=== PATIENT | female | born 1940 | race African-American/Black ===

== ENCOUNTER 2016-10-14 08:15 | Inpatient (IN) ==
[2016-10-14 08:54] LABS: Prothrombin Time 10.5 Seconds (9.4-12.1)
[2016-10-14 09:03] LABS: Calcium 9.7 mg/dL (8.6-10.8); Potassium 5.1 mEq/L (3.5-4.5)
[2016-10-14 09:12] LABS: Basophils % 0.2 %; Eosinophils # 0.1 K/mcL (0.0-0.6); Eosinophils % 1.7 %; Hematocrit 32.9 % (35.3-44.9); Hemoglobin 10.3 g/dL (11.5-15.4); Immature Granulocytes % 0.3 % (0-4); Immature Platelets 2.2 % (1.1-6.1); Lymphocytes # 0.9 K/mcL (0.6-4.6); Lymphocytes % 13.4 %; Mean Corpuscular HGB Conc 31.3 g/dL (31.6-35.5); Mean Corpuscular Hemoglobin 29.4 pg (28.0-33.3); Mean Platelet Volume 10.4 fL (9.4-12.4); Monocytes # 0.2 K/mcL (0.0-1.3); Monocytes % 3.5 %; Neutrophils # 5.3 K/mcL (1.6-8.9); Platelet Count 161 K/mcL (140-400); Red Cell Distribution Width 17.2 % (11.5-14.5); Segmented Neutrophils % 80.9 %
[2016-10-14] MEDS ORDERED: Aspirin 325 MG TABLET PO ONE (10:18)
[2016-10-14] MEDS ORDERED: Nitroglycerin 1 INCH/GM PACKET TP ONE (10:18)
[2016-10-14] MEDS ORDERED: Furosemide 80 MG in 0.9 % Sodium Chloride 50 ML IVPB ONE (10:24)
[2016-10-14] MEDS ORDERED: 0.9 % Sodium Chloride 1,000 ML IVC SCH (10:30)
[2016-10-14] MEDS: Nitroglycerin 25 MG/250 ML INFUS..BTL IVC SCH ×2 (10:31→18:12)
[2016-10-14 10:48] LABS: ABG Base Excess -7.1 mEq/L (-2.0 to 3.0); ABG HCO3 18.7 mEQ/L (21-27); ABG Oxygen Saturation 96 % (95-98); ABG PCO2 38 mmHg (35-45); ABG PO2 87 mmHg (85-104); ABG TCO2 19.9 mEq/L (20-26)
[2016-10-14 10:51] LABS: Blood Gas FiO2 40 %
--- NOTE | 2016-10-14 15:37 | Emergency Department Note ---
Disposition Clinical Impression: Flash pulmonary edema Disposition: Transfer Other Condition: Good Referrals: Griffin Ochoa MD [Primary Care Provider] - Forms: ED Satisfaction Letter Chest Pain HPI - General Chief Complaint: ED Chest Pain Stated Complaint: CP/low BP Source: patient, EMS Limitations: no limitations Vital Signs Reviewed: Yes Nursing Notes Reviewed: Yes - History of Present Illness HPI Narrative: This is a 76-year-old female presents from a nursing facility with concern for chest pain. Ultimately she has pain which is pressure like going into her neck which started acutely this morning. The senior living reported that she was hypotensive. She was not hypotensive on arrival here. She actually looked quite well on arrival here. She has complaints of mild dyspnea accompanying with her chest pain. Severity scale (1-10): 0 - Related Data Home Medications Medication Instructions Recorded Confirmed Aspirin [Lo-Dose Aspirin EC] 81 mg PO DAILY 06/12/16 10/14/16 Atorvastatin [Lipitor] 80 mg PO HS 06/12/16 10/14/16 BuPROPion SR (12 HR) [Wellbutrin 150 mg PO BID 06/12/16 10/14/16 SR] Cholecalciferol (D-3) [Vitamin D] 5,000 unit PO DAILY 06/12/16 10/14/16 Clopidogrel [Plavix] 75 mg PO DAILY 06/12/16 10/14/16 Cyanocobalamin (Vitamin B-12) 1,000 mcg SL DAILY 06/12/16 10/14/16 [Vitamin B-12] Furosemide [Lasix] 20 mg PO DAILY 06/12/16 10/14/16 Glimepiride [Amaryl] 1 mg PO DAILY 06/12/16 10/14/16 Lisinopril [Zestril] 40 mg PO DAILY 06/12/16 10/14/16 Oxybutynin Chloride [Ditropan Xl] 5 mg PO DAILY 06/12/16 10/14/16 hydroCHLOROthiazide 12.5 mg PO DAILY 06/12/16 10/14/16 [Hydrochlorothiazide] Carvedilol 3.125 mg PO BID 10/14/16 10/14/16 Isosorbide DInitrate [Isosorbide 10 mg PO TID 10/14/16 10/14/16 Dinitrate] Potassium Chloride [K-Tab ER] 10 meq PO DAILY 10/14/16 10/14/16 Sodium Bicarbonate 650 mg PO BID 10/14/16 10/14/16 hydrALAZINE [HydrALAZINE] 10 mg PO TID 10/14/16 10/14/16 Allergies Allergy/AdvReac Type Severity Reaction Status Date / Time Penicillins Allergy Hives Verified 06/12/16 14:36 Chest Pain PMH - Past Medical History Medical history: Reports: COPD, diabetes, GERD, hyperlipidemia, hypertension, myocardial infarction, renal disease Psychiatric history: Reports: anxiety - Social History Smoking Status: Former smoker Alcohol use: Reports: none Drug use: Reports: none Physical Exam - General Limitations: no limitations General appearance: alert Course Vital Signs O2 Sat by Pulse Oximetry 94 10/14/16 08:20 Temperature 98.0 F 10/14/16 08:29 Pulse Rate 82 10/14/16 16:44 Respiratory Rate 18 10/14/16 16:44 Blood Pressure 124/73 10/14/16 16:44 O2 Sat by Pulse Oximetry 100 10/14/16 16:44 Oxygen Delivery Oxygen Delivery Bipap Chest Pain - MDM Narrative Medical decision making narrative: During her departmental stay she experienced flash pulmonary edema and required emergent BiPAP placement. She was started on high dose nitroglycerin infusion. Furosemide as well as Villalobos catheter was placed. Arouse very status improved on BiPAP as well as with nitroglycerin administration. Cardiac biomarkers were trended and showed some elevation however this likely represents underlying heart failure. A stat bedside echocardiogram was performed to rule out possible pulmonary embolism given acute decompensation. There is no evidence of heart strain on bedside echo. EKG shows new right bundle-branch block. I did discuss this case with the on-call cardiology rn who does not feel this patient has a catheter lab candidate at this time. Plan for supportive care, cardiology consultation. I did admit the patient to the intensive care unit however the intensivists discussed the case with the family and the family would like to transfer to [facility] for further evaluation. The patient be transferred via MICU to [facility] after discussion with the [facility] transfer center. EKG at time of transfer shows sinus rhythm with right bundle branch block and nonspecific ST segment changes. The proBNP was found to be elevated. After the discussion with the ocean freight forwarder and disposition for transfer a bed was not available to [facility] and the family did not want the patient transported to their emergency department. I discussed with the family that the patient could be admitted here and they do not want to have the patient transferred to [facility] any longer. We will admit to the hospitalist service. The patient will go to [facility]. - Medical Records Medical records reviewed: Yes I reviewed the patient's medical records. - Lab Data Lab results reviewed: Yes I reviewed the patient's lab results. Result diagrams: 10/14/16 08:40 10/14/16 08:40 Lab Results 10/14/16 10/14/16 10/14/16 Range/Units 08:40 08:40 08:40 WBC 6.5 (4.3-11.1) K/mcL RBC 3.50 L (3.82-4.97) M/mcL Hgb 10.3 L (11.5-15.4) g/dL Hct 32.9 L (35.3-44.9) % MCV 94.0 (83.0-100.0) fL MCH 29.4 (28.0-33.3) pg MCHC 31.3 L (31.6-35.5) g/dL RDW 17.2 H (11.5-14.5) % Plt Count 161 (140-400) K/mcL MPV 10.4 (9.4-12.4) fL Immature Gran % 0.3 (0-4) % Seg Neutrophils % 80.9 % Lymphocytes % 13.4 % Monocytes % 3.5 % Eosinophils % 1.7 % Basophils % 0.2 % Neutrophils # 5.3 (1.6-8.9) K/mcL Lymphocytes # 0.9 (0.6-4.6) K/mcL Monocytes # 0.2 (0.0-1.3) K/mcL Eosinophils # 0.1 (0.0-0.6) K/mcL Basophils # 0.0 (0.0-0.2) K/mcL Immature Plt Fraction 2.2 (1.1-6.1) % PT 10.5 (9.4-12.1) Seconds INR 1.0 APTT 28.0 (26.0-36.0) Seconds ABG pH (7.32-7.45) pH Units ABG pCO2 (35-45) mmHg ABG pO2 (85-104) mmHg ABG HCO3 (21-27) mEQ/L ABG Total CO2 (20-26) mEq/L ABG O2 Saturation (95-98) % ABG Base Excess (-2.0 to 3.0) mEq/L Blood Gas Modality Inspired O2 % Sodium (136-145) mEq/L Potassium (3.5-4.5) mEq/L Chloride (98-109) mEq/L Carbon Dioxide (19-29) mEq/L BUN (7-20) mg/dL Creatinine (0.57-1.11) mg/dL Est GFR ( Amer) (> 60) Est GFR (Non-Af Amer) (> 60) BUN/Creatinine Ratio (6-26) Glucose (70-99) mg/dL Calculated Osmolality (280-300) Calcium (8.6-10.8) mg/dL Troponin I (0-0.03) ng/mL B-Natriuretic Peptide 2148 H (0-100) pg/mL Lipase (8-78) Units/L 10/14/16 10/14/16 10/14/16 Range/Units 08:40 08:40 10:40 WBC (4.3-11.1) K/mcL RBC (3.82-4.97) M/mcL Hgb (11.5-15.4) g/dL Hct (35.3-44.9) % MCV (83.0-100.0) fL MCH (28.0-33.3) pg MCHC (31.6-35.5) g/dL RDW (11.5-14.5) % Plt Count (140-400) K/mcL MPV (9.4-12.4) fL Immature Gran % (0-4) % Seg Neutrophils % % Lymphocytes % % Monocytes % % Eosinophils % % Basophils % % Neutrophils # (1.6-8.9) K/mcL Lymphocytes # (0.6-4.6) K/mcL Monocytes # (0.0-1.3) K/mcL Eosinophils # (0.0-0.6) K/mcL Basophils # (0.0-0.2) K/mcL Immature Plt Fraction (1.1-6.1) % PT (9.4-12.1) Seconds INR APTT (26.0-36.0) Seconds ABG pH 7.30 L (7.32-7.45) pH Units ABG pCO2 38 (35-45) mmHg ABG pO2 87 (85-104) mmHg ABG HCO3 18.7 L (21-27) mEQ/L ABG Total CO2 19.9 L (20-26) mEq/L ABG O2 Saturation 96 (95-98) % ABG Base Excess -7.1 L (-2.0 to 3.0) mEq/L Blood Gas Modality ST Inspired O2 40 % Sodium 138 (136-145) mEq/L Potassium 5.1 H (3.5-4.5) mEq/L Chloride 108 (98-109) mEq/L Carbon Dioxide 21 (19-29) mEq/L BUN 28 H (7-20) mg/dL Creatinine 1.89 H (0.57-1.11) mg/dL Est GFR ( Amer) 31 L (> 60) Est GFR (Non-Af Amer) 26 L (> 60) BUN/Creatinine Ratio 15 (6-26) Glucose 253 H (70-99) mg/dL Calculated Osmolality 300 (280-300) Calcium 9.7 (8.6-10.8) mg/dL Troponin I 0.05 H* (0-0.03) ng/mL B-Natriuretic Peptide (0-100) pg/mL Lipase 18 (8-78) Units/L 10/14/ Range/Units 10:42 WBC (4.3-11.1) K/mcL RBC (3.82-4.97) M/mcL Hgb (11.5-15.4) g/dL Hct (35.3-44.9) % MCV (83.0-100.0) fL MCH (28.0-33.3) pg MCHC (31.6-35.5) g/dL RDW (11.5-14.5) % Plt Count (140-400) K/mcL MPV (9.4-12.4) fL Immature Gran % (0-4) % Seg Neutrophils % % Lymphocytes % % Monocytes % % Eosinophils % % Basophils % % Neutrophils # (1.6-8.9) K/mcL Lymphocytes # (0.6-4.6) K/mcL Monocytes # (0.0-1.3) K/mcL Eosinophils # (0.0-0.6) K/mcL Basophils # (0.0-0.2) K/mcL Immature Plt Fraction (1.1-6.1) % PT (9.4-12.1) Seconds INR APTT (26.0-36.0) Seconds ABG pH (7.32-7.45) pH Units ABG pCO2 (35-45) mmHg ABG pO2 (85-104) mmHg ABG HCO3 (21-27) mEQ/L ABG Total CO2 (20-26) mEq/L ABG O2 Saturation (95-98) % ABG Base Excess (-2.0 to 3.0) mEq/L Blood Gas Modality Inspired O2 % Sodium (136-145) mEq/L Potassium (3.5-4.5) mEq/L Chloride (98-109) mEq/L Carbon Dioxide (19-29) mEq/L BUN (7-20) mg/dL Creatinine (0.57-1.11) mg/dL Est GFR ( Amer) (> 60) Est GFR (Non-Af Amer) (> 60) BUN/Creatinine Ratio (6-26) Glucose (70-99) mg/dL Calculated Osmolality (280-300) Calcium (8.6-10.8) mg/dL Troponin I 0.10 H* (0-0.03) ng/mL B-Natriuretic Peptide (0-100) pg/mL Lipase (8-78) Units/L - Radiology Data Radiology results reviewed: Yes I reviewed the patient's radiology results. Critical Care Time Total Critical Care Time: 35 Attestation: Greater than 35 minutes of critical care time was spent resuscitating this acutely ill patient suffering from flash pulmonary edema requiring emergent BiPAP placement for hypoxemia. This is excluding billable procedures.
[2016-10-14] MEDS ORDERED: Acetaminophen 325 MG TABLET PO PRN (20:32)
[2016-10-14] MEDS ORDERED: Naloxone 0.4 MG/ML INJ IVP PRN (20:32)
[2016-10-14] MEDS ORDERED: *HR* Heparin 5,000 UNIT/ML VIAL IVP PRN ×2 (20:49)
[2016-10-14] MEDS ORDERED: *HR* Heparin 5,000 UNIT/ML VIAL IVP ONE (20:49)
--- NOTE | 2016-10-14 20:51 | Electrocardiograph Report ---
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
[2016-10-14] MEDS ORDERED: *HR* Dextrose 50 % in Water (Syg) 50 ML SYRINGE IVP PRN (20:54)
[2016-10-14] MEDS ORDERED: D5% in Water 1,000 ML IVC PRN (20:54)
[2016-10-14] MEDS ORDERED: Dextrose Gel 15 GM PO PRN ×2 (20:54)
--- NOTE | 2016-10-14 20:54 | Electrocardiograph Report ---
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
[2016-10-14] MEDS ORDERED: Heparin 25,000 UNIT/500 ML D5W 25,000 UNIT/500 ML MLS IVC SCH (21:00)
[2016-10-14] MEDS ORDERED: Furosemide 40 MG/4 ML VIAL IVP SCH (21:00)
[2016-10-14 21:09] LABS: Hematocrit 28.3 % (35.3-44.9); Mean Corpuscular HGB Conc 31.8 g/dL (31.6-35.5); Mean Corpuscular Hemoglobin 29.9 pg (28.0-33.3); Mean Platelet Volume 10.5 fL (9.4-12.4); Platelet Count 135 K/mcL (140-400); Red Blood Count 3.01 M/mcL (3.82-4.97); Red Cell Distribution Width 16.8 % (11.5-14.5)
[2016-10-14 21:19] LABS: Prothrombin Time 10.8 Seconds (9.4-12.1)
[2016-10-14 21:22] LABS: Activated Partial Thrombo Time 26.3 Seconds (26.0-36.0)
[2016-10-14] MEDS: Insulin LISPRO 300 UNITS/3 ML VIAL SQ SCH (21:27)
[2016-10-14] MEDS: BuPROPion SR (12 HR) 150 MG TABLET PO SCH (21:52)
[2016-10-15] MEDS: Nitroglycerin 25 MG/250 ML INFUS..BTL IVC SCH ×5 (02:30→13:30)
--- NOTE | 2016-10-15 02:48 | Internal Med History&Physical ---
Date of Encounter: 10/14/16 Time of Encounter: 20:00 Assessment and Plan (1) NSTEMI (non-ST elevated myocardial infarction) Current visit: Yes Status: Acute Patient has typical chest pain. Elevated troponin 0.05/0.1/5.99. Consider NSTEMI - We will continue NTG drip. Patient is pain-free right now with NTG drip. - Start a low-dose heparin drip. - Patient has developed EKG changes with new RBBB presented on her second EKG, which disappeared on the third EKG. Counseled the cardiology auto parts professional doctor, recommended continue heparin drip. - Continue cardiac monitoring. - Cardiology will see patient in a.m. Patient is at high risk because she is on heparin drip and NTG drip, need close monitoring. (2) CHF exacerbation Current visit: Yes Status: Acute Patient has increased shortness of breath. Echo shows LVEF 15-20% with hypokinesia. No previous echo available to compare. Acute CHF versus CHF exacerbation. - We will also obtain [facility] medical record. - Continue Lasix, strict I and O, fluid restriction. - Cardiology consult. 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 Monitor blood pressure. Qualifiers: Hypertension type: essential hypertension Qualified Code(s): I10 - Essential (primary) hypertension (5) CAD (coronary artery disease) Current visit: Yes Status: Acute We will continue aspirin, Plavix, beta pretty, and statin. Qualifiers: Coronary Disease-Associated Artery/Lesion type: [place] artery [place] vs. transplanted heart: [place] heart Associated angina: with unstable angina Qualified Code(s): I25.110 - Atherosclerotic heart disease of [place] coronary artery with unstable angina pectoris (6) DVT prophylaxis Current visit: Yes Status: Acute Patient is on heparin drip Internal Medicine - H&P: HPI Chief complaint: Chest pain Admitted From: Home Plans for Post Hospital Care: Home History of present illness: Ms. Daugherty is a 76 year old female with history of CAD S/P stent, diabetes, hypertension, PVD S/P amputation presented to ER for chest pain. Patient said the pain started suddenly at 5 AM, located on left chest, sharp, 10 out of 10, intermittent ,last about 15 minutes. Patient has severe shortness of breath, nausea when she has pain. The chest pain responded well to nitroglycerin. Patient has recent LHC in [facility] 3 weeks ago, with " bolloon" procedure. Patient was placed on temporary external pacemaker/defibrillator by [facility]. In the emergency room, she was found LVEF 15-20% by echo, elevated BNP. Patient was given Lasix 80 mg IV and her symptoms has improved. Patient was placed on NTG drip and admitted for further management. Past Med Surg Social Fam HX - Past Medical History Medical history: COPD, diabetes, GERD, hyperlipidemia, hypertension, myocardial infarction, renal disease Psychiatric history: anxiety - Past Surgical History Surgical History: cholecystectomy - Social History Smoking Status: Former smoker Smokeless Tobacco Status: No Alcohol use: none Drug use: none - Family History Mother Hx Family Endocrine Disorder: Yes Internal Medicine - H&P: Meds Aspirin [Lo-Dose Aspirin EC] 81 mg PO DAILY 06/12/16 [History] Atorvastatin [Lipitor] 80 mg PO HS 06/12/16 [History] BuPROPion SR (12 HR) [Wellbutrin SR] 150 mg PO BID 06/12/16 [History] Cholecalciferol (D-3) [Vitamin D] 5,000 unit PO DAILY 06/12/16 [History] Clopidogrel [Plavix] 75 mg PO DAILY 06/12/16 [History] Cyanocobalamin (Vitamin B-12) [Vitamin B-12] 1,000 mcg SL DAILY 06/12/16 [ History] Furosemide [Lasix] 20 mg PO DAILY 06/12/16 [History] Glimepiride [Amaryl] 1 mg PO DAILY 06/12/16 [History] Lisinopril [Zestril] 40 mg PO DAILY 06/12/16 [History] Oxybutynin Chloride [Ditropan Xl] 5 mg PO DAILY 06/12/16 [History] hydroCHLOROthiazide [Hydrochlorothiazide] 12.5 mg PO DAILY 06/12/16 [History] Carvedilol 3.125 mg PO BID 10/14/16 [History] Isosorbide DInitrate [Isosorbide Dinitrate] 10 mg PO TID 10/14/16 [History] Potassium Chloride [K-Tab ER] 10 meq PO DAILY 10/14/16 [History] Sodium Bicarbonate 650 mg PO BID 10/14/16 [History] hydrALAZINE [HydrALAZINE] 10 mg PO TID 10/14/16 [History] 3 Allergy/AdvReac Type Severity Reaction Status Date / Time Penicillins Allergy Hives Verified 06/12/16 14:36 All Systems PM: A 10-system review of systems was performed and is negative for pertinent findings except as documented above in the HPI. - Constitutional Vitals: Temp Pulse Resp BP Pulse Ox 98.2 F 89 16 115/65 99 10/15/16 00:42 10/15/16 00:42 10/15/16 00:42 10/15/16 00:42 10/15/16 00:42 General appearance: Present: A&O X 3, no acute distress, answers questions appropriately - Head Head exam: Present: atraumatic, normocephalic - Eye Eye exam: Present: PERRL, conjuntiva pink, sclera anicteric Pupils: Present: PERRL - Neck Neck exam general surgery: Present: supple, trachea midline. Absent: lymphadenopathy - Respiratory Respiratory exam: Present: CTAB. Absent: accessory muscle use, rales, rhonchi, wheezes - Cardiovascular Cardiovascular exam: Present: RRR, +S1, +S2. Absent: diastolic murmur, gallop, rubs, systolic murmur - GI/Abdominal GI/Abdominal exam: Present: normal bowel sounds, soft, no peritoneal signs. Absent: distended, tenderness - Extremities Exam Extremities exam: Present: pedal edema (mild pedal edema bilaterally), warm, radial pulses palpable and symmetrical. Absent: calf tenderness, cyanotic - Neurological Exam Neurological exam: Present: CN II-XII intact, oriented X3, no focal deficits. Absent: pronater drift, facial droop, speech deficit - Skin Skin exam: Present: dry, intact Internal Med - H&P Results - Labs CBC & Chem 7: 10/14/16 20:52 10/14/16 08:40 Labs: Short CBC 10/14/16 Range/Units 20:52 WBC 6.6 (4.3-11.1) K/mcL Hgb 9.0 L (11.5-15.4) g/dL Hct 28.3 L (35.3-44.9) % Plt Count 135 L (140-400) K/mcL Cardiac Enzymes 10/14/16 Range/Units 20:52 Troponin I 5.99 H* (0-0.03) ng/mL - EKG Data -: EKG Interpreted by Myself EKG shows normal: sinus rhythm Rate: tachycardia
[2016-10-15 04:32] LABS: Basophils % 0.2 %; Eosinophils # 0.1 K/mcL (0.0-0.6); Eosinophils % 1.3 %; Hematocrit 24.8 % (35.3-44.9); Hemoglobin 7.8 g/dL (11.5-15.4); Immature Granulocytes % 0.2 % (0-4); Lymphocytes # 0.8 K/mcL (0.6-4.6); Lymphocytes % 17.7 %; Mean Corpuscular HGB Conc 31.5 g/dL (31.6-35.5); Mean Corpuscular Hemoglobin 29.4 pg (28.0-33.3); Mean Corpuscular Volume 93.6 fL (83.0-100.0); Mean Platelet Volume 10.7 fL (9.4-12.4); Monocytes # 0.4 K/mcL (0.0-1.3); Monocytes % 7.7 %; Neutrophils # 3.4 K/mcL (1.6-8.9); Platelet Count 121 K/mcL (140-400); Red Blood Count 2.65 M/mcL (3.82-4.97); Red Cell Distribution Width 17.2 % (11.5-14.5); Segmented Neutrophils % 72.9 %
[2016-10-15 04:44] LABS: Calcium 8.9 mg/dL (8.6-10.8); Potassium 4.8 mEq/L (3.5-4.5)
[2016-10-15] MEDS: Cholecalciferol (D-3) 1,000 UNIT TABLET PO SCH (08:21)
[2016-10-15] MEDS: Cyanocobalamin (B-12) 1,000 MCG TABLET PO SCH (08:21)
[2016-10-15] MEDS: Aspirin Enteric Coated 81 MG Tablet PO SCH (08:22)
[2016-10-15] MEDS: BuPROPion SR (12 HR) 150 MG TABLET PO SCH ×2 (08:22→20:21)
[2016-10-15] MEDS: Insulin LISPRO 300 UNITS/3 ML VIAL SQ SCH ×4 (08:30→20:29)
[2016-10-15] MEDS: Furosemide 40 MG/4 ML VIAL IVP SCH ×2 (09:04→17:17)
--- NOTE | 2016-10-15 11:29 | Cardiology Consult Note ---
Date of Encounter: 10/15/16 Time of Encounter: 10:45 Assessment and Plan (1) NSTEMI (non-ST elevated myocardial infarction) Current Visit: Yes Status: Acute - Elevated toponin, downtrending 3.4 most recently (0.05/0.1/5.99) - Likely demand ischemia given recent PCI, CHF exacerbation - No evidence of ST elevation on EKG - PCI with stent placement at [facility] 3 weeks ago, discharged with life vest. - Continue ASA, plavix, BB, statin (2) CHF exacerbation Current Visit: Yes Status: Acute - Known history of severe HFrEF - BNP elevated on admission - Echo done in ED Showed EF 15-20% with severe hypokinesis in LV. Small pericardial effusion - Recieved lasix in ED, continue 40 mg IV BID. Fluid restriction 1.5L, strict I/ Os. Qualifiers: Congestive heart failure type: systolic Qualified Code(s): I50.23 - Acute on chronic systolic (congestive) heart failure (3) CAD (coronary artery disease) Current Visit: Yes Status: Chronic - as above - Continue ASA, plavix, BB, statin Qualifiers: Coronary Disease-Associated Artery/Lesion type: [place] artery [place] vs. 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 All questions were answered. Thank you for involving us in the care of your patient. Please call with any questions. History of Present Illness Consult date: 10/15/16 Consult reason: NSTEMI, CHF exacerbation Chief complaint: CP and short of breath History of present illness: Ms. Daugherty is a 76 year old female who presents with CP and dyspnea at rest. PMHx of DM, HTN, CAD with [place] s/p stenting, HLD, COPD. She had a recent PCI with stent at [facility] 3 weeks ago and was discharged with a lifevest. In ED, patient had EKG showing Left axis deviation, pattern consistenting with pulmonary disease, ST deviation without elevation. Troponin was elevated and trended (0.05/ 0.10/ 5.99/3.4). BNP was elevated. She was given BiPAP in ED with good resolution of hypoxemia. She received lasix, bedside echo showing EF 15-20%, severe LV hypokinesia, and a small pericardial effusion. She was admitted to medicine service for NSTEMI and acute CHF vs exacerbation. Past Med Surg Social Fam HX - Past Medical History Medical history: COPD, diabetes, GERD, hyperlipidemia, hypertension, myocardial infarction, renal disease Psychiatric history: anxiety - Past Surgical History Surgical History: cholecystectomy - Social History Smoking Status: Former smoker Smokeless Tobacco Status: No Alcohol use: none Drug use: none - Family History Mother Hx Family Endocrine Disorder: Yes Medications and Allergies Aspirin [Lo-Dose Aspirin EC] 81 mg PO DAILY 06/12/16 [History] Atorvastatin [Lipitor] 80 mg PO HS 06/12/16 [History] BuPROPion SR (12 HR) [Wellbutrin SR] 150 mg PO BID 06/12/16 [History] Cholecalciferol (D-3) [Vitamin D] 5,000 unit PO DAILY 06/12/16 [History] Clopidogrel [Plavix] 75 mg PO DAILY 06/12/16 [History] Cyanocobalamin (Vitamin B-12) [Vitamin B-12] 1,000 mcg SL DAILY 06/12/16 [ History] Furosemide [Lasix] 20 mg PO DAILY 06/12/16 [History] Glimepiride [Amaryl] 1 mg PO DAILY 06/12/16 [History] Lisinopril [Zestril] 40 mg PO DAILY 06/12/16 [History] Oxybutynin Chloride [Ditropan Xl] 5 mg PO DAILY 06/12/16 [History] hydroCHLOROthiazide [Hydrochlorothiazide] 12.5 mg PO DAILY 06/12/16 [History] Carvedilol 3.125 mg PO BID 10/14/16 [History] Isosorbide DInitrate [Isosorbide Dinitrate] 10 mg PO TID 10/14/16 [History] Potassium Chloride [K-Tab ER] 10 meq PO DAILY 10/14/16 [History] Sodium Bicarbonate 650 mg PO BID 10/14/16 [History] hydrALAZINE [HydrALAZINE] 10 mg PO TID 10/14/16 [History] 3 Allergy/AdvReac Type Severity Reaction Status Date / Time Penicillins Allergy Hives Verified 06/12/16 14:36 All Systems Review: A 10-system review of systems was performed and is negative for pertinent findings except as documented above in the HPI. - Constitutional Constitutional: no chills, no fever(s), no night sweats - Cardiovascular Cardiovascular: as per HPI, chest pain at rest, dyspnea at rest, dyspnea on exertion - Respiratory Respiratory: cough (white sputum), dyspnea Physical Examination Vital Signs, Last 4 Hours Temp Pulse BP Pulse Ox 10/15/16 11:20 97.6 F 82 121/57 96 10/15/16 07:48 98.1 F 81 126/59 94 General: Conversant, No Apparent Distress HEENT: Atraumatic, Normocephaly Cardiac: Reg Rate and Rhythm, No Murmur Lungs: Normal Breath Sounds, No Wheeze, Rales, Rhonchi Neuro: Alert and responsive, No focal deficits noted Skin: No rashes noted on visualized skin Musculoskeletal: No Chest Wall Tenderness Extremities: 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), Normal Pulses (radial pulses palpable and equal ) Results 10/15/16 20:57 10/15/16 04:10 Lab Results 10/14/16 10/14/16 10/14/16 20:52 20:52 20:52 WBC 6.6 Hgb 9.0 L Hct 28.3 L Plt Count 135 L INR 1.0 APTT 26.3 Sodium Potassium Chloride Carbon Dioxide BUN Creatinine Glucose Calcium Troponin I 5.99 H* 10/15/16 10/15/16 10/15/16 04:10 04:10 04:10 WBC 4.7 Hgb 7.8 L Hct 24.8 L Plt Count 121 L INR APTT Sodium 137 Potassium 4.8 H Chloride 105 Carbon Dioxide 27 BUN 34 H Creatinine 2.07 H Glucose 312 H Calcium 8.9 Troponin I 3.40 H* 10/15/16 10/15/16 04:10 10:00 WBC Hgb Hct Plt Count INR APTT 84.7 H D 69.2 H Sodium Potassium Chloride Carbon Dioxide BUN Creatinine Glucose Calcium Troponin I Consult Discharge Plan - Plan Referrals: Griffin Ochoa MD [Primary Care Provider] - (SENT WEB REQUEST ON 10-15-16 @ 2743)
--- NOTE | 2016-10-15 12:45 | Event Note ---
Date of Encounter: 10/15/16 Time of Encounter: 12:30 - Cardiology Event Note CHF exacerbation w demand ischemia troponin elevation, known severe systolic CHF. Recent PCI and has been getting her aspirin/plavix daily. No recurrence in angina and dyspnea resolved after diuresis. SNF had her on high sodium diet - potato chips, 6 strips ralph w breakfast, etc that seems to have precipitated CHF. Acceptable for dc today from cardiac standpoint.
--- NOTE | 2016-10-15 16:41 | Electrocardiograph Report ---
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
[2016-10-15 21:05] LABS: Hematocrit 26.6 % (35.3-44.9); Hemoglobin 8.6 g/dL (11.5-15.4)
[2016-10-16 05:21] LABS: Hematocrit 27.5 % (35.3-44.9); Hemoglobin 8.9 g/dL (11.5-15.4); Mean Corpuscular HGB Conc 32.4 g/dL (31.6-35.5); Mean Corpuscular Hemoglobin 30.2 pg (28.0-33.3); Mean Corpuscular Volume 93.2 fL (83.0-100.0); Platelet Count 120 K/mcL (140-400); Red Blood Count 2.95 M/mcL (3.82-4.97); Red Cell Distribution Width 17.1 % (11.5-14.5)
[2016-10-16 05:34] LABS: Calcium 9.4 mg/dL (8.6-10.8)
[2016-10-16 07:45] VITALS: BP 138/71
--- NOTE | 2016-10-16 08:09 | Internal Med Progress Note ---
Date of Encounter: 10/16/16 Time of Encounter: 08:07 - Assessment and plan (1) Flash pulmonary edema Current Visit: Yes Status: Acute Assessment and plan: Acute pulmonary edema secondary to acute systolic CHF exacerbation Was having a high sodium diet Chest x-ray showed mid left basilar atelectasis or infiltrate, chronic interstitial changes, vascular congestion Was evaluated by cardiology, echocardiogram shows an ejection fraction of 15-20% Continue IV Lasix, strict I's and O's and daily weight The patient is wearing a LifeVest (2) CHF exacerbation Current Visit: Yes Status: Acute Qualifiers: Congestive heart failure type: systolic Qualified Code(s): I50.23 - Acute on chronic systolic (congestive) heart failure (3) Diabetes Current Visit: Yes Status: Chronic Assessment and plan: Continue insulin sliding scale Qualifiers: Diabetes mellitus type: type 2 Diabetes mellitus complication status: without complication Diabetes mellitus care home insulin use: without care home use Qualified Code(s): E11.9 - Type 2 diabetes mellitus without complications (4) CAD (coronary artery disease) Current Visit: Yes Status: Chronic Assessment and plan: Continue aspirin, Plavix, Lipitor, carvedilol Qualifiers: Coronary Disease-Associated Artery/Lesion type: [place] artery [place] vs. transplanted heart: [place] heart Associated angina: with unstable angina Qualified Code(s): I25.110 - Atherosclerotic heart disease of [place] coronary artery with unstable angina pectoris (5) Chronic kidney disease, stage IV (severe) Current Visit: Yes Status: Acute (6) Elevated troponin Current Visit: Yes Status: Acute Assessment and plan: Secondary to demand ischemia - Subjective Interval history: Feeling less short of breath, denies any chest pain, no abdominal pain, no dysuria, fatigue, no diarrhea or fevers - Constitutional Vitals: Temp Pulse Resp BP Pulse Ox 98.2 F 73 16 138/71 98 10/16/16 07:40 10/16/16 07:40 10/16/16 07:40 10/16/16 07:40 10/16/16 07:40 General appearance: Present: A&O X 3, no acute distress, answers questions appropriately - Head Head exam: Present: atraumatic, normocephalic - Eye Eye exam: Present: PERRL, conjuntiva pink, sclera anicteric Pupils: Present: PERRL - Neck Neck exam general surgery: Present: supple, trachea midline. Absent: lymphadenopathy - Respiratory Respiratory exam: Present: CTAB, rales (Fine bibasilar crackles). Absent: accessory muscle use, rhonchi, wheezes - Cardiovascular Cardiovascular exam: Present: RRR, +S1, +S2. Absent: diastolic murmur, gallop, rubs, systolic murmur - GI/Abdominal GI/Abdominal exam: Present: distended, normal bowel sounds, soft, no peritoneal signs. Absent: tenderness - Extremities Exam Extremities exam: Present: warm, radial pulses palpable and symmetrical. Absent : calf tenderness, cyanotic, pedal edema - Neurological Exam Neurological exam: Present: CN II-XII intact, oriented X3, no focal deficits. Absent: pronater drift, facial droop, speech deficit - Skin Skin exam: Present: dry, intact Additional comments: Left below the knee amputation, right lower extremity toes amputation Internal Medicine: Result - Labs CBC & Chem 7: 10/16/16 05:13 10/16/16 05:13 Labs: Short CBC 10/15/16 10/16/16 Range/Units 20:57 05:13 WBC 3.5 L (4.3-11.1) K/mcL Hgb 8.6 L 8.9 L (11.5-15.4) g/dL Hct 26.6 L 27.5 L (35.3-44.9) % Plt Count 120 L (140-400) K/mcL BMP 10/16/16 05:13 Sodium 141 Potassium 4.0 Chloride 106 Carbon Dioxide 27 BUN 33 H Creatinine 2.02 H Glucose 117 H Calcium 9.4 - ABG Interpretation ABG results: ABG ABG pH 7.30 pH Units (7.32-7.45) L 10/14/16 10:40 ABG pCO2 38 mmHg (35-45) 10/14/16 10:40 ABG pO2 87 mmHg (85-104) 10/14/16 10:40 ABG O2 Saturation 96 % (95-98) 10/14/16 10:40 PT/INR, D-dimer PT 10.8 Seconds (9.4-12.1) 10/14/16 20:52 - VTE Documentation of Mechanical Device: Intermittent pneumatic compression device Consult Discharge Plan - Plan Referrals: Griffin Ochoa MD [Primary Care Provider] - (SENT WEB REQUEST ON 10-15-16 @ 3036)
[2016-10-16] MEDS: BuPROPion SR (12 HR) 150 MG TABLET PO SCH (08:45)
[2016-10-16] MEDS: Aspirin Enteric Coated 81 MG Tablet PO SCH (08:45)
[2016-10-16] MEDS: Furosemide 40 MG/4 ML VIAL IVP SCH (08:46)
[2016-10-16] MEDS: Cholecalciferol (D-3) 1,000 UNIT TABLET PO SCH (08:46)
[2016-10-16] MEDS: Cyanocobalamin (B-12) 1,000 MCG TABLET PO SCH (08:46)
[2016-10-16] MEDS: Insulin LISPRO 300 UNITS/3 ML VIAL SQ SCH (08:47)
--- NOTE | 2016-10-16 09:51 | Discharge Summary ---
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 transplanted heart: [place] heart Associated angina: with unstable angina Qualified Code(s): I25.110 - Atherosclerotic heart disease of [place] coronary artery with unstable angina pectoris (5) Chronic kidney disease, stage IV (severe) Priority: Secondary Status: Acute (6) Elevated troponin Priority: Secondary Status: Acute Comments: Secondary to demand ischemia - Discharge Medications Prescriptions: Furosemide [Lasix] 20 mg PO BID #30 Home Medications: Aspirin [Lo-Dose Aspirin EC] 81 mg PO DAILY 06/12/16 [History] Atorvastatin [Lipitor] 80 mg PO HS 06/12/16 [History] BuPROPion SR (12 HR) [Wellbutrin SR] 150 mg PO BID 06/12/16 [History] Cholecalciferol (D-3) [Vitamin D] 5,000 unit PO DAILY 06/12/16 [History] Clopidogrel [Plavix] 75 mg PO DAILY 06/12/16 [History] Cyanocobalamin (Vitamin B-12) [Vitamin B-12] 1,000 mcg SL DAILY 06/12/16 [ History] Glimepiride [Amaryl] 1 mg PO DAILY 06/12/16 [History] Lisinopril [Zestril] 40 mg PO DAILY 06/12/16 [History] Oxybutynin Chloride [Ditropan Xl] 5 mg PO DAILY 06/12/16 [History] hydroCHLOROthiazide [Hydrochlorothiazide] 12.5 mg PO DAILY 06/12/16 [History] Carvedilol 3.125 mg PO BID 10/14/16 [History] Isosorbide DInitrate [Isosorbide Dinitrate] 10 mg PO TID 10/14/16 [History] Potassium Chloride [K-Tab ER] 10 meq PO DAILY 10/14/16 [History] Sodium Bicarbonate 650 mg PO BID 10/14/16 [History] hydrALAZINE [HydrALAZINE] 10 mg PO TID 10/14/16 [History] Furosemide [Lasix] 20 mg PO BID #30 10/16/16 [Rx] Allergies/Adverse Reactions: 3 Allergy/AdvReac Type Severity Reaction Status Date / Time Penicillins Allergy Hives Verified 06/12/16 14:36 Procedures/tests Complete & Pending: Procedures Performed prior 72 hours Category Date Time Status EKG [ECG 12 lead ECG] [ECG] Stat Y 10/14/16 21:15 Completed Date of admission: 10/14/16 17:53 Primary care physician: Griffin Ochoa MD Consults: 10/14/16 20:28 Consult to Nutrition [CONS] Routine Comment: Consulting Provider: NUTRITION Reason for Dietary Consult: MST Score Consult to [employer] [CONS] Routine Reason for SW Consult: ECF follow up. Pt not wanting to return to [facility]. 10/14/16 20:51 Consult to Cardiology [CONS] Routine Comment: Consulting Provider: Cardiology Na Reason for Consult: NSTEMI Call Completed: No 10/15/16 03:32 Consult to Wound Care [CONS] Routine Reason for Consult: Dressing change orders s/p right foot digit amputation. Call Completed: No - Patient Status Disposition: Transfer SNF Condition: Good Overall status at discharge: patient is progressing back to baseline - Discharge Instructions Follow Up With: Griffin Ochoa MD [Primary Care Provider] - 10/23/16 9:45 am () Additional Instructions: Follow-up with primary care physician within the next 7 days. Follow-up with cardiology within the next 2 weeks. Increased dose of Lasix to 20 mg twice a day. Fluid restriction of 1500 mL per day is recommended, decrease salt in diet. - Diet and Activity Activity: increase activity as tolerated Diet: diabetic diet, low salt diet Hospital course: Ms. Daugherty is a 76 year old female PMHx of DM not insulin-dependent, HTN, CAD with ND s/p stenting, HLD, COPD O 2 dep, who presented with CP and dyspnea at rest. She had a recent PCI with stent at [facility] 3 weeks ago and was discharged with a lifevest. In ED, patient had EKG showing Left axis deviation, pattern consistenting with pulmonary disease, ST deviation without elevation. Troponin was elevated and trended (0.05/ 0.10/ 5.99/3.4). BNP was elevated. She was started on BiPAP in the ED with good resolution of hypoxemia. She received lasix, bedside echo showing EF 15-20%, severe LV hypokinesia, and a small pericardial effusion. She was admitted to medicine service for NSTEMI and acute CHF exacerbation. Was having a high sodium diet at the facility. Chest x-ray showed mid left basilar atelectasis or infiltrate, chronic interstitial changes, vascular congestion Was evaluated by cardiology, echocardiogram showed an ejection fraction of 15-20 %. Patient was evaluated by cardiology, non-STEMI was ruled out. Patient was continued on Lasix is a stable to be discharged - Time Spent with Patient Total time spent providing and/or coordinating discharge services: Greater than 30 minutes (40 min) - Constitutional Vitals: Temp Pulse Resp BP Pulse Ox 98.2 F 73 16 138/71 98 10/16/16 07:40 10/16/16 07:40 10/16/16 07:40 10/16/16 07:40 10/16/16 07:40 General appearance: Present: A&O X 3, no acute distress, answers questions appropriately Exam: Head Head exam: Present: atraumatic, normocephalic - Eye Eye exam: Present: PERRL, conjuntiva pink, sclera anicteric Pupils: Present: PERRL - Neck Neck exam general surgery: Present: supple, trachea midline. Absent: lymphadenopathy - Respiratory Respiratory exam: Present: CTAB, rales (Fine bibasilar crackles). Absent: accessory muscle use, rhonchi, wheezes - Cardiovascular Cardiovascular exam: Present: RRR, +S1, +S2. Absent: diastolic murmur, gallop, rubs, systolic murmur - GI/Abdominal GI/Abdominal exam: Present: distended, normal bowel sounds, soft, no peritoneal signs. Absent: tenderness - Extremities Exam Extremities exam: Present: warm, radial pulses palpable and symmetrical. Absent : calf tenderness, cyanotic, pedal edema - Neurological Exam Neurological exam: Present: CN II-XII intact, oriented X3, no focal deficits. Absent: pronater drift, facial droop, speech deficit - Skin Skin exam: Present: dry, intact Additional comments: Left below the knee amputation, right lower extremity toes amputation - VTE Documentation of Mechanical Device: Intermittent pneumatic compression device
--- NOTE | 2016-10-16 09:58 | Physician Discharge Referral ---
ExtendedCare Referral Info Provider in Charge after Transfer: PCP Institutional Level of Care: Skilled - Diagnosis (1) Flash pulmonary edema Status: Acute (2) CHF exacerbation Status: Acute (3) Diabetes Status: Chronic (4) CAD (coronary artery disease) Status: Chronic (5) Chronic kidney disease, stage IV (severe) Status: Acute (6) Elevated troponin Status: Acute - Transfer Medications Prescriptions: Furosemide [Lasix] 20 mg PO BID #30 Home Medications: Aspirin [Lo-Dose Aspirin EC] 81 mg PO DAILY 06/12/16 [History] Atorvastatin [Lipitor] 80 mg PO HS 06/12/16 [History] BuPROPion SR (12 HR) [Wellbutrin SR] 150 mg PO BID 06/12/16 [History] Cholecalciferol (D-3) [Vitamin D] 5,000 unit PO DAILY 06/12/16 [History] Clopidogrel [Plavix] 75 mg PO DAILY 06/12/16 [History] Cyanocobalamin (Vitamin B-12) [Vitamin B-12] 1,000 mcg SL DAILY 06/12/16 [ History] Glimepiride [Amaryl] 1 mg PO DAILY 06/12/16 [History] Lisinopril [Zestril] 40 mg PO DAILY 06/12/16 [History] Oxybutynin Chloride [Ditropan Xl] 5 mg PO DAILY 06/12/16 [History] hydroCHLOROthiazide [Hydrochlorothiazide] 12.5 mg PO DAILY 06/12/16 [History] Carvedilol 3.125 mg PO BID 10/14/16 [History] Isosorbide DInitrate [Isosorbide Dinitrate] 10 mg PO TID 10/14/16 [History] Potassium Chloride [K-Tab ER] 10 meq PO DAILY 10/14/16 [History] Sodium Bicarbonate 650 mg PO BID 10/14/16 [History] hydrALAZINE [HydrALAZINE] 10 mg PO TID 10/14/16 [History] Furosemide [Lasix] 20 mg PO BID #30 10/16/16 [Rx] Allergies/Adverse Reactions: 3 Allergy/AdvReac Type Severity Reaction Status Date / Time Penicillins Allergy Hives Verified 06/12/16 14:36 - Respiratory Orders Smoking Cessation: Smoking cessation has been advised. For more information, call the [place] Tobacco Quit Line at 6-742-SBSA-NOW. - Advance Directives Code Status: DNR-Arrest - Treatments List/Other: Follow-up with primary care physician within the next 7 days. Follow-up with cardiology within the next 2 weeks. Increased dose of Lasix to 20 mg twice a day. Fluid restriction of 1500 mL per day is recommended, decrease salt in diet. - Diet Orders No Added Salt (ESSENCE) CERTIFICATION: I certify that the transfer of the above named patient to an Extended Care Facility is necessary for the continuing treatment of the diagnosis listed. The above information is true and accurate reflection of patient's current condition. Confidential - Redisclosure prohibited without a patient's written consent.
== END 2016-10-16 11:12 | DRG 291 ==
LOC: EMEROO 08:15 → 2NNU 17:53
PROVIDERS: ADMIT Internal Medicine; ATTEND Internal Medicine

== ENCOUNTER 2017-09-24 17:01 | Inpatient (IN) ==
--- NOTE | 2017-09-24 17:56 | Emergency Department Note ---
Disposition Clinical Impression: Confusion, SARANYA (acute kidney injury) Urinary tract infection Qualifiers: Urinary tract infection type: site unspecified Hematuria presence: without hematuria Qualified Code(s): N39.0 - Urinary tract infection, site not specified Disposition: Admitted As Inpatient Condition: Good Reasons to Return/Additional Instructions: Please return to ED if severely worsening symptoms such as blood in urine, worsening confusion, or flank pain. Please follow-up with PCP in the next 3-5 days. Referrals: Griffin Ochoa MD [Primary Care Provider] - Forms: ED Satisfaction Letter Time of Disposition: 20:22 General Adult HPI - General Chief complaint: ED Urogenital-Female Stated complaint: UTI Time Seen by Provider: 09/24/17 17:11 Source: patient, family Mode of arrival: wheelchair Limitations: no limitations Nursing Notes Reviewed: Yes Vital Signs Reviewed: Yes - History of Present Illness HPI Narrative: 77 year old black female presents for confusion and UTI. Family says confusion started 2 weeks and has gradually worsened. Patient thinks that her siblings, mother, and nephew are still alive. And she is now hallucinating in the morning , she saw a "family of midgets" in her room this morning. Patient has history of urinary incontinence and uses Depends. Patient has noticed strong odor to urine, denies blood in urine. Denies vaginal discharge, vaginal bleeding, and vaginal lesions. Denies fever, chills, weight loss, abdominal pain, flank pain , nausea, vomiting, chest pain, shortness of breath, swelling, visual changes, any auditory changes. Medical history includes diabetes, hyperlipidemia, hypertension, urinary incontinence, kidney disease, CHF, peripheral arterial disease, right above-knee amputation, and left below-knee amputation. Former smoker, denies alcohol and drugs. Pain Scale: 0 - Related Data Home Medications Medication Instructions Recorded Confirmed Aspirin [Lo-Dose Aspirin EC] 81 mg PO DAILY 06/12/16 09/24/17 BuPROPion SR (12 HR) [Wellbutrin 150 mg PO BID 06/12/16 09/24/17 SR] Cholecalciferol (D-3) [Vitamin D] 5,000 unit PO DAILY 06/12/16 09/24/17 Clopidogrel [Plavix] 75 mg PO DAILY 06/12/16 09/24/17 Cyanocobalamin (Vitamin B-12) 1,000 mcg SL DAILY 06/12/16 09/24/17 [Vitamin B-12] Lisinopril [Zestril] 40 mg PO DAILY 06/12/16 09/24/17 Oxybutynin Chloride [Ditropan Xl] 5 mg PO DAILY 06/12/16 09/24/17 hydroCHLOROthiazide 12.5 mg PO DAILY 06/12/16 09/24/17 [Hydrochlorothiazide] Isosorbide DInitrate [Isosorbide 10 mg PO BID 10/14/16 09/24/17 Dinitrate] Potassium Chloride [K-Tab ER] 10 meq PO DAILY 10/14/16 09/24/17 Insulin Glargine,Hum.rec.anlog 10 unit SQ HS 02/17/17 09/24/17 [Lantus Solostar] Atorvastatin Calcium [Lipitor] 20 mg PO QPM 09/24/17 09/24/17 Carvedilol [Coreg] 6.25 mg PO BIDWM 09/24/17 09/24/17 Ciprofloxacin HCl [Cipro] 500 mg PO DAILY 09/24/17 09/24/17 Gabapentin [Neurontin] 100 mg PO BID 09/24/17 09/24/17 Insulin ASPART [NovoLOG] 0 unit SQ TIDWM PRN 09/24/17 09/24/17 Previous Rx's Medication Instructions Recorded Furosemide [Lasix] 20 mg PO BID #30 10/16/16 Allergies Allergy/AdvReac Type Severity Reaction Status Date / Time Penicillins Allergy Hives Verified 06/12/16 14:36 All systems ED: reviewed and negative except as stated. Past Medical History - Past Medical History Medical history: Reports: COPD, diabetes, GERD, hyperlipidemia, hypertension, myocardial infarction, renal disease Surgical history: Reports: cholecystectomy Psychiatric history: Reports: anxiety - Social History Smoking Status: Former smoker Smokeless Tobacco Status: No Alcohol use: Reports: none Drug use: Reports: none Physical Exam - General Limitations: no limitations General appearance: alert, in no apparent distress - Head Head exam: atraumatic, normocephalic, normal inspection - Eye Eye exam: Present: normal appearance, PERRL, EOMI - Neck Neck exam: Present: normal inspection, full ROM, trachea midline - Chest Chest inspection: Present: normal inspection, symmetric chest wall rise - Respiratory Respiratory exam: Present: normal lung sounds bilaterally - Cardiovascular Cardiovascular exam: Present: regular rate, normal rhythm, normal heart sounds - Abdominal Exam Abdominal exam: Present: soft, Non-Tender. Absent: tenderness, distention, guarding, rebound, rigidity - Extremities Exam Extremities exam: Present: normal inspection, full ROM, other (Right above-knee amputation, left below-knee amputation.). Absent: tenderness, pedal edema - Back Exam Back exam: Absent: CVA tenderness (R), CVA tenderness (L) - Neurological Exam Neurological exam: Present: alert, oriented X3, CN II-XII intact - Psychiatric Psychiatric exam: Present: normal affect, normal mood - Skin Skin exam: Present: warm, dry, intact, normal color Course Course Narrative: 77-year-old female presents for confusion, hallucinations, and UTI. Patient is alert and oriented x3, hemodynamically stable, and of nontoxic appearance. On exam there is no CVA tenderness or abdominal tenderness. Will order UA and altered mental status workup including head CT. - Reevaluation(s) Reevaluation #1: CBC reveals WBC 5.3 and Hb 9.5. Metabolic panel reveals elevated potassium 5.5, Cr 4.04 (7mo ago, was 1.84) and GFR 13 (usually 30's-40's). Will order CT abd/ pelvis without contrast to rule out infected kidney stone. Patient complains of phantom pain in right groin. Declines fentanyl, requests gabapentin. Will provide gabapentin. CT abdomen/pelvis negative. Will admit for UTI, SARANYA, AMS, and dehydration. Spoke with hospitalist Dr. Pleitez who agrees to admit. Dr. Pleitez recommends choosing another antibiotic over gentamicin due to patient's kidney disease. Will cancel gentamicin and provide bactrim. Time: 20:20 Vital Signs Temperature 98.0 F 09/24/17 17:02 Pulse Rate 73 09/24/17 17:02 Respiratory Rate 12 09/24/17 17:02 Blood Pressure 118/61 09/24/17 17:02 O2 Sat by Pulse Oximetry 98 09/24/17 17:02 Temperature 98.0 F 09/24/17 17:02 Pulse Rate 73 09/24/17 17:02 Respiratory Rate 12 09/24/17 17:02 Blood Pressure 118/61 09/24/17 17:02 O2 Sat by Pulse Oximetry 98 09/24/17 17:02 Oxygen Delivery Oxygen Delivery Room Air Medical Decision Making - Medical Records Medical records reviewed: Yes I reviewed the patient's medical records. - Lab Data Lab results reviewed: Yes I reviewed the patient's lab results. Result diagrams: 09/24/17 17:47 09/24/17 17:47 Lab Results 09/24/17 09/24/17 09/24/17 Range/Units 17:47 17:47 17:47 WBC 5.3 (4.3-11.1) K/mcL RBC 2.81 L (3.82-4.97) M/mcL Hgb 9.5 L (11.5-15.4) g/dL Hct 28.5 L (35.3-44.9) % MCV 101.4 H (83.0-100.0) fL MCH 33.8 H (28.0-33.3) pg MCHC 33.3 (31.6-35.5) g/dL RDW 12.3 (11.5-14.5) % Plt Count 172 (140-400) K/mcL MPV 10.4 (9.4-12.4) fL Immature Gran % 0.2 (0-4) % Seg Neutrophils % 77.3 % Lymphocytes % 13.4 % Monocytes % 5.7 % Eosinophils % 3.2 % Basophils % 0.2 % Neutrophils # 4.1 (1.6-8.9) K/mcL Lymphocytes # 0.7 (0.6-4.6) K/mcL Monocytes # 0.3 (0.0-1.3) K/mcL Eosinophils # 0.2 (0.0-0.6) K/mcL Basophils # 0.0 (0.0-0.2) K/mcL PT 11.9 (9.4-12.1) Seconds INR 1.1 APTT 31.3 (26.0-36.0) Seconds Sodium 138 (136-145) mEq/L Potassium 5.5 H (3.5-5.1) mEq/L Chloride 111 H (98-107) mEq/L Carbon Dioxide 19 L (23-29) mEq/L BUN 120 H (8-23) mg/dL Creatinine 4.04 H (0.60-1.20) mg/dL Est GFR ( Amer) 13 L (> 60) Est GFR (Non-Af Amer) 11 L (> 60) BUN/Creatinine Ratio 30 H (6-26) Glucose 117 H (70-105) mg/dL Calculated Osmolality 325 H (280-300) Calcium 9.4 (8.6-10.3) mg/dL Total Bilirubin 0.3 (0.3-1.0) mg/dL Direct Bilirubin 0.1 (0.0-0.2) mg/dL Indirect Bilirubin 0.2 (0.0-1.2) mg/dL AST 15 (13-39) Units/L ALT 14 (7-52) Units/L Alkaline Phosphatase 113 H (34-104) Units/L Troponin I < 0.03 (< 0.04) ng/mL Serum Total Protein 6.5 (6.4-8.9) g/dL Albumin 3.7 (3.5-5.7) g/dL Globulin 2.8 (2.4-3.5) g/dL Albumin/Globulin Ratio 1.3 (1.1-2.2) Lipase (11-82) Units/L Urine Color (Yellow) Urine Clarity (Clear) Urine pH (5.0-8.0) pH Units Ur Specific [place] (1.010-1.025) Urine Protein (Neg-Trace) mg/dL Urine Glucose (UA) (Normal) mg/dL Urine Ketones (Negative) mg/dL Urine Blood (Negative) Urine Nitrite (Negative) Urine Bilirubin (Negative) Urine Urobilinogen (Normal) mg/dL Ur Leukocyte Esterase (Negative) Urine Microscopic WBC (0-3) per hpf Ur Squamous Epith Cells (None-Few) per lpf Ur Culture Indicated? (NO) Ur Drug Screen Interp Ethyl Alcohol < 10 (Less than 10) mg/dL 09/24/17 09/24/17 09/24/17 Range/Units 17:47 17:56 18:07 WBC (4.3-11.1) K/mcL RBC (3.82-4.97) M/mcL Hgb (11.5-15.4) g/dL Hct (35.3-44.9) % MCV (83.0-100.0) fL MCH (28.0-33.3) pg MCHC (31.6-35.5) g/dL RDW (11.5-14.5) % Plt Count (140-400) K/mcL MPV (9.4-12.4) fL Immature Gran % (0-4) % Seg Neutrophils % % Lymphocytes % % Monocytes % % Eosinophils % % Basophils % % Neutrophils # (1.6-8.9) K/mcL Lymphocytes # (0.6-4.6) K/mcL Monocytes # (0.0-1.3) K/mcL Eosinophils # (0.0-0.6) K/mcL Basophils # (0.0-0.2) K/mcL PT (9.4-12.1) Seconds INR APTT (26.0-36.0) Seconds Sodium (136-145) mEq/L Potassium (3.5-5.1) mEq/L Chloride (98-107) mEq/L Carbon Dioxide (23-29) mEq/L BUN (8-23) mg/dL Creatinine (0.60-1.20) mg/dL Est GFR ( Amer) (> 60) Est GFR (Non-Af Amer) (> 60) BUN/Creatinine Ratio (6-26) Glucose (70-105) mg/dL Calculated Osmolality (280-300) Calcium (8.6-10.3) mg/dL Total Bilirubin (0.3-1.0) mg/dL Direct Bilirubin (0.0-0.2) mg/dL Indirect Bilirubin (0.0-1.2) mg/dL AST (13-39) Units/L ALT (7-52) Units/L Alkaline Phosphatase (34-104) Units/L Troponin I (< 0.04) ng/mL Serum Total Protein (6.4-8.9) g/dL Albumin (3.5-5.7) g/dL Globulin (2.4-3.5) g/dL Albumin/Globulin Ratio (1.1-2.2) Lipase 41 (11-82) Units/L Urine Color Yellow (Yellow) Urine Clarity Cloudy A (Clear) Urine pH 6.0 (5.0-8.0) pH Units Ur Specific [place] 1.006 L (1.010-1.025) Urine Protein Negative (Neg-Trace) mg/dL Urine Glucose (UA) Normal (Normal) mg/dL Urine Ketones Negative (Negative) mg/dL Urine Blood Negative (Negative) Urine Nitrite Negative (Negative) Urine Bilirubin Negative (Negative) Urine Urobilinogen Normal (Normal) mg/dL Ur Leukocyte Esterase Large H (Negative) Urine Microscopic WBC 5-15 H (0-3) per hpf Ur Squamous Epith Cells Few (None-Few) per lpf Ur Culture Indicated? YES A (NO) Ur Drug Screen Interp See Below Ethyl Alcohol (Less than 10) mg/dL - Radiology Data Radiology results reviewed: Yes I reviewed the patient's radiology results. CXR 09/24/2017. 1. No acute radiographic abnormality in the chest. 2. Chronic reticulation of the interstitium. If patient has pulmonary symptoms, consider CT for further evaluation. CT head 09/24/2017. No acute intracranial abnormality and chronic ischemic changes. CT abdomen/pelvis 09/24/2017. 1. Moderate diffuse colonic stool burden. No evidence of bowel obstruction or significant inflammatory change. 2. Symmetric bilateral renal atrophy. No obstruction. 3. Advanced aortoiliac atherosclerotic disease. - EKG Data EKG #1 EKG attestation: Yes I reviewed and interpreted this EKG. EKG results narrative: EKG 09/24/2017 1744. Sinus rhythm. Heart rate 66. No ST segment elevation or depression. No comparison EKG.
[2017-09-24 18:21] LABS: Basophils % 0.2 %; Eosinophils # 0.2 K/mcL (0.0-0.6); Eosinophils % 3.2 %; Hematocrit 28.5 % (35.3-44.9); Hemoglobin 9.5 g/dL (11.5-15.4); Immature Granulocytes % 0.2 % (0-4); Lymphocytes # 0.7 K/mcL (0.6-4.6); Lymphocytes % 13.4 %; Mean Corpuscular HGB Conc 33.3 g/dL (31.6-35.5); Mean Corpuscular Hemoglobin 33.8 pg (28.0-33.3); Mean Corpuscular Volume 101.4 fL (83.0-100.0); Mean Platelet Volume 10.4 fL (9.4-12.4); Monocytes # 0.3 K/mcL (0.0-1.3); Monocytes % 5.7 %; Neutrophils # 4.1 K/mcL (1.6-8.9); Platelet Count 172 K/mcL (140-400); Red Blood Count 2.81 M/mcL (3.82-4.97); Red Cell Distribution Width 12.3 % (11.5-14.5); Segmented Neutrophils % 77.3 %
[2017-09-24 18:24] LABS: Bilirubin,Urine Negative (Negative); Blood,Urine Negative (Negative); Clarity,Urine Cloudy (Clear); Color,Urine Yellow (Yellow); Glucose,Urine (UA) Normal (Normal); Ketones,Urine Negative (Negative); Leukocyte Esterase,Urine Large (Negative); Nitrite,Urine Negative (Negative); Protein,Urine Negative (Neg-Trace); Specific Gravity,Urine 1.006 (1.010-1.025); Urobilinogen,Urine Normal (Normal)
[2017-09-24 18:26] LABS: Squamous Epithelial Cell,Urine Few per lpf (None-Few)
[2017-09-24 18:30] LABS: INR 1.1; Prothrombin Time 11.9 Seconds (9.4-12.1)
[2017-09-24] MEDS ORDERED: Gentamicin 80 MG in 0.9 % Sodium Chloride 100 ML IVPB ONE (18:32)
[2017-09-24 18:33] LABS: Activated Partial Thrombo Time 31.3 Seconds (26.0-36.0)
[2017-09-24 18:37] LABS: Alanine Aminotransferase 14 Units/L (7-52); Albumin 3.7 g/dL (3.5-5.7); Albumin/Globulin Ratio 1.3 (1.1-2.2); Alkaline Phosphatase 113 Units/L (34-104); Aspartate Amino Transferase 15 Units/L (13-39); BUN/Creatinine Ratio 30 (6-26); Bilirubin,Direct 0.1 mg/dL (0.0-0.2); Bilirubin,Indirect 0.2 mg/dL (0.0-1.2); Bilirubin,Total 0.3 mg/dL (0.3-1.0); Blood Urea Nitrogen 120 mg/dL (8-23); Calcium 9.4 mg/dL (8.6-10.3); Carbon Dioxide 19 mEq/L (23-29); Chloride 111 mEq/L (98-107); Ethanol < 10 mg/dL (Less than 10); Globulin 2.8 g/dL (2.4-3.5); Glucose 117 mg/dL (70-105); Osmolality,Calculated 325 (280-300); Potassium 5.5 mEq/L (3.5-5.1); Sodium 138 mEq/L (136-145); Total Protein 6.5 g/dL (6.4-8.9); Troponin I < 0.03 ng/mL (< 0.04); eGFR For Non-African Americans 11 (> 60)
[2017-09-24 18:50] LABS: Thyroid Stimulating Hormone 1.964 mcIU/mL (0.340-5.600)
[2017-09-24] MEDS ORDERED: Gabapentin 100 MG CAPSULE PO ONE (19:44)
[2017-09-24] MEDS ORDERED: Gentamicin 80 MG/2 ML VIAL IM ONE (19:45)
[2017-09-24] MEDS ORDERED: *HR* LORazepam 0.5 MG TABLET PO ONE (19:53)
[2017-09-24] MEDS ORDERED: Sulfamethoxazole/Trimeth DS 1 EACH TABLET PO ONE (20:12)
--- NOTE | 2017-09-24 20:12 | Emergency Department Note ---
Disposition Clinical Impression: Confusion Urinary tract infection Qualifiers: Urinary tract infection type: site unspecified Hematuria presence: without hematuria Qualified Code(s): N39.0 - Urinary tract infection, site not specified Disposition: Home, Self-Care Condition: Good Reasons to Return/Additional Instructions: Please return to ED if severely worsening symptoms such as blood in urine, worsening confusion, or flank pain. Please follow-up with PCP in the next 3-5 days. Referrals: Griffin Ochoa MD [Primary Care Provider] - Forms: ED Satisfaction Letter General Adult HPI - General Chief complaint: ED Urogenital-Female Stated complaint: UTI Time Seen by Provider: 09/24/17 17:11 Source: patient, family Mode of arrival: wheelchair Limitations: no limitations - History of Present Illness Pain Scale: 0 - Related Data Home Medications Medication Instructions Recorded Confirmed Aspirin [Lo-Dose Aspirin EC] 81 mg PO DAILY 06/12/16 09/24/17 BuPROPion SR (12 HR) [Wellbutrin 150 mg PO BID 06/12/16 09/24/17 SR] Cholecalciferol (D-3) [Vitamin D] 5,000 unit PO DAILY 06/12/16 09/24/17 Clopidogrel [Plavix] 75 mg PO DAILY 06/12/16 09/24/17 Cyanocobalamin (Vitamin B-12) 1,000 mcg SL DAILY 06/12/16 09/24/17 [Vitamin B-12] Lisinopril [Zestril] 40 mg PO DAILY 06/12/16 09/24/17 Oxybutynin Chloride [Ditropan Xl] 5 mg PO DAILY 06/12/16 09/24/17 hydroCHLOROthiazide 12.5 mg PO DAILY 06/12/16 09/24/17 [Hydrochlorothiazide] Isosorbide DInitrate [Isosorbide 10 mg PO BID 10/14/16 09/24/17 Dinitrate] Potassium Chloride [K-Tab ER] 10 meq PO DAILY 10/14/16 09/24/17 Insulin Glargine,Hum.rec.anlog 10 unit SQ HS 02/17/17 09/24/17 [Lantus Solostar] Atorvastatin Calcium [Lipitor] 20 mg PO QPM 09/24/17 09/24/17 Carvedilol [Coreg] 6.25 mg PO BIDWM 09/24/17 09/24/17 Ciprofloxacin HCl [Cipro] 500 mg PO DAILY 09/24/17 09/24/17 Gabapentin [Neurontin] 100 mg PO BID 09/24/17 09/24/17 Insulin ASPART [NovoLOG] 0 unit SQ TIDWM PRN 09/24/17 09/24/17 Previous Rx's Medication Instructions Recorded Furosemide [Lasix] 20 mg PO BID #30 10/16/16 Allergies Allergy/AdvReac Type Severity Reaction Status Date / Time Penicillins Allergy Hives Verified 06/12/16 14:36 Past Medical History - Past Medical History Medical history: Reports: COPD, diabetes, GERD, hyperlipidemia, hypertension, myocardial infarction, renal disease Surgical history: Reports: cholecystectomy Psychiatric history: Reports: anxiety - Social History Smoking Status: Former smoker Smokeless Tobacco Status: No Alcohol use: Reports: none Drug use: Reports: none Physical Exam - General Limitations: no limitations General appearance: alert, in no apparent distress Course Vital Signs Temperature 98.0 F 09/24/17 17:02 Pulse Rate 73 09/24/17 17:02 Respiratory Rate 12 09/24/17 17:02 Blood Pressure 118/61 09/24/17 17:02 O2 Sat by Pulse Oximetry 98 09/24/17 17:02 Temperature 98.0 F 09/24/17 17:02 Pulse Rate 73 09/24/17 17:02 Respiratory Rate 12 09/24/17 17:02 Blood Pressure 118/61 09/24/17 17:02 O2 Sat by Pulse Oximetry 98 09/24/17 17:02 Oxygen Delivery Oxygen Delivery Room Air Medical Decision Making - Lab Data Result diagrams: 09/24/17 17:47 09/24/17 17:47 Lab Results 09/24/17 09/24/17 09/24/17 Range/Units 17:47 17:47 17:47 WBC 5.3 (4.3-11.1) K/mcL RBC 2.81 L (3.82-4.97) M/mcL Hgb 9.5 L (11.5-15.4) g/dL Hct 28.5 L (35.3-44.9) % MCV 101.4 H (83.0-100.0) fL MCH 33.8 H (28.0-33.3) pg MCHC 33.3 (31.6-35.5) g/dL RDW 12.3 (11.5-14.5) % Plt Count 172 (140-400) K/mcL MPV 10.4 (9.4-12.4) fL Immature Gran % 0.2 (0-4) % Seg Neutrophils % 77.3 % Lymphocytes % 13.4 % Monocytes % 5.7 % Eosinophils % 3.2 % Basophils % 0.2 % Neutrophils # 4.1 (1.6-8.9) K/mcL Lymphocytes # 0.7 (0.6-4.6) K/mcL Monocytes # 0.3 (0.0-1.3) K/mcL Eosinophils # 0.2 (0.0-0.6) K/mcL Basophils # 0.0 (0.0-0.2) K/mcL PT 11.9 (9.4-12.1) Seconds INR 1.1 APTT 31.3 (26.0-36.0) Seconds Sodium 138 (136-145) mEq/L Potassium 5.5 H (3.5-5.1) mEq/L Chloride 111 H (98-107) mEq/L Carbon Dioxide 19 L (23-29) mEq/L BUN 120 H (8-23) mg/dL Creatinine 4.04 H (0.60-1.20) mg/dL Est GFR ( Amer) 13 L (> 60) Est GFR (Non-Af Amer) 11 L (> 60) BUN/Creatinine Ratio 30 H (6-26) Glucose 117 H (70-105) mg/dL Calculated Osmolality 325 H (280-300) Calcium 9.4 (8.6-10.3) mg/dL Total Bilirubin 0.3 (0.3-1.0) mg/dL Direct Bilirubin 0.1 (0.0-0.2) mg/dL Indirect Bilirubin 0.2 (0.0-1.2) mg/dL AST 15 (13-39) Units/L ALT 14 (7-52) Units/L Alkaline Phosphatase 113 H (34-104) Units/L Troponin I < 0.03 (< 0.04) ng/mL Serum Total Protein 6.5 (6.4-8.9) g/dL Albumin 3.7 (3.5-5.7) g/dL Globulin 2.8 (2.4-3.5) g/dL Albumin/Globulin Ratio 1.3 (1.1-2.2) Lipase (11-82) Units/L TSH 1.964 (0.340-5.600) mcIU/mL Urine Color (Yellow) Urine Clarity (Clear) Urine pH (5.0-8.0) pH Units Ur Specific [place] (1.010-1.025) Urine Protein (Neg-Trace) mg/dL Urine Glucose (UA) (Normal) mg/dL Urine Ketones (Negative) mg/dL Urine Blood (Negative) Urine Nitrite (Negative) Urine Bilirubin (Negative) Urine Urobilinogen (Normal) mg/dL Ur Leukocyte Esterase (Negative) Urine Microscopic WBC (0-3) per hpf Ur Squamous Epith Cells (None-Few) per lpf Ur Culture Indicated? (NO) Ur Drug Screen Interp Ethyl Alcohol < 10 (Less than 10) mg/dL 09/24/17 09/24/17 09/24/17 Range/Units 17:47 17:56 18:07 WBC (4.3-11.1) K/mcL RBC (3.82-4.97) M/mcL Hgb (11.5-15.4) g/dL Hct (35.3-44.9) % MCV (83.0-100.0) fL MCH (28.0-33.3) pg MCHC (31.6-35.5) g/dL RDW (11.5-14.5) % Plt Count (140-400) K/mcL MPV (9.4-12.4) fL Immature Gran % (0-4) % Seg Neutrophils % % Lymphocytes % % Monocytes % % Eosinophils % % Basophils % % Neutrophils # (1.6-8.9) K/mcL Lymphocytes # (0.6-4.6) K/mcL Monocytes # (0.0-1.3) K/mcL Eosinophils # (0.0-0.6) K/mcL Basophils # (0.0-0.2) K/mcL PT (9.4-12.1) Seconds INR APTT (26.0-36.0) Seconds Sodium (136-145) mEq/L Potassium (3.5-5.1) mEq/L Chloride (98-107) mEq/L Carbon Dioxide (23-29) mEq/L BUN (8-23) mg/dL Creatinine (0.60-1.20) mg/dL Est GFR ( Amer) (> 60) Est GFR (Non-Af Amer) (> 60) BUN/Creatinine Ratio (6-26) Glucose (70-105) mg/dL Calculated Osmolality (280-300) Calcium (8.6-10.3) mg/dL Total Bilirubin (0.3-1.0) mg/dL Direct Bilirubin (0.0-0.2) mg/dL Indirect Bilirubin (0.0-1.2) mg/dL AST (13-39) Units/L ALT (7-52) Units/L Alkaline Phosphatase (34-104) Units/L Troponin I (< 0.04) ng/mL Serum Total Protein (6.4-8.9) g/dL Albumin (3.5-5.7) g/dL Globulin (2.4-3.5) g/dL Albumin/Globulin Ratio (1.1-2.2) Lipase 41 (11-82) Units/L TSH (0.340-5.600) mcIU/mL Urine Color Yellow (Yellow) Urine Clarity Cloudy A (Clear) Urine pH 6.0 (5.0-8.0) pH Units Ur Specific [place] 1.006 L (1.010-1.025) Urine Protein Negative (Neg-Trace) mg/dL Urine Glucose (UA) Normal (Normal) mg/dL Urine Ketones Negative (Negative) mg/dL Urine Blood Negative (Negative) Urine Nitrite Negative (Negative) Urine Bilirubin Negative (Negative) Urine Urobilinogen Normal (Normal) mg/dL Ur Leukocyte Esterase Large H (Negative) Urine Microscopic WBC 5-15 H (0-3) per hpf Ur Squamous Epith Cells Few (None-Few) per lpf Ur Culture Indicated? YES A (NO) Ur Drug Screen Interp See Below Ethyl Alcohol (Less than 10) mg/dL Attestation Statement - Attestation Attestation: I examined this patient and my medical decision-making was reviewed with the Resident Physician. I agree with the documented findings, disposition and treatment plan as described except to the extent set forth below. 77 year old female presenst to the ED with complaints AMS and family at bedside believes she may have a UTI. As it appears she does have a UTI and new SARANYA. We will admit ot medicine and have started her on bactrim secondary to SARANYA and she has grown e.coli in the past which has been sensitive to it. Admit to medicine
[2017-09-24 20:20] LABS: Amphetamine Screen,Urine Negative ng/mL (Cutoff=1000); Barbiturate Screen,Urine Negative ng/mL (Cutoff=200); Benzodiazepines Screen,Urine Negative ng/mL (Cutoff=200); Cannabinoid Screen,Urine Negative ng/mL (Cutoff = 50); Cocaine Screen,Urine Negative ng/mL (Cutoff= 300); Opiate Screen,Urine Negative ng/mL (Cutoff=300); Phencyclidine Screen,Urine Negative ng/mL (Cutoff=25)
[2017-09-24] MEDS ORDERED: Naloxone 0.4 MG/ML INJ IVP PRN (21:30)
[2017-09-24] MEDS ORDERED: Dextrose Gel 15 GM/37.5 ML TUBE PO PRN ×2 (21:33)
[2017-09-24] MEDS ORDERED: D5% in Water 1,000 ML IVC PRN (21:33)
[2017-09-24] MEDS ORDERED: *HR* Dextrose 50 % in Water (Syg) 50 ML SYRINGE IVP PRN (21:33)
--- NOTE | 2017-09-24 21:59 | Internal Med History&Physical ---
Date of Encounter: 09/24/17 Time of Encounter: 21:30 Internal Medicine - H&P: HPI Chief complaint: AMS Admitted From: Home History of present illness: Ms. Daugherty is a 77 year old female with past medical history of diabetes, hypertension, ischemic cardiomyopathy, CKD, presented to the ED with 2 week history of altered mental status. Family states that it has been progressively getting worsening and she had episodes of hallucination this AM. Patient was seeing her sisters who long time ago. Associated with foul smelling urine. Denies fever/chills, nausea/vomiting, abdominal pain, flank pain, or dysuria. She had poor appetite and was not eating or drinking well at home. No focal weakness/numbness, headache, blurring of vision, or dysarthria. She had a change in her pain meds and family had stopped that about 4-5 days ago as they thought it may be contributing to her AMS. She was started on PO Cipro by her PCP starting from Thursday for the concern of UTI. In the ED, she was afebrile and hemodynamically stable. Labs showed normal WBC but Cr was elevated at 4.04 (baseline 1.8) with BUN of 120. K 5.5. Troponin and TSH were negative. Urinalysis showed large amount of leukocyte esterase. UDS -ve. CT head did not reveal any acute intracranial processes and CT of the pelvis only showed moderate amount of stool burden. Chest x-ray did not show any new findings. She was given a dose of Bactrim and admitted for further management. Past Med Surg Social Fam HX - Past Medical History Attestation: Yes The following information was validated with the patient. Medical history: COPD, diabetes, GERD, hyperlipidemia, hypertension, myocardial infarction, renal disease Additional medical history: atherosclerotic heart disease, anemia, heart failure , urine retention, osteoarthritis, Psychiatric history: anxiety - Past Surgical History Surgical History: cholecystectomy Additional surgical history: right great toe removal. left leg amputation, angioplasty of right leg x 2, - Social History Smoking Status: Former smoker Smokeless Tobacco Status: No Alcohol use: none Drug use: none - Family History Mother Hx Family Cardiac Disorders: Yes Hx Family Respiratory Disorders: No Hx Family Cancer: No Hx Family GI Disorders: No Hx Family Endocrine Disorder: Yes Hx Family Neuromuscular Disorders: No Hx Family Neurologic Disorders: No Hx Family HEENT Disorders: No Hx Family Autoimmune Disorders: No Internal Medicine - H&P: Meds Aspirin [Lo-Dose Aspirin EC] 81 mg PO DAILY 06/12/16 [History] BuPROPion SR (12 HR) [Wellbutrin SR] 150 mg PO BID 06/12/16 [History] Cholecalciferol (D-3) [Vitamin D] 5,000 unit PO DAILY 06/12/16 [History] Clopidogrel [Plavix] 75 mg PO DAILY 06/12/16 [History] Cyanocobalamin (Vitamin B-12) [Vitamin B-12] 1,000 mcg SL DAILY 06/12/16 [ History] Lisinopril [Zestril] 40 mg PO DAILY 06/12/16 [History] Oxybutynin Chloride [Ditropan Xl] 5 mg PO DAILY 06/12/16 [History] hydroCHLOROthiazide [Hydrochlorothiazide] 12.5 mg PO DAILY 06/12/16 [History] Isosorbide DInitrate [Isosorbide Dinitrate] 10 mg PO BID 10/14/16 [History] Potassium Chloride [K-Tab ER] 10 meq PO DAILY 10/14/16 [History] Furosemide [Lasix] 20 mg PO BID #30 10/16/16 [Rx] Insulin Glargine,Hum.rec.anlog [Lantus Solostar] 10 unit SQ HS 02/17/17 [History ] Atorvastatin Calcium [Lipitor] 20 mg PO QPM 09/24/17 [History] Carvedilol [Coreg] 6.25 mg PO BIDWM 09/24/17 [History] Ciprofloxacin HCl [Cipro] 500 mg PO DAILY 09/24/17 [History] Gabapentin [Neurontin] 100 mg PO BID 09/24/17 [History] Insulin ASPART [NovoLOG] 0 unit SQ TIDWM PRN 09/24/17 [History] 3 Allergy/AdvReac Type Severity Reaction Status Date / Time Penicillins Allergy Hives Verified 06/12/16 14:36 All Systems PM: A 10-system review of systems was performed and is negative for pertinent findings except as documented above in the HPI. - Constitutional Vitals: Temp Pulse Resp BP Pulse Ox 98.1 F 80 14 126/61 99 09/24/17 21:32 09/24/17 21:32 09/24/17 21:32 09/24/17 21:32 09/24/17 21:32 Exam: General: Alert and oriented to time, place, and person HEENT:EOM, pupils equal, round, and reactive. Cardiovascular:Normal S1 & S2, Pulse regular. Lungs:Normal breath sounds, no wheezes or crackles. Abdomen:Soft, non-tender, no rigidity. Extremities: Bilateral leg amputation noted, stump without erythema or discharges Neurological:Normal cognition and motor skills. No focal neurological deficits Skin:Normal color, no rash, no lesions. Pulses:Carotid and radial pulses normal +2. Rest of the physical exam is non-contributory Internal Med - H&P Results - Labs CBC & Chem 7: 09/24/17 17:47 09/24/17 17:47 - Assessment and plan (1) Acute encephalopathy Current Visit: Yes Status: Acute Assessment and plan: Likely due to the combination of UTI and AoCKD mx as below (2) UTI (urinary tract infection) Current Visit: No Status: Suspected Assessment and plan: Complains of foul-smelling urine, patient has similar episodes of encephalopathy when she had UTI earlier this year Was given Bactrim in the ED Previous urine culture in favor 2018 grew Escherichia coli which was sensitive to cephalosporin, resistant to cipro and bactrim She previously tolerated cefepime earlier this year, will treat with IV Fransisco follow up on urine culture Qualifiers: Urinary tract infection type: acute cystitis Hematuria presence: without hematuria Qualified Code(s): N30.00 - Acute cystitis without hematuria (3) Acute on chronic kidney failure Current Visit: Yes Status: Acute Assessment and plan: Likely due to poor oral intake and ongoing use of Lasix, hydrochlorothiazide, and Lisinopril. history of ischemic cardiomyopathy with EF 15-20% gentle hydration with LR hold off on lasix, HCTZ, and JET-i Monitor Cr and K Qualifiers: Acute renal failure type: unspecified Chronic kidney disease stage: unspecified stage Qualified Code(s): N17.9 - Acute kidney failure, unspecified ; N18.9 - Chronic kidney disease, unspecified (4) Heart failure with reduced ejection fraction Current Visit: No Status: Chronic Assessment and plan: Lasix, lisinopril on hold as above Qualifiers: Heart failure chronicity: chronic Qualified Code(s): I50.22 - Chronic systolic (congestive) heart failure (5) Diabetes Current Visit: No Status: Chronic Assessment and plan: On Lantus 10 units at night in addition to sliding scale aspart will continue sliding scale coverage as her intake is poor Qualifiers: Diabetes mellitus type: type 2 Diabetes mellitus group home insulin use: without group home use Diabetes mellitus complication status: with unspecified complications Qualified Code(s): E11.8 - Type 2 diabetes mellitus with unspecified complications (6) Hypertension Current Visit: No Status: Chronic Assessment and plan: Hold off on the meds as above but continue Coreg Qualifiers: Hypertension type: essential hypertension Qualified Code(s): I10 - Essential (primary) hypertension (7) Constipation Current Visit: Yes Status: Acute Assessment and plan: Mod amount of stool burden noted on CT daily miralax Qualifiers: Constipation type: unspecified constipation type Qualified Code(s): K59.00 - Constipation, unspecified (8) DVT prophylaxis Current Visit: No Status: Acute Assessment and plan: SQ heparin - Time Spent With Patient Total time spent is greater than 50% in coordination of care (as documented) at patient's floor/unit and/or counseling patient:
[2017-09-24] MEDS: cefTRIAXone 1,000 MG in Water for inj. (sterile) 20 ML 10 ML IVP SCH (22:09)
[2017-09-24] MEDS: Ringers Solution, Lactated 1,000 ML IVC SCH (22:10)
[2017-09-25] MEDS ORDERED: Insulin LISPRO 300 UNITS/3 ML VIAL SQ SCH
[2017-09-25] MEDS: *HR* Heparin 5,000 UNIT/ML VIAL SQ SCH ×2 (05:27→17:19)
[2017-09-25 06:12] LABS: Basophils % 0.3 %; Eosinophils # 0.2 K/mcL (0.0-0.6); Eosinophils % 3.8 %; Hematocrit 24.8 % (35.3-44.9); Hemoglobin 8.3 g/dL (11.5-15.4); Immature Granulocytes % 0.3 % (0-4); Lymphocytes # 0.7 K/mcL (0.6-4.6); Lymphocytes % 18.4 %; Mean Corpuscular HGB Conc 33.5 g/dL (31.6-35.5); Mean Corpuscular Hemoglobin 33.7 pg (28.0-33.3); Mean Corpuscular Volume 100.8 fL (83.0-100.0); Mean Platelet Volume 10.4 fL (9.4-12.4); Monocytes # 0.3 K/mcL (0.0-1.3); Monocytes % 8.6 %; Neutrophils # 2.7 K/mcL (1.6-8.9); Platelet Count 150 K/mcL (140-400); Red Blood Count 2.46 M/mcL (3.82-4.97); Red Cell Distribution Width 12.1 % (11.5-14.5); Segmented Neutrophils % 68.6 %
[2017-09-25 06:37] LABS: Calcium 8.7 mg/dL (8.6-10.3)
[2017-09-25] MEDS: Insulin LISPRO 300 UNITS/3 ML VIAL SQ SCH ×4 (09:10→21:12)
[2017-09-25] MEDS: Cholecalciferol (D-3) 1,000 UNIT TABLET PO SCH (09:12)
[2017-09-25] MEDS: BuPROPion SR (12 HR) 150 MG TABLET PO SCH ×2 (09:12→21:22)
[2017-09-25] MEDS: Cyanocobalamin (B-12) 1,000 MCG TABLET PO SCH (09:12)
[2017-09-25] MEDS: Aspirin Enteric Coated 81 MG Tablet PO SCH (09:12)
[2017-09-25] MEDS: Ringers Solution, Lactated 1,000 ML IVC SCH (11:31)
--- NOTE | 2017-09-25 13:05 | Internal Med Progress Note ---
Hospitalist Progress Note - Encounter Date of Encounter: 09/25/17 Time of Encounter: 13:03 - Subjective Interval History: Pt resting in bed, she is alert and oriented right now, she has no other complaints. - Exam Vitals: Temp Pulse Resp BP Pulse Ox 98.3 F 67 16 99/59 97 09/25/17 11:59 09/25/17 11:59 09/25/17 11:59 09/25/17 11:59 09/25/17 11:59 Exam: PHYSICAL EXAMINATION: GENERAL APPEARANCE: The patient is alert, oriented and in no acute distress. HEENT: Head is normocephalic. The sinuses are nontender. Pupils are equal and reactive. The nares are patent. Oropharynx clear without lesions. NECK: Supple without lymphadenopathy. HEART: Regular rate and rhythm. LUNGS: No crackles or wheezes are heard. ABDOMEN: Soft, nontender, nondistended with good bowel sounds heard. Inguinal area is normal. EXTREMITIES: Without cyanosis, clubbing or edema. NEUROLOGICAL: Gross nonfocal. SKIN: Warm and dry without any rash. - Assessment and Plan (1) Acute on chronic kidney failure Current Visit: Yes Status: Acute Assessment and Plan: Likely due to poor oral intake and ongoing use of Lasix, hydrochlorothiazide, and Lisinopril. history of ischemic cardiomyopathy with EF 15-20% gentle hydration with LR hold off on lasix, HCTZ, and JET-i Monitor Cr and K (2) Acute encephalopathy Current Visit: Yes Status: Acute Assessment and Plan: Likely due to the combination of UTI and AoCKD mx as below (3) Diabetes Current Visit: No Status: Chronic Assessment and Plan: On Lantus 10 units at night in addition to sliding scale aspart will continue sliding scale coverage as her intake is poor (4) Hypertension Current Visit: No Status: Chronic Assessment and Plan: Hold off on the meds as above but continue Coreg (5) UTI (urinary tract infection) Current Visit: No Status: Suspected Assessment and Plan: Complains of foul-smelling urine, patient has similar episodes of encephalopathy when she had UTI earlier this year Was given Bactrim in the ED Previous urine culture in favor 2018 grew Escherichia coli which was sensitive to cephalosporin, resistant to cipro and bactrim She previously tolerated cefepime earlier this year, will treat with IV Fransisco follow up on urine culture (6) Heart failure with reduced ejection fraction Current Visit: No Status: Chronic Assessment and Plan: Lasix, lisinopril on hold as above (7) Constipation Current Visit: Yes Status: Acute Assessment and Plan: Mod amount of stool burden noted on CT daily miralax (8) DVT prophylaxis Current Visit: No Status: Acute Assessment and Plan: SQ heparin - Time Spent with Patient Total time spent is greater than 50% in coordination of care (as documented) at patient's floor/unit and/or counseling patient: Greater than 35 minutes Plan of Care Discussed with: patient Internal Medicine: Result - Labs CBC & Chem 7: 09/25/17 04:54 09/25/17 04:54 Labs: Short CBC 09/25/17 Range/Units 04:54 WBC 4.0 L (4.3-11.1) K/mcL Hgb 8.3 L (11.5-15.4) g/dL Hct 24.8 L (35.3-44.9) % Plt Count 150 (140-400) K/mcL Neutrophils # 2.7 (1.6-8.9) K/mcL BMP 09/25/17 04:54 Sodium 139 Potassium 5.0 Chloride 113 H Carbon Dioxide 16 L BUN 108 H Creatinine 3.69 H Glucose 222 H Calcium 8.7 - ABG Interpretation ABG results: PT/INR, D-dimer PT 11.9 Seconds (9.4-12.1) 09/24/17 17:47 Consult Discharge Plan - Plan Referrals: Griffin Ochoa MD [Primary Care Provider] - (1) Acute on chronic kidney failure Qualifiers: Acute renal failure type: unspecified Chronic kidney disease stage: unspecified stage Qualified Code(s): N17.9 - Acute kidney failure, unspecified ; N18.9 - Chronic kidney disease, unspecified (3) Diabetes Qualifiers: Diabetes mellitus type: type 2 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: without mcc use Diabetes mellitus complication status: with unspecified complications Qualified Code(s): E11.8 - Type 2 diabetes mellitus with unspecified complications (4) Hypertension Qualifiers: Hypertension type: essential hypertension Qualified Code(s): I10 - Essential (primary) hypertension (5) UTI (urinary tract infection) Qualifiers: Urinary tract infection type: acute cystitis Hematuria presence: without hematuria Qualified Code(s): N30.00 - Acute cystitis without hematuria (6) Heart failure with reduced ejection fraction Qualifiers: Heart failure chronicity: chronic Qualified Code(s): I50.22 - Chronic systolic (congestive) heart failure (7) Constipation Qualifiers: Constipation type: unspecified constipation type Qualified Code(s): K59.00 - Constipation, unspecified
--- NOTE | 2017-09-25 17:44 | Electrocardiograph Report ---
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
[2017-09-25] MEDS: cefTRIAXone 1,000 MG in Water for inj. (sterile) 20 ML 10 ML IVP SCH (21:22)
[2017-09-26 05:02] LABS: Basophils % 0.5 %; Eosinophils # 0.2 K/mcL (0.0-0.6); Eosinophils % 3.8 %; Hematocrit 24.7 % (35.3-44.9); Hemoglobin 8.2 g/dL (11.5-15.4); Immature Granulocytes % 0.3 % (0-4); Lymphocytes # 0.9 K/mcL (0.6-4.6); Lymphocytes % 23.7 %; Mean Corpuscular HGB Conc 33.2 g/dL (31.6-35.5); Mean Corpuscular Hemoglobin 33.9 pg (28.0-33.3); Mean Corpuscular Volume 102.1 fL (83.0-100.0); Monocytes # 0.3 K/mcL (0.0-1.3); Monocytes % 8.3 %; Neutrophils # 2.5 K/mcL (1.6-8.9); Platelet Count 134 K/mcL (140-400); Red Blood Count 2.42 M/mcL (3.82-4.97); Red Cell Distribution Width 12.2 % (11.5-14.5); Segmented Neutrophils % 63.4 %
[2017-09-26 05:24] LABS: Potassium 5.4 mEq/L (3.5-5.1)
[2017-09-26] MEDS: *HR* Heparin 5,000 UNIT/ML VIAL SQ SCH ×2 (05:58→17:39)
[2017-09-26] MEDS: BuPROPion SR (12 HR) 150 MG TABLET PO SCH ×2 (07:56→21:23)
[2017-09-26] MEDS: Cyanocobalamin (B-12) 1,000 MCG TABLET PO SCH (07:58)
[2017-09-26] MEDS: Cholecalciferol (D-3) 1,000 UNIT TABLET PO SCH (07:58)
[2017-09-26] MEDS: Aspirin Enteric Coated 81 MG Tablet PO SCH (07:58)
[2017-09-26] MEDS: Insulin LISPRO 300 UNITS/3 ML VIAL SQ SCH ×4 (07:59→21:24)
--- NOTE | 2017-09-26 14:32 | Internal Med Progress Note ---
Hospitalist Progress Note - Encounter Date of Encounter: 09/26/17 Time of Encounter: 14:29 - Subjective Interval History: Pt resting in bed, she is alert and oriented, she has no other complaints. - Exam Vitals: Temp Pulse Resp BP Pulse Ox 98.0 F 59 18 111/66 98 09/26/17 12:07 09/26/17 12:07 09/26/17 12:07 09/26/17 12:07 09/26/17 12:07 Exam: PHYSICAL EXAMINATION: GENERAL APPEARANCE: The patient is alert, oriented and in no acute distress. HEENT: Head is normocephalic. The sinuses are nontender. Pupils are equal and reactive. The nares are patent. Oropharynx clear without lesions. NECK: Supple without lymphadenopathy. HEART: Regular rate and rhythm. LUNGS: No crackles or wheezes are heard. ABDOMEN: Soft, nontender, nondistended with good bowel sounds heard. Inguinal area is normal. EXTREMITIES: Without cyanosis, clubbing or edema. NEUROLOGICAL: Gross nonfocal. SKIN: Warm and dry without any rash. - Assessment and Plan (1) Acute encephalopathy Current Visit: Yes Status: Resolved Assessment and Plan: Likely due to the combination of UTI and AoCKD. currently back to baseline. (2) Acute on chronic kidney failure Current Visit: Yes Status: Acute Assessment and Plan: Likely due to poor oral intake and ongoing use of Lasix, hydrochlorothiazide, and Lisinopril. history of ischemic cardiomyopathy with EF 15-20% Cr improved with IVF( 4.04, 3.69, 3.42), Continue hydration, change LR to 0.45 NS due to high K and Cl. hold off on lasix, HCTZ, and JET-i Monitor Cr and K (3) UTI (urinary tract infection) Current Visit: No Status: Suspected Assessment and Plan: Complains of foul-smelling urine, patient has similar episodes of encephalopathy when she had UTI earlier this year Was given Bactrim in the ED. started on rocephine. urine culture grew Escherichia coli which was sensitive to Ancef. Abx de- escalated to Keflex. (4) Diabetes Current Visit: No Status: Chronic Assessment and Plan: On Lantus 10 units at night in addition to sliding scale aspart will continue sliding scale coverage as her intake is poor (5) Hypertension Current Visit: No Status: Chronic Assessment and Plan: Hold off on the meds as above but continue Coreg (6) Heart failure with reduced ejection fraction Current Visit: No Status: Chronic Assessment and Plan: Lasix, lisinopril on hold as above (7) Constipation Current Visit: Yes Status: Acute Assessment and Plan: Mod amount of stool burden noted on CT daily miralax (8) DVT prophylaxis Current Visit: No Status: Acute Assessment and Plan: SQ heparin - Time Spent with Patient Total time spent is greater than 50% in coordination of care (as documented) at patient's floor/unit and/or counseling patient: Greater than 35 minutes Plan of Care Discussed with: patient Internal Medicine: Result - Labs CBC & Chem 7: 09/26/17 04:35 09/26/17 04:35 Labs: Short CBC 09/26/17 Range/Units 04:35 WBC 4.0 L (4.3-11.1) K/mcL Hgb 8.2 L (11.5-15.4) g/dL Hct 24.7 L (35.3-44.9) % Plt Count 134 L (140-400) K/mcL Neutrophils # 2.5 (1.6-8.9) K/mcL BMP 09/26/17 04:35 Sodium 140 Potassium 5.4 H Chloride 115 H Carbon Dioxide 17 L BUN 94 H Creatinine 3.42 H Glucose 110 H Calcium 9.0 - ABG Interpretation ABG results: PT/INR, D-dimer PT 11.9 Seconds (9.4-12.1) 09/24/17 17:47 Consult Discharge Plan - Plan Referrals: Griffin Ochoa MD [Primary Care Provider] - (2) Acute on chronic kidney failure Qualifiers: Acute renal failure type: unspecified Chronic kidney disease stage: unspecified stage Qualified Code(s): N17.9 - Acute kidney failure, unspecified ; N18.9 - Chronic kidney disease, unspecified (3) UTI (urinary tract infection) Qualifiers: Urinary tract infection type: acute cystitis Hematuria presence: without hematuria Qualified Code(s): N30.00 - Acute cystitis without hematuria (4) Diabetes Qualifiers: Diabetes mellitus type: type 2 Diabetes mellitus alf insulin use: 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
[2017-09-26] MEDS: cephALEXin 500 MG CAPSULE PO SCH (21:23)
[2017-09-26] MEDS: Gabapentin 100 MG CAPSULE PO SCH (21:23)
[2017-09-27] MEDS ORDERED: Melatonin 3 MG TABLET PO ONE (03:07)
[2017-09-27] MEDS: *HR* Heparin 5,000 UNIT/ML VIAL SQ SCH ×2 (06:01→17:08)
[2017-09-27 06:30] LABS: Basophils % 0.3 %; Eosinophils # 0.2 K/mcL (0.0-0.6); Eosinophils % 4.8 %; Hematocrit 24.5 % (35.3-44.9); Lymphocytes # 0.9 K/mcL (0.6-4.6); Lymphocytes % 23.1 %; Mean Corpuscular HGB Conc 32.7 g/dL (31.6-35.5); Mean Corpuscular Hemoglobin 33.2 pg (28.0-33.3); Mean Corpuscular Volume 101.7 fL (83.0-100.0); Mean Platelet Volume 10.3 fL (9.4-12.4); Monocytes # 0.3 K/mcL (0.0-1.3); Monocytes % 7.2 %; Neutrophils # 2.4 K/mcL (1.6-8.9); Platelet Count 129 K/mcL (140-400); Red Blood Count 2.41 M/mcL (3.82-4.97); Segmented Neutrophils % 64.6 %
[2017-09-27 06:47] LABS: Calcium 8.8 mg/dL (8.6-10.3); Potassium 5.5 mEq/L (3.5-5.1)
[2017-09-27] MEDS: Insulin LISPRO 300 UNITS/3 ML VIAL SQ SCH ×4 (07:31→21:31)
[2017-09-27] MEDS: Aspirin Enteric Coated 81 MG Tablet PO SCH (08:30)
[2017-09-27] MEDS: Cholecalciferol (D-3) 1,000 UNIT TABLET PO SCH (08:30)
[2017-09-27] MEDS: cephALEXin 500 MG CAPSULE PO SCH ×2 (08:30→21:34)
[2017-09-27] MEDS: Cyanocobalamin (B-12) 1,000 MCG TABLET PO SCH (08:30)
[2017-09-27] MEDS: Gabapentin 100 MG CAPSULE PO SCH ×2 (08:31→21:35)
[2017-09-27] MEDS: BuPROPion SR (12 HR) 150 MG TABLET PO SCH ×2 (08:31→21:35)
--- NOTE | 2017-09-27 10:46 | Internal Med Progress Note ---
Hospitalist Progress Note - Encounter Date of Encounter: 09/27/17 Time of Encounter: 10:44 - Subjective Interval History: Pt resting in bed, she is alert and oriented, she has no other complaints. - Exam Vitals: Temp Pulse Resp BP Pulse Ox 98.1 F 64 15 123/62 99 09/27/17 06:23 09/27/17 06:23 09/27/17 06:23 09/27/17 06:23 09/27/17 06:23 - Assessment and Plan (1) Acute encephalopathy Current Visit: Yes Status: Resolved Assessment and Plan: Likely due to the combination of UTI and AoCKD. currently back to baseline. (2) Acute on chronic kidney failure Current Visit: Yes Status: Acute Assessment and Plan: Likely due to poor oral intake and ongoing use of Lasix, hydrochlorothiazide, and Lisinopril. history of ischemic cardiomyopathy with EF 15-20% Cr improved with IVF( 4.04, 3.69, 3.42, 2.76), baseline Cr 1.5-2.0. Continue hydration, change LR to 0.45 NS due to high K and Cl. hold off on lasix, HCTZ, and JET-i. K 5.5 today, gave one dose of Kayexalate. Monitor Cr and K (3) UTI (urinary tract infection) Current Visit: No Status: Suspected Assessment and Plan: Complains of foul-smelling urine, patient has similar episodes of encephalopathy when she had UTI earlier this year Was given Bactrim in the ED. started on rocephine. urine culture grew Escherichia coli which was sensitive to Ancef. Abx de- escalated to Keflex. (4) Diabetes Current Visit: No Status: Chronic Assessment and Plan: On Lantus 10 units at night in addition to sliding scale aspart will continue sliding scale coverage as her intake is poor (5) Hypertension Current Visit: No Status: Chronic Assessment and Plan: Hold off on the meds as above but continue Coreg (6) Heart failure with reduced ejection fraction Current Visit: No Status: Chronic Assessment and Plan: Lasix, lisinopril on hold as above. currently volume depleted, continue to hydrate with IVF. (7) Constipation Current Visit: Yes Status: Acute Assessment and Plan: Mod amount of stool burden noted on CT daily miralax (8) DVT prophylaxis Current Visit: Yes Status: Acute Assessment and Plan: SQ heparin - Time Spent with Patient Total time spent is greater than 50% in coordination of care (as documented) at patient's floor/unit and/or counseling patient: Greater than 35 minutes Plan of Care Discussed with: patient Internal Medicine: Result - Labs CBC & Chem 7: 09/27/17 05:45 09/27/17 05:45 Labs: Short CBC 09/27/17 Range/Units 05:45 WBC 3.8 L (4.3-11.1) K/mcL Hgb 8.0 L (11.5-15.4) g/dL Hct 24.5 L (35.3-44.9) % Plt Count 129 L (140-400) K/mcL Neutrophils # 2.4 (1.6-8.9) K/mcL BMP 09/27/17 05:45 Sodium 139 Potassium 5.5 H Chloride 113 H Carbon Dioxide 20 L BUN 75 H Creatinine 2.76 H Glucose 122 H Calcium 8.8 - ABG Interpretation ABG results: PT/INR, D-dimer PT 11.9 Seconds (9.4-12.1) 09/24/17 17:47 Consult Discharge Plan - Plan Referrals: Griffin Ochoa MD [Primary Care Provider] - (2) Acute on chronic kidney failure Qualifiers: Acute renal failure type: unspecified Chronic kidney disease stage: unspecified stage Qualified Code(s): N17.9 - Acute kidney failure, unspecified ; N18.9 - Chronic kidney disease, unspecified (3) UTI (urinary tract infection) Qualifiers: Urinary tract infection type: acute cystitis Hematuria presence: without hematuria Qualified Code(s): N30.00 - Acute cystitis without hematuria (4) Diabetes Qualifiers: Diabetes mellitus type: type 2 Diabetes mellitus skilled nursing insulin use: without terminal supervisor use Diabetes mellitus complication status: with unspecified complications Qualified Code(s): E11.8 - Type 2 diabetes mellitus with unspecified complications (5) Hypertension Qualifiers: Hypertension type: essential hypertension Qualified Code(s): I10 - Essential (primary) hypertension (6) Heart failure with reduced ejection fraction Qualifiers: Heart failure chronicity: chronic Qualified Code(s): I50.22 - Chronic systolic (congestive) heart failure (7) Constipation Qualifiers: Constipation type: unspecified constipation type Qualified Code(s): K59.00 - Constipation, unspecified
[2017-09-28 05:40] LABS: Basophils % 0.6 %; Eosinophils # 0.2 K/mcL (0.0-0.6); Hematocrit 24.6 % (35.3-44.9); Hemoglobin 8.2 g/dL (11.5-15.4); Immature Granulocytes % 0.3 % (0-4); Lymphocytes # 0.9 K/mcL (0.6-4.6); Lymphocytes % 25.2 %; Mean Corpuscular HGB Conc 33.3 g/dL (31.6-35.5); Mean Corpuscular Hemoglobin 33.7 pg (28.0-33.3); Mean Corpuscular Volume 101.2 fL (83.0-100.0); Mean Platelet Volume 9.7 fL (9.4-12.4); Monocytes # 0.3 K/mcL (0.0-1.3); Monocytes % 8.3 %; Platelet Count 117 K/mcL (140-400); Red Blood Count 2.43 M/mcL (3.82-4.97); Red Cell Distribution Width 11.9 % (11.5-14.5); Segmented Neutrophils % 60.6 %
[2017-09-28] MEDS: *HR* Heparin 5,000 UNIT/ML VIAL SQ SCH ×2 (05:59→17:11)
[2017-09-28 06:07] LABS: Calcium 8.9 mg/dL (8.6-10.3); Potassium 4.8 mEq/L (3.5-5.1)
[2017-09-28] MEDS: cephALEXin 500 MG CAPSULE PO SCH ×2 (08:09→20:20)
[2017-09-28] MEDS: Gabapentin 100 MG CAPSULE PO SCH ×2 (08:09→20:20)
[2017-09-28] MEDS: Cyanocobalamin (B-12) 1,000 MCG TABLET PO SCH (08:11)
[2017-09-28] MEDS: Cholecalciferol (D-3) 1,000 UNIT TABLET PO SCH (08:11)
[2017-09-28] MEDS: Aspirin Enteric Coated 81 MG Tablet PO SCH (08:11)
[2017-09-28] MEDS: BuPROPion SR (12 HR) 150 MG TABLET PO SCH ×2 (08:11→20:20)
[2017-09-28] MEDS: Insulin LISPRO 300 UNITS/3 ML VIAL SQ SCH ×4 (08:21→20:24)
[2017-09-28] MEDS: Lisinopril 20 MG TABLET PO SCH (12:16)
--- NOTE | 2017-09-28 12:48 | Internal Med Progress Note ---
Hospitalist Progress Note - Encounter Date of Encounter: 09/28/17 Time of Encounter: 12:42 - Subjective Interval History: Pt resting in bed, she is alert and oriented, she has no other complaints. - Exam Vitals: Temp Pulse Resp BP Pulse Ox 97.8 F 63 18 116/54 100 09/28/17 11:53 09/28/17 11:53 09/28/17 11:53 09/28/17 11:53 09/28/17 11:53 Exam: PHYSICAL EXAMINATION: GENERAL APPEARANCE: The patient is alert, oriented and in no acute distress. HEENT: Head is normocephalic. The sinuses are nontender. Pupils are equal and reactive. The nares are patent. Oropharynx clear without lesions. NECK: Supple without lymphadenopathy. HEART: Regular rate and rhythm. LUNGS: No crackles or wheezes are heard. ABDOMEN: Soft, nontender, nondistended with good bowel sounds heard. Inguinal area is normal. EXTREMITIES: BKA bilaterally NEUROLOGICAL: Gross nonfocal. SKIN: Warm and dry without any rash. - Assessment and Plan (1) Acute encephalopathy Current Visit: Yes Status: Resolved (2) Acute on chronic kidney failure Current Visit: Yes Status: Acute Assessment and Plan: Likely due to poor oral intake and ongoing use of Lasix, hydrochlorothiazide, and Lisinopril. history of ischemic cardiomyopathy with EF 15-20% Cr improved with IVF( 4.04, 3.69, 3.42, 2.76, 2.37), baseline Cr 1.5-2.0. Continue hydration, change LR to 0.45 NS due to high K and Cl. hold off on lasix, HCTZ,resumed Lisinopril 09/28. Monitor Cr and K. Plan to dc home tomorrow if Cr is less than 2.0. Likely we can restart lasix and cut dose in half, hold HCTZ when dc. I educated pt how to monitor volume status by monitoring edema on hands and thigh, and respiratory status, She has bilateral amputation, can not use scale to weigh herself. If pt senses she builds up volume, she take take extra dose of lasix. HCTZ does not work if GFR< 30. She likely will benefit. I rec to dc. (3) UTI (urinary tract infection) Current Visit: No Status: Suspected Assessment and Plan: Complains of foul-smelling urine, patient has similar episodes of encephalopathy when she had UTI earlier this year Was given Bactrim in the ED. started on rocephine. urine culture grew Escherichia coli which was sensitive to Ancef. Abx de- escalated to Keflex. can dc abx tomorrow. (4) Diabetes Current Visit: No Status: Chronic Assessment and Plan: On Lantus 10 units at night in addition to sliding scale aspart will continue sliding scale coverage as her intake is poor (5) Hypertension Current Visit: No Status: Chronic Assessment and Plan: Hold off on the meds as above but continue Coreg, imdur, and Lisinopril. (6) Heart failure with reduced ejection fraction Current Visit: No Status: Chronic Assessment and Plan: Lasix on hold as above. currently volume depleted, continue to hydrate with IVF. restarted lisinopril today. (7) Constipation Current Visit: Yes Status: Acute Assessment and Plan: Mod amount of stool burden noted on CT daily miralax (8) DVT prophylaxis Current Visit: Yes Status: Acute Assessment and Plan: SQ heparin - Time Spent with Patient Total time spent is greater than 50% in coordination of care (as documented) at patient's floor/unit and/or counseling patient: Greater than 35 minutes Plan of Care Discussed with: patient Internal Medicine: Result - Labs CBC & Chem 7: 09/28/17 05:25 09/28/17 05:25 Labs: Short CBC 09/28/17 Range/Units 05:25 WBC 3.4 L (4.3-11.1) K/mcL Hgb 8.2 L (11.5-15.4) g/dL Hct 24.6 L (35.3-44.9) % Plt Count 117 L (140-400) K/mcL Neutrophils # 2.0 (1.6-8.9) K/mcL BMP 09/28/17 05:25 Sodium 141 Potassium 4.8 Chloride 116 H Carbon Dioxide 19 L BUN 55 H Creatinine 2.37 H Glucose 70 Calcium 8.9 - ABG Interpretation ABG results: PT/INR, D-dimer PT 11.9 Seconds (9.4-12.1) 09/24/17 17:47 Consult Discharge Plan - Plan Referrals: Griffin Ochoa MD [Primary Care Provider] - (2) Acute on chronic kidney failure Qualifiers: Acute renal failure type: unspecified Chronic kidney disease stage: unspecified stage Qualified Code(s): N17.9 - Acute kidney failure, unspecified ; N18.9 - Chronic kidney disease, unspecified (3) UTI (urinary tract infection) Qualifiers: Urinary tract infection type: acute cystitis Hematuria presence: without hematuria Qualified Code(s): N30.00 - Acute cystitis without hematuria (4) Diabetes Qualifiers: Diabetes mellitus type: type 2 Diabetes mellitus penitentiary insulin use: without penitentiary use Diabetes mellitus complication status: with unspecified complications Qualified Code(s): E11.8 - Type 2 diabetes mellitus with unspecified complications (5) Hypertension Qualifiers: Hypertension type: essential hypertension Qualified Code(s): I10 - Essential (primary) hypertension (6) Heart failure with reduced ejection fraction Qualifiers: Heart failure chronicity: chronic Qualified Code(s): I50.22 - Chronic systolic (congestive) heart failure (7) Constipation Qualifiers: Constipation type: unspecified constipation type Qualified Code(s): K59.00 - Constipation, unspecified
[2017-09-29] MEDS: *HR* Heparin 5,000 UNIT/ML VIAL SQ SCH ×2 (05:03→17:07)
[2017-09-29 07:10] LABS: Basophils % 0.3 %; Eosinophils # 0.2 K/mcL (0.0-0.6); Eosinophils % 4.6 %; Hematocrit 26.4 % (35.3-44.9); Hemoglobin 8.8 g/dL (11.5-15.4); Immature Granulocytes % 0.3 % (0-4); Lymphocytes # 0.8 K/mcL (0.6-4.6); Lymphocytes % 20.6 %; Mean Corpuscular HGB Conc 33.3 g/dL (31.6-35.5); Mean Corpuscular Hemoglobin 33.3 pg (28.0-33.3); Mean Platelet Volume 9.7 fL (9.4-12.4); Monocytes # 0.3 K/mcL (0.0-1.3); Monocytes % 6.7 %; Neutrophils # 2.6 K/mcL (1.6-8.9); Platelet Count 124 K/mcL (140-400); Red Blood Count 2.64 M/mcL (3.82-4.97); Red Cell Distribution Width 11.9 % (11.5-14.5); Segmented Neutrophils % 67.5 %
[2017-09-29 07:26] LABS: Calcium 9.4 mg/dL (8.6-10.3)
[2017-09-29] MEDS: cephALEXin 500 MG CAPSULE PO SCH ×2 (08:10→21:58)
[2017-09-29] MEDS: BuPROPion SR (12 HR) 150 MG TABLET PO SCH ×2 (08:10→21:58)
[2017-09-29] MEDS: Cholecalciferol (D-3) 1,000 UNIT TABLET PO SCH (08:11)
[2017-09-29] MEDS: Aspirin Enteric Coated 81 MG Tablet PO SCH (08:11)
[2017-09-29] MEDS: Gabapentin 100 MG CAPSULE PO SCH ×2 (08:11→21:57)
[2017-09-29] MEDS: Lisinopril 20 MG TABLET PO SCH (08:11)
[2017-09-29] MEDS: Cyanocobalamin (B-12) 1,000 MCG TABLET PO SCH (08:12)
[2017-09-29] MEDS: Insulin LISPRO 300 UNITS/3 ML VIAL SQ SCH ×4 (08:12→21:56)
[2017-09-29 10:21] LABS: Calcium 9.3 mg/dL (8.6-10.3); Potassium 5.2 mEq/L (3.5-5.1)
--- NOTE | 2017-09-29 15:06 | Internal Med Progress Note ---
Hospitalist Progress Note - Encounter Date of Encounter: 09/29/17 Time of Encounter: 11:00 - Subjective Interval History: Patient seen and examined at bedside. Apparently overnight the patient's IV came out, She did receive any IV fluids Her creatinine and potassium cont to be elevated. I discussed this with the patient. She is requesting to leave I advised if she is to leave she would need to leave AMA. IV was replaced per PICC team and fluids restarted - Exam Vitals: Temp Pulse Resp BP Pulse Ox 98.2 F 60 18 124/55 93 09/29/17 11:41 09/29/17 11:41 09/29/17 11:41 09/29/17 11:41 09/29/17 11:41 Exam: PHYSICAL EXAMINATION: GENERAL APPEARANCE: The patient is alert, oriented x3 and in no acute distress. Follws simple commands HEENT: Head is normocephalic. The sinuses are nontender. Pupils are equal and reactive. The nares are patent. Oropharynx clear without lesions. NECK: Supple without lymphadenopathy. HEART: Regular rate and rhythm. LUNGS: No crackles or wheezes are heard. ABDOMEN: Soft, nontender, nondistended with good bowel sounds heard. Inguinal area is normal. EXTREMITIES: BKA bilaterally NEUROLOGICAL: Gross nonfocal. SKIN: Warm and dry without any rash. - Assessment and Plan (1) Diabetes Current Visit: No Status: Chronic Assessment and Plan: On Lantus 10 units at night in addition to sliding scale aspart will continue sliding scale coverage as her intake is poor (2) Hypertension Current Visit: No Status: Chronic Assessment and Plan: stable continue Coreg, imdur, and Lisinopril. (3) DVT prophylaxis Current Visit: Yes Status: Acute Assessment and Plan: SQ heparin (4) UTI (urinary tract infection) Current Visit: No Status: Suspected Assessment and Plan: Complains of foul-smelling urine, patient has similar episodes of encephalopathy when she had UTI earlier this year Was given Bactrim in the ED. started on rocephine. urine culture grew Escherichia coli which was sensitive to Ancef. Abx de- escalated to Keflex. can dc today (5) Acute encephalopathy Current Visit: Yes Status: Resolved Assessment and Plan: Likely due to the combination of UTI and AoCKD. currently back to baseline. (6) Heart failure with reduced ejection fraction Current Visit: No Status: Chronic Assessment and Plan: Lasix on hold as above. currently volume depleted, continue to hydrate with IVF. restarted lisinopril monitor creatinine . (7) Acute on chronic kidney failure Current Visit: Yes Status: Acute Assessment and Plan: Likely due to poor oral intake and ongoing use of Lasix, hydrochlorothiazide, and Lisinopril. history of ischemic cardiomyopathy with EF 15-20% Cr improved with IVF( 4.04, 3.69, 3.42, 2.76, 2.37), baseline Cr 1.5-2.0. Continue hydration, change LR to 0.45 NS due to high K and Cl. hold off on lasix, HCTZ,resumed Lisinopril 09/28. Monitor Cr and K. Plan to dc home if Cr is less than 2.0- However Creatinine cont to be elevated this am as well as potassium. She did not receive any IVF overnight dt loss of IV. Likely we can restart lasix and cut dose in half, hold HCTZ when dc. I educated pt how to monitor volume status by monitoring edema on hands and thigh , and respiratory status, She has bilateral amputation, can not use scale to weigh herself. If pt senses she builds up volume, she take take extra dose of lasix. HCTZ does not work if GFR<30. She likely will benefit. I rec to dc. (8) Constipation Current Visit: Yes Status: Acute - Time Spent with Patient Total time spent is greater than 50% in coordination of care (as documented) at patient's floor/unit and/or counseling patient: Internal Medicine: Result - Labs CBC & Chem 7: 09/29/17 06:53 09/29/17 09:43 Labs: Short CBC 09/29/17 Range/Units 06:53 WBC 3.9 L (4.3-11.1) K/mcL Hgb 8.8 L (11.5-15.4) g/dL Hct 26.4 L (35.3-44.9) % Plt Count 124 L (140-400) K/mcL Neutrophils # 2.6 (1.6-8.9) K/mcL BMP 09/29/17 09/29/17 06:53 09:43 Sodium 139 140 Potassium 5.0 5.2 H Chloride 116 H 114 H Carbon Dioxide 19 L 21 L BUN 48 H 46 H Creatinine 2.16 H 2.16 H Glucose 96 143 H Calcium 9.4 9.3 - ABG Interpretation ABG results: PT/INR, D-dimer PT 11.9 Seconds (9.4-12.1) 09/24/17 17:47 Consult Discharge Plan - Plan Referrals: Griffin Ochoa MD [Primary Care Provider] - 10/02/17 9:45 am (1) Diabetes Qualifiers: Diabetes mellitus type: type 2 Diabetes 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 Diabetes mellitus complication status: with unspecified complications Qualified Code(s): E11.8 - Type 2 diabetes mellitus with unspecified complications (2) Hypertension Qualifiers: Hypertension type: essential hypertension Qualified Code(s): I10 - Essential (primary) hypertension (4) UTI (urinary tract infection) Qualifiers: Urinary tract infection type: acute cystitis Hematuria presence: without hematuria Qualified Code(s): N30.00 - Acute cystitis without hematuria (6) Heart failure with reduced ejection fraction Qualifiers: Heart failure chronicity: chronic Qualified Code(s): I50.22 - Chronic systolic (congestive) heart failure (7) Acute on chronic kidney failure Qualifiers: Acute renal failure type: unspecified Chronic kidney disease stage: unspecified stage Qualified Code(s): N17.9 - Acute kidney failure, unspecified ; N18.9 - Chronic kidney disease, unspecified (8) Constipation Qualifiers: Constipation type: unspecified constipation type Qualified Code(s): K59.00 - Constipation, unspecified
[2017-09-29 17:25] LABS: Calcium 9.4 mg/dL (8.6-10.3); Potassium 5.6 mEq/L (3.5-5.1)
[2017-09-29] MEDS ORDERED: 0.9 % Sodium Chloride 1,000 ML IVC ONE (21:00)
[2017-09-30 04:14] LABS: Hematocrit 25.2 % (35.3-44.9); Hemoglobin 8.4 g/dL (11.5-15.4); Mean Corpuscular HGB Conc 33.3 g/dL (31.6-35.5); Mean Corpuscular Hemoglobin 33.3 pg (28.0-33.3); Platelet Count 127 K/mcL (140-400); Red Blood Count 2.52 M/mcL (3.82-4.97)
[2017-09-30 04:31] LABS: Calcium 9.1 mg/dL (8.6-10.3)
[2017-09-30] MEDS: *HR* Heparin 5,000 UNIT/ML VIAL SQ SCH ×2 (05:35→17:25)
[2017-09-30] MEDS: Insulin LISPRO 300 UNITS/3 ML VIAL SQ SCH ×4 (08:03→20:44)
--- NOTE | 2017-09-30 09:23 | Internal Med Progress Note ---
Hospitalist Progress Note - Encounter Date of Encounter: 09/30/17 Time of Encounter: 09:23 - Subjective Interval History: Patient seen and examined at bedside. Patient's IV was out yesterday she did not receive any IV fluids. Recheck of labs did reveal increasing creatinine as well as potassium and she required Keflex 08 and IV fluids overnight. This a.m. her potassium was 5 creatinine 2. I did discuss this case with Dr. Zambrano he will see patient on consult. I did review this with the patient and expressed concern about her going home with these elevated numbers. Patient very upset stating that she does not like the commodes here at the hospital and she wants to go home. Again advised patient she would leave AGAINST MEDICAL ADVICE if she were to sign out at this time she verbalized understanding. - Exam Vitals: Temp Pulse Resp BP Pulse Ox 98.3 F 77 18 145/65 98 09/30/17 07:27 09/30/17 07:27 09/30/17 07:27 09/30/17 07:27 09/30/17 07:27 Exam: PHYSICAL EXAMINATION: GENERAL APPEARANCE: The patient is alert, oriented x3 and in no acute distress. Follws simple commands HEENT: Head is normocephalic. The sinuses are nontender. Pupils are equal and reactive. The nares are patent. Oropharynx clear without lesions. NECK: Supple without lymphadenopathy. HEART: Regular rate and rhythm. LUNGS: No crackles or wheezes are heard. ABDOMEN: Soft, nontender, nondistended with good bowel sounds heard. Inguinal area is normal. EXTREMITIES: BKA bilaterally NEUROLOGICAL: Gross nonfocal. SKIN: Warm and dry without any rash. - Assessment and Plan (1) Diabetes Current Visit: No Status: Chronic Assessment and Plan: On Lantus 10 units at night in addition to sliding scale aspart will continue sliding scale coverage as her intake is poor-continue to closely monitor (2) Hypertension Current Visit: No Status: Chronic Assessment and Plan: stable continue Coreg, imdur, and Lisinopril. (3) UTI (urinary tract infection) Current Visit: No Status: Resolved Assessment and Plan: Complains of foul-smelling urine, patient has similar episodes of encephalopathy when she had UTI earlier this year Was given Bactrim in the ED. started on rocephine. urine culture grew Escherichia coli which was sensitive to Ancef. Abx de- escalated to Keflex-it has been DC'd (4) Acute encephalopathy Current Visit: Yes Status: Resolved Assessment and Plan: Likely due to the combination of UTI and AoCKD. currently back to baseline. (5) Heart failure with reduced ejection fraction Current Visit: No Status: Chronic Assessment and Plan: Lasix on hold as above. currently volume depleted, continue to hydrate with IVF. Lisinopril held due to elevated potassium Monitor intake output daily weights. (6) Acute on chronic kidney failure Current Visit: Yes Status: Acute Assessment and Plan: Likely due to poor oral intake and ongoing use of Lasix, hydrochlorothiazide, and Lisinopril. history of ischemic cardiomyopathy with EF 15-20% Cr has improved withIVF( 4.04, 3.69, 3.42, 2.76, 2.37 2.16), baseline Cr 1.5- 2.0.-Patient did not have any fluid yesterday due to loss of IV her creatinine bumped up to 2.20 as well as potassium up to 5.6. She required collects late as well as more IV fluid overnight. She did come down to 2 I am concerned about sending her home with such an increase in just a sore amount time of her creatinine and potassium. I did consult nephrology to review patient hold off on lasix, HCTZ, will hold lisinopril due to rising potassium. Monitor Cr and K. PT educated to monitor volume status by monitoring edema on hands and thigh, and respiratory status, She has bilateral amputation, can not use scale to weigh herself. If pt senses she builds up volume, she take take extra dose of lasix. HCTZ does not work if GFR<30. (7) Constipation Current Visit: Yes Status: Acute Assessment and Plan: Mod amount of stool burden noted on CT daily miralax (8) Hyperkalemia Current Visit: Yes Status: Acute Assessment and Plan: Patient had elevated potassium 5.6 and was given Kayexalate will hold lisinopril continue to monitor (9) DVT prophylaxis Current Visit: Yes Status: Acute Assessment and Plan: SQ heparin - Time Spent with Patient Total time spent is greater than 50% in coordination of care (as documented) at patient's floor/unit and/or counseling patient: Internal Medicine: Result - Labs CBC & Chem 7: 09/30/17 04:00 09/30/17 04:00 Labs: Short CBC 09/30/17 Range/Units 04:00 WBC 3.6 L (4.3-11.1) K/mcL Hgb 8.4 L (11.5-15.4) g/dL Hct 25.2 L (35.3-44.9) % Plt Count 127 L (140-400) K/mcL BMP 09/29/17 09/29/17 09/30/17 09:43 16:44 04:00 Sodium 140 140 139 Potassium 5.2 H 5.6 H 5.0 Chloride 114 H 113 H 114 H Carbon Dioxide 21 L 24 20 L BUN 46 H 46 H 42 H Creatinine 2.16 H 2.20 H 2.01 H Glucose 143 H 164 H 86 Calcium 9.3 9.4 9.1 Cardiac Enzymes 09/30/17 Range/Units 04:00 Troponin I < 0.03 (< 0.04) ng/mL - ABG Interpretation ABG results: PT/INR, D-dimer PT 11.9 Seconds (9.4-12.1) 09/24/17 17:47 Consult Discharge Plan - Plan Referrals: Griffin Ochoa MD [Primary Care Provider] - 10/02/17 9:45 am (1) Diabetes Qualifiers: Diabetes mellitus type: type 2 Diabetes mellitus half-way insulin use: without half-way use Diabetes mellitus complication status: with unspecified complications Qualified Code(s): E11.8 - Type 2 diabetes mellitus with unspecified complications (2) Hypertension Qualifiers: Hypertension type: essential hypertension Qualified Code(s): I10 - Essential (primary) hypertension (3) UTI (urinary tract infection) Qualifiers: Urinary tract infection type: acute cystitis Hematuria presence: without hematuria Qualified Code(s): N30.00 - Acute cystitis without hematuria (5) Heart failure with reduced ejection fraction Qualifiers: Heart failure chronicity: chronic Qualified Code(s): I50.22 - Chronic systolic (congestive) heart failure (6) Acute on chronic kidney failure Qualifiers: Acute renal failure type: unspecified Chronic kidney disease stage: unspecified stage Qualified Code(s): N17.9 - Acute kidney failure, unspecified ; N18.9 - Chronic kidney disease, unspecified (7) Constipation Qualifiers: Constipation type: unspecified constipation type Qualified Code(s): K59.00 - Constipation, unspecified
[2017-09-30] MEDS: cephALEXin 500 MG CAPSULE PO SCH ×2 (09:47→20:42)
[2017-09-30] MEDS: Cyanocobalamin (B-12) 1,000 MCG TABLET PO SCH (09:47)
[2017-09-30] MEDS: BuPROPion SR (12 HR) 150 MG TABLET PO SCH ×2 (09:47→20:40)
[2017-09-30] MEDS: Gabapentin 100 MG CAPSULE PO SCH ×2 (09:47→20:42)
[2017-09-30] MEDS: Cholecalciferol (D-3) 1,000 UNIT TABLET PO SCH (09:47)
[2017-09-30] MEDS: Aspirin Enteric Coated 81 MG Tablet PO SCH (09:47)
--- NOTE | 2017-09-30 14:03 | Nephrology Consult Note ---
<Mary Marie Krzysztof - Last Filed: 09/30/17 15:40> Date of Encounter: 09/30/17 Time of Encounter: 14:02 Assessment and Plan (1) Acute on chronic kidney failure Status: Acute Appears to be CKD [address] Lawson[address] Avoid nephrotoxins and renal dose all medications. Strict I/O Encourage adequate PO intake. Qualifiers: Acute renal failure type: unspecified Chronic kidney disease stage: unspecified stage Qualified Code(s): N17.9 - Acute kidney failure, unspecified ; N18.4 - Chronic kidney disease, stage 4 (severe) (2) Hyperkalemia Status: Acute Potassium was 5.6 yesterday, Kayexalate given. Potassium is 5 today. Will recheck in am. (3) Urinary tract infection Status: Acute Per primary. Qualifiers: Urinary tract infection type: site unspecified Hematuria presence: without hematuria Qualified Code(s): N39.0 - Urinary tract infection, site not specified History of Present Illness - Reason for Consult Consult date: 09/30/17 Chronic Kidney Disease - Chief Complaint confusion/UTI - History of Present Illness Ms. Daugherty is a 77 year old female who presented to ED for confusion and UTI symptoms. PMH:diabetes, hypertension, ischemic cardiomyopathy, CKD 3 (she is followed by Dr. Lawson). Apparently she had been feeling out of sorts for 2 weeks before coming in. Her kidney function has fluctuated some since admission but right now appears to be close to baseline. The [facility] have been consulted to help manage CKD. Primary team is concerned because after d/cing fluids Scr and Potassium both increase. I encouraged patient to drink more fluids and to check BMP in am and see if kidney function has stabilized. Dr. Lawson's office was called to see if patient has a f/u already scheduled and unfortunately the computers have been down for a week and will continue to be down for another 2 weeks so they can not schedule any followups. Past Med Surg Social Fam HX - Past Medical History Medical history: COPD, diabetes, GERD, hyperlipidemia, hypertension, myocardial infarction, renal disease Additional medical history: atherosclerotic heart disease, anemia, heart failure , urine retention, osteoarthritis, Psychiatric history: anxiety - Past Surgical History Surgical History: cholecystectomy Additional surgical history: right great toe removal. left leg amputation, angioplasty of right leg x 2, - Social History Smoking Status: Former smoker Smokeless Tobacco Status: No Alcohol use: none Drug use: none - Family History Mother Hx Family Cardiac Disorders: Yes Hx Family Respiratory Disorders: No Hx Family Cancer: No Hx Family GI Disorders: No Hx Family Endocrine Disorder: Yes Hx Family Neuromuscular Disorders: No Hx Family Neurologic Disorders: No Hx Family HEENT Disorders: No Hx Family Autoimmune Disorders: No Medications and Allergies Aspirin [Lo-Dose Aspirin EC] 81 mg PO DAILY 06/12/16 [History] BuPROPion SR (12 HR) [Wellbutrin SR] 150 mg PO BID 06/12/16 [History] Cholecalciferol (D-3) [Vitamin D] 5,000 unit PO DAILY 06/12/16 [History] Clopidogrel [Plavix] 75 mg PO DAILY 06/12/16 [History] Cyanocobalamin (Vitamin B-12) [Vitamin B-12] 1,000 mcg SL DAILY 06/12/16 [ History] Oxybutynin Chloride [Ditropan Xl] 5 mg PO DAILY 06/12/16 [History] Isosorbide DInitrate [Isosorbide Dinitrate] 10 mg PO BID 10/14/16 [History] Atorvastatin Calcium [Lipitor] 20 mg PO QPM 09/24/17 [History] Carvedilol [Coreg] 6.25 mg PO BIDWM 09/24/17 [History] Gabapentin [Neurontin] 100 mg PO BID 09/24/17 [History] Insulin ASPART [NovoLOG] 0 unit SQ TIDWM PRN 09/24/17 [History] Sodium Polystyrene Sulfonate [Kayexalate] 15 gm PO DAILY #30 bottle 10/06/17 [Rx ] 3 Allergy/AdvReac Type Severity Reaction Status Date / Time Penicillins Allergy Hives Verified 06/12/16 14:36 Review of Systems Constitutional: fever(s), no anorexia, no chills, no fatigue Cardiovascular: no chest pain, no dyspnea Respiratory: no cough Gastrointestinal: no change in bowel habits Genitourinary Female: no urinary frequency, no urinary hesitancy, no urinary urgency Exam - Vital Signs Vital signs: Initial Vital Signs Temp Pulse Resp BP Pulse Ox 98.0 F 73 12 118/61 98 09/24/17 17:02 09/24/17 17:02 09/24/17 17:02 09/24/17 17:02 09/24/17 17:02 Vital Signs - Last 8 Hours Temp Pulse Resp BP Pulse Ox 09/30/17 11:54 97.9 F 53 18 112/69 99 09/30/17 07:27 98.3 F 77 18 145/65 98 Intake and Output 09/29/17 09/30/17 09/30/17 23:59 07:59 15:59 Intake Total 250 / 250 Balance 250 / 250 Intake: Oral 250 / 250 Other: Meal Dinner Percent of Meal Consumed 0% # Voids 1 # Urine Diapers 1 1 1 Weight 70.8 kg Blood Glucose* 131 84 97 Patient Weight 09/30/17 23:59 Weight 70.8 kg - General Appearance General appearance: well-developed, well-nourished EENT: ATNC, hearing intact, vision intact Neck: supple Respiratory: clear Cardiology: no edema, normal S1, normal S2 Gastrointestinal: normoactive bowel sounds, no tenderness, no guarding Integumentary: no rash, warm and dry Neurologic: alert and oriented x3 Psychiatric: mood/affect appropriate, cooperative Results - Lab Results 09/30/17 04:00 09/30/17 04:00 Most recent lab results Calcium 9.1 mg/dL (8.6-10.3) 09/30/17 04:00 Consult Discharge Plan - Plan Referrals: Griffin Ochoa MD [Primary Care Provider] - Prescriptions: Sodium Polystyrene Sulfonate [Kayexalate] 15 gm PO DAILY #30 bottle <Amada Eubanks - Last Filed: 10/06/17 17:45> Date of Encounter: 09/30/17 Assessment and Plan (1) Hyperkalemia Status: Acute (2) Acute on chronic kidney failure Status: Acute Qualifiers: Acute renal failure type: unspecified Chronic kidney disease stage: stage 4 (severe) Qualified Code(s): N17.9 - Acute kidney failure, unspecified; N18.4 - Chronic kidney disease, stage 4 (severe) (3) Urinary tract infection Status: Acute Qualifiers: Urinary tract infection type: site unspecified Hematuria presence: without hematuria Qualified Code(s): N39.0 - Urinary tract infection, site not specified (4) CKD (chronic kidney disease) stage 3, GFR 30-59 ml/min Status: Acute Exam - Vital Signs Vital signs: Initial Vital Signs Temp Pulse Resp BP Pulse Ox 98.0 F 73 12 118/61 98 09/24/17 17:02 09/24/17 17:02 09/24/17 17:02 09/24/17 17:02 09/24/17 17:02 Vital Signs - Last 8 Hours Temp Pulse Resp BP Pulse Ox 10/06/17 11:04 98.0 F 82 15 114/68 99 Intake and Output 10/06/17 10/06/17 10/06/17 07:59 15:59 23:59 Intake Total 50 / 50 Balance 50 / 50 Intake: Oral 50 / 50 Other: Meal Lunch Percent of Meal Consumed 10% # Urine Diapers 1 1 Blood Glucose* 171 126 Results - Lab Results 10/06/17 04:27 10/06/17 04:27 Most recent lab results Calcium 9.2 mg/dL (8.6-10.3) 10/06/17 04:27 Phosphorus 3.2 mg/dL (2.7-4.5) 10/03/17 05:30 - Attending Attestation I examined this patient and my medical decision-making was reviewed with the Resident Physician/HORTICULTURAL FARMER. I agree with the documented findings, disposition and treatment plan as described except to the extent set forth below. 77 y o AAfemale with PMH of DM, HTN, CAD and stage 3 CKD admitted with SARANYA with SCr in the 4.0s improving with IVF to the 2.0s. Baseline around 1.5 in the past. Renal consulted to help with her care especially given now fluctuating SCr in the 2.0s and elevated potassium. On exam: elderly AAfemale with bilateral leg amputations. Encouraged adequate fluid intake. Renal diet advised. Will check CKD labs as well.
--- NOTE | 2017-09-30 17:23 | Electrocardiograph Report ---
[address] [address] Test Date: 2017-09-30 Pat Name: Myesha Daugherty Department: 113 Room: 3B43 Gender: F Conventional Mortgage Underwriter: : 1940 Requested By: [id number] Order Number: [id number] Reading MD: Lorena Morales Measurements Intervals [place] Rate: 63 P: 64 KS: 178 QRS: -35 QRSD: 106 T: -5 QT: 418 QTc: 425 Interpretive Statements SINUS RHYTHM LEFT AXIS DEVIATION LOW QRS VOLTAGE IN EXTREMITY LEADS DIFFUSE NONSPECIFIC ST FINDINGS Electronically Signed On 09-30-2017 17:21:49 EDT by Lorena Morales
[2017-10-01 04:36] LABS: Basophils % 0.2 %; Eosinophils # 0.2 K/mcL (0.0-0.6); Hematocrit 24.1 % (35.3-44.9); Immature Granulocytes % 0.2 % (0-4); Lymphocytes # 0.8 K/mcL (0.6-4.6); Lymphocytes % 18.9 %; Mean Corpuscular HGB Conc 33.2 g/dL (31.6-35.5); Mean Corpuscular Hemoglobin 32.4 pg (28.0-33.3); Mean Corpuscular Volume 97.6 fL (83.0-100.0); Monocytes # 0.3 K/mcL (0.0-1.3); Monocytes % 6.4 %; Platelet Count 117 K/mcL (140-400); Red Blood Count 2.47 M/mcL (3.82-4.97); Red Cell Distribution Width 12.2 % (11.5-14.5); Segmented Neutrophils % 70.3 %
[2017-10-01 04:58] LABS: Calcium 9.3 mg/dL (8.6-10.3); Potassium 5.5 mEq/L (3.5-5.1)
[2017-10-01] MEDS: *HR* Heparin 5,000 UNIT/ML VIAL SQ SCH ×2 (06:04→17:05)
[2017-10-01] MEDS: Insulin LISPRO 300 UNITS/3 ML VIAL SQ SCH ×4 (08:28→20:16)
[2017-10-01] MEDS: Gabapentin 100 MG CAPSULE PO SCH ×2 (08:38→20:14)
[2017-10-01] MEDS: Cyanocobalamin (B-12) 1,000 MCG TABLET PO SCH (08:38)
[2017-10-01] MEDS: BuPROPion SR (12 HR) 150 MG TABLET PO SCH ×2 (08:38→20:14)
[2017-10-01] MEDS: Aspirin Enteric Coated 81 MG Tablet PO SCH (08:39)
[2017-10-01] MEDS: Cholecalciferol (D-3) 1,000 UNIT TABLET PO SCH (08:39)
--- NOTE | 2017-10-01 12:52 | Nephrology Progress Note ---
Date of Encounter: 10/01/17 Time of Encounter: 12:49 - Assessment and Plan (1) Acute on chronic kidney failure Current Visit: Yes Status: Acute Appears to be CKD [address] Lawson. Vit D, PTH, and urine studies ordered for CKD maintenance. Unfortunately we are not able to schedule a f/u with Dr. Lawson at this time. Spoke with PCP he would like to see her in 4 weeks for a f/u. BMP 1 week after discharge (Dr. Ochoa) Avoid nephrotoxins and renal dose all medications. Strict I/O Encourage adequate PO intake. Qualifiers: Acute renal failure type: unspecified Chronic kidney disease stage: unspecified stage Qualified Code(s): N17.9 - Acute kidney failure, unspecified ; N18.9 - Chronic kidney disease, unspecified (2) Hyperkalemia Current Visit: Yes Status: Acute Potassium is 5.5. Would hold off on Kayexalate but did change her diet to a renal diet. (3) Urinary tract infection Current Visit: Yes Status: Acute Per primary. Qualifiers: Urinary tract infection type: site unspecified Hematuria presence: without hematuria Qualified Code(s): N39.0 - Urinary tract infection, site not specified Subjective Principal diagnosis: uti Interval history: Pt seen and examined. Is very frustrated she is not being discharged home. Objective - Vital Signs Vital signs: Vital Signs Temp Pulse Resp BP Pulse Ox 10/01/17 11:46 98.4 F 91 16 128/52 99 10/01/17 07:59 98.1 F 79 18 148/68 98 10/01/17 04:14 98.6 F 88 16 173/81 99 09/30/17 23:09 98.2 F 74 16 165/74 97 09/30/17 19:03 98.3 F 106 17 137/75 92 09/30/17 15:46 98.1 F 63 16 146/63 99 Intake and Output 09/30/17 10/01/17 10/01/17 23:59 07:59 15:59 Intake Total 240 / 240 Balance 240 / 240 Intake: Oral 240 / 240 Other: Meal Breakfast Percent of Meal Consumed 15% # Urine Diapers 1 1 1 Weight 70.8 kg Blood Glucose* 100 83 141 Patient Weight 10/01/17 23:59 Weight 70.8 kg - General Appearance General appearance: Present: well-developed, well-nourished EENT: Present: ATNC, hearing intact, vision intact Neck: Present: supple Respiratory: Present: clear Cardiology: Present: no edema, normal S1, normal S2 Gastrointestinal: Present: normoactive bowel sounds, no tenderness, no guarding Integumentary: Present: no rash, warm and dry Neurologic: Present: alert and oriented x3 Psychiatric: Present: mood/affect appropriate, cooperative - Lab 10/01/17 04:00 10/01/17 04:00 Most recent lab results Calcium 9.3 mg/dL (8.6-10.3) 10/01/17 04:00 Consult Discharge Plan - Plan Referrals: Griffin Ochoa MD [Primary Care Provider] - 10/02/17 9:45 am
--- NOTE | 2017-10-01 14:06 | Internal Med Progress Note ---
Hospitalist Progress Note - Encounter Date of Encounter: 10/01/17 Time of Encounter: 14:07 - Subjective Interval History: Patient seen and examined at bedside. Patient is very upset, wanting to be discharged we discussed that nephrology is completing test She cont to request to leave advised she would leave AMA. Awaiting family arrival will speak with family and patient - Exam Vitals: Temp Pulse Resp BP Pulse Ox 98.4 F 91 16 128/52 99 10/01/17 11:46 10/01/17 11:46 10/01/17 11:46 10/01/17 11:46 10/01/17 11:46 Exam: PHYSICAL EXAMINATION: GENERAL APPEARANCE: The patient is alert, oriented x3 and in no acute distress. Follws simple commands At times make inappropriate comments HEENT: Head is normocephalic. The sinuses are nontender. Pupils are equal and reactive. The nares are patent. Oropharynx clear without lesions. NECK: Supple without lymphadenopathy. HEART: Regular rate and rhythm. LUNGS: No crackles or wheezes are heard. ABDOMEN: Soft, nontender, nondistended with good bowel sounds heard. Inguinal area is normal. EXTREMITIES: BKA bilaterally NEUROLOGICAL: Gross nonfocal. SKIN: Warm and dry without any rash. - Assessment and Plan (1) Diabetes Current Visit: No Status: Chronic Assessment and Plan: On Lantus 10 units at night in addition to sliding scale aspart- controlled at this time will continue sliding scale coverage as her intake is poor-continue to closely monitor (2) Hypertension Current Visit: No Status: Chronic Assessment and Plan: stable continue Coreg, imdur, and Lisinopril. (3) UTI (urinary tract infection) Current Visit: No Status: Resolved Assessment and Plan: Complains of foul-smelling urine, patient has similar episodes of encephalopathy when she had UTI earlier this year Was given Bactrim in the ED. started on rocephine. urine culture grew Escherichia coli which was sensitive to Ancef. Abx de- escalated to Keflex-it has been DC'd (4) Acute encephalopathy Current Visit: Yes Status: Resolved Assessment and Plan: Likely due to the combination of UTI and AoCKD. currently back to baseline. (5) Heart failure with reduced ejection fraction Current Visit: No Status: Chronic Assessment and Plan: Lasix on hold as above. currently volume depleted, continue to hydrate with IVF. Lisinopril held due to elevated potassium Monitor intake output daily weights. (6) Acute on chronic kidney failure Current Visit: Yes Status: Acute Assessment and Plan: Likely due to poor oral intake and ongoing use of Lasix, hydrochlorothiazide, and Lisinopril. history of ischemic cardiomyopathy with EF 15-20% Cr has improved withIVF( 4.04, 3.69, 3.42, 2.76, 2.37 2.16), baseline Cr 1.5- 2.0.-She has had fluctuation in potassium as well as creatinine I did consult nephrology SHe has been placed on renal diet urine studies ordered. She is a patient of Dr Lawson and we are unable to schedule a follow up appointmnet - she will follow up with her PCP (Dr Ochoa) in 4 weeks with a BMP 1 week after discharge hold off on lasix, HCTZ, will hold lisinopril due to rising potassium. Monitor Cr and K. PT educated to monitor volume status by monitoring edema on hands and thigh, and respiratory status, She has bilateral amputation, can not use scale to weigh herself. If pt senses she builds up volume, she take take extra dose of lasix. HCTZ does not work if GFR<30. (7) Constipation Current Visit: Yes Status: Acute Assessment and Plan: Mod amount of stool burden noted on CT daily miralax (8) Hyperkalemia Current Visit: Yes Status: Acute Assessment and Plan: Patient cont to be elevated hold kayexalate change diet to renal and cont to monitor (9) DVT prophylaxis Current Visit: Yes Status: Acute Assessment and Plan: SQ heparin - Time Spent with Patient Total time spent is greater than 50% in coordination of care (as documented) at patient's floor/unit and/or counseling patient: Internal Medicine: Result - Labs CBC & Chem 7: 10/01/17 04:00 10/01/17 04:00 Labs: Short CBC 10/01/17 Range/Units 04:00 WBC 4.2 L (4.3-11.1) K/mcL Hgb 8.0 L (11.5-15.4) g/dL Hct 24.1 L (35.3-44.9) % Plt Count 117 L (140-400) K/mcL Neutrophils # 3.0 (1.6-8.9) K/mcL BMP 10/01/17 04:00 Sodium 140 Potassium 5.5 H Chloride 115 H Carbon Dioxide 19 L BUN 39 H Creatinine 2.12 H Glucose 85 Calcium 9.3 - ABG Interpretation ABG results: PT/INR, D-dimer PT 11.9 Seconds (9.4-12.1) 09/24/17 17:47 Consult Discharge Plan - Plan Referrals: Griffin Ochoa MD [Primary Care Provider] - 10/02/17 9:45 am (1) Diabetes Qualifiers: Diabetes mellitus type: type 2 Diabetes mellitus superintendent container terminal insulin use: without superintendent container terminal use Diabetes mellitus complication status: with unspecified complications Qualified Code(s): E11.8 - Type 2 diabetes mellitus with unspecified complications (2) Hypertension Qualifiers: Hypertension type: essential hypertension Qualified Code(s): I10 - Essential (primary) hypertension (3) UTI (urinary tract infection) Qualifiers: Urinary tract infection type: acute cystitis Hematuria presence: without hematuria Qualified Code(s): N30.00 - Acute cystitis without hematuria (5) Heart failure with reduced ejection fraction Qualifiers: Heart failure chronicity: chronic Qualified Code(s): I50.22 - Chronic systolic (congestive) heart failure (6) Acute on chronic kidney failure Qualifiers: Acute renal failure type: unspecified Chronic kidney disease stage: unspecified stage Qualified Code(s): N17.9 - Acute kidney failure, unspecified ; N18.9 - Chronic kidney disease, unspecified (7) Constipation Qualifiers: Constipation type: unspecified constipation type Qualified Code(s): K59.00 - Constipation, unspecified
[2017-10-02 05:18] LABS: Basophils % 0.3 %; Eosinophils # 0.2 K/mcL (0.0-0.6); Eosinophils % 4.2 %; Hematocrit 29.3 % (35.3-44.9); Hemoglobin 9.5 g/dL (11.5-15.4); Immature Granulocytes % 0.3 % (0-4); Lymphocytes # 0.7 K/mcL (0.6-4.6); Mean Corpuscular HGB Conc 32.4 g/dL (31.6-35.5); Mean Corpuscular Hemoglobin 32.8 pg (28.0-33.3); Mean Platelet Volume 9.8 fL (9.4-12.4); Monocytes # 0.3 K/mcL (0.0-1.3); Monocytes % 8.8 %; Neutrophils # 2.6 K/mcL (1.6-8.9); Platelet Count 129 K/mcL (140-400); Red Cell Distribution Width 12.1 % (11.5-14.5); Segmented Neutrophils % 67.4 %
[2017-10-02] MEDS: *HR* Heparin 5,000 UNIT/ML VIAL SQ SCH ×2 (05:47→18:11)
[2017-10-02 05:48] LABS: Calcium 9.9 mg/dL (8.6-10.3)
[2017-10-02] MEDS: Insulin LISPRO 300 UNITS/3 ML VIAL SQ SCH ×4 (10:07→21:58)
[2017-10-02] MEDS: Cyanocobalamin (B-12) 1,000 MCG TABLET PO SCH (10:57)
[2017-10-02] MEDS: Gabapentin 100 MG CAPSULE PO SCH ×2 (10:57→20:06)
[2017-10-02] MEDS: BuPROPion SR (12 HR) 150 MG TABLET PO SCH ×2 (10:57→20:06)
[2017-10-02] MEDS: Aspirin Enteric Coated 81 MG Tablet PO SCH (10:57)
[2017-10-02] MEDS: Cholecalciferol (D-3) 1,000 UNIT TABLET PO SCH (10:58)
--- NOTE | 2017-10-02 14:25 | Nephrology Progress Note ---
<Joe Craig - Last Filed: 10/02/17 13:55> Date of Encounter: 10/02/17 Time of Encounter: 13:55 - Assessment and Plan (1) Acute on chronic kidney failure Status: Acute Borderline stage 4 CKD with GFR = [address] Lawson. Avoid nephrotoxins and renal dose all medications. Strict I/O Encourage adequate PO intake. Qualifiers: Acute renal failure type: unspecified Chronic kidney disease stage: unspecified stage Qualified Code(s): N17.9 - Acute kidney failure, unspecified ; N18.9 - Chronic kidney disease, unspecified (2) Hyperkalemia Current Visit: Yes Status: Acute worsening hyperkalemia. Patient had received kayexalate without improvement. Potassium is 6 today. We will start patient on bicarb 650mg PO BID. Will recheck in am. (3) Urinary tract infection Current Visit: Yes Status: Acute Per primary. Qualifiers: Acute renal failure type: unspecified Chronic kidney disease stage: unspecified stage Qualified Code(s): N17.9 - Acute kidney failure, unspecified ; N18.4 - Chronic kidney disease, stage 4 (severe) (2) Chronic kidney disease, stage IV (severe) Status: Acute Appears to be CKD [address] Lawson Avoid nephrotoxins and renal dose all medications. Strict I/O Encourage adequate PO intake. Qualifiers: Acute renal failure type: unspecified Chronic kidney disease stage: unspecified stage Qualified Code(s): N17.9 - Acute kidney failure, unspecified ; N18.9 - Chronic kidney disease, unspecified (2) Hyperkalemia Current Visit: Yes Status: Acute Potassium was 5.6 yesterday, Kayexalate given. Potassium is 5 today. Will recheck in am. (3) Urinary tract infection Current Visit: Yes Status: Acute Per primary. (3) Elevated parathyroid hormone Status: Acute Elevated PTH with vitamin 25 OH and calcium WNL. PTH elevation could be associated with CAD vs adaptive response to declining kidney function Pending serum phosphate level. Subjective Principal diagnosis: uti Interval history: Patient is awake and alert today. She is frustrated that she can't shower and wants to go home. She is declining to provide urine sample. She is eating a chilli dog as I am interviewing her. She reports that she is tolerating PO intake OK. Has not been voiding. She is easily irritable at this time. Objective - Vital Signs Vital signs: Vital Signs Temp Pulse Resp BP Pulse Ox 10/02/17 11:30 98.5 F 76 16 127/70 100 10/02/17 09:59 98.4 F 72 14 170/70 98 10/02/17 04:12 97.9 F 78 16 157/70 96 10/02/17 00:21 98.2 F 66 16 156/81 98 10/01/17 19:19 98.0 F 69 16 171/87 96 10/01/17 14:58 98.1 F 65 15 161/71 100 Intake and Output 10/01/17 10/02/17 10/02/17 23:59 07:59 15:59 Intake Total 0 / 0 Balance 0 / 0 Intake: Oral 0 / 0 Other: Meal Breakfast Percent of Meal Consumed 0% Weight 70.8 kg Blood Glucose* 86 73 Patient Weight 10/02/17 23:59 Weight 70.8 kg - General Appearance Exam: General appearance: well-developed, well-nourished EENT: ATNC, hearing intact, vision intact Neck: supple Respiratory: clear Cardiology: no edema, normal S1, normal S2 Gastrointestinal: normoactive bowel sounds, no tenderness, no guarding Integumentary: no rash, warm and dry Neurologic: alert and oriented x3 Psychiatric: mood/affect appropriate, cooperative Additional Comments: bilateral lower extremity amputation. Above knee on right side, at level of knee on left side. - Lab 10/02/17 04:41 10/02/17 04:41 Most recent lab results Calcium 9.9 mg/dL (8.6-10.3) 10/02/17 04:41 Consult Discharge Plan - Plan Referrals: Griffin Ochoa MD [Primary Care Provider] - Prescriptions: Sodium Polystyrene Sulfonate [Kayexalate] 15 gm PO DAILY #30 bottle <Amada Eubanks - Last Filed: 10/25/17 22:31> Date of Encounter: 10/02/17 - Assessment and Plan (1) Hyperkalemia Status: Acute (2) Acute on chronic kidney failure Status: Acute Qualifiers: Acute renal failure type: unspecified Chronic kidney disease stage: stage 4 (severe) Qualified Code(s): N17.9 - Acute kidney failure, unspecified; N18.4 - Chronic kidney disease, stage 4 (severe) (3) Urinary tract infection Status: Acute Qualifiers: Urinary tract infection type: site unspecified Hematuria presence: without hematuria Qualified Code(s): N39.0 - Urinary tract infection, site not specified (4) CKD (chronic kidney disease) stage 3, GFR 30-59 ml/min Status: Acute Objective - Lab 10/06/17 04:27 10/06/17 04:27 Most recent lab results Calcium 9.2 mg/dL (8.6-10.3) 10/06/17 04:27 Phosphorus 3.2 mg/dL (2.7-4.5) 10/03/17 05:30 - Attending Attestation I examined this patient and my medical decision-making was reviewed with the Resident Physician/COMMERCIAL ESCROW OFFICER. I agree with the documented findings, disposition and treatment plan as described except to the extent set forth below. Pt seen and examined not very happy, wants to go home. Receiving outside foods from family despite renal diet. On exam R AKA and L BKA noted with no signs of edema. Labs show potassium at 6.0 and SCr fairly stable though not at baseline at 2.05, GFR 29. Continue aggressive kayexalate till BM. Renal diet strongly advised. Will add sodium bicarb to regimen for acidosis which might help improve hypoerkalemia. will discuss with family the importance of not enabling patient with bringing home foods.
--- NOTE | 2017-10-02 20:51 | Internal Med Progress Note ---
Hospitalist Progress Note - Encounter Date of Encounter: 10/02/17 Time of Encounter: 13:00 - Subjective Interval History: Patient was seen and examined earlier today . I had a long private conversation with the patient daughter today, concerning the patient non compliance and updating her on patient condition. Explained the importance of obtaining urine samples as well as abiding by renal diet. Also discussed lab work and the seriousness of elevated potassium. She agreed and verbalized understanding . She stated she would attempt to persuade her mother to try to cooperate. I did discuss the plan of care with the patient and daughter who both verbalized understanding - Exam Vitals: Temp Pulse Resp BP Pulse Ox 99.3 F 60 15 111/59 95 10/02/17 18:58 10/02/17 18:58 10/02/17 18:58 10/02/17 18:58 10/02/17 18:58 Exam: PHYSICAL EXAMINATION: GENERAL APPEARANCE: The patient is alert, oriented x3 and in no acute distress. Follws simple commands At times make inappropriate comments HEENT: Head is normocephalic. The sinuses are nontender. Pupils are equal and reactive. The nares are patent. Oropharynx clear without lesions. NECK: Supple without lymphadenopathy. HEART: Regular rate and rhythm. LUNGS: No crackles or wheezes are heard. ABDOMEN: Soft, nontender, nondistended with good bowel sounds heard. Inguinal area is normal. EXTREMITIES: BKA bilaterally NEUROLOGICAL: Gross nonfocal. SKIN: Warm and dry without any rash. - Assessment and Plan (1) Diabetes Current Visit: No Status: Chronic Assessment and Plan: On Lantus 10 units at night will hold for now will continue sliding scale coverage as her intake is poor-continue to closely monitor (2) Hypertension Current Visit: No Status: Chronic Assessment and Plan: stable continue Coreg, imdur, and Lisinopril. (3) UTI (urinary tract infection) Current Visit: No Status: Resolved Assessment and Plan: Complains of foul-smelling urine, patient has similar episodes of encephalopathy when she had UTI earlier this year Was given Bactrim in the ED. started on rocephine. urine culture grew Escherichia coli which was sensitive to Ancef. Abx de- escalated to Keflex-it has been DC'd (4) Acute encephalopathy Current Visit: Yes Status: Resolved Assessment and Plan: Metabolic likely due to the combination of UTI and AoCKD. currently back to baseline. (5) Heart failure with reduced ejection fraction Current Visit: No Status: Chronic Assessment and Plan: Lasix on hold as above. currently volume depleted, continue to hydrate with IVF. Lisinopril held due to elevated potassium Monitor intake output daily weights. (6) Acute on chronic kidney failure Current Visit: Yes Status: Acute Assessment and Plan: Likely due to poor oral intake and ongoing use of Lasix, hydrochlorothiazide, and Lisinopril. history of ischemic cardiomyopathy with EF 15-20% Cr has improved withIVF( 4.04, 3.69, 3.42, 2.76, 2.37 2.16), baseline Cr 1.5- 2.0.-She has had fluctuation in potassium as well as creatinine I did consult nephrology SHe has been placed on renal diet urine studies ordered. She is a patient of Dr Lawson and we are unable to schedule a follow up appointmnet - she will follow up with her PCP (Dr Ochoa) in 4 weeks with a BMP 1 week after discharge hold off on lasix, HCTZ, will hold lisinopril due to rising potassium. Monitor Cr and K. PT educated to monitor volume status by monitoring edema on hands and thigh, and respiratory status, She has bilateral amputation, can not use scale to weigh herself. If pt senses she builds up volume, she take take extra dose of lasix. HCTZ does not work if GFR<30. 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 (9) DVT prophylaxis Current Visit: Yes Status: Acute Assessment and Plan: SQ heparin - Time Spent with Patient Total time spent is greater than 50% in coordination of care (as documented) at patient's floor/unit and/or counseling patient: Internal Medicine: Result - Labs CBC & Chem 7: 10/02/17 04:41 10/02/17 04:41 Labs: Short CBC 10/02/17 Range/Units 04:41 WBC 3.9 L (4.3-11.1) K/mcL Hgb 9.5 L D (11.5-15.4) g/dL Hct 29.3 L (35.3-44.9) % Plt Count 129 L (140-400) K/mcL Neutrophils # 2.6 (1.6-8.9) K/mcL BMP 10/02/17 04:41 Sodium 140 Potassium 6.0 H Chloride 113 H Carbon Dioxide 20 L BUN 34 H Creatinine 2.05 H Glucose 65 L Calcium 9.9 - ABG Interpretation ABG results: PT/INR, D-dimer PT 11.9 Seconds (9.4-12.1) 09/24/17 17:47 Consult Discharge Plan - Plan Referrals: Griffin Ochoa MD [Primary Care Provider] - (1) Diabetes Qualifiers: Diabetes mellitus type: type 2 Diabetes mellitus group home insulin use: without intermediate project manager use Diabetes mellitus complication status: with unspecified complications Qualified Code(s): E11.8 - Type 2 diabetes mellitus with unspecified complications (2) Hypertension Qualifiers: Hypertension type: essential hypertension Qualified Code(s): I10 - Essential (primary) hypertension (3) UTI (urinary tract infection) Qualifiers: Urinary tract infection type: acute cystitis Hematuria presence: without hematuria Qualified Code(s): N30.00 - Acute cystitis without hematuria (5) Heart failure with reduced ejection fraction Qualifiers: Heart failure chronicity: chronic Qualified Code(s): I50.22 - Chronic systolic (congestive) heart failure (6) Acute on chronic kidney failure Qualifiers: Acute renal failure type: unspecified Chronic kidney disease stage: stage 4 ( severe) Qualified Code(s): N17.9 - Acute kidney failure, unspecified; N18.4 - Chronic kidney disease, stage 4 (severe) (7) Constipation Qualifiers: Constipation type: unspecified constipation type Qualified Code(s): K59.00 - Constipation, unspecified
[2017-10-03] MEDS ORDERED: Insulin Human Regular 10 UNIT in 0.9 % Sodium Chloride 10 ML IV ONE (01:18)
[2017-10-03] MEDS ORDERED: Albuterol 2.5 MG/3 ML NEBULIZER IH ONE ×3 (01:18→03:37)
[2017-10-03] MEDS ORDERED: *HR* Dextrose 50 % in Water (Syg) 50 ML SYRINGE IVP ONE (01:19)
[2017-10-03] MEDS ORDERED: Haloperidol Lactate 5 MG/ML VIAL IVP ONE ×2 (01:21→19:54)
[2017-10-03] MEDS ORDERED: *HR* LORazepam 2 MG/ML VIAL ONE (02:07)
[2017-10-03] MEDS ORDERED: *HR* LORazepam 2 MG/ML VIAL IVP ONE ×2 (02:15→20:15)
--- NOTE | 2017-10-03 02:28 | Event Note ---
Date of Encounter: 10/03/17 Time of Encounter: 02:26 The patient is having auditory and visual hallucinations and being aggressive to staff. Her last known K is 6.9 with no intervention thus far done as from what I can review. She was refusing EKG and any further therapies. I ordered insulin and dextrose, calcium gluconate and albuterol as she refuses to take kayexalate. Her family members were contacted who came to bedside and acknowledged that she was not acting herself. We explained this risks associated with hyperkalemia and the need to redraw blood and to manage accordingly. We administered 1mg of haloperidol and 2mg of lorazepam to obtain light sedation. Blood drawn and will follow.
[2017-10-03] MEDS: *HR* Heparin 5,000 UNIT/ML VIAL SQ SCH ×2 (05:48→17:44)
[2017-10-03 05:53] LABS: Basophils % 0.2 %; Eosinophils # 0.1 K/mcL (0.0-0.6); Eosinophils % 2.7 %; Hematocrit 27.4 % (35.3-44.9); Immature Granulocytes % 0.2 % (0-4); Lymphocytes # 0.7 K/mcL (0.6-4.6); Lymphocytes % 16.9 %; Mean Corpuscular HGB Conc 32.8 g/dL (31.6-35.5); Mean Corpuscular Volume 100.4 fL (83.0-100.0); Monocytes # 0.4 K/mcL (0.0-1.3); Monocytes % 8.2 %; Neutrophils # 3.1 K/mcL (1.6-8.9); Platelet Count 125 K/mcL (140-400); Red Blood Count 2.73 M/mcL (3.82-4.97); Red Cell Distribution Width 12.4 % (11.5-14.5); Segmented Neutrophils % 71.8 %
[2017-10-03 06:13] LABS: Potassium 5.9 mEq/L (3.5-5.1)
[2017-10-03] MEDS: Insulin LISPRO 300 UNITS/3 ML VIAL SQ SCH ×4 (08:00→20:34)
[2017-10-03] MEDS ORDERED: 0.9 % Sodium Chloride 1,000 ML IVC SCH (11:00)
--- NOTE | 2017-10-03 11:00 | Internal Med Progress Note ---
Hospitalist Progress Note - Encounter Date of Encounter: 10/03/17 Time of Encounter: 11:00 - Subjective Interval History: Patient was seen and examined earlier today . I had a long private conversation with the patient daughter today, concerning the patient non compliance and updating her on patient condition. Explained the importance of obtaining urine samples as well as abiding by renal diet. Also discussed lab work and the seriousness of elevated potassium. She agreed and verbalized understanding . She stated she would attempt to persuade her mother to try to cooperate. I did discuss the plan of care with the patient and daughter who both verbalized understanding - Exam Vitals: Temp Pulse Resp BP Pulse Ox 97.8 F 76 16 122/69 96 10/03/17 07:11 10/03/17 07:11 10/03/17 07:11 10/03/17 07:11 10/03/17 07:11 Exam: PHYSICAL EXAMINATION: GENERAL APPEARANCE: The patient is alert, oriented x3 and in no acute distress. Follws simple commands At times make inappropriate comments HEENT: Head is normocephalic. The sinuses are nontender. Pupils are equal and reactive. The nares are patent. Oropharynx clear without lesions. NECK: Supple without lymphadenopathy. HEART: Regular rate and rhythm. LUNGS: No crackles or wheezes are heard. ABDOMEN: Soft, nontender, nondistended with good bowel sounds heard. Inguinal area is normal. EXTREMITIES: BKA bilaterally NEUROLOGICAL: Gross nonfocal. patient is groggy SKIN: Warm and dry without any rash. - Assessment and Plan (1) Diabetes Current Visit: No Status: Chronic Assessment and Plan: On Lantus 10 units at night will hold for now will continue sliding scale coverage as her intake is poor-continue to closely monitor (2) Hypertension Current Visit: No Status: Chronic Assessment and Plan: stable continue Coreg, imdur, hold lisinopril dt hyperkalemia (3) Acute encephalopathy Current Visit: Yes Status: Resolved Assessment and Plan: Metabolic likely due to the combination of UTI and AoCKD. Patient did have an episode of confusion overnight she was combative, and required sedation (4) Heart failure with reduced ejection fraction Current Visit: No Status: Chronic Assessment and Plan: Lasix on hold as above. We will give gentle IVF . Lisinopril held due to elevated potassium Monitor intake output daily weights. (5) Acute on chronic kidney failure Current Visit: Yes Status: Acute Assessment and Plan: Likely due to poor oral intake and ongoing use of Lasix, hydrochlorothiazide, and Lisinopril. history of ischemic cardiomyopathy with EF 15-20% Cr has improved withIVF( 4.04, 3.69, 3.42, 2.76, 2.37 2.16), baseline Cr 1.5- 2.0.-She has had fluctuation in potassium as well as creatinine I did consult nephrology SHe has been placed on renal diet urine studies ordered. She is a patient of Dr Lawson and we are unable to schedule a follow up appointmnet - she will follow up with her PCP (Dr Ochoa) in 4 weeks with a BMP 1 week after discharge She has received several doses of kayexalate at times she would refuse she cont to have elevated potassium- overnight potassium 6.9 no changes in EKG - she was given IV insulin calcium D5 and albuterol- today 5.9 I did discuss with nephrology I will give IVF. I did speak with the POA daughters Jeny and Charla, Patient need to comply with renal diet we will consult nutrition for education of renal diet hold off on lasix, HCTZ, will hold lisinopril due to rising potassium. Monitor Cr and K. PT educated to monitor volume status by monitoring edema on hands and thigh, and respiratory status, She has bilateral amputation, can not use scale to weigh herself. If pt senses she builds up volume, she take take extra dose of lasix. HCTZ does not work if GFR<30. 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 We will consult palliative - Time Spent with Patient Total time spent is greater than 50% in coordination of care (as documented) at patient's floor/unit and/or counseling patient: Internal Medicine: Result - Labs CBC & Chem 7: 10/03/17 05:30 10/03/17 05:30 Labs: Short CBC 10/03/17 Range/Units 05:30 WBC 4.4 (4.3-11.1) K/mcL Hgb 9.0 L (11.5-15.4) g/dL Hct 27.4 L (35.3-44.9) % Plt Count 125 L (140-400) K/mcL Neutrophils # 3.1 (1.6-8.9) K/mcL BMP 10/02/17 10/03/17 10/03/17 20:59 02:15 05:30 Sodium 140 Potassium 6.9 H* 6.2 H 5.9 H Chloride 115 H Carbon Dioxide 20 L BUN 37 H Creatinine 2.25 H Glucose 86 Calcium 10.0 - ABG Interpretation ABG results: PT/INR, D-dimer PT 11.9 Seconds (9.4-12.1) 09/24/17 17:47 Consult Discharge Plan - Plan Referrals: Griffin Ochoa MD [Primary Care Provider] - (1) Diabetes Qualifiers: Diabetes mellitus type: type 2 Diabetes mellitus director long term care insulin use: without director long term care use Diabetes mellitus complication status: with unspecified complications Qualified Code(s): E11.8 - Type 2 diabetes mellitus with unspecified complications (2) Hypertension Qualifiers: Hypertension type: essential hypertension Qualified Code(s): I10 - Essential (primary) hypertension (4) Heart failure with reduced ejection fraction Qualifiers: Heart failure chronicity: chronic Qualified Code(s): I50.22 - Chronic systolic (congestive) heart failure (5) Acute on chronic kidney failure Qualifiers: Acute renal failure type: unspecified Chronic kidney disease stage: stage 4 ( severe) Qualified Code(s): N17.9 - Acute kidney failure, unspecified; N18.4 - Chronic kidney disease, stage 4 (severe) (6) Constipation Qualifiers: Constipation type: unspecified constipation type Qualified Code(s): K59.00 - Constipation, unspecified
[2017-10-03 11:18] LABS: Bilirubin,Urine Negative (Negative); Blood,Urine Negative (Negative); Clarity,Urine Cloudy (Clear); Color,Urine Yellow (Yellow); Glucose,Urine (UA) Normal (Normal); Ketones,Urine Negative (Negative); Leukocyte Esterase,Urine Large (Negative); Nitrite,Urine Negative (Negative); PH,Urine 7.5 pH Units (5.0-8.0); Protein,Urine Negative (Neg-Trace); Specific Gravity,Urine < 1.005 (1.010-1.025); Urobilinogen,Urine Normal (Normal)
[2017-10-03 11:21] LABS: Bacteria,Urine Few per hpf (None-Few); Hyaline Casts,Urine Few per lpf (None-Few); Squamous Epithelial Cell,Urine Many per lpf (None-Few); WBC,Urine 30-50 per hpf (0-3)
[2017-10-03 11:30] LABS: RBC,Urine 0-3 per hpf (0-3)
[2017-10-03] MEDS: Cyanocobalamin (B-12) 1,000 MCG TABLET PO SCH (11:55)
[2017-10-03] MEDS: Gabapentin 100 MG CAPSULE PO SCH ×2 (11:55→20:24)
[2017-10-03] MEDS: BuPROPion SR (12 HR) 150 MG TABLET PO SCH ×2 (11:55→20:25)
[2017-10-03] MEDS: Aspirin Enteric Coated 81 MG Tablet PO SCH (11:55)
[2017-10-03] MEDS: Cholecalciferol (D-3) 1,000 UNIT TABLET PO SCH (11:56)
--- NOTE | 2017-10-03 16:11 | Nephrology Progress Note ---
Date of Encounter: 10/03/17 Time of Encounter: 12:00 - Assessment and Plan (1) Hyperkalemia Current Visit: Yes Status: Acute Likely from dietary indiscretions. Currently at 5.9 s/p kayexalate with BM Discussed at length renal diet and adherence Will check with pharm if valtessa available for daily use Will increase sodium bicarb to help draw potassium intracellular as well (2) Acute on chronic kidney failure Current Visit: Yes Status: Acute SCr slightly worse at 2.25, GFR 26 UOP not documented due to incontinence, encouraged po fluids in addition to IVF already given Continue to avoid nephrotxins if possible Pt very adamant about not wanting DIRECTOR OF BUSINESS CONTINUITY if ever needed. No acute indication at this time Pt also reports her side trimmer is Dr Isaac and not Lulu and wants to followup outpatient with Dr Isaac only. will set up followup prior to discharge Qualifiers: Acute renal failure type: unspecified Chronic kidney disease stage: stage 4 (severe) Qualified Code(s): N17.9 - Acute kidney failure, unspecified; N18.4 - Chronic kidney disease, stage 4 (severe) (3) Urinary tract infection Current Visit: Yes Status: Acute per primary team Qualifiers: Urinary tract infection type: site unspecified Hematuria presence: without hematuria Qualified Code(s): N39.0 - Urinary tract infection, site not specified (4) CKD (chronic kidney disease) stage 3, GFR 30-59 ml/min Current Visit: Yes Status: Acute Baseline GFR actually in the 30s for an female Subjective Principal diagnosis: uti Interval history: Pt seen and examined more open to low potassium diet. Discussed with 2 daughters who are quite agreeable to the restrictions planned and would not bring in foods for patient anymore. Pt and family reconfirmed DNR-arrest status and will bring in paperwork for this from home Objective - Vital Signs Vital signs: Vital Signs Temp Pulse Resp BP Pulse Ox 10/03/17 15:07 98.3 F 63 16 146/63 98 10/03/17 11:48 98.1 F 79 16 169/72 100 10/03/17 07:11 97.8 F 76 16 122/69 96 10/03/17 03:44 16 96 10/03/17 02:56 94 16 122/75 96 10/02/17 22:41 98.2 F 59 15 149/71 95 10/02/17 18:58 99.3 F 60 15 111/59 95 Intake and Output 10/03/17 10/03/17 10/03/17 07:59 15:59 23:59 Intake Total 360 / 360 Output Total Balance 330 / 330 Intake: Oral 360 / 360 Output: Straight Cath Other: Meal Lunch Percent of Meal Consumed 95% Stool Size Smear Stool Consistency loose Stool Characteristics Foamy Stool Color Brown # Urine Diapers 1 # Bowel Movements 1 # Bowel Movement Diapers 1 Weight 69.1 kg Blood Glucose* 76 89 Patient Weight 10/03/17 23:59 Weight 69.1 kg - Lab 10/03/17 05:30 10/03/17 05:30 Most recent lab results Calcium 10.0 mg/dL (8.6-10.3) 10/03/17 05:30 Phosphorus 3.2 mg/dL (2.7-4.5) 10/03/17 05:30 Consult Discharge Plan - Plan Referrals: Griffin Ochoa MD [Primary Care Provider] -
[2017-10-04 01:00] LABS: Basophils % 0.3 %; Eosinophils # 0.1 K/mcL (0.0-0.6); Eosinophils % 3.9 %; Hematocrit 26.8 % (35.3-44.9); Hemoglobin 8.6 g/dL (11.5-15.4); Lymphocytes # 0.8 K/mcL (0.6-4.6); Lymphocytes % 21.4 %; Mean Corpuscular HGB Conc 32.1 g/dL (31.6-35.5); Mean Corpuscular Hemoglobin 32.5 pg (28.0-33.3); Mean Corpuscular Volume 101.1 fL (83.0-100.0); Mean Platelet Volume 9.7 fL (9.4-12.4); Monocytes # 0.3 K/mcL (0.0-1.3); Monocytes % 7.5 %; Neutrophils # 2.4 K/mcL (1.6-8.9); Platelet Count 126 K/mcL (140-400); Red Blood Count 2.65 M/mcL (3.82-4.97); Red Cell Distribution Width 12.3 % (11.5-14.5); Segmented Neutrophils % 66.9 %
[2017-10-04 01:20] LABS: Calcium 9.3 mg/dL (8.6-10.3); Potassium 5.1 mEq/L (3.5-5.1)
[2017-10-04] MEDS: *HR* Heparin 5,000 UNIT/ML VIAL SQ SCH ×2 (06:01→17:41)
[2017-10-04] MEDS: Gabapentin 100 MG CAPSULE PO SCH ×2 (09:29→20:37)
[2017-10-04] MEDS: Aspirin Enteric Coated 81 MG Tablet PO SCH (09:29)
[2017-10-04] MEDS: BuPROPion SR (12 HR) 150 MG TABLET PO SCH ×2 (09:29→20:38)
[2017-10-04] MEDS: Cyanocobalamin (B-12) 1,000 MCG TABLET PO SCH (09:29)
[2017-10-04] MEDS: Cholecalciferol (D-3) 1,000 UNIT TABLET PO SCH (09:29)
[2017-10-04] MEDS: Insulin LISPRO 300 UNITS/3 ML VIAL SQ SCH ×4 (09:30→20:41)
--- NOTE | 2017-10-04 12:17 | Internal Med Progress Note ---
Hospitalist Progress Note - Encounter Date of Encounter: 10/04/17 Time of Encounter: 12:13 - Subjective Interval History: Patient was seen and examined at bedside- she is confused attempting to climb out of bed - we will place on fall precautions apparently she fell overnight did not strike head according to staff we will check labs and CT of head - Exam Vitals: Temp Pulse Resp BP Pulse Ox 97.8 F 73 16 162/71 100 10/04/17 11:35 10/04/17 11:35 10/04/17 11:35 10/04/17 11:35 10/04/17 11:35 Exam: PHYSICAL EXAMINATION: GENERAL APPEARANCE: The patient is alert, oriented to name only Follws simple commands At times make inappropriate comments HEENT: Head is normocephalic. The sinuses are nontender. Pupils are equal and reactive. The nares are patent. Oropharynx clear without lesions. NECK: Supple without lymphadenopathy. HEART: Regular rate and rhythm. LUNGS: No crackles or wheezes are heard. ABDOMEN: Soft, nontender, nondistended with good bowel sounds heard. Inguinal area is normal. EXTREMITIES: BKA bilaterally NEUROLOGICAL: Gross nonfocal. patient is groggy SKIN: Warm and dry without any rash. - Assessment and Plan (1) Acute on chronic kidney failure Current Visit: Yes Status: Acute Assessment and Plan: Likely due to poor oral intake and ongoing use of Lasix, hydrochlorothiazide, and Lisinopril. history of ischemic cardiomyopathy with EF 15-20% Cr has improved withIVF( 4.04, 3.69, 3.42, 2.76, 2.37 2.16), baseline Cr 1.5- 2.0.-She has had fluctuation in potassium as well as creatinine I did consult nephrology SHe has been placed on renal diet urine studies ordered. She is a patient of Dr Lawson and we are unable to schedule a follow up appointmnet - she will follow up with her PCP (Dr Ochoa) in 4 weeks with a BMP 1 week after discharge She has received several doses of kayexalate at times she would refuse she cont to have elevated potassium- overnight potassium 6.9 no changes in EKG - she was given IV insulin calcium D5 and albuterol- today 10/03 5.9 I did discuss with nephrology I will give IVF. I did speak with the POA daughters Jeny and Charla, Patient need to comply with renal diet we will consult nutrition for education of renal diet Today 10/04/2017 potassium improved creatinn estable we will cont to monitor - apparently pt reported to nephrology that she see Dr Isaac not Patti so follow up will be Cristogetkarl hold off on lasix, HCTZ, will hold lisinopril due to rising potassium. Monitor Cr and K. PT educated to monitor volume status by monitoring edema on hands and thigh, and respiratory status, She has bilateral amputation, can not use scale to weigh herself. If pt senses she builds up volume, she take take extra dose of lasix. HCTZ does not work if GFR<30. Family and patient educated on low potassium diet - will consult dietary (2) Diabetes Current Visit: No Status: Chronic Assessment and Plan: On Lantus 10 units at night will hold for now will continue sliding scale coverage as her intake is poor-continue to closely monitor Blood glucose ok today (3) Hypertension Current Visit: No Status: Chronic Assessment and Plan: stable continue Coreg, imdur, hold lisinopril dt hyperkalemia (4) Acute encephalopathy Current Visit: Yes Status: Acute Assessment and Plan: Intially she was confused and supect rt CKD UTI- however the confusion has returned which I suspect could be possible delirium - No sign of infection, blood glucose OK electrolytes improved as well as creatanine We will check CT of head - she did have fall overnight- did not strike head per nursing (5) Heart failure with reduced ejection fraction Current Visit: No Status: Chronic Assessment and Plan: Lasix on hold as above. We will give gentle IVF . Lisinopril held due to elevated potassium Monitor intake output daily weights. no edema noted (6) Constipation Current Visit: Yes Status: Resolved Assessment and Plan: resolved (7) Hyperkalemia Current Visit: Yes Status: Acute Assessment and Plan: Potassium is elevated to 6.9 last night she non compliant with diet she will not take kayexalate - She was given IV insulin calcium gluconate dextrose albuterol - down to 5.9 will give IVF - discussed with nephrology - who will adjust medications possibly place on valtessa if on formulary She will need continued monitoring as outpatient - - she will follow up with DR Brito change diet to renal and cont to monitor residential monitor consult dietary concerning education on renal diet (8) DVT prophylaxis Current Visit: Yes Status: Acute Assessment and Plan: SQ heparin (9) Advance care planning Current Visit: Yes Status: Acute Assessment and Plan: Discussed with the patient's POA concerning discharge planning She expressed that she and her siblings are unable to provide care - there is also concern patient being compliant We discussed code status and expressed DNR and that they had paperwork concerninig code status which they are bringing. We will consult palliative - Time Spent with Patient Total time spent is greater than 50% in coordination of care (as documented) at patient's floor/unit and/or counseling patient: Internal Medicine: Result - Labs CBC & Chem 7: 10/04/17 00:49 10/04/17 11:51 Labs: Short CBC 10/04/17 Range/Units 00:49 WBC 3.6 L (4.3-11.1) K/mcL Hgb 8.6 L (11.5-15.4) g/dL Hct 26.8 L (35.3-44.9) % Plt Count 126 L (140-400) K/mcL Neutrophils # 2.4 (1.6-8.9) K/mcL BMP 10/03/17 10/04/17 17:43 00:49 Sodium 140 Potassium 6.4 H 5.1 Chloride 113 H Carbon Dioxide 21 L BUN 35 H Creatinine 2.33 H Glucose 126 H Calcium 9.3 - ABG Interpretation ABG results: PT/INR, D-dimer PT 11.9 Seconds (9.4-12.1) 09/24/17 17:47 - VTE Documentation of Mechanical Device: Graduated compression elastic hosiery Consult Discharge Plan - Plan Referrals: Griffin Ochoa MD [Primary Care Provider] - (1) Acute on chronic kidney failure Qualifiers: Acute renal failure type: unspecified Chronic kidney disease stage: stage 4 ( severe) Qualified Code(s): N17.9 - Acute kidney failure, unspecified; N18.4 - Chronic kidney disease, stage 4 (severe) (2) Diabetes Qualifiers: Diabetes mellitus type: type 2 Diabetes mellitus predatory animal exterminator insulin use: without predatory animal exterminator use Diabetes mellitus complication status: with unspecified complications Qualified Code(s): E11.8 - Type 2 diabetes mellitus with unspecified complications (3) Hypertension Qualifiers: Hypertension type: essential hypertension Qualified Code(s): I10 - Essential (primary) hypertension (5) Heart failure with reduced ejection fraction Qualifiers: Heart failure chronicity: chronic Qualified Code(s): I50.22 - Chronic systolic (congestive) heart failure (6) Constipation Qualifiers: Constipation type: unspecified constipation type Qualified Code(s): K59.00 - Constipation, unspecified
--- NOTE | 2017-10-04 16:01 | Nephrology Progress Note ---
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 Family supports this but fortunately no acute indication at present Continue to encourage po fluids Continue to avoid nephrotoxins if possiblle Qualifiers: Acute renal failure type: unspecified Chronic kidney disease stage: stage 4 (severe) Qualified Code(s): N17.9 - Acute kidney failure, unspecified; N18.4 - Chronic kidney disease, stage 4 (severe) (3) Urinary tract infection Current Visit: Yes Status: Acute per primary team Qualifiers: Urinary tract infection type: site unspecified Hematuria presence: without hematuria Qualified Code(s): N39.0 - Urinary tract infection, site not specified (4) CKD (chronic kidney disease) stage 3, GFR 30-59 ml/min Current Visit: Yes Status: Acute Baseline GFR actually in the 30s for an female Subjective Principal diagnosis: uti Interval history: Pt seen and examined appears confused today and arguing with the staff and wanting to go home as her "bags are packed". s/p fall overnight. Objective - Vital Signs Vital signs: Vital Signs Temp Pulse Resp BP Pulse Ox 10/04/17 11:35 97.8 F 73 16 162/71 100 10/04/17 07:39 97.7 F 75 16 189/67 97 10/04/17 05:56 97.5 F L 84 16 159/82 100 10/04/17 03:25 97.8 F 68 14 138/79 98 10/03/17 23:28 97.7 F 66 16 135/86 99 10/03/17 18:57 98.2 F 63 15 110/62 99 Intake and Output 10/03/17 10/04/17 10/04/17 23:59 07:59 15:59 Other: # Urine Diapers 1 Blood Glucose* 152 161 - General Appearance General appearance: Present: chronically ill, frail EENT: Present: ATNC, mucous membranes moist Neck: Present: no JVD, supple Respiratory: Present: clear Cardiology: Present: no edema (Bilat leg amp.), normal S1, normal S2 Gastrointestinal: Present: no tenderness, no guarding Integumentary: Present: warm and dry Neurologic: Present: confused Musculoskeletal: Present: no deformities Psychiatric: Present: agitated - Lab 10/04/17 00:49 10/04/17 11:51 Most recent lab results Calcium 9.3 mg/dL (8.6-10.3) 10/04/17 00:49 Phosphorus 3.2 mg/dL (2.7-4.5) 10/03/17 05:30 - VTE Documentation of Mechanical Device: Graduated compression elastic hosiery Consult Discharge Plan - Plan Referrals: Griffin Ochoa MD [Primary Care Provider] -
[2017-10-04] MEDS ORDERED: diazePAM 10 MG/2 ML SYRINGE IVP STA (21:16)
[2017-10-05] MEDS ORDERED: diazePAM 10 MG/2 ML SYRINGE IVP ONE (02:07)
[2017-10-05 05:20] LABS: Basophils % 0.8 %; Eosinophils # 0.2 K/mcL (0.0-0.6); Hematocrit 29.4 % (35.3-44.9); Hemoglobin 9.8 g/dL (11.5-15.4); Immature Granulocytes % 3.4 % (0-4); Lymphocytes # 0.9 K/mcL (0.6-4.6); Lymphocytes % 18.6 %; Mean Corpuscular HGB Conc 33.3 g/dL (31.6-35.5); Mean Corpuscular Hemoglobin 33.4 pg (28.0-33.3); Mean Corpuscular Volume 100.3 fL (83.0-100.0); Mean Platelet Volume 10.2 fL (9.4-12.4); Monocytes # 0.5 K/mcL (0.0-1.3); Monocytes % 11.2 %; Neutrophils # 2.9 K/mcL (1.6-8.9); Nucleated Red Blood Cells 0.6 /100 WBC (0); Platelet Count 135 K/mcL (140-400); Red Blood Count 2.93 M/mcL (3.82-4.97); Red Cell Distribution Width 12.1 % (11.5-14.5)
[2017-10-05 05:34] LABS: Calcium 9.6 mg/dL (8.6-10.3); Potassium 5.6 mEq/L (3.5-5.1)
[2017-10-05] MEDS: *HR* Heparin 5,000 UNIT/ML VIAL SQ SCH ×2 (06:24→16:53)
[2017-10-05] MEDS: Insulin LISPRO 300 UNITS/3 ML VIAL SQ SCH ×4 (08:59→20:34)
[2017-10-05] MEDS: Gabapentin 100 MG CAPSULE PO SCH ×2 (09:07→20:46)
[2017-10-05] MEDS: Aspirin Enteric Coated 81 MG Tablet PO SCH (09:07)
[2017-10-05] MEDS: BuPROPion SR (12 HR) 150 MG TABLET PO SCH ×2 (09:07→20:46)
[2017-10-05] MEDS: Cholecalciferol (D-3) 1,000 UNIT TABLET PO SCH (09:07)
[2017-10-05] MEDS: Cyanocobalamin (B-12) 1,000 MCG TABLET PO SCH (09:08)
[2017-10-05] MEDS ORDERED: 0.9 % Sodium Chloride 500 ML IVC SCH (11:30)
--- NOTE | 2017-10-05 14:36 | Palliative - Consult Note ---
Date of Encounter: 10/05/17 Time of Encounter: 12:00 - Assessment and Plan (1) CHF exacerbation Current Visit: No Status: Acute Assessment and plan: EF 15-25%, according to record. Patient had been taking Lasix prior to admission ; however, no active order for current usage. Notified Dr. Craig of patient and patient's daughters desire to resume Lasix. Qualifiers: Qualified Code(s): I50.23 - Acute on chronic systolic (congestive) heart failure (2) Chronic kidney disease, stage IV (severe) Current Visit: No Status: Acute Assessment and plan: Nephrology consult appreciated. Patient is adament against any type of dialysis. Spoke with Daughter Charla on telephone whom reported Dr. shannon had told her of a therapy that would help keep kidney function without dialysis. Notified Dr. Craig. (3) Altered mental status Current Visit: No Status: Acute Assessment and plan: Patient alert and oriented times 3 during assessment. Patient denies remembering periods of confusion duirng over nights. Qualifiers: Altered mental status type: disorientation Qualified Code(s): R41.0 - Disorientation, unspecified (4) Heart failure with reduced ejection fraction Current Visit: No Status: Chronic Qualifiers: Heart failure chronicity: chronic Qualified Code(s): I50.22 - Chronic systolic (congestive) heart failure (5) Constipation Current Visit: Yes Status: Acute Assessment and plan: Patient has bowel movement yesterday. patient denies trouble with bowels now. Patient has been ordered Kayexalate for high potassium levels. Qualifiers: Constipation type: unspecified constipation type Qualified Code(s): K59.00 - Constipation, unspecified (6) Advance care planning Current Visit: Yes Status: Acute Assessment and plan: Confirmed Code status with patient as DNR CCA/DNI. Per patient, plans to return home. Agreeable to short term rehab at [facility] or [facility]. Notifed Annika WILKERSON of patient's desire for [facility] and [facility]. Received notification that [facility] denied patient. Awaiting reponse from [facility]. Patient's daughter Charla also reported agreeable to [place], patient refused. Updated Dr. Craig on plan of care including rehab and desire to return to [facility]. Charla verbalized understanding that if patient refuses to participate in rehab that the cost of the ECF would be private pay. Family meeting set with other daughter Jeny for [phone]; did not arrive. Palliative care will continue to follow to assist with discharge planning. Thank you for the consult. Palliative-CN HPI - Data of Consult Patient: new to practice Consult date: 10/05/17 Requesting Physician: Anand Pleitez MD Primary Care Provider: Griffin Ochoa MD - Consult Narrative Palliative Care/Comfort Measures: Palliative care Reason for consult: Goals of care. History of present illness: Ms. Daugherty is a 77 year old female Arrived to [place] ER on 09/24/17, for confusion and UTI. Family reported increased confusion over 2 weeks, that was worsening. PMH: COPD, DM, GERD, Hyperlipidemia, HTN, VT, CKD, and anxiety. Initial Chest x-ray showed: No acute radiographic abnormality in the chest and Chronic reticulation of the interstitium. EKG showed: Sinus Rhythm, left axis deviation, Low QRS Voltage in precordial Leads, intraventricular conduction delay, and nonspecific ST Abnormalities. CT of Head/Brain without contrast showing: Stable CT brain with no acute intracranial abnormality and chronic findings as described. CT of the abdomen and pelvis without contrast showing: Moderate diffuse colonic stool burden; No evidence of bowel obstruction or significant inflammatory change; Symmetric bilateral renal atrophy, No obstruction; and Advanced aortoiliac atherosclerotic disease. Patient admitted and medically managed for UTI, Acute encephalopathy, Acute on chronic kidney failure, Heart failure with reduced EF, DM, HTN, and Constipation. On 09/29/17, repeat EKG performed, with no significant change. Nephrology consult completed; recommend avoid nephrotoxins and renal dose medications. Potassium noted to be elevated; kayexalate dosing performed. 10/04/17, patient confused overnight and fell; did not hit head. CT head/brain no contrast show: No acute intracranial abnormality. Patient noted to be adamant against dialysis. Palliative care consulted for goals of care. Patient sitting in bed talking with primary nurse upon arrival for assessment. Patient is alert and oriented times 3. No family present at bedside. Patient denies pain, nausea, vomiting, shortness of breath, and anxiety during assessment. Patient able to follow commands. CC: Anand Pleitez MD Past Med Surg Social Fam HX - Past Medical History Medical history: COPD, diabetes, GERD, hyperlipidemia, hypertension, myocardial infarction, renal disease Additional medical history: atherosclerotic heart disease, anemia, heart failure , urine retention, osteoarthritis, Psychiatric history: anxiety - Past Surgical History Surgical History: cholecystectomy Additional surgical history: right great toe removal. left leg amputation, angioplasty of right leg x 2, - Social History Smoking Status: Former smoker Smokeless Tobacco Status: No Alcohol use: none Drug use: none - Family History Mother Hx Family Cardiac Disorders: Yes Hx Family Respiratory Disorders: No Hx Family Cancer: No Hx Family GI Disorders: No Hx Family Endocrine Disorder: Yes Hx Family Neuromuscular Disorders: No Hx Family Neurologic Disorders: No Hx Family HEENT Disorders: No Hx Family Autoimmune Disorders: No Medications and Allergies Aspirin [Lo-Dose Aspirin EC] 81 mg PO DAILY 06/12/16 [History] BuPROPion SR (12 HR) [Wellbutrin SR] 150 mg PO BID 06/12/16 [History] Cholecalciferol (D-3) [Vitamin D] 5,000 unit PO DAILY 06/12/16 [History] Clopidogrel [Plavix] 75 mg PO DAILY 06/12/16 [History] Cyanocobalamin (Vitamin B-12) [Vitamin B-12] 1,000 mcg SL DAILY 06/12/16 [ History] Lisinopril [Zestril] 40 mg PO DAILY 06/12/16 [History] Oxybutynin Chloride [Ditropan Xl] 5 mg PO DAILY 06/12/16 [History] hydroCHLOROthiazide [Hydrochlorothiazide] 12.5 mg PO DAILY 06/12/16 [History] Isosorbide DInitrate [Isosorbide Dinitrate] 10 mg PO BID 10/14/16 [History] Potassium Chloride [K-Tab ER] 10 meq PO DAILY 10/14/16 [History] Furosemide [Lasix] 20 mg PO BID #30 10/16/16 [Rx] Insulin Glargine,Hum.rec.anlog [Lantus Solostar] 10 unit SQ HS 02/17/17 [History ] Atorvastatin Calcium [Lipitor] 20 mg PO QPM 09/24/17 [History] Carvedilol [Coreg] 6.25 mg PO BIDWM 09/24/17 [History] Ciprofloxacin HCl [Cipro] 500 mg PO DAILY 09/24/17 [History] Gabapentin [Neurontin] 100 mg PO BID 09/24/17 [History] Insulin ASPART [NovoLOG] 0 unit SQ TIDWM PRN 09/24/17 [History] 3 Allergy/AdvReac Type Severity Reaction Status Date / Time Penicillins Allergy Hives Verified 06/12/16 14:36 - Constitutional Constitutional ROS PAL: frequent falls, lethargy - EENT Eyes: change in vision (harder to see.) - Cardiovascular Cardiovascular ROS: no chest pain, no dyspnea on exertion, no edema, no leg edema - Respiratory Respiratory: no dyspnea, no dyspnea on exertion - Gastrointestinal Gastrointestinal: constipation, no abdominal pain, no nausea, no vomiting - Genitourinary Palliative ROS female: urinary incontinence - Musculoskeletal Musculoskeletal ROS IM: no back pain - Integumentary ROS Integumentary: dry skin, wounds (patch of psoriasis noted to right elbow.) - Neurological Neurological ROS: confusion, frequent falls, memory loss - Psychiatric Psychiatric general PM: memory loss, no anxiety Palliative Care-Exam - Constitutional Vitals: Temp Pulse Resp BP Pulse Ox 97.9 F 71 14 150/60 98 10/05/17 11:27 10/05/17 11:27 10/05/17 11:27 10/05/17 11:27 10/05/17 11:27 General appearance: Present: cooperative, no acute distress - Head Head Exam: Present: atraumatic, normal inspection - Expanded Head Exam Head exam expanded IM: Absent: raccoon eyes - Eye Eye exam: Present: EOMI, normal appearance, conjuntiva pink. Absent: periorbital swelling, periorbital tenderness Pupils: Present: normal accommodation, PERRL - ENT ENT exam: Present: mucous membranes dry, normal external ear exam - Expanded ENT Exam Mouth Exam: Absent: drooling - Neck Neck exam: Present: full ROM, normal inspection - Respiratory Respiratory exam: Present: CTAB. Absent: accessory muscle use, respiratory distress, wheezes, tachypnea - Cardiovascular Cardiovascular exam: Present: +S1, +S2 - Expanded Cardiovascular Exam Peripheral pulses: 2+: Radial (L), Radial (R) - GI/Abdominal Exam GI/Abdominal exam: Present: diminished bowel sounds, soft. Absent: tenderness - Rectal Rectal exam: Present: deferred - Extremities Exam Extremities exam: Absent: calf tenderness (BLE amputation.) - Neurological Exam Neurological exam: Present: alert, oriented X3, strengths equal and symetr throughout. Absent: altered - Expanded Neurological Exam Patient oriented to: Present: person, place, time Coma Scale Eye Opening: Spontaneous Coma Scale Motor Response: Obeys Commands Coma Scale Verbal Response: Oriented Coma Scale Total: 15 - Psychiatric Psychiatric exam: Present: normal affect, normal mood - Expanded Skin Exam Distribution of rash: Present: RUE (patch of psoriasis noted.) Description of rash: Absent: tenderness Internal Medicine - CN: Reslt - Labs CBC & Chem 7: 10/05/17 04:47 10/05/17 04:47 Labs: Short CBC 10/05/17 Range/Units 04:47 WBC 4.7 (4.3-11.1) K/mcL Hgb 9.8 L (11.5-15.4) g/dL Hct 29.4 L (35.3-44.9) % Plt Count 135 L (140-400) K/mcL Neutrophils # 2.9 (1.6-8.9) K/mcL BMP 10/05/17 10/05/17 00:36 04:47 Sodium 142 Potassium 5.1 5.6 H Chloride 116 H Carbon Dioxide 21 L BUN 30 H Creatinine 2.25 H Glucose 110 H Calcium 9.6 - ABG Interpretation ABG results: PT/INR, D-dimer PT 11.9 Seconds (9.4-12.1) 09/24/17 17:47 - Impressions Impressions Head CT 10/04/17 13:54 IMPRESSION: No acute intracranial abnormality. Senescent changes. Calcifications involving bilateral carotid vasculature reflect calcific atherosclerosis. D/ / Hai Figueroa / Hai Figueroa Interpreting Provider: Hai Figueroa Consult Discharge Plan - Plan Referrals: Griffin Ochoa MD [Primary Care Provider] - 10/14/17 9:45 am Palliative Quality Palliative Quality: Screen for Code Status: Yes, Screen for Goals of Care: Yes, Screen for Pain: Yes, If Pain Regimen Started, Initiate Bowel Regimen: NA, Screen for Nausea/Vomitting: Yes Code Status: 10/03/17 18:02 DNR [Resuscitation Status: Active] [RES] Routine Comment: Resuscitation Status: [id number]
--- NOTE | 2017-10-05 14:57 | Electrocardiograph Report ---
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
--- NOTE | 2017-10-05 16:06 | Nephrology Progress Note ---
Date of Encounter: 10/05/17 Time of Encounter: 11:50 - Assessment and Plan (1) Acute on chronic kidney failure Current Visit: Yes Status: Acute Improved. 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 Family supports this but fortunately no acute indication at present Continue to encourage po fluids Continue to avoid nephrotoxins if possiblle Palliative consulted to determine goals of care. Qualifiers: Acute renal failure type: unspecified Chronic kidney disease stage: stage 4 (severe) Qualified Code(s): N17.9 - Acute kidney failure, unspecified; N18.4 - Chronic kidney disease, stage 4 (severe) (2) Hyperkalemia Current Visit: Yes Status: Acute Potassium normalized at 5.6 Continue IV insulin with dextrose, sodium bicarb Continue renal diet Recheck with AM labs. Followup outpatient with Dr Isaac on discharge per family's request (3) Urinary tract infection Current Visit: Yes Status: Acute per primary team Qualifiers: Urinary tract infection type: site unspecified Hematuria presence: without hematuria Qualified Code(s): N39.0 - Urinary tract infection, site not specified (4) CKD (chronic kidney disease) stage 3, GFR 30-59 ml/min Current Visit: Yes Status: Acute Baseline GFR actually in the 30s for an female. She is currently stable in 20s. Qualifiers: Acute renal failure type: unspecified Chronic kidney disease stage: stage 4 (severe) Qualified Code(s): N17.9 - Acute kidney failure, unspecified; N18.4 - Chronic kidney disease, stage 4 (severe) Subjective Principal diagnosis: uti Interval history: Patient is awake and alert today. She is frustrated that she can't go home. She reports that she is tolerating PO intake OK. Has not been voiding. She is easily irritable at this time. Patient able to tell me that she had episodes of confusion over the weekend. She states that she has those episodes sometimes. No further complaints. Objective - Vital Signs Vital signs: Vital Signs Temp Pulse Resp BP Pulse Ox 10/05/17 11:27 97.9 F 71 14 150/60 98 10/05/17 07:17 97.9 F 68 15 134/74 97 10/05/17 03:25 98.2 F 77 14 154/82 99 10/04/17 23:29 98.0 F 76 14 149/77 97 10/04/17 21:00 97.9 F 79 14 163/76 98 10/04/17 18:42 97.9 F 85 14 160/78 99 Intake and Output 10/05/17 10/05/17 10/05/17 07:59 15:59 23:59 Intake Total 200 / 200 0 / 0 Balance 200 / 200 0 / 0 Intake: Oral 0 / 0 Free Water 200 / 200 Other: Meal Lunch Percent of Meal Consumed 0% # Urine Diapers 1 1 Weight 67.5 kg Blood Glucose* 126 167 Patient Weight 10/05/17 23:59 Weight 67.5 kg - General Appearance Exam: General appearance: Present: chronically ill, frail EENT: Present: ATNC, mucous membranes moist Neck: Present: no JVD, supple Respiratory: Present: clear Cardiology: Present: no edema (Bilat leg amp.), normal S1, normal S2 Gastrointestinal: Present: no tenderness, no guarding Integumentary: Present: warm and dry Neurologic: Present: confused Musculoskeletal: Present: no deformities Psychiatric: Present: agitated - Lab 10/05/17 04:47 10/05/17 04:47 Most recent lab results Calcium 9.6 mg/dL (8.6-10.3) 10/05/17 04:47 Phosphorus 3.2 mg/dL (2.7-4.5) 10/03/17 05:30 - VTE Documentation of Mechanical Device: Graduated compression elastic hosiery Consult Discharge Plan - Plan Referrals: Griffin Ochoa MD [Primary Care Provider] - 10/14/17 9:45 am
--- NOTE | 2017-10-05 20:46 | Internal Med Progress Note ---
Hospitalist Progress Note - Encounter Date of Encounter: 10/05/17 Time of Encounter: 10:00 - Subjective Interval History: Patient was seen and examined at bedside- she is alert and oriented to name and place. She verbalizes that she wants to go home. She denies any pain or discomfort - Exam Vitals: Temp Pulse Resp BP Pulse Ox 98.5 F 93 14 145/79 85 10/05/17 18:41 10/05/17 18:41 10/05/17 18:41 10/05/17 18:41 10/05/17 18:41 Exam: PHYSICAL EXAMINATION: GENERAL APPEARANCE: The patient is alert, oriented to name only Follws simple commands At times make inappropriate comments HEENT: Head is normocephalic. The sinuses are nontender. Pupils are equal and reactive. The nares are patent. Oropharynx clear without lesions. NECK: Supple without lymphadenopathy. HEART: Regular rate and rhythm. LUNGS: No crackles or wheezes are heard. ABDOMEN: Soft, nontender, nondistended with good bowel sounds heard. Inguinal area is normal. EXTREMITIES: BKA bilaterally NEUROLOGICAL: Gross nonfocal. patient is groggy SKIN: Warm and dry without any rash. - Assessment and Plan (1) Acute on chronic kidney failure Current Visit: Yes Status: Acute Assessment and Plan: Likely due to poor oral intake and ongoing use of Lasix, hydrochlorothiazide, and Lisinopril. history of ischemic cardiomyopathy with EF 15-20% Cr has improved withIVF( 4.04, 3.69, 3.42, 2.76, 2.37 2.16), baseline Cr 1.5- 2.0.-She has had fluctuation in potassium as well as creatinine I did consult nephrology SHe has been placed on renal diet urine studies ordered. She is a patient of Dr Lawson and we are unable to schedule a follow up appointmnet - she will follow up with her PCP (Dr Ochoa) in 4 weeks with a BMP 1 week after discharge She has received several doses of kayexalate at times she would refuse she cont to have elevated potassium- overnight potassium 6.9 no changes in EKG - she was given IV insulin calcium D5 and albuterol- today 10/03 5.9 I did discuss with nephrology I will give IVF. I did speak with the POA daughters Jeny and Charla, Patient need to comply with renal diet we will consult nutrition for education of renal diet Today 10/04/2017 potassium improved creatinn estable we will cont to monitor - apparently pt reported to nephrology that she see Dr Poncho Armstrong so follow up will be Poncho hold off on lasix, HCTZ, will hold lisinopril due to rising potassium. Monitor Cr and K. PT educated to monitor volume status by monitoring edema on hands and thigh, and respiratory status, She has bilateral amputation, can not use scale to weigh herself. If pt senses she builds up volume, she take take extra dose of lasix. HCTZ does not work if GFR<30. 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 not want PRINT SHOP ASSISTANT encourage fluids monitor I/O Palliative has been consulted to determine care goals dietary consulted to educate family concerning renal diet (2) Diabetes Current Visit: No Status: Chronic Assessment and Plan: On Lantus 10 units at night will hold for now will continue sliding scale coverage as her intake is poor-continue to closely monitor Blood glucose stable today (3) Hypertension Current Visit: No Status: Chronic Assessment and Plan: stable continue Coreg, imdur, hold lisinopril dt hyperkalemia (4) Acute encephalopathy Current Visit: Yes Status: Acute Assessment and Plan: ially she was confused and supect rt CKD UTI- however the confusion has returned which I suspect could be possible delirium - No sign of infection, blood glucose OK electrolytes improved as well as creatanine We will check CT of head - she did have fall overnight- did not strike head per nursing 10/05 more pleasant today- A/O to name and place - CT of head negative for any acute intracranial abnormality (5) Heart failure with reduced ejection fraction Current Visit: No Status: Chronic Assessment and Plan: Lasix on hold as above Lisinopril held due to elevated potassium Monitor intake output daily weights. no edema noted Urine outut has decreased- will discuss with nephrology concerning recommendations concerning resuming lasix (6) Constipation Current Visit: Yes Status: Acute Assessment and Plan: resolved (7) Hyperkalemia Current Visit: Yes Status: Acute Assessment and Plan: Potassium was elevated to 6.9 she non compliant with diet and would not take kayexalate - She was given IV insulin calcium gluconate dextrose albuterol - discussed with nephrology - who will adjust medications possibly place on valtessa if on formulary She will need continued monitoring as outpatient - - she will follow up with DR Brito change diet to renal and cont to monitor fish straightener consult dietary concerning education on renal diet She was 5.6 today - I did give kayexalate - with result will cont to monitor potassium (8) DVT prophylaxis Current Visit: Yes Status: Acute Assessment and Plan: SQ heparin (9) Advance care planning Current Visit: Yes Status: Acute Assessment and Plan: 1 Palliative has been consulted - awaiting acceptance to [facility]- [facility] DVT Prophylaxis: heparin subque - Time Spent with Patient Total time spent is greater than 50% in coordination of care (as documented) at patient's floor/unit and/or counseling patient: Internal Medicine: Result - Labs CBC & Chem 7: 10/05/17 04:47 10/05/17 04:47 Labs: Short CBC 10/05/17 Range/Units 04:47 WBC 4.7 (4.3-11.1) K/mcL Hgb 9.8 L (11.5-15.4) g/dL Hct 29.4 L (35.3-44.9) % Plt Count 135 L (140-400) K/mcL Neutrophils # 2.9 (1.6-8.9) K/mcL BMP 10/05/17 10/05/17 00:36 04:47 Sodium 142 Potassium 5.1 5.6 H Chloride 116 H Carbon Dioxide 21 L BUN 30 H Creatinine 2.25 H Glucose 110 H Calcium 9.6 - ABG Interpretation ABG results: PT/INR, D-dimer PT 11.9 Seconds (9.4-12.1) 09/24/17 17:47 - VTE Documentation of Mechanical Device: Graduated compression elastic hosiery Consult Discharge Plan - Plan Referrals: Griffin Ochoa MD [Primary Care Provider] - 10/14/17 9:45 am (1) Acute on chronic kidney failure Qualifiers: Acute renal failure type: unspecified Chronic kidney disease stage: stage 4 ( severe) Qualified Code(s): N17.9 - Acute kidney failure, unspecified; N18.4 - Chronic kidney disease, stage 4 (severe) (2) Diabetes Qualifiers: Diabetes mellitus type: type 2 Diabetes mellitus integrated campaign manager insulin use: without jail use Diabetes mellitus complication status: with unspecified complications Qualified Code(s): E11.8 - Type 2 diabetes mellitus with unspecified complications (3) Hypertension Qualifiers: Hypertension type: essential hypertension Qualified Code(s): I10 - Essential (primary) hypertension (5) Heart failure with reduced ejection fraction Qualifiers: Heart failure chronicity: chronic Qualified Code(s): I50.22 - Chronic systolic (congestive) heart failure (6) Constipation Qualifiers: Constipation type: unspecified constipation type Qualified Code(s): K59.00 - Constipation, unspecified
[2017-10-06 04:56] LABS: Basophils % 0.3 %; Eosinophils # 0.1 K/mcL (0.0-0.6); Eosinophils % 3.3 %; Hematocrit 29.4 % (35.3-44.9); Hemoglobin 9.7 g/dL (11.5-15.4); Lymphocytes # 0.9 K/mcL (0.6-4.6); Lymphocytes % 23.3 %; Mean Corpuscular Hemoglobin 33.3 pg (28.0-33.3); Mean Platelet Volume 9.7 fL (9.4-12.4); Monocytes # 0.3 K/mcL (0.0-1.3); Monocytes % 8.7 %; Neutrophils # 2.4 K/mcL (1.6-8.9); Platelet Count 138 K/mcL (140-400); Red Blood Count 2.91 M/mcL (3.82-4.97); Red Cell Distribution Width 12.2 % (11.5-14.5); Segmented Neutrophils % 64.4 %
[2017-10-06 05:16] LABS: Calcium 9.2 mg/dL (8.6-10.3); Potassium 4.7 mEq/L (3.5-5.1)
[2017-10-06] MEDS: *HR* Heparin 5,000 UNIT/ML VIAL SQ SCH ×2 (05:40→16:19)
[2017-10-06] MEDS: Insulin LISPRO 300 UNITS/3 ML VIAL SQ SCH ×3 (07:55→16:18)
[2017-10-06] MEDS: BuPROPion SR (12 HR) 150 MG TABLET PO SCH (07:57)
[2017-10-06] MEDS: Cholecalciferol (D-3) 1,000 UNIT TABLET PO SCH (07:57)
[2017-10-06] MEDS: Aspirin Enteric Coated 81 MG Tablet PO SCH (07:57)
[2017-10-06] MEDS: Cyanocobalamin (B-12) 1,000 MCG TABLET PO SCH (07:58)
[2017-10-06] MEDS: Gabapentin 100 MG CAPSULE PO SCH (07:58)
[2017-10-06 11:07] VITALS: BP 114/68
--- NOTE | 2017-10-06 12:32 | Discharge Summary ---
- NOTES TO OUTPATIENT PROVIDER Notes to Outpatient Provider: f/u with renal within a week. f/u with PCP within a week. Orders not resulted at time of discharge: Pending orders 10/03/17 11:51 Potassium,Urine [UCHEM] Routine Sodium, Urine [UCHEM] Routine Urine Microalbumin Random [UCHEM] Routine Urine Protein Creat Ratio [place] [UCHEM] Routine 10/07/17 04:00 CBC [Complete Blood Count] [HEME] AM 0400 Chem 7 [Basic Metabolic Panel] AM 0400 Date of Encounter: 10/06/17 Time of Encounter: 12:28 - Discharge Diagnosis (1) Diabetes Priority: Secondary Status: Chronic Qualifiers: Diabetes mellitus type: type 2 Diabetes mellitus superintendent terminal insulin use: without alf use Diabetes mellitus complication status: with unspecified complications Qualified Code(s): E11.8 - Type 2 diabetes mellitus with unspecified complications (2) Hypertension Priority: Secondary Status: Chronic Qualifiers: Hypertension type: essential hypertension Qualified Code(s): I10 - Essential (primary) hypertension (3) DVT prophylaxis Priority: Primary Status: Acute (4) Acute encephalopathy Priority: Primary Status: Acute (5) Heart failure with reduced ejection fraction Priority: Secondary Status: Chronic Qualifiers: Heart failure chronicity: chronic Qualified Code(s): I50.22 - Chronic systolic (congestive) heart failure (6) Acute on chronic kidney failure Priority: Primary Status: Acute Qualifiers: Acute renal failure type: unspecified Chronic kidney disease stage: stage 4 (severe) Qualified Code(s): N17.9 - Acute kidney failure, unspecified; N18.4 - Chronic kidney disease, stage 4 (severe) (7) Constipation Priority: Primary Status: Acute Qualifiers: Constipation type: unspecified constipation type Qualified Code(s): K59.00 - Constipation, unspecified (8) Hyperkalemia Priority: Primary Status: Acute Assessment and Plan: (9) Advance care planning Priority: Primary Status: Acute Hospital course: Ms. Daugherty is a 77 year old female with past medical history of diabetes, hypertension, CKD, and a CHF presented with acute onset of mental status change. Labs revealed UTI and acute on chronic renal failure. She was admitted as inpatient. Urine culture grew Escherichia coli, sensitive to cefazolin, received 5 days of Keflex. Acute on chronic renal failure was suspected due to overdiuresis. She received IV hydration with discontinuation of Lasix. She remained euvolemic, creatinine returned to baseline. However, potassium was found persistently elevated, patient was instructed to comply with renal diet. Lisinopril was on hold, blood pressure well controlled. On the discharge day, potassium was within normal limits. Volume status is euvolemic. After discussed with family and patient and reviewing PT/OT consult notes, we will discharge the patient to [facility] to continue rehabilitation. She will continue her care at the [facility]. Discharge discussed with: patient, family, social work, case management Time spent discussing smoking cessation with patient: more than 10 minutes - Time Spent with Patient Total time spent providing and/or coordinating discharge services: Greater than 30 minutes - Discharge Medications Prescriptions: Sodium Polystyrene Sulfonate [Kayexalate] 15 gm PO DAILY #30 bottle Home Medications: Aspirin [Lo-Dose Aspirin EC] 81 mg PO DAILY 06/12/16 [History] BuPROPion SR (12 HR) [Wellbutrin SR] 150 mg PO BID 06/12/16 [History] Cholecalciferol (D-3) [Vitamin D] 5,000 unit PO DAILY 06/12/16 [History] Clopidogrel [Plavix] 75 mg PO DAILY 06/12/16 [History] Cyanocobalamin (Vitamin B-12) [Vitamin B-12] 1,000 mcg SL DAILY 06/12/16 [ History] Oxybutynin Chloride [Ditropan Xl] 5 mg PO DAILY 06/12/16 [History] Isosorbide DInitrate [Isosorbide Dinitrate] 10 mg PO BID 10/14/16 [History] Atorvastatin Calcium [Lipitor] 20 mg PO QPM 09/24/17 [History] Carvedilol [Coreg] 6.25 mg PO BIDWM 09/24/17 [History] Gabapentin [Neurontin] 100 mg PO BID 09/24/17 [History] Insulin ASPART [NovoLOG] 0 unit SQ TIDWM PRN 09/24/17 [History] Sodium Polystyrene Sulfonate [Kayexalate] 15 gm PO DAILY #30 bottle 10/06/17 [Rx ] Allergies/Adverse Reactions: 3 Allergy/AdvReac Type Severity Reaction Status Date / Time Penicillins Allergy Hives Verified 06/12/16 14:36 Date of admission: 09/24/17 22:06 Primary care physician: Griffin Ochoa MD Consults: 09/30/17 08:33 Consult to Nephrology [CONS] Routine Consulting Provider: Kidney Na/ROHINI/RODRÍGUEZ/DESHAUN Reason for Consult: SARANYA/CKD Time Notified: 08:33 Call Completed: Yes 10/01/17 16:40 Consult to Occupational Therapy [CONS] Routine Comment: Evaluate, develop and implement POC Reason for Consult: weakness, BKA, possible placement Does patient have active BEDREST order?: No Is patient medically & hemodynamically stable?: Yes Consult to Physical Therapy [CONS] Routine Comment: Evaluate, develop and implement POC Reason for Consult: weakness, BKA, possible placement Does patient have active BEDREST order?: No Is patient medically & hemodynamically stable?: Yes 10/04/17 14:57 consult to ordnance technician [Consult to Nutrition] [CONS] Routine Comment: Consulting Provider: NUTRITION Reason for Dietary Consult: Diet Education Other:: Renal diet low potassium 10/05/17 09:40 Consult to Underwriter Solicitation Director [CONS] Routine Reason for SW Consult: PT/OT RECOMMEND INPATIENT/SWING REHAB. PATIENT IS CONFUSED. 10/05/17 11:18 Consult to Palliative Care [CONS] Routine Comment: Consulting Provider: Palliative Care Na Reason for Consult: 77F DNR CCA DNI with stage 4 CKD, declining HD. Worsening CKD and mental status. Please establish with patient and recommendations appreciated. Thank you Call Completed: Yes Anticipated date of discharge: 10/06/17 - Constitutional Vitals: Temp Pulse Resp BP Pulse Ox 98.0 F 82 15 114/68 99 10/06/17 11:04 10/06/17 11:04 10/06/17 11:04 10/06/17 11:04 10/06/17 11:04 General appearance: Present: cooperative, A&O X 2, answers questions appropriately Exam: PHYSICAL EXAMINATION: GENERAL APPEARANCE: The patient is alert, oriented and in no acute distress. HEENT: Head is normocephalic. The sinuses are nontender. Pupils are equal and reactive. The nares are patent. Oropharynx clear without lesions. NECK: Supple without lymphadenopathy. HEART: Regular rate and rhythm. LUNGS: No crackles or wheezes are heard. ABDOMEN: Soft, nontender, nondistended with good bowel sounds heard. Inguinal area is normal. EXTREMITIES: Bilateral BKA. NEUROLOGICAL: Gross nonfocal. SKIN: Warm and dry without any rash. - Patient Status Disposition: Transfer SNF Condition: Good Functional capacity at discharge: wheelchair bound Overall status at discharge: patient is progressing back to baseline - Discharge Instructions - Diet and Activity Activity: increase activity as tolerated Diet: diabetic diet, low fat, low cholesterol, low salt diet - VTE Documentation of Mechanical Device: Graduated compression elastic hosiery
--- NOTE | 2017-10-06 12:40 | Physician Discharge Referral ---
ExtendedCare Referral Info Provider in Charge after Transfer: Market Research Consultant Institutional Level of Care: Skilled - Diagnosis (1) Diabetes Priority: Secondary Status: Chronic (2) Hypertension Priority: Secondary Status: Chronic (3) DVT prophylaxis Priority: Primary Status: Acute (4) Acute encephalopathy Priority: Primary Status: Acute (5) Heart failure with reduced ejection fraction Priority: Secondary Status: Chronic (6) Acute on chronic kidney failure Priority: Primary Status: Acute (7) Constipation Priority: Secondary Status: Acute (8) Hyperkalemia Priority: Primary Status: Acute (9) Advance care planning Priority: Primary Status: Acute Prognosis: Fair Aware of Diagnosis: Patient, Family Aware of Prognosis: Patient, Family - Transfer Medications Prescriptions: Sodium Polystyrene Sulfonate [Kayexalate] 15 gm PO DAILY #30 bottle Home Medications: Aspirin [Lo-Dose Aspirin EC] 81 mg PO DAILY 06/12/16 [History] BuPROPion SR (12 HR) [Wellbutrin SR] 150 mg PO BID 06/12/16 [History] Cholecalciferol (D-3) [Vitamin D] 5,000 unit PO DAILY 06/12/16 [History] Clopidogrel [Plavix] 75 mg PO DAILY 06/12/16 [History] Cyanocobalamin (Vitamin B-12) [Vitamin B-12] 1,000 mcg SL DAILY 06/12/16 [ History] Oxybutynin Chloride [Ditropan Xl] 5 mg PO DAILY 06/12/16 [History] Isosorbide DInitrate [Isosorbide Dinitrate] 10 mg PO BID 10/14/16 [History] Atorvastatin Calcium [Lipitor] 20 mg PO QPM 09/24/17 [History] Carvedilol [Coreg] 6.25 mg PO BIDWM 09/24/17 [History] Gabapentin [Neurontin] 100 mg PO BID 09/24/17 [History] Insulin ASPART [NovoLOG] 0 unit SQ TIDWM PRN 09/24/17 [History] Sodium Polystyrene Sulfonate [Kayexalate] 15 gm PO DAILY #30 bottle 10/06/17 [Rx ] Allergies/Adverse Reactions: 3 Allergy/AdvReac Type Severity Reaction Status Date / Time Penicillins Allergy Hives Verified 06/12/16 14:36 - Respiratory Orders Smoking Cessation: Smoking cessation has been advised. For more information, call the [place] Tobacco Quit Line at 3-237-FDVT-NOW. - Lab Orders Lab Orders: Other (include drug levels w/frequency) - Advance Directives Code Status: Full Code - Rehabiliation Orders Rehab Potential: Fair - Diet Orders Renal, Cardiac CERTIFICATION: I certify that the transfer of the above named patient to an Extended Care Facility is necessary for the continuing treatment of the diagnosis listed. The above information is true and accurate reflection of patient's current condition. Confidential - Redisclosure prohibited without a patient's written consent.
--- NOTE | 2017-10-06 13:02 | Event Note ---
Date of Encounter: 10/06/17 Time of Encounter: 10:00 Patient to be DC'd to ECF today for skilled rehab with Pt & OT. Family aware and involved in DC plan. Patient is DNRCC -A, DNI. State form completed. Patient aware of plan of care and agrees to rehab. Thank you for the consult.
== END 2017-10-06 16:37 | DRG 682 ==
LOC: 3BNU 17:01 → EMEROO 17:01 → 3BNU 21:04
PROVIDERS: ADMIT Internal Medicine; ATTEND Internal Medicine

== ENCOUNTER 2017-11-09 12:18 | Inpatient (IN) ==
--- NOTE | 2017-11-09 12:34 | Emergency Department Note ---
Disposition Clinical Impression: History of UTI, Chronic anemia Altered mental status Qualifiers: Altered mental status type: disorientation Qualified Code(s): R41.0 - Disorientation, unspecified Disposition: Admitted As Inpatient Altered Mental Status HPI - General Chief Complaint: ED Altered Mental Status Stated Complaint: AMS Time Seen by Provider: 11/09/17 12:31 Source: EMS Mode of arrival: EMS Limitations: altered mental status Nursing Notes Reviewed: Yes Vital Signs Reviewed: Yes - History of Present Illness HPI Narrative: Patient is a 77-year-old female with past medical history of hypertension, hyperlipidemia, COPD, GERD, diabetes. She presents today from [facility] via EMS due to concern for altered mental status. According to EMS, patient has recently been treated with Invanz through a PICC line for UTI. Other past 1-2 days, she has had confusion, is now not oriented to person, place, or time. This is significantly different from her baseline. She is not noted to have any other focal numbness, tingling, weakness. No recent complaints of any chest pain, shortness of breath, URI symptoms, fevers. Patient family is not at bedside, no additional paperwork was sent with patient. Patient herself is not able to answer any review of system questions, is alert and interactive but mumbling and not following commands. - Related Data Home Medications Medication Instructions Recorded Confirmed Aspirin [Lo-Dose Aspirin EC] 81 mg PO DAILY 06/12/16 11/09/17 BuPROPion SR (12 HR) [Wellbutrin 150 mg PO BID 06/12/16 11/09/17 SR] Cholecalciferol (D-3) [Vitamin D] 5,000 unit PO DAILY 06/12/16 11/09/17 Clopidogrel [Plavix] 75 mg PO DAILY 06/12/16 11/09/17 Cyanocobalamin (Vitamin B-12) 1,000 mcg SL DAILY 06/12/16 11/09/17 [Vitamin B-12] Oxybutynin Chloride [Ditropan Xl] 5 mg PO DAILY 06/12/16 11/09/17 Isosorbide DInitrate [Isosorbide 10 mg PO BID 10/14/16 11/09/17 Dinitrate] Atorvastatin Calcium [Lipitor] 20 mg PO QPM 09/24/17 11/09/17 Carvedilol [Coreg] 6.25 mg PO BIDWM 09/24/17 11/09/17 Gabapentin [Neurontin] 100 mg PO BID 09/24/17 11/09/17 Diphenhydramine HCl [Nighttime 50 mg PO Q8H PRN 11/09/17 11/09/17 Sleep Aid] Ertapenem [INVanz] 1,000 mg IVPB DAILY 11/09/17 11/09/17 Insulin Glargine,Hum.rec.anlog 10 unit SQ HS 11/09/17 11/09/17 [Lantus Solostar] Melatonin [Melatin] 3 mg PO HS 11/09/17 11/09/17 RisperiDONE [Risperdal] 0.5 mg PO HS 11/09/17 11/09/17 risperiDONE [Risperdal] 0.25 mg PO QAM 11/09/17 11/09/17 Allergies Allergy/AdvReac Type Severity Reaction Status Date / Time Penicillins Allergy Hives Verified 11/09/17 14:27 Limitations: ROS unobtainable due to patients medical condition Past Medical History - Past Medical History Attestation: Yes The following information was validated with the patient. Source: patient Medical history: Reports: COPD, diabetes, GERD, hyperlipidemia, hypertension, myocardial infarction, renal disease Surgical history: Reports: cholecystectomy Psychiatric history: Reports: anxiety - Social History Smoking Status: Former smoker Smokeless Tobacco Status: No Alcohol use: Reports: none Drug use: Reports: none Physical Exam - General Limitations: altered mental status General appearance: lethargic - Head Head exam: atraumatic, normocephalic, normal inspection - Eye Eye exam: Present: normal appearance, PERRL, EOMI - ENT ENT exam: normal exam, normal oropharynx, mucous membranes moist - Neck Neck exam: Present: normal inspection, full ROM, trachea midline - Chest Chest inspection: Present: normal inspection, symmetric chest wall rise - Respiratory Respiratory exam: Present: normal lung sounds bilaterally - Cardiovascular Cardiovascular exam: Present: regular rate, normal rhythm, normal heart sounds - Abdominal Exam Abdominal exam: Present: soft, Non-Tender. Absent: tenderness, distention, guarding, rebound, rigidity - Extremities Exam Extremities exam: Present: normal inspection, full ROM. Absent: tenderness, pedal edema - Neurological Exam Neurological exam: Present: alert, CN II-XII intact. Absent: motor sensory deficit - Expanded Neurological Exam Patient oriented to: Absent: person, place, time Speech: Present: fluid speech Coma Scale Eye Opening: Spontaneous Coma Scale Motor Response: Localizes to Pain Coma Scale Verbal Response: Confused Coma Scale Total: 13 - Psychiatric Psychiatric exam: Present: normal affect, normal mood - Skin Skin exam: Present: warm, dry, intact, normal color Course Course Narrative: Vitals within normal limits. Physical exam shows no focal neurologic deficits but patient is pleasantly confused. Basic labs ordered along with CT the head, chest x-ray, urinalysis. Chest x-ray was negative for any acute cardio pulmonary process. Head CT was negative for any acute intracranial abnormality. Basic labs show chronic anemia, chronic renal failure. Patient was pending urinalysis at time of admission. Patient was accepted by Dr. Nguyen who will follow up on urinalysis. Chest X-Ray 11/09/17 12:32 IMPRESSION: No evidence of acute cardiopulmonary disease. D/ / Cosme Arroyo MD / Cosme Arroyo MD Interpreting Provider: Cosme Arroyo MD Head CT 11/09/17 12:32 IMPRESSION: No acute intracranial abnormality. Parenchymal volume loss and sequela of moderate chronic microvascular ischemic changes. D/ / Jennie Swanson MD / Jennie Swanson MD Interpreting Provider: Jennei Swanson MD Vital Signs Temperature 98.6 F 11/09/17 12:27 Pulse Rate 71 11/09/17 12:27 Respiratory Rate 16 11/09/17 12:27 Blood Pressure 143/64 11/09/17 12:27 O2 Sat by Pulse Oximetry 100 11/09/17 12:27 Temperature 98.4 F 11/09/17 16:13 Pulse Rate 79 11/09/17 16:13 Respiratory Rate 16 11/09/17 16:13 Blood Pressure 147/79 11/09/17 16:13 O2 Sat by Pulse Oximetry 96 11/09/17 16:13 Oxygen Delivery Oxygen Delivery Room Air Altered Mental Status - MDM Narrative Medical decision making narrative: Vitals within normal limits. Physical exam shows no focal neurologic deficits but patient is pleasantly confused. Basic labs ordered along with CT the head, chest x-ray, urinalysis. Chest x-ray was negative for any acute cardio pulmonary process. Head CT was negative for any acute intracranial abnormality. Basic labs show chronic anemia, chronic renal failure. Patient was pending urinalysis at time of admission. Patient was accepted by Dr. Nguyen who will follow up on urinalysis. - Medical Records Medical records reviewed: Yes I reviewed the patient's medical records. - Lab Data Lab results reviewed: Yes I reviewed the patient's lab results. Result diagrams: 11/09/17 12:55 11/09/17 12:55 Lab Results 11/09/17 11/09/17 11/09/17 Range/Units 12:48 12:55 12:55 WBC 5.0 (4.3-11.1) K/mcL RBC 3.22 L (3.82-4.97) M/mcL Hgb 10.3 L (11.5-15.4) g/dL Hct 31.9 L (35.3-44.9) % MCV 99.1 (83.0-100.0) fL MCH 32.0 (28.0-33.3) pg MCHC 32.3 (31.6-35.5) g/dL RDW 11.8 (11.5-14.5) % Plt Count 164 (140-400) K/mcL MPV 10.0 (9.4-12.4) fL Immature Gran % 0.4 (0-4) % Seg Neutrophils % 70.7 % Lymphocytes % 18.5 % Monocytes % 8.0 % Eosinophils % 2.2 % Basophils % 0.2 % Neutrophils # 3.6 (1.6-8.9) K/mcL Lymphocytes # 0.9 (0.6-4.6) K/mcL Monocytes # 0.4 (0.0-1.3) K/mcL Eosinophils # 0.1 (0.0-0.6) K/mcL Basophils # 0.0 (0.0-0.2) K/mcL PT 12.4 H (9.4-12.1) Seconds INR 1.1 APTT 30.1 (26.0-36.0) Seconds Sodium (136-145) mEq/L Potassium (3.5-5.1) mEq/L Chloride (98-107) mEq/L Carbon Dioxide (23-29) mEq/L BUN (8-23) mg/dL Creatinine (0.60-1.20) mg/dL Est GFR ( Amer) (> 60) Est GFR (Non-Af Amer) (> 60) BUN/Creatinine Ratio (6-26) Glucose (70-105) mg/dL POC Glucose 212 H (70-99) mg/dL Calculated Osmolality (280-300) Calcium (8.6-10.3) mg/dL Total Bilirubin (0.3-1.0) mg/dL Direct Bilirubin (0.0-0.2) mg/dL Indirect Bilirubin (0.0-1.2) mg/dL AST (13-39) Units/L ALT (7-52) Units/L Alkaline Phosphatase (34-104) Units/L Troponin I (< 0.04) ng/mL Serum Total Protein (6.4-8.9) g/dL Albumin (3.5-5.7) g/dL Globulin (2.4-3.5) g/dL Albumin/Globulin Ratio (1.1-2.2) TSH (0.340-5.600) mcIU/mL 11/09/17 Range/Units 12:55 WBC (4.3-11.1) K/mcL RBC (3.82-4.97) M/mcL Hgb (11.5-15.4) g/dL Hct (35.3-44.9) % MCV (83.0-100.0) fL MCH (28.0-33.3) pg MCHC (31.6-35.5) g/dL RDW (11.5-14.5) % Plt Count (140-400) K/mcL MPV (9.4-12.4) fL Immature Gran % (0-4) % Seg Neutrophils % % Lymphocytes % % Monocytes % % Eosinophils % % Basophils % % Neutrophils # (1.6-8.9) K/mcL Lymphocytes # (0.6-4.6) K/mcL Monocytes # (0.0-1.3) K/mcL Eosinophils # (0.0-0.6) K/mcL Basophils # (0.0-0.2) K/mcL PT (9.4-12.1) Seconds INR APTT (26.0-36.0) Seconds Sodium 141 (136-145) mEq/L Potassium 4.6 (3.5-5.1) mEq/L Chloride 111 H (98-107) mEq/L Carbon Dioxide 24 (23-29) mEq/L BUN 41 H (8-23) mg/dL Creatinine 1.61 H (0.60-1.20) mg/dL Est GFR ( Amer) 38 L (> 60) Est GFR (Non-Af Amer) 31 L (> 60) BUN/Creatinine Ratio 25 (6-26) Glucose 219 H (70-105) mg/dL POC Glucose (70-99) mg/dL Calculated Osmolality 309 H (280-300) Calcium 9.8 (8.6-10.3) mg/dL Total Bilirubin 0.4 (0.3-1.0) mg/dL Direct Bilirubin 0.1 (0.0-0.2) mg/dL Indirect Bilirubin 0.3 (0.0-1.2) mg/dL AST 13 (13-39) Units/L ALT 11 (7-52) Units/L Alkaline Phosphatase 136 H (34-104) Units/L Troponin I < 0.03 (< 0.04) ng/mL Serum Total Protein 6.0 L (6.4-8.9) g/dL Albumin 3.3 L (3.5-5.7) g/dL Globulin 2.7 (2.4-3.5) g/dL Albumin/Globulin Ratio 1.2 (1.1-2.2) TSH 1.489 (0.340-5.600) mcIU/mL - Radiology Data Radiology results reviewed: Yes I reviewed the patient's radiology results. Chest X-Ray 11/09/17 12:32 IMPRESSION: No evidence of acute cardiopulmonary disease. D/ / Cosme Arroyo MD / Cosme Arroyo MD Interpreting Provider: Cosme Arroyo MD Head CT 11/09/17 12:32 IMPRESSION: No acute intracranial abnormality. Parenchymal volume loss and sequela of moderate chronic microvascular ischemic changes. D/ / Jennie Swanson MD / Jennie Swanson MD Interpreting Provider: Jennie Swanson MD - EKG Data EKG attestation: Yes I reviewed and interpreted this EKG. TPA Checklist - LKW: 3-4.5 hrs Add. Warnings/Precautions Patient/family understanding: The patient/family members have been counseled and understood the risk, benefit , and alternatives of treatment. Attestation Statement - Attestation Attestation: I, Jose Plascencia, examined this patient and my medical decision-making was reviewed with the HOUSE CARPENTER/PA/Advanced Practice Nurse/Resident Physician. I agree with the documented findings, disposition and treatment plan as described except to the extent set forth below. 77-year-old female brought to the emergency department for concerns of increased altered mental status. Patient has been at a [facility] facility receiving infusions of Invanz via a PICC-line for a urinary tract infection. Upon evaluation emergency Department she is actively hallucinating grabbing at things in the air. She is unable to answer questions regarding her case and presentation. Head CT was negative for acute fracture or internal hemorrhage or mass. Chest x-ray did not show acute cardiopulmonary disease. UTIs likely source. We are attempting to obtain a urinalysis. Patient will be admitted to the hospital for altered mental status and likely worsening UTI.
[2017-11-09 13:06] LABS: Basophils % 0.2 %; Eosinophils # 0.1 K/mcL (0.0-0.6); Eosinophils % 2.2 %; Hematocrit 31.9 % (35.3-44.9); Hemoglobin 10.3 g/dL (11.5-15.4); Immature Granulocytes % 0.4 % (0-4); Lymphocytes # 0.9 K/mcL (0.6-4.6); Lymphocytes % 18.5 %; Mean Corpuscular HGB Conc 32.3 g/dL (31.6-35.5); Mean Corpuscular Volume 99.1 fL (83.0-100.0); Monocytes # 0.4 K/mcL (0.0-1.3); Neutrophils # 3.6 K/mcL (1.6-8.9); Platelet Count 164 K/mcL (140-400); Red Blood Count 3.22 M/mcL (3.82-4.97); Red Cell Distribution Width 11.8 % (11.5-14.5); Segmented Neutrophils % 70.7 %
[2017-11-09 13:11] LABS: INR 1.1; Prothrombin Time 12.4 Seconds (9.4-12.1)
[2017-11-09 13:13] LABS: Activated Partial Thrombo Time 30.1 Seconds (26.0-36.0)
[2017-11-09 13:28] LABS: Alanine Aminotransferase 11 Units/L (7-52); Albumin 3.3 g/dL (3.5-5.7); Albumin/Globulin Ratio 1.2 (1.1-2.2); Alkaline Phosphatase 136 Units/L (34-104); Aspartate Amino Transferase 13 Units/L (13-39); BUN/Creatinine Ratio 25 (6-26); Bilirubin,Direct 0.1 mg/dL (0.0-0.2); Bilirubin,Indirect 0.3 mg/dL (0.0-1.2); Bilirubin,Total 0.4 mg/dL (0.3-1.0); Blood Urea Nitrogen 41 mg/dL (8-23); Calcium 9.8 mg/dL (8.6-10.3); Carbon Dioxide 24 mEq/L (23-29); Chloride 111 mEq/L (98-107); Globulin 2.7 g/dL (2.4-3.5); Glucose 219 mg/dL (70-105); Osmolality,Calculated 309 (280-300); Potassium 4.6 mEq/L (3.5-5.1); Sodium 141 mEq/L (136-145); eGFR For Non-African Americans 31 (> 60)
[2017-11-09 13:29] LABS: Troponin I < 0.03 ng/mL (< 0.04)
[2017-11-09 13:40] LABS: Thyroid Stimulating Hormone 1.489 mcIU/mL (0.340-5.600)
--- NOTE | 2017-11-09 15:33 | Internal Med History&Physical ---
<Jose Pollard - Last Filed: 11/09/17 17:16> Date of Encounter: 11/09/17 Time of Encounter: 15:33 Internal Medicine - H&P: HPI Chief complaint: AMS Admitted From: Emergency Dept Plans for Post Hospital Care: Transfer Detention Facility History of present illness: Ms. Daugherty is a 77 year old female with a PMHx of DM2 s/p b/l BKA, CAD, HFrEF, CKD III presents from [facility] to emergency department with complaint of altered mental status. Patient is a poor historian however daughter is present at bedside and is able to provide some history. She states that the proximal Y5 days ago patient was noticed to be decreased responsive and seemingly confused. At that time [facility] emergency department did obtain a urinalysis which was significant for infection. She was started on ertapenem through peripheral PICC line however both daughter and patient state that they have not noticed much difference. She denies any symptoms of fevers, chills, nausea, vomiting, changes in bowel movements but does note to have some dysuria. Nursing staff is also noticed a large decrease in urine output as well. Patient daughter states this has happened multiple times in the past year and she frequently does get admitted for IV antibiotics. Patient does state that she has not had much appetite and has not been drinking recently. Lately because she does not feel thirsty or hungry. In the emergency department, vital signs were unremarkable. Lab results significant for a baseline anemia, baseline kidney function, no leukocytosis. She did have a head CT which showed no acute changes as well as chest x-ray showing no acute cardiopulmonary process. Urinalysis was ordered however patient has been unable to void with very little urine output. She does have a Kern catheter in place. She is also noticed to have a sacral decubitus ulcer stage I. She is admitted to medicine service for further evaluation and management of altered mental status likely secondary to urinary tract infection. Discussed code status with patient and daughter. State they wish to be DNR-CC PMHx as above PSHx: cholecystectomy, leg amputations bilaterally Social Hx: Rare alcohol, no tobacco or drug use. Lives in SNF FHx: DM2, CAD, CHF Past Med Surg Social Fam HX - Past Medical History Medical history: COPD, diabetes, GERD, hyperlipidemia, hypertension, myocardial infarction, renal disease Additional medical history: atherosclerotic heart disease, anemia, heart failure , urine retention, osteoarthritis, Psychiatric history: anxiety - Past Surgical History Surgical History: cholecystectomy Additional surgical history: right great toe removal. left leg amputation, angioplasty of right leg x 2, - Social History Smoking Status: Former smoker Smokeless Tobacco Status: No Alcohol use: none Drug use: none - Family History Mother Hx Family Cardiac Disorders: Yes Hx Family Respiratory Disorders: No Hx Family Cancer: No Hx Family GI Disorders: No Hx Family Endocrine Disorder: Yes Hx Family Neuromuscular Disorders: No Hx Family Neurologic Disorders: No Hx Family HEENT Disorders: No Hx Family Autoimmune Disorders: No Internal Medicine - H&P: Meds Aspirin [Lo-Dose Aspirin EC] 81 mg PO DAILY 06/12/16 [History] BuPROPion SR (12 HR) [Wellbutrin SR] 150 mg PO BID 06/12/16 [History] Cholecalciferol (D-3) [Vitamin D] 5,000 unit PO DAILY 06/12/16 [History] Clopidogrel [Plavix] 75 mg PO DAILY 06/12/16 [History] Cyanocobalamin (Vitamin B-12) [Vitamin B-12] 1,000 mcg SL DAILY 06/12/16 [ History] Oxybutynin Chloride [Ditropan Xl] 5 mg PO DAILY 06/12/16 [History] Isosorbide DInitrate [Isosorbide Dinitrate] 10 mg PO BID 10/14/16 [History] Atorvastatin Calcium [Lipitor] 20 mg PO QPM 09/24/17 [History] Carvedilol [Coreg] 6.25 mg PO BIDWM 09/24/17 [History] Gabapentin [Neurontin] 100 mg PO BID 09/24/17 [History] Diphenhydramine HCl [Nighttime Sleep Aid] 50 mg PO Q8H PRN 11/09/17 [History] Ertapenem [INVanz] 1,000 mg IVPB DAILY 11/09/17 [History] Insulin Glargine,Hum.rec.anlog [Lantus Solostar] 10 unit SQ HS 11/09/17 [History ] Melatonin [Melatin] 3 mg PO HS 11/09/17 [History] RisperiDONE [Risperdal] 0.5 mg PO HS 11/09/17 [History] risperiDONE [Risperdal] 0.25 mg PO QAM 11/09/17 [History] 3 Allergy/AdvReac Type Severity Reaction Status Date / Time Penicillins Allergy Hives Verified 11/09/17 14:27 ROS unobtainable: due to mental status All Systems PM: A 10-system review of systems was performed and is negative for pertinent findings except as documented above in the HPI. Review of systems: - Constitutional: Admits to fatigue. Denies fevers, chills, weight loss - EENT: Denies vision changes/blurriness, tinnitus, auditory changes, rhinorrhea , congestion, sore throat, odynaphagia - CVS: Denies chest pain, palpitations, PILLAI, orthopnea, edema, PND, - Pulm: Denies SOB, cough, sputum, hematemesis, wheezing - GI: Denies abdominal pain, anorexia, nausea, vomiting, diarrhea, constipation , melena - : Admits to dysuria, Denies increased frequency, urgency, hematuria, - Skin: Denies rashes, ulcers, color changes - Neuro: Denies MERINO, paresthesias, focal deficits, ataxia, - Constitutional Vitals: Temp Pulse Resp BP Pulse Ox 98.6 F 68 16 138/96 100 11/09/17 12:27 11/09/17 15:19 11/09/17 15:19 11/09/17 15:19 11/09/17 15:19 Exam: Gen.: Vitals noted. No acute distress. AAOx1 (daughter states that this is not baseline) HEENT: PERRL/EOMI, oropharynx clear, Normocephalic, atraumatic, dry mucus membranes Cardiac: RRR, occasional PVC, no murmur, +S1/S2 Pulmonary: CTA bilaterally, no wheezes, rales or rhonchi, equal chest expansion Abdomen: soft, nontender, BS noted, no guarding, no rebound. Extremities: no BLE edema, nontender calf, no cyanosis or clubbing. Bilateral leg amputations. Skin: Sacral decubitus ulcer, Stage III measuring appoximately 2 cm x 2 cm. Non infected appearing Neuro: A&Ox1, moves all extremities, no focal deficits Psych: Appropriate mood and behavior Internal Med - H&P Results - Labs CBC & Chem 7: 11/09/17 12:55 11/09/17 12:55 - Assessment and plan (1) Altered mental status Current Visit: Yes Status: Acute Assessment and plan: - AOx1, daughter at bedside states that this is not her baseline - Probable etiologies include urinary tract infection versus dehydration versus worsening dementia - She has been treated at alf facility with ertapenem 5 days without improvement - Nonseptic at presentation although she is clinically dry - Laboratory results unremarkable for leukocytosis and she is at baseline kidney function - Urinalysis has not yet been obtained at this facility as she has no output in her Kern catheter. We will attempt to obtain records from [facility] - Chest x-ray and head CT performed emergency Department unremarkable - Previous urine culture showing Morganella, Escherichia coli, Proteus all sensitive to cefepime, carbapenems, Zosyn. She does have documented urinary retention. - Blood cultures pending Plan - We will bolus with 500 mL of normal saline followed by 100 mL/h maintenance fluids - Start cefepime, de-escalate or adjust as cultures come back. Patient has rash interaction to N, will monitor - She is on multiple sedating medications at home, we will continue monitor as possible source. Qualifiers: Altered mental status type: disorientation Qualified Code(s): R41.0 - Disorientation, unspecified (2) UTI (urinary tract infection) Current Visit: Yes Status: Acute Assessment and plan: As above for altered mental status Multiple urine cultures in the past with multidrug resistant organisms Qualifiers: Urinary tract infection type: acute cystitis Hematuria presence: without hematuria Qualified Code(s): N30.00 - Acute cystitis without hematuria (3) Diabetes Current Visit: Yes Status: Chronic Assessment and plan: - Most recent A1c of 5.5% in January of 2017 - BS in low 200s on this presentation - Patient's daughter states she has not been having BS checked at [facility] - A1c pending with AM labs - Complications of leg amputations b/l, CKD III - Insulin dependent at home, will add SSI Qualifiers: Diabetes mellitus type: type 2 Diabetes mellitus mcc insulin use: with railroad car checker use Diabetes mellitus complication status: with kidney complications Diabetes mellitus complication detail: with chronic kidney disease Chronic kidney disease stage: stage 3 (moderate) Qualified Code(s): E11.22 - Type 2 diabetes mellitus with diabetic chronic kidney disease; N18.3 - Chronic kidney disease, stage 3 (moderate); Z79.4 - shank skinner (current) use of insulin (4) Hypertension Current Visit: Yes Status: Chronic Assessment and plan: Well-controlled at this time with most recent reading of 147/79, continue home medications Qualifiers: Hypertension type: essential hypertension Qualified Code(s): I10 - Essential (primary) hypertension (5) CAD (coronary artery disease) Current Visit: Yes Status: Chronic Assessment and plan: CAD without stent but with congestive heart failure as above No complaints of chest pain, negative troponin Continue home aspirin, beta pretty, statin Qualifiers: Coronary Disease-Associated Artery/Lesion type: [place] artery [place] vs. transplanted heart: [place] heart Associated angina: with unstable angina Qualified Code(s): I25.110 - Atherosclerotic heart disease of [place] coronary artery with unstable angina pectoris (6) Heart failure with reduced ejection fraction Current Visit: Yes Status: Chronic Assessment and plan: Severe HFrEF with EF of 15-20% on last echo on 10/14/16 - No complaints of SOB, swelling, chest pain - CXR showed no acute process - Does not appear to be in acute exacerbation - Will monitor fluids closely and conservatively given severe dysfunction however she is clinically dry - Continue home medications. Qualifiers: Heart failure chronicity: chronic Qualified Code(s): I50.22 - Chronic systolic (congestive) heart failure (7) CKD (chronic kidney disease) stage 3, GFR 30-59 ml/min Current Visit: Yes Status: Chronic Assessment and plan: CKD stage III BUN/ Cr of 41/1.61 which is consistent with baseline Clinically dry on exam with no urine output in kern catheter. Will continue to monitor with daily labs Fluids as above Avoid nephrotoxic agents. (8) Decubitus ulcer Current Visit: Yes Status: Chronic Assessment and plan: - Stage III sacral decubitus ulcer present on admission - Receiving wound care in SNF - Will consult wound care - Does not appear infected or source of AMS Qualifiers: Pressure injury location: sacral region Pressure injury stage: stage 3 Qualified Code(s): L89.153 - Pressure ulcer of sacral region, stage 3 (9) DVT prophylaxis Current Visit: Yes Status: Acute Assessment and plan: - Heparin 5000 units q12 hours - Time Spent With Patient Total time spent is greater than 50% in coordination of care (as documented) at patient's floor/unit and/or counseling patient: <Kirby Hartman - Last Filed: 11/09/17 19:04> Date of Encounter: 11/09/17 Internal Medicine - H&P: HPI History of present illness: Ms. Daugherty is a 77 year old female All Systems PM: A 10-system review of systems was performed and is negative for pertinent findings except as documented above in the HPI. - Constitutional Vitals: Temp Pulse Resp BP Pulse Ox 98.4 F 79 16 147/79 96 11/09/17 16:13 11/09/17 16:13 11/09/17 16:13 11/09/17 16:13 11/09/17 16:13 Internal Med - H&P Results - Labs CBC & Chem 7: 11/09/17 12:55 11/09/17 12:55 - Assessment and plan (1) Diabetes Current Visit: Yes Status: Chronic Qualifiers: Diabetes mellitus type: type 2 Diabetes mellitus mcc insulin use: with railroad car checker use Diabetes mellitus complication status: with kidney complications Diabetes mellitus complication detail: with chronic kidney disease Chronic kidney disease stage: stage 3 (moderate) Qualified Code(s): E11.22 - Type 2 diabetes mellitus with diabetic chronic kidney disease; N18.3 - Chronic kidney disease, stage 3 (moderate); Z79.4 - jail (current) use of insulin (2) Hypertension Current Visit: Yes Status: Chronic Qualifiers: Hypertension type: essential hypertension Qualified Code(s): I10 - Essential (primary) hypertension (3) CAD (coronary artery disease) Current Visit: Yes Status: Chronic Qualifiers: Coronary Disease-Associated Artery/Lesion type: [place] artery [place] vs. transplanted heart: [place] heart Associated angina: with unstable angina Qualified Code(s): I25.110 - Atherosclerotic heart disease of [place] coronary artery with unstable angina pectoris (4) DVT prophylaxis Current Visit: Yes Status: Acute (5) UTI (urinary tract infection) Current Visit: Yes Status: Acute Qualifiers: Urinary tract infection type: acute cystitis Hematuria presence: without hematuria Qualified Code(s): N30.00 - Acute cystitis without hematuria (6) Altered mental status Current Visit: Yes Status: Acute Qualifiers: Altered mental status type: disorientation Qualified Code(s): R41.0 - Disorientation, unspecified (7) Heart failure with reduced ejection fraction Current Visit: Yes Status: Chronic Qualifiers: Heart failure chronicity: chronic Qualified Code(s): I50.22 - Chronic systolic (congestive) heart failure (8) CKD (chronic kidney disease) stage 3, GFR 30-59 ml/min Current Visit: Yes Status: Chronic (9) Decubitus ulcer Current Visit: Yes Status: Chronic Qualifiers: Pressure injury location: sacral region Pressure injury stage: stage 3 Qualified Code(s): L89.153 - Pressure ulcer of sacral region, stage 3 - Time Spent With Patient Total time spent is greater than 50% in coordination of care (as documented) at patient's floor/unit and/or counseling patient: - Attending Attestation I examined this patient and my medical decision-making was reviewed with the Resident Physician Dr. Pollard. I agree with the documented findings, disposition and treatment plan as described except to the extent set forth below. Ms. Daugherty is a 77 year old female with a PMHx of DM2 s/p b/l BKA, CAD, HFrEF, CKD III presents from [facility] to emergency department with complaint of altered mental status and poor PO intake. She was recently dx with UTI and started her on Invanz at [facility]. Pt is alert, awake and oriented to self. She does look confused and demented. Chest: Diminished BS B/l Heart: S1S2+ RRR Abd: Soft, NT + a/p 1. Acute UTI 2. Severe dehydration IV hydration will start her on broad spec abx Cefepime will get urine cx report from [facility] cont close monitoring 3. Acute delirium - could be toxic and metabolic encephalopathy also concerning for underline dementia cont symptomatic and supportive care
[2017-11-09] MEDS ORDERED: Naloxone 0.4 MG/ML INJ IVP PRN (17:05)
[2017-11-09] MEDS ORDERED: 0.9 % Sodium Chloride 500 ML ONE (17:07)
[2017-11-09] MEDS ORDERED: 0.9 % Sodium Chloride 500 ML IVC ONE (17:11)
[2017-11-09] MEDS ORDERED: *HR* Dextrose 50 % in Water (Syg) 50 ML SYRINGE IVP PRN (17:15)
[2017-11-09] MEDS ORDERED: Dextrose Gel 15 GM/37.5 ML TUBE PO PRN ×2 (17:15)
[2017-11-09] MEDS ORDERED: D5% in Water 1,000 ML IVC PRN (17:15)
--- NOTE | 2017-11-09 18:33 | Electrocardiograph Report ---
[facility] Test Date: 2017-11-09 Pat Name: Myesha Daugherty Department: [id number] Room: 3A21 Gender: F Boat Cleaner: : 1940 Requested By: Rahul Gregory Order Number: [id number] Reading MD: Javier Gibbs Measurements Intervals [place] Rate: 68 P: 63 [place]: 163 QRS: -34 QRSD: 104 T: 36 QT: 426 QTc: 454 Interpretive Statements Sinus rhythm Left axis deviation Minimal ST elevation, anterior leads Electronically Signed On 11-09-2017 18:32:31 EDT by Javier Gibbs
[2017-11-09] MEDS ORDERED: 0.9 % Sodium Chloride 1,000 ML ONE (18:37)
[2017-11-09 20:54] LABS: Bilirubin,Urine Small (Negative); Blood,Urine Large (Negative); Clarity,Urine Cloudy (Clear); Color,Urine Yellow (Yellow); Glucose,Urine (UA) Normal (Normal); Ketones,Urine Negative (Negative); Leukocyte Esterase,Urine Small (Negative); Nitrite,Urine Negative (Negative); Protein,Urine 30 mg/dL (Neg-Trace); Specific Gravity,Urine 1.015 (1.010-1.025); Urobilinogen,Urine Normal (Normal)
[2017-11-09 20:56] LABS: Bacteria,Urine None Seen per hpf (None-Few); Hyaline Casts,Urine None Seen per lpf (None-Few); RBC,Urine TNTC per hpf (0-3); Squamous Epithelial Cell,Urine Many per lpf (None-Few); WBC,Urine 30-50 per hpf (0-3)
[2017-11-09] MEDS: Insulin LISPRO 300 UNITS/3 ML VIAL SQ SCH (22:26)
[2017-11-09] MEDS: Gabapentin 100 MG CAPSULE PO SCH (22:45)
[2017-11-09] MEDS: BuPROPion SR (12 HR) 150 MG TABLET PO SCH (22:45)
[2017-11-09] MEDS: risperiDONE 0.25 MG TABLET PO SCH (22:45)
[2017-11-09] MEDS ORDERED: 0.9 % Sodium Chloride 1,000 ML IVC SCH (23:30)
[2017-11-10] MEDS: Melatonin 3 MG TABLET PO SCH ×2 (05:40→21:15)
[2017-11-10] MEDS: *HR* Heparin 5,000 UNIT/ML VIAL SQ SCH ×3 (06:08→16:46)
[2017-11-10 06:31] LABS: Basophils % 0.4 %; Eosinophils # 0.1 K/mcL (0.0-0.6); Eosinophils % 2.2 %; Hematocrit 29.9 % (35.3-44.9); Immature Granulocytes % 0.4 % (0-4); Lymphocytes # 0.9 K/mcL (0.6-4.6); Lymphocytes % 19.9 %; Mean Corpuscular HGB Conc 33.4 g/dL (31.6-35.5); Mean Corpuscular Hemoglobin 33.2 pg (28.0-33.3); Mean Corpuscular Volume 99.3 fL (83.0-100.0); Mean Platelet Volume 9.7 fL (9.4-12.4); Monocytes # 0.4 K/mcL (0.0-1.3); Monocytes % 8.4 %; Neutrophils # 3.1 K/mcL (1.6-8.9); Platelet Count 161 K/mcL (140-400); Red Blood Count 3.01 M/mcL (3.82-4.97); Red Cell Distribution Width 11.9 % (11.5-14.5); Segmented Neutrophils % 68.7 %
[2017-11-10 06:50] LABS: Calcium 9.4 mg/dL (8.6-10.3); Potassium 4.2 mEq/L (3.5-5.1)
[2017-11-10] MEDS: BuPROPion SR (12 HR) 150 MG TABLET PO SCH ×2 (07:36→21:15)
[2017-11-10] MEDS: Insulin LISPRO 300 UNITS/3 ML VIAL SQ SCH ×3 (07:36→16:46)
[2017-11-10] MEDS: Aspirin Enteric Coated 81 MG Tablet PO SCH (07:36)
[2017-11-10] MEDS: risperiDONE 0.25 MG TABLET PO SCH ×2 (07:36→21:15)
[2017-11-10] MEDS: Gabapentin 100 MG CAPSULE PO SCH ×2 (07:36→21:15)
[2017-11-10 07:38] LABS: Estimated Average Glucose 157 mg/dl; Hemoglobin A1C 7.1 %
[2017-11-10] MEDS ORDERED: 0.9 % Sodium Chloride 1,000 ML IVC SCH (12:00)
--- NOTE | 2017-11-10 15:56 | Internal Med Progress Note ---
<Shantell Carson - Last Filed: 11/10/17 18:33> Hospitalist Progress Note - Encounter Date of Encounter: 11/10/17 Time of Encounter: 10:03 - Subjective Interval History: Mrs. 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 She presented from nursing facility due to AMS for the past 5 days. She received 5 days of Ertapenum via PICC line for treatment of recurrent UTI without improvement, which is why she was brought to the hospital. She has a history of resistant UTIs with previous cultures positive for morganella, E. Coli, and proteus. Today she is alert and oriented x person, place, and year. She denies any dysuria, hematuria, or urgency. Her mentation is improved from yesterday, but unsure if she is back to her baseline as her family was not with her when she was seen today. - Exam Vitals: Temp Pulse Resp BP Pulse Ox 98.4 F 65 14 157/78 97 11/10/17 15:04 11/10/17 15:04 11/10/17 15:04 11/10/17 15:04 11/10/17 15:04 Exam: Gen.: Lying comforably in bed, A&O x person, place, and year. NAD. Cardiac: RRR, no murmur, normal S1/S2 Pulmonary: CTAB, no wheezes Abdomen: soft, nontender, BS noted, no guarding, no rebound. Extremities: Bilateral LE amputations, no edema, no cyanosis Psych: Appropriate mood and behavior, speech difficult to understand - Assessment and Plan (1) Recurrent UTI (urinary tract infection) Current Visit: Yes Status: Acute Assessment and Plan: History of recurrent UTIs Previous cultures positive for Morganella, Escherichia coli, Proteus, all sensitive to cefepime, carboplatin ends, and Zosyn Documented history of urinary retention Blood cultures pending Urine culture awaiting collection due to minimal output Patient completed 5 day course of ertapenem via PICC line Patient's mental status improved today, alert and oriented 3, denies dysuria, hematuria, abdominal pain Plan: Continue cefepime (day 1) while awaiting culture and sensitivities Continue hydration with IVFs Possible discharge tomorrow (2) Altered mental status Current Visit: Yes Status: Acute Assessment and Plan: Possibly secondary to dehydration or UTI On admission patient was not at baseline mentation per her daughter and appeared very dry with poor oral intake Today patient is alert and oriented 3, unsure if she is completely back to baseline as family was not present The continue to monitor (3) Chronic kidney disease, stage III (moderate) Current Visit: No Status: Chronic Assessment and Plan: CKD stage III BUN/ Cr of 41/1.61 which is consistent with baseline Minimal output Dry on initial presentation, somewhat improved today Will continue to monitor with daily labs Fluids as above Avoid nephrotoxic agents. (4) Diabetes Current Visit: Yes Status: Chronic Assessment and Plan: A1c 7.1 Glucose 80s to 90s today On low-dose SSI Continue to monitor closely (5) Heart failure with reduced ejection fraction Current Visit: Yes Status: Chronic Assessment and Plan: Compensated Severe with EF of 15-20% on echo 10/14/16 Denies SOB, swelling, chest pain CXR negative Monitor fluids closely given severe dysfunction Continue home meds (6) Hypertension Current Visit: Yes Status: Chronic Assessment and Plan: Controlled Continue home meds (7) CAD (coronary artery disease) Current Visit: Yes Status: Chronic Assessment and Plan: CAD with Stents, medically managed Denies chest pain Troponin negative Continue aspirin, beta pretty, statin (8) Sacral decubitus ulcer, stage III Current Visit: No Status: Chronic Assessment and Plan: Stage III Has been receiving wound care in SNF Wound care following DVT Prophylaxis: SQ heparin - Time Spent with Patient Total time spent is greater than 50% in coordination of care (as documented) at patient's floor/unit and/or counseling patient: 25 - 35 minutes Plan of Care Discussed with: patient Internal Medicine: Result - Labs CBC & Chem 7: 11/10/17 06:20 11/10/17 06:20 Labs: Short CBC 11/10/17 Range/Units 06:20 WBC 4.5 (4.3-11.1) K/mcL Hgb 10.0 L (11.5-15.4) g/dL Hct 29.9 L (35.3-44.9) % Plt Count 161 (140-400) K/mcL Neutrophils # 3.1 (1.6-8.9) K/mcL BMP 11/10/17 06:20 Sodium 143 Potassium 4.2 Chloride 116 H Carbon Dioxide 21 L BUN 35 H Creatinine 1.53 H Glucose 93 Calcium 9.4 Urine 11/09/17 Range/Units 20:10 Urine Color Yellow (Yellow) Urine Clarity Cloudy A (Clear) Urine pH 6.0 (5.0-8.0) pH Units Ur Specific [place] 1.015 (1.010-1.025) Urine Protein 30 H (Neg-Trace) mg/dL Urine Glucose (UA) Normal (Normal) mg/dL - ABG Interpretation ABG results: PT/INR, D-dimer PT 12.4 Seconds (9.4-12.1) H 11/09/17 12:55 Consult Discharge Plan - Plan Referrals: NONE,PCP [Primary Care Provider] - <Velia Miranda - Last Filed: 11/10/17 19:11> Hospitalist Progress Note - Encounter Date of Encounter: 11/10/17 - Exam Vitals: Temp Pulse Resp BP Pulse Ox 98.4 F 65 14 157/78 97 11/10/17 15:04 11/10/17 15:04 11/10/17 15:04 11/10/17 15:04 11/10/17 15:04 - Assessment and Plan (1) Diabetes Current Visit: Yes Status: Chronic (2) Hypertension Current Visit: Yes Status: Chronic (3) CAD (coronary artery disease) Current Visit: Yes Status: Chronic (4) DVT prophylaxis Current Visit: Yes Status: Acute (5) UTI (urinary tract infection) Current Visit: Yes Status: Acute (6) Altered mental status Current Visit: Yes Status: Acute (7) Heart failure with reduced ejection fraction Current Visit: Yes Status: Chronic (8) CKD (chronic kidney disease) stage 3, GFR 30-59 ml/min Current Visit: Yes Status: Chronic (9) Decubitus ulcer Current Visit: Yes Status: Chronic - Time Spent with Patient Total time spent is greater than 50% in coordination of care (as documented) at patient's floor/unit and/or counseling patient: Internal Medicine: Result - Labs CBC & Chem 7: 11/10/17 06:20 11/10/17 06:20 Labs: Short CBC 11/10/17 Range/Units 06:20 WBC 4.5 (4.3-11.1) K/mcL Hgb 10.0 L (11.5-15.4) g/dL Hct 29.9 L (35.3-44.9) % Plt Count 161 (140-400) K/mcL Neutrophils # 3.1 (1.6-8.9) K/mcL BMP 11/10/17 06:20 Sodium 143 Potassium 4.2 Chloride 116 H Carbon Dioxide 21 L BUN 35 H Creatinine 1.53 H Glucose 93 Calcium 9.4 Urine 11/09/17 Range/Units 20:10 Urine Color Yellow (Yellow) Urine Clarity Cloudy A (Clear) Urine pH 6.0 (5.0-8.0) pH Units Ur Specific [place] 1.015 (1.010-1.025) Urine Protein 30 H (Neg-Trace) mg/dL Urine Glucose (UA) Normal (Normal) mg/dL - ABG Interpretation ABG results: PT/INR, D-dimer PT 12.4 Seconds (9.4-12.1) H 11/09/17 12:55 - Attending Attestation I have seen and examined this pt independently. I have discussed with resident physician Dr. Carson regarding the management plan. Agree with the documentation. <Shantell Carson - Last Filed: 11/10/17 18:33> (2) Altered mental status Qualifiers: Altered mental status type: disorientation Qualified Code(s): R41.0 - Disorientation, unspecified (4) Diabetes Qualifiers: Diabetes mellitus type: type 2 Diabetes mellitus ferry terminal agent insulin use: with ferry terminal agent use Diabetes mellitus complication status: with kidney complications Diabetes mellitus complication detail: with chronic kidney disease Chronic kidney disease stage: stage 3 (moderate) Qualified Code(s): E11.22 - Type 2 diabetes mellitus with diabetic chronic kidney disease; N18.3 - Chronic kidney disease, stage 3 (moderate); Z79.4 - [facility] (current) use of insulin (5) Heart failure with reduced ejection fraction Qualifiers: Heart failure chronicity: chronic Qualified Code(s): I50.22 - Chronic systolic (congestive) heart failure (6) Hypertension Qualifiers: Hypertension type: essential hypertension Qualified Code(s): I10 - Essential (primary) hypertension (7) CAD (coronary artery disease) Qualifiers: Coronary Disease-Associated Artery/Lesion type: [place] artery [place] vs. transplanted heart: [place] heart Associated angina: with unstable angina Qualified Code(s): I25.110 - Atherosclerotic heart disease of [place] coronary artery with unstable angina pectoris <RubenLeighdaya - Last Filed: 11/10/17 19:11> (1) Diabetes Qualifiers: Diabetes mellitus type: type 2 Diabetes mellitus ferry terminal agent insulin use: with long-term use Diabetes mellitus complication status: with kidney complications Diabetes mellitus complication detail: with chronic kidney disease Chronic kidney disease stage: stage 3 (moderate) Qualified Code(s): E11.22 - Type 2 diabetes mellitus with diabetic chronic kidney disease; N18.3 - Chronic kidney disease, stage 3 (moderate); 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 transplanted heart: [place] heart Associated angina: with unstable angina Qualified Code(s): I25.110 - Atherosclerotic heart disease of [place] coronary artery with unstable angina pectoris (5) UTI (urinary tract infection) Qualifiers: Urinary tract infection type: acute cystitis Hematuria presence: without hematuria Qualified Code(s): N30.00 - Acute cystitis without hematuria (6) Altered mental status Qualifiers: Altered mental status type: disorientation Qualified Code(s): R41.0 - Disorientation, unspecified (7) Heart failure with reduced ejection fraction Qualifiers: Heart failure chronicity: chronic Qualified Code(s): I50.22 - Chronic systolic (congestive) heart failure (9) Decubitus ulcer Qualifiers: Pressure injury location: sacral region Pressure injury stage: stage 3 Qualified Code(s): L89.153 - Pressure ulcer of sacral region, stage 3
[2017-11-10] MEDS: Leptospermum Honey GEL 1 APPL/5 ML MLS TP SCH (16:46)
[2017-11-10] MEDS: Cefepime HCl 1,000 MG in Water for inj. (sterile) 20 ML 10 ML IVP SCH (16:47)
[2017-11-10] MEDS ORDERED: Cefepime HCl 2,000 MG in Water for inj. (sterile) 20 ML 20 ML IVP SCH (18:00)
[2017-11-11] MEDS: Insulin LISPRO 300 UNITS/3 ML VIAL SQ SCH ×5 (05:19→22:05)
[2017-11-11] MEDS: *HR* Heparin 5,000 UNIT/ML VIAL SQ SCH ×2 (08:19→18:45)
[2017-11-11] MEDS: BuPROPion SR (12 HR) 150 MG TABLET PO SCH ×2 (08:25→21:59)
[2017-11-11] MEDS: Aspirin Enteric Coated 81 MG Tablet PO SCH (08:25)
[2017-11-11] MEDS: Gabapentin 100 MG CAPSULE PO SCH ×2 (08:25→21:59)
[2017-11-11] MEDS: risperiDONE 0.25 MG TABLET PO SCH ×2 (08:25→22:00)
--- NOTE | 2017-11-11 15:32 | Internal Med Progress Note ---
Hospitalist Progress Note - Encounter Date of Encounter: 11/11/17 Time of Encounter: 09:00 - Subjective Interval History: Pt is in NAD. AAO x 1, pleasant, no family member at bedside. Urine in folay catheter looks clear. - Exam Vitals: Temp Pulse Resp BP Pulse Ox 98.2 F 75 15 178/62 96 11/11/17 12:25 11/11/17 12:25 11/11/17 12:25 11/11/17 12:25 11/11/17 12:25 Exam: Gen.: Lying comforably in bed, A&O x place. NAD. Cardiac: RRR, no murmur, normal S1/S2 Pulmonary: CTAB, no wheezes Abdomen: soft, nontender, BS noted, no guarding, no rebound. Extremities: Bilateral LE amputations, no edema, no cyanosis Psych: Appropriate mood and behavior, speech difficult to understand - Assessment and Plan (1) Diabetes Current Visit: Yes Status: Chronic Assessment and Plan: - Most recent A1c of 5.5% in January of 2017 - BS in low 200s on this presentation - Cont SSI (2) Hypertension Current Visit: Yes Status: Chronic Assessment and Plan: BP is high today, add amlodipine 5 mg po daily. (3) CAD (coronary artery disease) Current Visit: Yes Status: Chronic Assessment and Plan: CAD without stent but with congestive heart failure as above No complaints of chest pain, negative troponin Continue home aspirin, beta pretty, statin (4) DVT prophylaxis Current Visit: Yes Status: Acute Assessment and Plan: - Heparin 5000 units q12 hours (5) UTI (urinary tract infection) Current Visit: Yes Status: Acute Assessment and Plan: As above for altered mental status Multiple urine cultures in the past with multidrug resistant organisms - Cont cefepime iv. (6) Altered mental status Current Visit: Yes Status: Acute Assessment and Plan: - AOx1, not sure what is her baseline. Pt is awake, alert, in NAD, more like demented. Plan - Cont iv cefepime for UTI - PT/OT evaluation. (7) Heart failure with reduced ejection fraction Current Visit: Yes Status: Chronic Assessment and Plan: Severe HFrEF with EF of 15-20% on last echo on 10/14/16 - No complaints of SOB, swelling, chest pain - CXR showed no acute process - Does not appear to be in acute exacerbation - Will monitor fluids closely and conservatively given severe dysfunction however she is clinically dry - Continue home medications BB, not on ACEI probably due to renal dysfunction. (8) CKD (chronic kidney disease) stage 3, GFR 30-59 ml/min Current Visit: Yes Status: Chronic Assessment and Plan: CKD stage III BUN/ Cr of 41/1.61 which is consistent with baseline Clinically dry on exam with no urine output in [place] catheter. Will continue to monitor with daily labs Avoid nephrotoxic agents. (9) Decubitus ulcer Current Visit: Yes Status: Chronic Assessment and Plan: - Stage III sacral decubitus ulcer present on admission - Receiving wound care in SNF - Will consult wound care - Does not appear infected or source of AMS DVT Prophylaxis: SQ heparin - Time Spent with Patient Total time spent is greater than 50% in coordination of care (as documented) at patient's floor/unit and/or counseling patient: 30 min 25 - 35 minutes Plan of Care Discussed with: nurse Internal Medicine: Result - Labs CBC & Chem 7: 11/10/17 06:20 11/10/17 06:20 - ABG Interpretation ABG results: PT/INR, D-dimer PT 12.4 Seconds (9.4-12.1) H 11/09/17 12:55 Consult Discharge Plan - Plan Referrals: NONE,PCP [Non-Partnered Physician] - (1) Diabetes Qualifiers: Diabetes mellitus type: type 2 Diabetes mellitus longterm insulin use: with longterm use Diabetes mellitus complication status: with kidney complications Diabetes mellitus complication detail: with chronic kidney disease Chronic kidney disease stage: stage 3 (moderate) Qualified Code(s): E11.22 - Type 2 diabetes mellitus with diabetic chronic kidney disease; N18.3 - Chronic kidney disease, stage 3 (moderate); Z79.4 - care home (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 transplanted heart: [place] heart Associated angina: with unstable angina Qualified Code(s): I25.110 - Atherosclerotic heart disease of [place] coronary artery with unstable angina pectoris (5) UTI (urinary tract infection) Qualifiers: Urinary tract infection type: acute cystitis Hematuria presence: without hematuria Qualified Code(s): N30.00 - Acute cystitis without hematuria (6) Altered mental status Qualifiers: Altered mental status type: disorientation Qualified Code(s): R41.0 - Disorientation, unspecified (7) Heart failure with reduced ejection fraction Qualifiers: Heart failure chronicity: chronic Qualified Code(s): I50.22 - Chronic systolic (congestive) heart failure (9) Decubitus ulcer Qualifiers: Pressure injury location: sacral region Pressure injury stage: stage 3 Qualified Code(s): L89.153 - Pressure ulcer of sacral region, stage 3
[2017-11-11] MEDS: Cefepime HCl 1,000 MG in Water for inj. (sterile) 20 ML 10 ML IVP SCH (18:45)
[2017-11-11] MEDS: amLODIPine 5 MG TABLET PO SCH (18:45)
[2017-11-11] MEDS: Leptospermum Honey GEL 1 APPL/5 ML MLS TP SCH (18:49)
[2017-11-11] MEDS: Melatonin 3 MG TABLET PO SCH (21:59)
[2017-11-12 04:31] LABS: Basophils % 0.4 %; Eosinophils # 0.1 K/mcL (0.0-0.6); Eosinophils % 2.1 %; Hematocrit 27.4 % (35.3-44.9); Immature Granulocytes % 0.4 % (0-4); Lymphocytes # 0.8 K/mcL (0.6-4.6); Lymphocytes % 13.2 %; Mean Corpuscular HGB Conc 32.8 g/dL (31.6-35.5); Mean Corpuscular Hemoglobin 31.8 pg (28.0-33.3); Mean Corpuscular Volume 96.8 fL (83.0-100.0); Mean Platelet Volume 9.7 fL (9.4-12.4); Monocytes # 0.4 K/mcL (0.0-1.3); Monocytes % 6.8 %; Neutrophils # 4.4 K/mcL (1.6-8.9); Platelet Count 153 K/mcL (140-400); Red Blood Count 2.83 M/mcL (3.82-4.97); Red Cell Distribution Width 11.4 % (11.5-14.5); Segmented Neutrophils % 77.1 %
[2017-11-12 04:54] LABS: Calcium 9.4 mg/dL (8.6-10.3); Potassium 3.9 mEq/L (3.5-5.1)
[2017-11-12] MEDS: *HR* Heparin 5,000 UNIT/ML VIAL SQ SCH ×2 (07:19→16:43)
[2017-11-12] MEDS: BuPROPion SR (12 HR) 150 MG TABLET PO SCH ×2 (09:43→21:07)
[2017-11-12] MEDS: Gabapentin 100 MG CAPSULE PO SCH ×2 (09:44→21:08)
[2017-11-12] MEDS: amLODIPine 5 MG TABLET PO SCH (09:44)
[2017-11-12] MEDS: Aspirin Enteric Coated 81 MG Tablet PO SCH (09:44)
[2017-11-12] MEDS: risperiDONE 0.25 MG TABLET PO SCH ×2 (09:44→21:08)
[2017-11-12] MEDS: Insulin LISPRO 300 UNITS/3 ML VIAL SQ SCH ×4 (09:45→20:52)
[2017-11-12] MEDS: Leptospermum Honey GEL 1 APPL/5 ML MLS TP SCH (09:54)
--- NOTE | 2017-11-12 13:42 | Internal Med Progress Note ---
Hospitalist Progress Note - Encounter Date of Encounter: 11/12/17 Time of Encounter: 13:35 - Exam Vitals: Temp Pulse Resp BP Pulse Ox 98.4 F 85 16 117/82 99 11/12/17 06:40 11/12/17 06:40 11/12/17 06:40 11/12/17 06:40 11/12/17 06:40 - Assessment and Plan (1) Altered mental status Current Visit: Yes Status: Acute Assessment and Plan: Patient brought in by daughter from nursing facility due to altered mental status. UTI was initially suspected, and was being treated with Ertapenem. Comments: Secondary to UTI or dehydration Daughter brought her in from [facility], pt had poor feeding and fluid intake appeared dry. Pt alert and oriented x 2 today, easier to understand volume increased in tone Continue to monitor (2) Chronic kidney disease, stage III (moderate) Current Visit: No Status: Chronic Assessment and Plan: CKD stage III BUN/ Cr of 25:1.3 which is consistent with baseline Minimal output Dry on initial presentation, somewhat improved today Will continue to monitor with daily labs Fluids as above Avoid nephrotoxic agents. (3) Decubitus ulcer Current Visit: Yes Status: Chronic (4) Diabetes Current Visit: Yes Status: Chronic Assessment and Plan: A1c 7.1 Glucose 75 today On low-dose SSI Continue to monitor closely (5) DVT prophylaxis Current Visit: Yes Status: Acute (6) Heart failure with reduced ejection fraction Current Visit: Yes Status: Chronic (7) Hypertension Current Visit: Yes Status: Chronic Assessment and Plan: Controlled, continue home meds (8) Sacral decubitus ulcer Current Visit: Yes Status: Acute Comments: Pt has stage III Receiving wound care in SNF Wound care is following pt (9) Urinary tract infection Current Visit: No Status: Acute - Time Spent with Patient Total time spent is greater than 50% in coordination of care (as documented) at patient's floor/unit and/or counseling patient: Internal Medicine: Result - Labs CBC & Chem 7: 11/12/17 04:18 11/12/17 04:18 Labs: Short CBC 11/12/17 Range/Units 04:18 WBC 5.7 (4.3-11.1) K/mcL Hgb 9.0 L (11.5-15.4) g/dL Hct 27.4 L (35.3-44.9) % Plt Count 153 (140-400) K/mcL Neutrophils # 4.4 (1.6-8.9) K/mcL BMP 11/12/17 04:18 Sodium 139 Potassium 3.9 Chloride 112 H Carbon Dioxide 20 L BUN 25 H Creatinine 1.30 H Glucose 75 Calcium 9.4 - ABG Interpretation ABG results: PT/INR, D-dimer PT 12.4 Seconds (9.4-12.1) H 11/09/17 12:55 Consult Discharge Plan - Plan Referrals: NONE,PCP [Non-Partnered Physician] - (1) Altered mental status Qualifiers: Altered mental status type: disorientation Qualified Code(s): R41.0 - Disorientation, unspecified (3) Decubitus ulcer Qualifiers: Pressure injury location: sacral region Pressure injury stage: stage 3 Qualified Code(s): L89.153 - Pressure ulcer of sacral region, stage 3 (4) Diabetes Qualifiers: Diabetes mellitus type: type 2 Diabetes mellitus terminal makeup operator insulin use: with terminal makeup operator use Diabetes mellitus complication status: with kidney complications Diabetes mellitus complication detail: with chronic kidney disease Chronic kidney disease stage: stage 3 (moderate) Qualified Code(s): E11.22 - Type 2 diabetes mellitus with diabetic chronic kidney disease; N18.3 - Chronic kidney disease, stage 3 (moderate); 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
--- NOTE | 2017-11-12 18:06 | Internal Med Progress Note ---
<Jose Pollard - Last Filed: 11/12/17 18:03> Hospitalist Progress Note - Encounter Date of Encounter: 11/12/17 Time of Encounter: 10:30 - Subjective Interval History: Patient was seen and examined at bedside this morning. Overall, she is doing well with no complaints. She is alert and oriented 2 this morning which appears to be her baseline. She states she is doing well with no complaints of fevers, chills, chest pain, shortness of breath, dysuria, nausea, vomiting. She does complain of weakness however states this is a chronic issue due to not getting out of bed much. No acute events overnight. - Exam Vitals: Temp Pulse Resp BP Pulse Ox 98.3 F 61 16 119/66 98 11/12/17 14:15 11/12/17 14:15 11/12/17 14:15 11/12/17 14:15 11/12/17 14:15 Exam: Gen.: Vitals noted. No acute distress. AAOx2, resting comfortably in bed. HEENT: PERRL/EOMI, oropharynx clear, Normocephalic, atraumatic, MMM Cardiac: RRR, no murmur, +S1/S2, No BLE edema Pulmonary: CTA bilaterally, no wheezes, rales or rhonchi, equal chest expansion , unlabored breathing Abdomen: soft, nontender, BS noted, no guarding, no palpable HSM Skin: warm and dry, no visible lesions. Neuro: moves all extremities, no focal deficits, sensation intact Psych: Appropriate mood and behavior, AOx2 - Assessment and Plan (1) Altered mental status Current Visit: Yes Status: Resolved Assessment and Plan: - AOx2, not sure what is her baseline. Pt is awake, alert, in NAD, more like demented. - Likely etiology include baseline dementia which was exacerbated by dehydration and possible UTI - She did complete 5 day course of ertapenem at SNF, as well as 3 days of cefepime while inpatient - She does have a history of recurrent UTIs with MDRO, all sensitive to cefepime - Has been afebrile, no WBC elevation. 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 - Villalobos bag in place, better urine output. Plan - Discontinued cefepime today - Continue to monitor for 1 more day with likely discharge back to SNF tomorrow - Would likely benefit from PT/OT Comments: Secondary to UTI or dehydration Daughter brought her in from [facility] [place] [facility], pt had poor feeding and fluid intake appeared dry. Pt alert and oriented x 2 today, easier to understand volume increased in tone Continue to monitor (2) UTI (urinary tract infection) Current Visit: Yes Status: Acute Assessment and Plan: As above for altered mental status Multiple urine cultures in the past with multidrug resistant organisms Consider repeat urine culture if symptoms worsen but at this point it will likely be negative given recent abx (3) Diabetes Current Visit: Yes Status: Chronic Assessment and Plan: - Most recent A1c of 5.5% in January of 2017 - BS has been well controlled, most recent 75 - Cont SSI (4) Hypertension Current Visit: Yes Status: Chronic Assessment and Plan: BP is better controlled, in 110s/80s Continue current medications (5) CAD (coronary artery disease) Current Visit: Yes Status: Chronic Assessment and Plan: CAD without stent but with congestive heart failure as above No complaints of chest pain, negative troponin Continue home aspirin, beta pretty, statin (6) Heart failure with reduced ejection fraction Current Visit: Yes Status: Chronic Assessment and Plan: Severe HFrEF with EF of 15-20% on last echo on 10/14/16 - No complaints of SOB, swelling, chest pain - CXR showed no acute process - Does not appear to be in acute exacerbation - Will monitor fluids closely and conservatively given severe dysfunction, still poor PO intake so will monitor closely. Stopped fluids - Continue home medications BB, not on ACEI probably due to renal dysfunction. (7) CKD (chronic kidney disease) stage 3, GFR 30-59 ml/min Current Visit: Yes Status: Chronic Assessment and Plan: CKD stage III BUN/ Cr of 25/1.30 which is consistent with baseline Improved urine output Will continue to monitor with daily labs Avoid nephrotoxic agents. (8) DVT prophylaxis Current Visit: Yes Status: Acute Assessment and Plan: - Heparin 5000 units q12 hours (9) Decubitus ulcer Current Visit: Yes Status: Chronic Assessment and Plan: - Stage III sacral decubitus ulcer present on admission - Receiving wound care in SNF - consult wound care - Does not appear infected or source of AMS - Time Spent with Patient Total time spent is greater than 50% in coordination of care (as documented) at patient's floor/unit and/or counseling patient: Internal Medicine: Result - Labs CBC & Chem 7: 11/12/17 04:18 11/12/17 04:18 Labs: Short CBC 11/12/17 Range/Units 04:18 WBC 5.7 (4.3-11.1) K/mcL Hgb 9.0 L (11.5-15.4) g/dL Hct 27.4 L (35.3-44.9) % Plt Count 153 (140-400) K/mcL Neutrophils # 4.4 (1.6-8.9) K/mcL BMP 11/12/17 04:18 Sodium 139 Potassium 3.9 Chloride 112 H Carbon Dioxide 20 L BUN 25 H Creatinine 1.30 H Glucose 75 Calcium 9.4 - ABG Interpretation ABG results: PT/INR, D-dimer PT 12.4 Seconds (9.4-12.1) H 11/09/17 12:55 Consult Discharge Plan - Plan Referrals: NONE,PCP [Non-Partnered Physician] - <Velia Miranda - Last Filed: 11/12/17 18:39> Hospitalist Progress Note - Encounter Date of Encounter: 11/12/17 - Exam Vitals: Temp Pulse Resp BP Pulse Ox 98.3 F 61 16 119/66 98 11/12/17 14:15 11/12/17 14:15 11/12/17 14:15 11/12/17 14:15 11/12/17 14:15 - Assessment and Plan (1) Diabetes Current Visit: Yes Status: Chronic (2) Hypertension Current Visit: Yes Status: Chronic (3) CAD (coronary artery disease) Current Visit: Yes Status: Chronic (4) DVT prophylaxis Current Visit: Yes Status: Acute (5) UTI (urinary tract infection) Current Visit: Yes Status: Acute (6) Altered mental status Current Visit: Yes Status: Resolved Comments: Secondary to UTI or dehydration Daughter brought her in from [facility] [place] [facility], pt had poor feeding and fluid intake appeared dry. Pt alert and oriented x 2 today, easier to understand volume increased in tone Continue to monitor (7) Heart failure with reduced ejection fraction Current Visit: Yes Status: Chronic (8) CKD (chronic kidney disease) stage 3, GFR 30-59 ml/min Current Visit: Yes Status: Chronic (9) Decubitus ulcer Current Visit: Yes Status: Chronic - Time Spent with Patient Total time spent is greater than 50% in coordination of care (as documented) at patient's floor/unit and/or counseling patient: Internal Medicine: Result - Labs CBC & Chem 7: 11/12/17 04:18 11/12/17 04:18 Labs: Short CBC 11/12/17 Range/Units 04:18 WBC 5.7 (4.3-11.1) K/mcL Hgb 9.0 L (11.5-15.4) g/dL Hct 27.4 L (35.3-44.9) % Plt Count 153 (140-400) K/mcL Neutrophils # 4.4 (1.6-8.9) K/mcL BMP 11/12/17 04:18 Sodium 139 Potassium 3.9 Chloride 112 H Carbon Dioxide 20 L BUN 25 H Creatinine 1.30 H Glucose 75 Calcium 9.4 - ABG Interpretation ABG results: PT/INR, D-dimer PT 12.4 Seconds (9.4-12.1) H 11/09/17 12:55 - Attending Attestation I have seen and examined this pt independently. I have discussed with resident physician Dr Pollard regarding the management plan. Agree with the documentation. 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 Diabetes mellitus complication status: with kidney complications Diabetes mellitus complication detail: with chronic kidney disease Chronic kidney disease stage: stage 3 (moderate) Qualified Code(s): E11.22 - Type 2 diabetes mellitus with diabetic chronic kidney disease; N18.3 - Chronic kidney disease, stage 3 (moderate); Z79.4 - longterm (current) use of insulin (4) Hypertension Qualifiers: Hypertension type: essential hypertension Qualified Code(s): I10 - Essential (primary) hypertension (5) CAD (coronary artery disease) Qualifiers: Coronary Disease-Associated Artery/Lesion type: [place] artery [place] vs. transplanted heart: [place] heart Associated angina: with unstable angina Qualified Code(s): I25.110 - Atherosclerotic heart disease of [place] coronary artery with unstable angina pectoris (6) Heart failure with reduced ejection fraction Qualifiers: Heart failure chronicity: chronic Qualified Code(s): I50.22 - Chronic systolic (congestive) heart failure (9) Decubitus ulcer Qualifiers: Pressure injury location: sacral region Pressure injury stage: stage 3 Qualified Code(s): L89.153 - Pressure ulcer of sacral region, stage 3 <Velia Miranda - Last Filed: 11/12/17 18:39> (1) Diabetes Qualifiers: Diabetes mellitus type: type 2 Diabetes mellitus fpc insulin use: with fpc use Diabetes mellitus complication status: with kidney complications Diabetes mellitus complication detail: with chronic kidney disease Chronic kidney disease stage: stage 3 (moderate) Qualified Code(s): E11.22 - Type 2 diabetes mellitus with diabetic chronic kidney disease; N18.3 - Chronic kidney disease, stage 3 (moderate); Z79.4 - longterm (current) use of insulin (2) Hypertension Qualifiers: Hypertension type: essential hypertension Qualified Code(s): I10 - Essential (primary) hypertension (3) CAD (coronary artery disease) Qualifiers: Coronary Disease-Associated Artery/Lesion type: [place] artery [place] vs. transplanted heart: [place] heart Associated angina: with unstable angina Qualified Code(s): I25.110 - Atherosclerotic heart disease of [place] coronary artery with unstable angina pectoris (5) UTI (urinary tract infection) Qualifiers: Urinary tract infection type: acute cystitis Hematuria presence: without hematuria Qualified Code(s): N30.00 - Acute cystitis without hematuria (6) Altered mental status Qualifiers: Altered mental status type: disorientation Qualified Code(s): R41.0 - Disorientation, unspecified (7) Heart failure with reduced ejection fraction Qualifiers: Heart failure chronicity: chronic Qualified Code(s): I50.22 - Chronic systolic (congestive) heart failure (9) Decubitus ulcer Qualifiers: Pressure injury location: sacral region Pressure injury stage: stage 3 Qualified Code(s): L89.153 - Pressure ulcer of sacral region, stage 3
[2017-11-12] MEDS: Melatonin 3 MG TABLET PO SCH (21:07)
[2017-11-13] MEDS: *HR* Heparin 5,000 UNIT/ML VIAL SQ SCH (05:59)
[2017-11-13] MEDS: Gabapentin 100 MG CAPSULE PO SCH (07:39)
[2017-11-13] MEDS: risperiDONE 0.25 MG TABLET PO SCH (07:40)
[2017-11-13] MEDS: Aspirin Enteric Coated 81 MG Tablet PO SCH (07:40)
[2017-11-13] MEDS: BuPROPion SR (12 HR) 150 MG TABLET PO SCH (07:40)
[2017-11-13] MEDS: Insulin LISPRO 300 UNITS/3 ML VIAL SQ SCH ×2 (08:13→11:50)
[2017-11-13] MEDS: Leptospermum Honey GEL 1 APPL/5 ML MLS TP SCH (10:45)
[2017-11-13 11:50] VITALS: BP 136/56
--- NOTE | 2017-11-13 13:56 | Discharge Summary ---
<Shantell Carson Kervin - Last Filed: 11/13/17 15:21> - NOTES TO OUTPATIENT PROVIDER Notes to Outpatient Provider: Patient was admitted for possible UTI with history of recurrent resistant UTIs, however more likely related to dehydration and worsening dementia. She completed 5 days of ertapenum and 3 days of cefepime. Benadryl and Oxybutinin were discontinued due to anticholinergic side effects. She is stable and being dischaged back to the nursing facility. Patient needs to close follow up with PCP within 1 week. Orders not resulted at time of discharge: Pending orders 11/10/17 08:51 Culture,Urine [RM] Routine Date of Encounter: 11/13/17 Time of Encounter: 10:07 - Discharge Diagnosis (1) Recurrent UTI (urinary tract infection) Priority: Primary Status: Resolved (2) Altered mental status Priority: Primary Status: Resolved Comments: Acute AMS resolved. However patient has worsening dementia and is now believed to be at a new baseline. 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 Diabetes mellitus complication status: with kidney complications Diabetes mellitus complication detail: with chronic kidney disease Chronic kidney disease stage: stage 3 (moderate) Qualified Code(s): E11.22 - Type 2 diabetes mellitus with diabetic chronic kidney disease; N18.3 - Chronic kidney disease, stage 3 (moderate); Z79.4 - detention (current) use of insulin (5) Heart failure with reduced ejection fraction Priority: Secondary Status: Chronic Qualifiers: Heart failure chronicity: chronic Qualified Code(s): I50.22 - Chronic systolic (congestive) heart failure (6) Hypertension Priority: Secondary Status: Chronic Qualifiers: Hypertension type: essential hypertension Qualified Code(s): I10 - Essential (primary) hypertension (7) CAD (coronary artery disease) Priority: Secondary Status: Chronic Qualifiers: Coronary Disease-Associated Artery/Lesion type: [place] artery [place] vs. transplanted heart: [place] heart Associated angina: with unstable angina Qualified Code(s): I25.110 - Atherosclerotic heart disease of [place] coronary artery with unstable angina pectoris (8) Sacral decubitus ulcer, stage III Priority: Secondary Status: Chronic Hospital course: Ms. 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 She received approximately 5 days of Ertapenum via PICC line due to a postive UA prior to admission without improvement. Records were requested but not received. Vitals were normal at the time of admission and no focal neurological deficits were noted. Basic labs were ordered along with CT head, CXR, UA. CXR was negative for any acute cardio-pulmonary process. Head CT was negative for any acute intracranial abnormality. Basic labs showed chronic anemia and chronic renal failure. Blood cultures were collected and showed no growth, but urine cultures were unable to be collected due to low urine output. She received 3 days of Cefepime while inpatient. During admission her mentation improved. Her altered mental status was likely secondary to dehydration and/or worsening dementia with delusions and hallucinations. Benadryl and Oxybutinin were discontinued due to anticholinergic side effects. She was discharged in stable condition with new baseline dementia status. Discharge discussed with: patient, family - Time Spent with Patient Total time spent providing and/or coordinating discharge services: Greater than 30 minutes - Discharge Medications Home Medications: Aspirin [Lo-Dose Aspirin EC] 81 mg PO DAILY 06/12/16 [History] BuPROPion SR (12 HR) [Wellbutrin SR] 150 mg PO BID 06/12/16 [History] Cholecalciferol (D-3) [Vitamin D] 5,000 unit PO DAILY 06/12/16 [History] Clopidogrel [Plavix] 75 mg PO DAILY 06/12/16 [History] Cyanocobalamin (Vitamin B-12) [Vitamin B-12] 1,000 mcg SL DAILY 06/12/16 [ History] Isosorbide DInitrate [Isosorbide Dinitrate] 10 mg PO BID 10/14/16 [History] Atorvastatin Calcium [Lipitor] 20 mg PO QPM 09/24/17 [History] Carvedilol [Coreg] 6.25 mg PO BIDWM 09/24/17 [History] Gabapentin [Neurontin] 100 mg PO BID 09/24/17 [History] Insulin Glargine,Hum.rec.anlog [Lantus Solostar] 10 unit SQ HS 11/09/17 [History ] Melatonin [Melatin] 3 mg PO HS 11/09/17 [History] RisperiDONE [Risperdal] 0.5 mg PO HS 11/09/17 [History] risperiDONE [Risperdal] 0.25 mg PO QAM 11/09/17 [History] Allergies/Adverse Reactions: 3 Allergy/AdvReac Type Severity Reaction Status Date / Time Penicillins Allergy Hives Verified 11/09/17 14:27 Date of admission: 11/09/17 18:58 Primary care physician: Griffin Ochoa MD - Constitutional Vitals: Temp Pulse Resp BP Pulse Ox 97.8 F 66 15 136/56 98 11/13/17 11:44 11/13/17 11:44 11/13/17 11:44 11/13/17 11:44 11/13/17 11:44 Exam: Gen.: A&Ox2, NAD, lying comfortably in bed Cardiac: RRR, no murmur, +S1/S2, No BLE edema Pulmonary: CTAB, no wheezes, rales Abdomen: soft, nontender, BS noted, no guarding, no palpable HSM UG: Improved urine output, Villalobos removed without complications Extremities: bilateral LE amputation (Right AKA, Left BKA) without swelling Skin: warm and dry, right sacral decubitus ulcer with bandage intact Neuro: moves all extremities, no focal deficits, sensation intact Psych: Worsening dementia, thought content not congruent - Patient Status Disposition: Transfer SNF Condition: Fair Functional capacity at discharge: bed bound Overall status at discharge: other (Patient improved from admission, at new baseline) - Discharge Instructions Follow Up With: NONE,PCP [Non-Partnered Physician] - - Diet and Activity Activity: increase activity as tolerated Diet: low salt diet <Velia Miranda - Last Filed: 11/13/17 15:59> Orders not resulted at time of discharge: Pending orders 11/10/17 08:51 Culture,Urine [RM] Routine Date of Encounter: 11/13/17 - Discharge Diagnosis (1) Diabetes Status: Chronic Qualifiers: Diabetes mellitus type: type 2 Diabetes mellitus 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 churn 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: with retirement 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 Diabetes mellitus complication status: with kidney complications Diabetes mellitus complication detail: with chronic kidney disease Chronic kidney disease stage: stage 3 (moderate) Qualified Code(s): E11.22 - Type 2 diabetes mellitus with diabetic chronic kidney disease; N18.3 - Chronic kidney disease, stage 3 (moderate); Z79.4 - detention (current) use of insulin (2) Hypertension Status: Chronic Qualifiers: Hypertension type: essential hypertension Qualified Code(s): I10 - Essential (primary) hypertension (3) CAD (coronary artery disease) Status: Chronic Qualifiers: Coronary Disease-Associated Artery/Lesion type: [place] artery [place] vs. transplanted heart: [place] heart Associated angina: with unstable angina Qualified Code(s): I25.110 - Atherosclerotic heart disease of [place] coronary artery with unstable angina pectoris (4) DVT prophylaxis Status: Acute (5) UTI (urinary tract infection) Status: Acute Qualifiers: Urinary tract infection type: acute cystitis Hematuria presence: without hematuria Qualified Code(s): N30.00 - Acute cystitis without hematuria (6) Altered mental status Status: Resolved Qualifiers: Altered mental status type: disorientation Qualified Code(s): R41.0 - Disorientation, unspecified (7) Heart failure with reduced ejection fraction Status: Chronic Qualifiers: Heart failure chronicity: chronic Qualified Code(s): I50.22 - Chronic systolic (congestive) heart failure (8) CKD (chronic kidney disease) stage 3, GFR 30-59 ml/min Status: Chronic (9) Decubitus ulcer Status: Chronic Qualifiers: Pressure injury location: sacral region Pressure injury stage: stage 3 Qualified Code(s): L89.153 - Pressure ulcer of sacral region, stage 3 Hospital course: Ms. Daugherty is a 77 year old female - Time Spent with Patient Total time spent providing and/or coordinating discharge services: Date of admission: 11/09/17 18:58 Primary care physician: Griffin Ochoa MD - Constitutional Vitals: Temp Pulse Resp BP Pulse Ox 97.8 F 66 16 136/56 98 11/13/17 11:45 11/13/17 11:45 11/13/17 11:45 11/13/17 11:45 11/13/17 11:45 - Attending Attestation I have seen and examined this pt independently. I have discussed with resident physician Dr Carson regarding the discharge and follow up plan. Agree with the documentation.
--- NOTE | 2017-11-13 15:38 | Physician Discharge Referral ---
ExtendedCare Referral Info Transfer To: [facility] Provider in Charge after Transfer: PCP - Diagnosis (1) Recurrent UTI (urinary tract infection) Priority: Primary Status: Resolved (2) Altered mental status Priority: Primary Status: Resolved (3) Chronic kidney disease, stage III (moderate) Priority: Secondary Status: Chronic (4) Diabetes Priority: Secondary Status: Chronic (5) Heart failure with reduced ejection fraction Priority: Secondary Status: Chronic (6) Hypertension Priority: Secondary Status: Chronic (7) CAD (coronary artery disease) Priority: Secondary Status: Chronic (8) Sacral decubitus ulcer, stage III Priority: Secondary Status: Chronic Prognosis: Fair Aware of Diagnosis: Patient Aware of Prognosis: Patient - Transfer Medications Home Medications: Aspirin [Lo-Dose Aspirin EC] 81 mg PO DAILY 06/12/16 [History] BuPROPion SR (12 HR) [Wellbutrin SR] 150 mg PO BID 06/12/16 [History] Cholecalciferol (D-3) [Vitamin D] 5,000 unit PO DAILY 06/12/16 [History] Clopidogrel [Plavix] 75 mg PO DAILY 06/12/16 [History] Cyanocobalamin (Vitamin B-12) [Vitamin B-12] 1,000 mcg SL DAILY 06/12/16 [ History] Isosorbide DInitrate [Isosorbide Dinitrate] 10 mg PO BID 10/14/16 [History] Atorvastatin Calcium [Lipitor] 20 mg PO QPM 09/24/17 [History] Carvedilol [Coreg] 6.25 mg PO BIDWM 09/24/17 [History] Gabapentin [Neurontin] 100 mg PO BID 09/24/17 [History] Insulin Glargine,Hum.rec.anlog [Lantus Solostar] 10 unit SQ HS 11/09/17 [History ] Melatonin [Melatin] 3 mg PO HS 11/09/17 [History] RisperiDONE [Risperdal] 0.5 mg PO HS 11/09/17 [History] risperiDONE [Risperdal] 0.25 mg PO QAM 11/09/17 [History] Allergies/Adverse Reactions: 3 Allergy/AdvReac Type Severity Reaction Status Date / Time Penicillins Allergy Hives Verified 11/09/17 14:27 - Respiratory Orders Smoking Cessation: Smoking cessation has been advised. For more information, call the [place] Tobacco Quit Line at 4-747-VMKJ-NOW. - Advance Directives Code Status: DNR-Comfort Care - Mobility Orders Bedrest - Treatments Skin tear care topically daily PRN per policy - Diet Orders No Concentrated Sweets, Cardiac CERTIFICATION: I certify that the transfer of the above named patient to an Extended Care Facility is necessary for the continuing treatment of the diagnosis listed. The above information is true and accurate reflection of patient's current condition. Confidential - Redisclosure prohibited without a patient's written consent.
== END 2017-11-13 15:47 | DRG 689 ==
LOC: EMEROOARM 12:18 → 3ANU 12:18 → SUATTDRO 18:58
PROVIDERS: ADMIT Internal Medicine; ATTEND Internal Medicine

== ENCOUNTER 2018-04-28 18:59 | Inpatient (IN) ==
--- NOTE | 2018-04-28 19:13 | Emergency Department Note ---
Disposition Clinical Impression: Weakness, SARANYA (acute kidney injury), Hallucination UTI (urinary tract infection) Qualifiers: Urinary tract infection type: acute cystitis Hematuria presence: without hematuria Qualified Code(s): N30.00 - Acute cystitis without hematuria Disposition: Admitted As Inpatient Condition: Fair Referrals: Griffin Ochoa MD [Primary Care Provider] - Forms: ED Satisfaction Letter Time of Disposition: 22:42 General Adult HPI - General Stated complaint: Weakness Time Seen by Provider: 04/28/18 19:09 Source: patient, family Mode of arrival: EMS Limitations: altered mental status Nursing Notes Reviewed: Yes Vital Signs Reviewed: Yes - History of Present Illness HPI Narrative: Patient is a 77-year-old female presenting with weakness via EMS. Patient is accompanied by her daughter as well as niece. Patient has history of chronic kidney disease, diabetes mellitus type 2, hypertension and hyperlipidemia as well as CHF. Per EMS, they were called to the house for generalized weakness, they have been called earlier in the day for similar symptoms, however the patient was unwilling to come to the ER at that time. Per family in the room, over night and into today, the patient has had multiple hallucinations with fits of "screaming that someone is in the home, as well as that there is a green party going on, as well as that someone has stolen all of her furniture ". They state she also has generalized weakness which appears to be worse over the past few days. Patient was seen yesterday in the ER for similar symptoms, at that point in time there was mention of possible admission for symptoms as well as hyperkalemia and dehydration. Family's concern for urinary tract infection, stating that when she has some sort of infection, she to milk typically has similar symptoms. Patient denies any chest pain, shortness of breath, altered mentation, abdominal pain, nausea or vomiting. She denies any urinary symptoms. She is chronically incontinent. Patient did have multiple bowel movements yesterday, and patient states that she feels better since being in the ER yesterday. No cough, fever or chills. Patient does live in her own home, however lives with her niece. Per family in the room, patient is currently not at her mental baseline. - Related Data Home Medications Medication Instructions Recorded Confirmed Aspirin [Lo-Dose Aspirin EC] 81 mg PO DAILY 06/12/16 11/09/17 BuPROPion SR (12 HR) [Wellbutrin 150 mg PO BID 06/12/16 11/09/17 SR] Cholecalciferol (D-3) [Vitamin D] 5,000 unit PO DAILY 06/12/16 11/09/17 Clopidogrel [Plavix] 75 mg PO DAILY 06/12/16 11/09/17 Cyanocobalamin (Vitamin B-12) 1,000 mcg SL DAILY 06/12/16 11/09/17 [Vitamin B-12] Isosorbide DInitrate [Isosorbide 10 mg PO BID 10/14/16 11/09/17 Dinitrate] Atorvastatin Calcium [Lipitor] 20 mg PO QPM 09/24/17 11/09/17 Carvedilol [Coreg] 6.25 mg PO BIDWM 09/24/17 11/09/17 Gabapentin [Neurontin] 100 mg PO BID 09/24/17 11/09/17 Insulin Glargine,Hum.rec.anlog 10 unit SQ HS 11/09/17 11/09/17 [Lantus Solostar] Melatonin [Melatin] 3 mg PO HS 11/09/17 11/09/17 RisperiDONE [Risperdal] 0.5 mg PO HS 11/09/17 11/09/17 risperiDONE [Risperdal] 0.25 mg PO QAM 11/09/17 11/09/17 Allergies Allergy/AdvReac Type Severity Reaction Status Date / Time Penicillins Allergy Hives Verified 04/28/18 19:15 All systems ED: reviewed and negative except as stated. Review of Systems: As Per HPI Constitutional: Denies: fever, chills ENT ED: Denies: congestion Cardiovascular: Denies: chest pain, palpitations, dyspnea on exertion, syncope Respiratory: Denies: cough, dyspnea, wheezes Gastrointestinal: Denies: abdominal pain, nausea, vomiting Genitourinary: Denies: urgency, dysuria, frequency Integumentary: Denies: rash Neurological: Reports: weakness, confusion. Denies: numbness Endocrine: Reports: fatigue Past Medical History - Past Medical History Attestation: Yes The following information was validated with the patient. Medical history: Reports: CHF, dementia, diabetes, GERD, hyperlipidemia, hypertension, myocardial infarction, renal disease Surgical history: Reports: cholecystectomy Psychiatric history: Reports: anxiety - Social History Smoking Status: Former smoker Smokeless Tobacco Status: No Alcohol use: Reports: none Drug use: Reports: none Physical Exam - General Limitations: other (Patient is sitting in bed, resting comfortably, in no acute distress, she is alert and oriented 3 with further prompting, is aware that she is that [facility], is able to recognize her family members and is up-to-date on the year and president, she however does not understand why she is here in the ER today) General appearance: alert, in no apparent distress - Head Head exam: atraumatic, normocephalic, normal inspection - Eye Eye exam: Present: normal appearance, PERRL, EOMI - ENT ENT exam: normal oropharynx, mucous membranes dry - Neck Neck exam: Present: normal inspection, full ROM, trachea midline - Chest Chest inspection: Present: normal inspection, symmetric chest wall rise - Respiratory Respiratory exam: Present: normal lung sounds bilaterally - Cardiovascular Cardiovascular exam: Present: regular rate, normal rhythm, normal heart sounds - Abdominal Exam Abdominal exam: Present: soft, Non-Tender. 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 Absent: pedal edema, calf tenderness - Expanded Lower Extremity Exam Neurovascular/Tendon exam: Absent: motor deficit, sensory deficit, tendon deficit - Neurological Exam Neurological exam: Present: alert, oriented X3 - Psychiatric Psychiatric exam: Present: normal affect, normal mood - Skin Skin exam: Present: warm, dry, intact, normal color. Absent: rash, diaphoresis, pallor Course Vital Signs Temperature 97.9 F 04/28/18 19:16 Pulse Rate 74 04/28/18 19:16 Respiratory Rate 20 04/28/18 19:16 Blood Pressure 177/80 04/28/18 19:16 O2 Sat by Pulse Oximetry 95 04/28/18 19:16 Temperature 97.9 F 04/28/18 19:33 Pulse Rate 76 04/28/18 21:10 Respiratory Rate 20 04/28/18 21:10 Blood Pressure 164/76 04/28/18 21:10 O2 Sat by Pulse Oximetry 96 04/28/18 21:10 Oxygen Delivery Oxygen Delivery Room Air Medical Decision Making - MDM Narrative Medical decision making narrative: Patient is a 77-year-old female presenting via EMS to the ER for weakness. She is coming from home with currently living with her niece. Per patient she has no chest pain but generalized weakness, seen in the ER yesterday and had a workup for weakness including urinalysis which showed urine bacteria and positive leuk esterase, as well as hyperkalemia at 5.5 and dehydration. On arrival today, patient is alert and oriented 3, she is in no acute distress, she does have dry mucosa, otherwise unremarkable examination. Per family she has been having hallucinations with weakness for the past few days specifically last night. Yesterday she was offered admission for concern with this weakness and altered mental status, however family declined. He was in the ER yesterday, a chest x-ray was performed which showed no acute infection as well as a CT of the head which showed no acute intracranial changes. Today's blood work included a CBC which was unremarkable, a BMP which showed slight SARANYA 2.2 with a baseline around 1.5-2.0. Otherwise electrolytes are unremarkable. Patient is remained stable while here in the ER, given patient decided a CT of the head as well as chest x-ray, do not feel that this needed to be repeated today patient was given 500 mL bolus of fluids, given concern for urinary tract infection with positive leuk esterase, this was sent for culture as well as patient was started on Rocephin. This point in time, given patient's weakness, SARANYA and hallucinations, discussed with the family, feels the disposition of admission is best course of action at this point in time. We will call the hospitalist for admission. - Medical Records Medical records reviewed: Yes I reviewed the patient's medical records. - Lab Data Lab results reviewed: Yes I reviewed the patient's lab results. Result diagrams: 04/28/18 19:46 04/28/18 19:46 Lab Results 04/28/18 04/28/18 04/28/18 Range/Units 19:46 19:46 20:03 WBC 4.9 (4.3-11.1) K/mcL RBC 3.62 L (3.82-4.97) M/mcL Hgb 11.3 L (11.5-15.4) g/dL Hct 35.4 (35.3-44.9) % MCV 97.8 (83.0-100.0) fL MCH 31.2 (28.0-33.3) pg MCHC 31.9 (31.6-35.5) g/dL RDW 11.9 (11.5-14.5) % Plt Count 158 (140-400) K/mcL MPV 9.9 (9.4-12.4) fL Immature Gran % 0.2 (0-4) % Seg Neutrophils % 74.0 % Lymphocytes % 17.1 % Monocytes % 6.1 % Eosinophils % 2.2 % Basophils % 0.4 % Neutrophils # 3.6 (1.6-8.9) K/mcL Lymphocytes # 0.8 (0.6-4.6) K/mcL Monocytes # 0.3 (0.0-1.3) K/mcL Eosinophils # 0.1 (0.0-0.6) K/mcL Basophils # 0.0 (0.0-0.2) K/mcL Sodium 140 (136-145) mEq/L Potassium 5.0 (3.5-5.1) mEq/L Chloride 104 (98-107) mEq/L Carbon Dioxide 28 (23-29) mEq/L BUN 52 H (8-23) mg/dL Creatinine 2.20 H (0.60-1.20) mg/dL Est GFR ( Amer) 26 L (> 60) Est GFR (Non-Af Amer) 22 L (> 60) BUN/Creatinine Ratio 24 (6-26) Glucose 138 H (70-105) mg/dL Calculated Osmolality 306 H (280-300) Calcium 10.1 (8.6-10.3) mg/dL Urine Color Yellow (Yellow) Urine Clarity Clear (Clear) Urine pH 7.0 (5.0-8.0) pH Units Ur Specific [place] 1.006 L (1.010-1.025) Urine Protein Negative (Neg-Trace) mg/dL Urine Glucose (UA) Normal (Normal) mg/dL Urine Ketones Negative (Negative) mg/dL Urine Blood Negative (Negative) Urine Nitrite Negative (Negative) Urine Bilirubin Negative (Negative) Urine Urobilinogen Normal (Normal) mg/dL Ur Leukocyte Esterase Large H (Negative) Urine Microscopic RBC 0-3 (0-3) per hpf Urine Microscopic WBC 15-30 H (0-3) per hpf Ur Squamous Epith Cells Many H (None-Few) per lpf Urine Bacteria Moderate H (None-Few) per hpf Hyaline Casts None Seen (None-Few) per lpf - Radiology Data Radiology results reviewed: Yes I reviewed the patient's radiology results. XAMINATION: CT OF THE HEAD WITHOUT CONTRAST 04/27/2018 5:39 am TECHNIQUE: CT of the head was performed without the administration of intravenous contrast. Dose modulation, iterative reconstruction, and/or weight based adjustment of the mA/kV was utilized to reduce the radiation dose to as low as reasonably achievable. COMPARISON: 11/09/2017 HISTORY: ORDERING SYSTEM PROVIDED HISTORY: ams, h/o stroke Numbness for 1 day. Acute symptoms. Initial study. FINDINGS: BRAIN/VENTRICLES: There is no acute intracranial hemorrhage, mass effect or midline shift. No abnormal extra-axial fluid collection. The y[place]oah-white differentiation is maintained without evidence of an acute infarct. There is no evidence of hydrocephalus. There is generalized cerebral atrophy. Moderate low-attenuation changes in the periventricular white matter are compatible with chronic microvascular ischemic related gliosis. ORBITS: The visualized portion of the orbits demonstrate no acute abnormality. SINUSES: The visualized paranasal sinuses and mastoid air cells demonstrate no acute abnormality. SOFT TISSUES/SKULL: No acute abnormality of the visualized skull or soft tissues. CT/CT head/brain wo con IMPRESSION: 1. No acute intracranial abnormality. 2. Moderate chronic small vessel ischemic changes. D/ / Jose Edmondson MD / Jose Edmondson MD Interpreting Provider: Jose Edmondson MD INATION: SINGLE XRAY VIEW OF THE CHEST 04/27/2018 4:33 am COMPARISON: 11/09/2017 HISTORY: ORDERING SYSTEM PROVIDED HISTORY: weakness Chest pain. Symptoms for 1 day. Acute illness. Initial study. FINDINGS: There are coarse interstitial markings. No pleural effusion or pneumothorax is seen. The heart is enlarged. No acute osseous abnormality is demonstrated. XR/XR chest 1V portable IMPRESSION: Coarse interstitial markings, increased from 2018, most likely due to edema, atypical infection and/or chronic interstitial lung disease. D/ / Jose Edmondson MD / Jose Edmondson MD Interpreting Provider: Jose Edmondson MD - EKG Data EKG #1 EKG attestation: Yes I reviewed and interpreted this EKG. EKG results narrative: EKG performed at ventricular rate of 74, regular rhythm, left axis deviation, no ST segment elevation or depression, incomplete right bundle branch block. In comparison to old EKG that was performed on 04/27/2018 appears unchanged S.B.Y[facility] - Angel Situation: Demographics, MOA Background: Presenting Complaint, Relevant PMH, Meds, & Allergies Assessment: Vital Signs, Course and respsone to treatment, Exam Concerns, Patient/Family Expectation, Pertinant Lab Results, Outstanding Labs Recommendation: Barrier(s) to disposition, Recommendation based on pending studies, treatments, or consults SMagali Report Given to: Dr. Jesenia Ortiz Repor Time: 22:42 (accepted)
[2018-04-28] MEDS ORDERED: 0.9 % Sodium Chloride 500 ML IVC ONE (19:24)
--- NOTE | 2018-04-28 19:45 | Emergency Department Note ---
Disposition Clinical Impression: Weakness, SARANYA (acute kidney injury), Hallucination UTI (urinary tract infection) Qualifiers: Urinary tract infection type: acute cystitis Hematuria presence: without hematuria Qualified Code(s): N30.00 - Acute cystitis without hematuria Disposition: Admitted As Inpatient Condition: Fair Referrals: Griffin Ochoa MD [Primary Care Provider] - Forms: ED Satisfaction Letter General Adult HPI - General Chief complaint: ED Altered Mental Status Stated complaint: dehydrated/UTI/confusion Time Seen by Provider: 04/28/18 19:09 Source: patient, family Mode of arrival: EMS Limitations: altered mental status Nursing Notes Reviewed: Yes Vital Signs Reviewed: Yes - History of Present Illness Pain Scale: 3 - Related Data Home Medications Medication Instructions Recorded Confirmed Aspirin [Lo-Dose Aspirin EC] 81 mg PO DAILY 06/12/16 11/09/17 BuPROPion SR (12 HR) [Wellbutrin 150 mg PO BID 06/12/16 11/09/17 SR] Cholecalciferol (D-3) [Vitamin D] 5,000 unit PO DAILY 06/12/16 11/09/17 Clopidogrel [Plavix] 75 mg PO DAILY 06/12/16 11/09/17 Cyanocobalamin (Vitamin B-12) 1,000 mcg SL DAILY 06/12/16 11/09/17 [Vitamin B-12] Isosorbide DInitrate [Isosorbide 10 mg PO BID 10/14/16 11/09/17 Dinitrate] Atorvastatin Calcium [Lipitor] 20 mg PO QPM 09/24/17 11/09/17 Carvedilol [Coreg] 6.25 mg PO BIDWM 09/24/17 11/09/17 Gabapentin [Neurontin] 100 mg PO BID 09/24/17 11/09/17 Insulin Glargine,Hum.rec.anlog 10 unit SQ HS 11/09/17 11/09/17 [Lantus Solostar] Melatonin [Melatin] 3 mg PO HS 11/09/17 11/09/17 RisperiDONE [Risperdal] 0.5 mg PO HS 11/09/17 11/09/17 risperiDONE [Risperdal] 0.25 mg PO QAM 11/09/17 11/09/17 Allergies Allergy/AdvReac Type Severity Reaction Status Date / Time Penicillins Allergy Hives Verified 04/28/18 19:15 Past Medical History - Past Medical History Medical history: Reports: CHF, dementia, diabetes, GERD, hyperlipidemia, hyperte nsion, myocardial infarction, renal disease Surgical history: Reports: cholecystectomy Psychiatric history: Reports: anxiety - Social History Smoking Status: Former smoker Smokeless Tobacco Status: No Alcohol use: Reports: none Drug use: Reports: none Physical Exam - General Limitations: altered mental status General appearance: alert Course Vital Signs Temperature 97.9 F 04/28/18 19:16 Pulse Rate 74 04/28/18 19:16 Respiratory Rate 20 04/28/18 19:16 Blood Pressure 177/80 04/28/18 19:16 O2 Sat by Pulse Oximetry 95 04/28/18 19:16 Temperature 97.9 F 04/28/18 19:33 Pulse Rate 76 04/28/18 21:10 Respiratory Rate 20 04/28/18 21:10 Blood Pressure 164/76 04/28/18 21:10 O2 Sat by Pulse Oximetry 96 04/28/18 21:10 Oxygen Delivery Oxygen Delivery Room Air Medical Decision Making - Medical Records Medical records reviewed: Yes I reviewed the patient's medical records. - Lab Data Lab results reviewed: Yes I reviewed the patient's lab results. Result diagrams: 04/28/18 19:46 04/28/18 19:46 Lab Results 04/28/18 04/28/18 04/28/18 Range/Units 19:46 19:46 20:03 WBC 4.9 (4.3-11.1) K/mcL RBC 3.62 L (3.82-4.97) M/mcL Hgb 11.3 L (11.5-15.4) g/dL Hct 35.4 (35.3-44.9) % MCV 97.8 (83.0-100.0) fL MCH 31.2 (28.0-33.3) pg MCHC 31.9 (31.6-35.5) g/dL RDW 11.9 (11.5-14.5) % Plt Count 158 (140-400) K/mcL MPV 9.9 (9.4-12.4) fL Immature Gran % 0.2 (0-4) % Seg Neutrophils % 74.0 % Lymphocytes % 17.1 % Monocytes % 6.1 % Eosinophils % 2.2 % Basophils % 0.4 % Neutrophils # 3.6 (1.6-8.9) K/mcL Lymphocytes # 0.8 (0.6-4.6) K/mcL Monocytes # 0.3 (0.0-1.3) K/mcL Eosinophils # 0.1 (0.0-0.6) K/mcL Basophils # 0.0 (0.0-0.2) K/mcL Sodium 140 (136-145) mEq/L Potassium 5.0 (3.5-5.1) mEq/L Chloride 104 (98-107) mEq/L Carbon Dioxide 28 (23-29) mEq/L BUN 52 H (8-23) mg/dL Creatinine 2.20 H (0.60-1.20) mg/dL Est GFR ( Amer) 26 L (> 60) Est GFR (Non-Af Amer) 22 L (> 60) BUN/Creatinine Ratio 24 (6-26) Glucose 138 H (70-105) mg/dL Calculated Osmolality 306 H (280-300) Calcium 10.1 (8.6-10.3) mg/dL Urine Color Yellow (Yellow) Urine Clarity Clear (Clear) Urine pH 7.0 (5.0-8.0) pH Units Ur Specific [place] 1.006 L (1.010-1.025) Urine Protein Negative (Neg-Trace) mg/dL Urine Glucose (UA) Normal (Normal) mg/dL Urine Ketones Negative (Negative) mg/dL Urine Blood Negative (Negative) Urine Nitrite Negative (Negative) Urine Bilirubin Negative (Negative) Urine Urobilinogen Normal (Normal) mg/dL Ur Leukocyte Esterase Large H (Negative) Urine Microscopic RBC 0-3 (0-3) per hpf Urine Microscopic WBC 15-30 H (0-3) per hpf Ur Squamous Epith Cells Many H (None-Few) per lpf Urine Bacteria Moderate H (None-Few) per hpf Hyaline Casts None Seen (None-Few) per lpf - EKG Data EKG #1 EKG attestation: Yes I reviewed and interpreted this EKG. EKG results narrative: EKG shows normal sinus rhythm with ventricular rate is 74. No significant ST segment elevation or depression. No arrhythmia or ectopy. No significant change from prior EKG dated 04/27/2018. Attestation Statement - Attestation Attestation: I, Frank Carlos MD, personally evaluated this patient and discussed their management with the resident physician. I reviewed the resident's note and agree with the documented findings, medical decision making, and plan of care. Patient is a 77-year-old female who presents to the emergency department with family complaining of altered mental status. Patient was seen here yesterday for some generalized weakness. She was offered admission but apparently r efused. Today family reports that she has been sleeping more than usual and has been more confused than normal. She also has been having some hallucinations which is not normal for her. She complains of her usual aches and pains all over but otherwise no specific areas of pain. No chest pain or difficulty breathing. No cough. No fever. No abdominal pain. No urinary symptoms. She has had some constipation but used a laxative and had a bowel movement today. On examination patient is a well-developed well-nourished elderly female in no acute distress. She is alert and oriented 3. There is no cyanosis or diaphoresis. Breath sounds are clear and equal bilaterally. Heart regular rate and rhythm. Abdomen is soft and nontender with normal bowel sounds. EKG shows normal sinus rhythm with ventricular rate is 74. No significant ST segment elevation or depression. No arrhythmia or ectopy. No significant change from prior EKG dated 04/27/2018. Labs reviewed. Patient does appear to have some urinary tract infection which we will go ahead and treat. The hospitalist, Dr. Bhatt, was consulted and accepted admission of the patient.
[2018-04-28 20:06] LABS: Basophils % 0.4 %; Eosinophils # 0.1 K/mcL (0.0-0.6); Eosinophils % 2.2 %; Hematocrit 35.4 % (35.3-44.9); Hemoglobin 11.3 g/dL (11.5-15.4); Immature Granulocytes % 0.2 % (0-4); Lymphocytes # 0.8 K/mcL (0.6-4.6); Lymphocytes % 17.1 %; Mean Corpuscular HGB Conc 31.9 g/dL (31.6-35.5); Mean Corpuscular Hemoglobin 31.2 pg (28.0-33.3); Mean Corpuscular Volume 97.8 fL (83.0-100.0); Mean Platelet Volume 9.9 fL (9.4-12.4); Monocytes # 0.3 K/mcL (0.0-1.3); Monocytes % 6.1 %; Neutrophils # 3.6 K/mcL (1.6-8.9); Platelet Count 158 K/mcL (140-400); Red Blood Count 3.62 M/mcL (3.82-4.97); Red Cell Distribution Width 11.9 % (11.5-14.5)
[2018-04-28 20:16] LABS: Bilirubin,Urine Negative (Negative); Blood,Urine Negative (Negative); Clarity,Urine Clear (Clear); Color,Urine Yellow (Yellow); Glucose,Urine (UA) Normal (Normal); Ketones,Urine Negative (Negative); Leukocyte Esterase,Urine Large (Negative); Nitrite,Urine Negative (Negative); Protein,Urine Negative (Neg-Trace); Specific Gravity,Urine 1.006 (1.010-1.025); Urobilinogen,Urine Normal (Normal)
[2018-04-28 20:18] LABS: Bacteria,Urine Moderate per hpf (None-Few); Hyaline Casts,Urine None Seen per lpf (None-Few); RBC,Urine 0-3 per hpf (0-3); Squamous Epithelial Cell,Urine Many per lpf (None-Few); WBC,Urine 15-30 per hpf (0-3)
[2018-04-28 20:22] LABS: Calcium 10.1 mg/dL (8.6-10.3)
[2018-04-28] MEDS ORDERED: cefTRIAXone 1,000 MG in Water for inj. (sterile) 20 ML 10 ML IVP ONE (21:06)
[2018-04-28] MEDS ORDERED: 0.9 % Sodium Chloride 1,000 ML IVC SCH (22:45)
[2018-04-29] MEDS ORDERED: Acetaminophen 325 MG TABLET PO PRN (08:32)
[2018-04-29] MEDS ORDERED: Naloxone 0.4 MG/ML INJ IVP PRN (08:32)
[2018-04-29] MEDS ORDERED: Dextrose Gel 15 GM/37.5 ML TUBE PO PRN ×2 (08:38)
[2018-04-29] MEDS ORDERED: *HR* Dextrose 50 % in Water (Syg) 50 ML SYRINGE IVP PRN (08:38)
[2018-04-29] MEDS ORDERED: D5% in Water 1,000 ML IVC PRN (08:38)
[2018-04-29] MEDS: Aspirin Enteric Coated 81 MG Tablet PO SCH (09:46)
[2018-04-29] MEDS: Insulin LISPRO 300 UNITS/3 ML VIAL SQ SCH ×3 (09:46→20:41)
--- NOTE | 2018-04-29 09:54 | Electrocardiograph Report ---
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
[2018-04-29 10:36] LABS: Adenovirus Not Detected (Not Detect); Bordetella Pertussis Not Detected (Not Detect); Chlamydophila pneumoniae Not Detected (Not Detect); Coronavirus 229E Not Detected (Not Detect); Coronavirus HKU1 Not Detected (Not Detect); Coronavirus NL63 Not Detected (Not Detect); Coronavirus OC43 Not Detected (Not Detect); Human Metapneumovirus Not Detected (Not Detect); Human Rhinovirus/Enterovirus Not Detected (Not Detect); Influenza A Subtype 2009 H1 Not Detected (Not Detect); Influenza A Untypeable Not Detected (Not Detect); Influenza B Not Detected (Not Detect); Mycoplasma pneumoniae Not Detected (Not Detect); Parainfluenza Virus 1 Not Detected (Not Detect); Parainfluenza Virus 2 Not Detected (Not Detect); Parainfluenza Virus 3 Not Detected (Not Detect); Parainfluenza Virus 4 Not Detected (Not Detect); Respiratory Syncytial Virus Not Detected (Not Detect)
--- NOTE | 2018-04-29 10:56 | Internal Med History&Physical ---
Date of Encounter: 04/29/18 Time of Encounter: 08:00 Internal Medicine - H&P: HPI Chief complaint: Weakness Admitted From: Home Plans for Post Hospital Care: Home History of present illness: Ms. Daugherty is a 77 year old female present to ER for generalized weakness. Past medical history is significant for diabetes, hypertension, COPD, CKD, systolic CHF. Patient was sent to ER by family as the patient has generalized weakness since yesterday. Patient denies fever, runny nose, cough, shortness of breath, or chest pain. Patient complaining of sore throat and muscle aches. Patient denies nausea, vomiting, or diaphoresis. Patient has history of recurrent UTI but denies dysuria/urgency/increased the frequency. In the emergency room, patient was found UTI by urinalysis, she was treated with IV Rocephin and she feels much better after treatment. Patient was admitted for further management. Past Med Surg Social Fam HX - Past Medical History Medical history: CHF, dementia, diabetes, GERD, hyperlipidemia, hypertension, myocardial infarction, renal disease Additional medical history: atherosclerotic heart disease, anemia, heart failure, urine retention, osteoarthritis, Psychiatric history: anxiety - Past Surgical History Surgical History: cholecystectomy Additional surgical history: Right AKA, Left BKA. - Social History Smoking Status: Former smoker Smokeless Tobacco Status: No Alcohol use: none Drug use: none - Family History Mother Hx Family Cardiac Disorders: Yes Hx Family Respiratory Disorders: No Hx Family Cancer: No Hx Family GI Disorders: No Hx Family Endocrine Disorder: Yes Hx Family Neuromuscular Disorders: No Hx Family Neurologic Disorders: No Hx Family HEENT Disorders: No Hx Family Autoimmune Disorders: No Father Adopted: No Living Status: Hx Family Cardiac Disorders: Yes Hx Family Respiratory Disorders: No Hx Family Cancer: Yes Hx Family GI Disorders: No Hx Family Endocrine Disorder: Yes Hx Family Neuromuscular Disorders: No Hx Family Neurologic Disorders: No Hx Family HEENT Disorders: No Hx Family Autoimmune Disorders: No Internal Medicine - H&P: Meds Aspirin [Lo-Dose Aspirin EC] 81 mg PO DAILY 06/12/16 [History] BuPROPion SR (12 HR) [Wellbutrin SR] 150 mg PO BID 06/12/16 [History] Cholecalciferol (D-3) [Vitamin D] 5,000 unit PO DAILY 06/12/16 [History] Clopidogrel [Plavix] 75 mg PO DAILY 06/12/16 [History] Cyanocobalamin (Vitamin B-12) [Vitamin B-12] 1,000 mcg SL DAILY 06/12/16 [History] Isosorbide DInitrate [Isosorbide Dinitrate] 10 mg PO BID 10/14/16 [History] Atorvastatin Calcium [Lipitor] 20 mg PO QPM 09/24/17 [History] Carvedilol [Coreg] 6.25 mg PO BIDWM 09/24/17 [History] Gabapentin [Neurontin] 100 mg PO BID 09/24/17 [History] Insulin Glargine,Hum.rec.anlog [Lantus Solostar] 10 unit SQ HS 11/09/17 [History] Melatonin [Melatin] 3 mg PO HS 11/09/17 [History] RisperiDONE [Risperdal] 0.5 mg PO HS 11/09/17 [History] risperiDONE [Risperdal] 0.25 mg PO QAM 11/09/17 [History] Allergy/AdvReac Type Severity Reaction Status Date / Time Penicillins Allergy Hives Verified 04/28/18 19:15 All Systems PM: A 10-system review of systems was performed and is negative for pertinent findings except as documented above in the HPI. - Constitutional Vitals: Temp Pulse Resp BP Pulse Ox 98.1 F 77 16 137/68 97 04/29/18 10:24 04/29/18 10:24 04/29/18 10:24 04/29/18 10:24 04/29/18 10:24 Exam: Pt is AAO x 3, in NAD HEENT: NC/AT, PERRL Neck: Supple, no JVD, no LAD Lungs: CTA b/l Heart: S1S2, RRR Abd: Soft, nontender, BS present Ext: ROM wnl, right-sided s/p AKA, left side S/P BKA Neuro: No focal deficit Internal Med - H&P Results - Labs CBC & Chem 7: 04/28/18 19:46 04/28/18 19:46 Labs: Short CBC 04/28/18 Range/Units 19:46 WBC 4.9 (4.3-11.1) K/mcL Hgb 11.3 L (11.5-15.4) g/dL Hct 35.4 (35.3-44.9) % Plt Count 158 (140-400) K/mcL Neutrophils # 3.6 (1.6-8.9) K/mcL BMP 04/28/18 19:46 Sodium 140 Potassium 5.0 Chloride 104 Carbon Dioxide 28 BUN 52 H Creatinine 2.20 H Glucose 138 H Calcium 10.1 Urine 04/28/18 Range/Units 20:03 Urine Color Yellow (Yellow) Urine Clarity Clear (Clear) Urine pH 7.0 (5.0-8.0) pH Units Ur Specific [place] 1.006 L (1.010-1.025) Urine Protein Negative (Neg-Trace) mg/dL Urine Glucose (UA) Normal (Normal) mg/dL - Assessment and Plan (1) Diabetes Current Visit: No Status: Chronic Assessment and plan: We will place patient on sliding scale insulin coverage. 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 Patient denies chest pain Qualifiers: Coronary Disease-Associated Artery/Lesion type: [place] artery [place] vs. transplanted heart: [place] heart Associated angina: with unstable angina Qualified Code(s): I25.110 - Atherosclerotic heart disease of [place] coronary artery with unstable angina pectoris (4) DVT prophylaxis Current Visit: No Status: Acute Assessment and plan: Heparin subcutaneously (5) Chronic kidney disease, stage IV (severe) Current Visit: No Status: Acute Assessment and plan: Creatinine 2.2, which is around the baseline. Patient was given IV fluid in the emergency room. We will continue closely monitor renal function. Avoid nephrotoxic medications. (6) Urinary tract infection Current Visit: Yes Status: Acute Assessment and plan: Patient has generalized weakness. Respiratory viral panel and throat strep test negative. Patient has history of UTI previously. Urine analysis shows UTI. - Patient feels better after Rocephin treatment. Will continue Rocephin IV. Follow up urine culture. Qualifiers: Urinary tract infection type: acute cystitis Hematuria presence: without hematuria Qualified Code(s): N30.00 - Acute cystitis without hematuria (7) Heart failure with reduced ejection fraction Current Visit: No Status: Chronic Assessment and plan: Previous echo shows LVEF 15-20%. Patient appears euvolemic at this point. Patient has a mild dehydration in the emergency room and has received IV fluid. - We will hold further IV fluid at this point. Continue cardiac diet. - Closely monitor fluid status. Qualifiers: Heart failure chronicity: chronic Qualified Code(s): I50.22 - Chronic systolic (congestive) heart failure - Time Spent With Patient Total time spent is greater than 50% in coordination of care (as documented) at patient's floor/unit and/or counseling patient: 30 minute Greater than 35 minutes
[2018-04-29] MEDS: *HR* Heparin 5,000 UNIT/ML VIAL SQ SCH (16:44)
[2018-04-29] MEDS: risperiDONE 0.25 MG TABLET PO SCH (20:38)
[2018-04-29] MEDS: Gabapentin 100 MG CAPSULE PO SCH (20:39)
[2018-04-29] MEDS: Melatonin 3 MG TABLET PO SCH (20:39)
[2018-04-29] MEDS: BuPROPion SR (12 HR) 150 MG TABLET PO SCH (20:39)
[2018-04-29] MEDS: cefTRIAXone 1,000 MG in Water for inj. (sterile) 20 ML 10 ML IVP SCH (20:40)
[2018-04-30 03:09] LABS: Basophils % 0.2 %; Eosinophils # 0.1 K/mcL (0.0-0.6); Eosinophils % 2.5 %; Hematocrit 29.4 % (35.3-44.9); Immature Granulocytes % 0.2 % (0-4); Mean Corpuscular HGB Conc 32.3 g/dL (31.6-35.5); Mean Corpuscular Hemoglobin 30.9 pg (28.0-33.3); Mean Corpuscular Volume 95.8 fL (83.0-100.0); Monocytes # 0.4 K/mcL (0.0-1.3); Monocytes % 8.3 %; Neutrophils # 2.9 K/mcL (1.6-8.9); Platelet Count 137 K/mcL (140-400); Red Blood Count 3.07 M/mcL (3.82-4.97); Red Cell Distribution Width 11.9 % (11.5-14.5); Segmented Neutrophils % 66.8 %
[2018-04-30 03:10] LABS: Hemoglobin 9.5 g/dL (11.5-15.4)
[2018-04-30 03:28] LABS: Calcium 9.2 mg/dL (8.6-10.3); Magnesium 2.6 mg/dL (1.6-2.6); Potassium 4.7 mEq/L (3.5-5.1)
[2018-04-30] MEDS: *HR* Heparin 5,000 UNIT/ML VIAL SQ SCH ×2 (05:50→16:53)
[2018-04-30] MEDS: Insulin LISPRO 300 UNITS/3 ML VIAL SQ SCH ×4 (08:55→22:38)
[2018-04-30] MEDS: risperiDONE 0.25 MG TABLET PO SCH ×2 (10:11→22:37)
[2018-04-30] MEDS: Cholecalciferol (D-3) 1,000 UNIT TABLET PO SCH (10:11)
[2018-04-30] MEDS: Furosemide 20 MG TABLET PO SCH (10:12)
[2018-04-30] MEDS: Aspirin Enteric Coated 81 MG Tablet PO SCH (10:12)
[2018-04-30] MEDS: BuPROPion SR (12 HR) 150 MG TABLET PO SCH ×2 (10:12→22:37)
[2018-04-30] MEDS: Gabapentin 100 MG CAPSULE PO SCH ×2 (10:12→22:37)
[2018-04-30] MEDS: Cyanocobalamin (B-12) 1,000 MCG TABLET PO SCH (10:12)
--- NOTE | 2018-04-30 10:19 | Internal Med Progress Note ---
<Arley Garcia N - Last Filed: 04/30/18 14:24> Hospitalist Progress Note - Encounter Date of Encounter: 04/30/18 Time of Encounter: 10:19 - Subjective Interval History: Patient seen and examined at bedside this morning. She is awake and alert to self and surrounding. she states the year is 2017 when asked about year. She makes appropriate conversation and does not appear altered. She states she has "phantom pain" in her legs from her prior amputations, but denies any dysuria, frequency, suprapubic, or flank pain. Nursing did note that the patient is incontinent and has a sacral pressure ulcer. A kern was ordered. Patient also instructed that she wishes to be a DNR when discussing code status. She has decision making capacity as she exhibits coherent and articulate thought process and is currently not altered. - Exam Vitals: Temp Pulse Resp BP Pulse Ox 98.5 F 72 13 132/77 97 04/30/18 06:29 04/30/18 06:29 04/30/18 06:29 04/30/18 06:29 04/30/18 06:29 Exam: General: Alert and oriented to self and location, no acute distress HEENT: Head is atraumatic and normocephalic, pupils are equal and round, and extraocular muscles are intact Neck: no JVD, trachea midline Chest: symmetrical chest wall rise, no tenderness to palpation Cardiovascular: RRR, no murmurs Respiratory: CTA b/l, no rales ronchi or wheezing Abdomen: soft nontender, no guarding or rigidity Extremities: b/l lower extremity amputations Skin: sacral stage II ulcer Neurological: no obvious focal neurological deficits Psych: appropriate mood and affect - Assessment and Plan (1) Altered mental status Current Visit: No Status: Resolved Assessment and Plan: suspect secondary to underlying UTI vs. polypharmacy patient is on anticholinergic medications such as oxybutinin and also on gabapentin which can lead to AMS Patient also was found to have evidence for a UTI, culture pending prior urine culture showed multidrug resistant bacteria, previously treated with cefepime and ertapenem culture sensitive to rocephin previously will continue 5-7 days of rocephin as this is a complicated UTI AMS improving, patient does not remember her hospitalization but is more awake and alert today Patient will require outpatient management of her home medications that may be contributing to her AMS Reportedly patient lives with family member. Patient may require SNF/ECF placement. Will consult social work, PT, and OT for recommendations. Patient also has sacral ulcer in setting of urinary incontinence with Hx of multiple UTIs. May require more frequent around the clock care. Comments: Secondary to UTI or dehydration Daughter brought her in from [facility], pt had poor feeding and fluid intake appeared dry. Pt alert and oriented x 2 today, easier to understand volume increased in tone Continue to monitor (2) UTI (urinary tract infection) Current Visit: No Status: Acute Assessment and Plan: Hx of multiple UTI's previously treated with cefepime and ertapenem On rocephin currently, AMS improved will continue rocephin for total of 5-7 days Culture pending not septic (3) Acute kidney injury superimposed on chronic kidney disease Current Visit: Yes Status: Acute Assessment and Plan: Baseline creatinine is elevated, ranging from 1.5-2.0 admitted with creatinine of 2.20, slightly improved today to 2.03 Can not fluid hydrate due to history of CHF with severely reduced ejection fraction will continue home diuretics and monitor for fluid overload (4) Heart failure with reduced ejection fraction Current Visit: No Status: Chronic Assessment and Plan: echo from september 2016 reveals EF 15-20% No pacemaker/AICD placed on lasix coarse interstitial markings on CXR this admission Not in respiratory distress or CHF exacerbation Will continue to monitor (5) Diabetes Current Visit: No Status: Chronic Assessment and Plan: SSI (6) Hypertension Current Visit: No Status: Chronic Assessment and Plan: continue home meds (7) CAD (coronary artery disease) Current Visit: No Status: Chronic Assessment and Plan: continue home meds (8) Sacral decubitus ulcer Current Visit: No Status: Acute Assessment and Plan: patient is incontinent with sacral ulcer and UTI Will place kern positional changes Comments: Pt has stage III Receiving wound care in SNF Wound care is following pt (9) DVT prophylaxis Current Visit: No Status: Acute Assessment and Plan: heparin 5000u subQ Q12H - Time Spent with Patient Total time spent is greater than 50% in coordination of care (as documented) at patient's floor/unit and/or counseling patient: Internal Medicine: Result - Labs CBC & Chem 7: 04/30/18 02:21 04/30/18 02:21 Labs: Short CBC 04/30/18 Range/Units 02:21 WBC 4.4 (4.3-11.1) K/mcL Hgb 9.5 L D (11.5-15.4) g/dL Hct 29.4 L (35.3-44.9) % Plt Count 137 L (140-400) K/mcL Neutrophils # 2.9 (1.6-8.9) K/mcL BMP 04/30/18 02:21 Sodium 138 Potassium 4.7 Chloride 107 Carbon Dioxide 24 BUN 43 H Creatinine 2.03 H Glucose 151 H Calcium 9.2 Consult Discharge Plan - Plan Referrals: Griffin Ochoa MD [Primary Care Provider] - <Fred Willett - Last Filed: 04/30/18 17:43> Hospitalist Progress Note - Encounter Date of Encounter: 04/30/18 - Exam Vitals: Temp Pulse Resp BP Pulse Ox 98.5 F 67 15 146/74 95 04/30/18 15:23 04/30/18 15:23 04/30/18 15:23 04/30/18 15:23 04/30/18 15:23 - Assessment and Plan (1) Diabetes Current Visit: No Status: Chronic (2) Hypertension Current Visit: No Status: Chronic (3) CAD (coronary artery disease) Current Visit: No Status: Chronic (4) DVT prophylaxis Current Visit: No Status: Acute (5) Chronic kidney disease, stage IV (severe) Current Visit: No Status: Acute (6) Urinary tract infection Current Visit: Yes Status: Acute (7) Heart failure with reduced ejection fraction Current Visit: No Status: Chronic (8) Acute metabolic encephalopathy Current Visit: Yes Status: Acute - Time Spent with Patient Total time spent is greater than 50% in coordination of care (as documented) at patient's floor/unit and/or counseling patient: Internal Medicine: Result - Labs CBC & Chem 7: 04/30/18 02:21 04/30/18 02:21 Labs: Short CBC 04/30/18 Range/Units 02:21 WBC 4.4 (4.3-11.1) K/mcL Hgb 9.5 L D (11.5-15.4) g/dL Hct 29.4 L (35.3-44.9) % Plt Count 137 L (140-400) K/mcL Neutrophils # 2.9 (1.6-8.9) K/mcL [facility] 04/30/18 02:21 Sodium 138 Potassium 4.7 Chloride 107 Carbon Dioxide 24 BUN 43 H Creatinine 2.03 H Glucose 151 H Calcium 9.2 - Attending Attestation I examined this patient and my medical decision-making was reviewed [facility]. I agree with the documented findings, disposition and treatment plan as described except to the extent set forth below. Ms Daugherty is currently in observation for acute encephalopathy. She remains moderate to high risk. Ms Daugherty is eating breakfast. She feels she is doing better. No fever or chills. No CP or SOB at this time. Exam alert Comfortable Mucus membranes dry Heart not tachy No wheeze abd soft I/P 1. Encephalopathy - most likely due to UTI 2. PVD 3. SARANYA most likely ATN 4. DM Further diagnoses and plan as above. 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 Diabetes mellitus complication status: with kidney complications Diabetes mellitus complication detail: with chronic kidney disease Chronic kidney disease stage: stage 3 (moderate) Qualified Code(s): E11.22 - Type 2 diabetes mellitus with diabetic chronic kidney disease; N18.3 - Chronic kidney disease, stage 3 (moderate); 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 Diabetes mellitus complication status: with kidney complications Diabetes mellitus complication detail: with chronic kidney disease Chronic kidney disease stage: stage 3 (moderate) Qualified Code(s): E11.22 - Type 2 diabetes mellitus with diabetic chronic kidney disease; N18.3 - Chronic kidney disease, stage 3 (moderate); 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 transplanted heart: [place] heart Associated angina: without angina Qualified Code(s): I25.10 - Atherosclerotic heart disease of [place] coronary artery without angina pectoris (6) Urinary tract infection Qualifiers: Urinary tract infection type: acute cystitis Hematuria presence: without hematuria Qualified Code(s): N30.00 - Acute cystitis without hematuria (7) Heart failure with reduced ejection fraction Qualifiers: Heart failure chronicity: chronic Qualified Code(s): I50.22 - Chronic systolic (congestive) heart failure
[2018-04-30] MEDS: cefTRIAXone 1,000 MG in Water for inj. (sterile) 20 ML 10 ML IVP SCH (22:37)
[2018-04-30] MEDS: Melatonin 3 MG TABLET PO SCH (22:37)
[2018-05-01 02:29] LABS: Basophils % 0.5 %; Eosinophils # 0.1 K/mcL (0.0-0.6); Eosinophils % 3.2 %; Hematocrit 29.3 % (35.3-44.9); Hemoglobin 9.5 g/dL (11.5-15.4); Immature Granulocytes % 0.2 % (0-4); Lymphocytes # 1.1 K/mcL (0.6-4.6); Lymphocytes % 27.6 %; Mean Corpuscular HGB Conc 32.4 g/dL (31.6-35.5); Mean Corpuscular Hemoglobin 31.4 pg (28.0-33.3); Mean Corpuscular Volume 96.7 fL (83.0-100.0); Mean Platelet Volume 9.9 fL (9.4-12.4); Monocytes # 0.3 K/mcL (0.0-1.3); Monocytes % 8.5 %; Neutrophils # 2.4 K/mcL (1.6-8.9); Platelet Count 147 K/mcL (140-400); Red Blood Count 3.03 M/mcL (3.82-4.97)
[2018-05-01 02:48] LABS: Calcium 9.3 mg/dL (8.6-10.3); Potassium 4.7 mEq/L (3.5-5.1)
[2018-05-01] MEDS: *HR* Heparin 5,000 UNIT/ML VIAL SQ SCH ×2 (05:16→16:51)
[2018-05-01] MEDS ORDERED: Ondansetron 4 MG/2 ML VIAL IVP PRN (05:27)
[2018-05-01] MEDS: Furosemide 20 MG TABLET PO SCH (07:54)
[2018-05-01] MEDS: Cholecalciferol (D-3) 1,000 UNIT TABLET PO SCH (07:54)
[2018-05-01] MEDS: BuPROPion SR (12 HR) 150 MG TABLET PO SCH ×2 (07:54→20:49)
[2018-05-01] MEDS: Cyanocobalamin (B-12) 1,000 MCG TABLET PO SCH (07:54)
[2018-05-01] MEDS: Gabapentin 100 MG CAPSULE PO SCH ×2 (07:54→20:49)
[2018-05-01] MEDS: risperiDONE 0.25 MG TABLET PO SCH ×2 (07:55→20:49)
[2018-05-01] MEDS: Insulin LISPRO 300 UNITS/3 ML VIAL SQ SCH ×4 (07:55→20:48)
[2018-05-01] MEDS: Aspirin Enteric Coated 81 MG Tablet PO SCH (07:55)
--- NOTE | 2018-05-01 14:39 | Internal Med Progress Note ---
<LatriceJose - Last Filed: 05/01/18 16:05> Hospitalist Progress Note - Encounter Date of Encounter: 05/01/18 Time of Encounter: 09:56 - Subjective Interval History: Ms. Daugherty was seen and examined up and since morning. She has no complaints today. She is tired but that is because she did not sleep well last night. No other concerns today. She is waiting placement - Exam Vitals: Temp Pulse Resp BP Pulse Ox 97.9 F 61 16 128/70 96 05/01/18 11:46 05/01/18 11:46 05/01/18 11:46 05/01/18 11:46 05/01/18 11:46 Exam: Gen.: Vitals noted. No acute distress. AAOx2, resting comfortably in bed. HEENT: PERRL/EOMI, oropharynx clear, Normocephalic, atraumatic, MMM Cardiac: RRR, no murmur, +S1/S2, No BLE edema Pulmonary: CTA bilaterally, no wheezes, rales or rhonchi, equal chest expansion, unlabored breathing Abdomen: soft, nontender, BS noted, no guarding, no palpable HSM Skin: warm and dry, no visible lesions. MSK: ROM not assessed, no joint swelling noted, gait no assessed while in bed. Neuro: A&Ox2, moves all extremities, no focal deficits Psych: Appropriate mood and behavior, AOx2 - Assessment and Plan (1) Diabetes Current Visit: Yes Status: Chronic Assessment and Plan: We will place patient on sliding scale insulin coverage. Closely monitor glucose level Well-controlled this morning with blood sugar of 135 ADA diet (2) Hypertension Current Visit: Yes Status: Chronic Assessment and Plan: Currently well-controlled at 128/70 We will continue current medications (3) CAD (coronary artery disease) Current Visit: Yes Status: Chronic Assessment and Plan: Continue home medications. Patient denies chest pain (4) Chronic kidney disease, stage IV (severe) Current Visit: Yes Status: Acute Assessment and Plan: - Kidney function appears to be at Baseline - BUNs/creatinine of 44/2.22 with GFR of 21 - Baseline appears to be around 1.6-2.3 - Patient did not receive some fluids from the emergency room however we are currently not replenishing due to systolic heart failure as above. We will continue to monitor fluid status and kidney function - Renally dose medications, avoid nephrotoxins (5) Urinary tract infection Current Visit: Yes Status: Acute Assessment and Plan: As above for metabolic encephalopathy (6) Heart failure with reduced ejection fraction Current Visit: Yes Status: Chronic Assessment and Plan: Previous echo shows LVEF 15-20%. Patient appears euvolemic at this point. Patient has a mild dehydration in the emergency room and has received IV fluid. - We will hold further IV fluid at this point. Continue cardiac diet. - Closely monitor fluid status. Does not appear to be in acute exacerbation Continue home medications (7) DVT prophylaxis Current Visit: Yes Status: Acute Assessment and Plan: Heparin subcutaneously (8) Acute metabolic encephalopathy Current Visit: Yes Status: Acute Assessment and Plan: suspect secondary to underlying UTI vs. polypharmacy versus dehydration patient is on anticholinergic medications such as oxybutinin and also on gabapentin which can lead to AMS Patient also was found to have evidence for a UTI, culture growing gram-negative andre prior urine culture showed multidrug resistant bacteria, previously treated with cefepime and ertapenem culture sensitive to rocephin previously will continue 5-7 days of rocephin as this is a complicated UTI AMS improving, patient does not remember her hospitalization but is more awake and alert today Patient will require outpatient management of her home medications that may be contributing to her AMS PT recommending residential facility at this time. Daughter brought her in from [facility] [place] [facility], pt had poor feeding and fluid intake appeared dry. Pt alert and oriented x 2 today, easier to understand volume increased in tone Plan Continue Rocephin, day #2 for suspected UTI as above Continue to monitor culture results Social work consult for potential placement Continue to encourage diet - Time Spent with Patient Total time spent is greater than 50% in coordination of care (as documented) at patient's floor/unit and/or counseling patient: Internal Medicine: Result - Labs CBC & Chem 7: 05/01/18 01:41 05/01/18 01:41 Labs: Short CBC 05/01/18 Range/Units 01:41 WBC 4.0 L (4.3-11.1) K/mcL Hgb 9.5 L (11.5-15.4) g/dL Hct 29.3 L (35.3-44.9) % Plt Count 147 (140-400) K/mcL Neutrophils # 2.4 (1.6-8.9) K/mcL BMP 05/01/18 01:41 Sodium 138 Potassium 4.7 Chloride 105 Carbon Dioxide 26 BUN 44 H Creatinine 2.22 H Glucose 216 H Calcium 9.3 Consult Discharge Plan - Plan Referrals: Griffin Ochoa MD [Primary Care Provider] - <Fred Willett - Last Filed: 05/01/18 17:07> Hospitalist Progress Note - Encounter Date of Encounter: 05/01/18 - Exam Vitals: Temp Pulse Resp BP Pulse Ox 97.5 F L 53 17 135/73 95 05/01/18 16:22 05/01/18 16:22 05/01/18 16:22 05/01/18 16:22 05/01/18 16:22 - Assessment and Plan (1) Diabetes Current Visit: Yes Status: Chronic (2) Hypertension Current Visit: Yes Status: Chronic (3) CAD (coronary artery disease) Current Visit: Yes Status: Chronic (4) DVT prophylaxis Current Visit: Yes Status: Acute (5) Chronic kidney disease, stage IV (severe) Current Visit: Yes Status: Acute (6) Urinary tract infection Current Visit: Yes Status: Acute (7) Heart failure with reduced ejection fraction Current Visit: Yes Status: Chronic (8) Acute metabolic encephalopathy Current Visit: Yes Status: Acute - Time Spent with Patient Total time spent is greater than 50% in coordination of care (as documented) at patient's floor/unit and/or counseling patient: Internal Medicine: Result - Labs CBC & Chem 7: 05/01/18 01:41 05/01/18 01:41 Labs: Short CBC 05/01/18 Range/Units 01:41 WBC 4.0 L (4.3-11.1) K/mcL Hgb 9.5 L (11.5-15.4) g/dL Hct 29.3 L (35.3-44.9) % Plt Count 147 (140-400) K/mcL Neutrophils # 2.4 (1.6-8.9) K/mcL BMP 05/01/18 01:41 Sodium 138 Potassium 4.7 Chloride 105 Carbon Dioxide 26 BUN 44 H Creatinine 2.22 H Glucose 216 H Calcium 9.3 - Attending Attestation I examined this patient and my medical decision-making was reviewed with the Resident Physician on 05/01/18. I agree with the documented findings, dispositio n and treatment plan as described except to the extent set forth below. Ms Daugherty is currently admitted for acute encephalopathy most likely related to UTI. She remains moderate to high risk due to potential for worsening clinical status. Ms Daugherty is wanting to call her daughter to take her home. Therapy recommended SNF. No fever or chills. Receiving IV Ceftriaxone. Exam alert Comfortable Mucus membranes dry Heart reg and not tachy Lungs clear Abd soft and nontender I/P 1. Acute encephalopathy - seems to be a little better today. Continue supportive care 2. UTI - cx with gram neg andre. On IV Ceftriaxone 3. PVD Further diagnoses and plan as above. <Jose Pollard - Last Filed: 05/01/18 16:05> (1) Diabetes Qualifiers: Diabetes mellitus type: type 2 Diabetes mellitus skilled nursing insulin use: with joint terminal attack controller use Diabetes mellitus complication status: with kidney complications Diabetes mellitus complication detail: with chronic kidney disease Chronic kidney disease stage: stage 3 (moderate) Qualified Code(s): E11.22 - Type 2 diabetes mellitus with diabetic chronic kidney disease; N18.4 - Chronic kidney disease, stage 4 (severe); Z79.4 - computer terminal operator (current) use of insulin (2) Hypertension Qualifiers: Hypertension type: essential hypertension Qualified Code(s): I10 - Essential (primary) hypertension (3) CAD (coronary artery disease) Qualifiers: Coronary Disease-Associated Artery/Lesion type: [place] artery [place] vs. transplanted heart: [place] heart Associated angina: without angina Qualified Code(s): I25.10 - Atherosclerotic heart disease of [place] coronary artery without angina pectoris (5) Urinary tract infection Qualifiers: Urinary tract infection type: acute cystitis Hematuria presence: without hematuria Qualified Code(s): N30.00 - Acute cystitis without hematuria (6) Heart failure with reduced ejection fraction Qualifiers: Heart failure chronicity: chronic Qualified Code(s): I50.22 - Chronic systolic (congestive) heart failure <Fred Willett - Last Filed: 05/01/18 17:07> (1) Diabetes Qualifiers: Diabetes mellitus type: type 2 Diabetes mellitus skilled nursing insulin use: with joint terminal attack controller use Diabetes mellitus complication status: with kidney complications Diabetes mellitus complication detail: with chronic kidney disease Chronic kidney disease stage: stage 4 (severe) Qualified Code(s): E11.22 - Type 2 diabetes mellitus with diabetic chronic kidney disease; N18.4 - Chronic kidney disease, stage 4 (severe); Z79.4 - halfway (current) use of insulin (2) Hypertension Qualifiers: Hypertension type: essential hypertension Qualified Code(s): I10 - Essential (primary) hypertension (3) CAD (coronary artery disease) Qualifiers: Coronary Disease-Associated Artery/Lesion type: [place] artery [place] vs. transplanted heart: [place] heart Associated angina: without angina Qualified Code(s): I25.10 - Atherosclerotic heart disease of [place] coronary artery without angina pectoris (6) Urinary tract infection Qualifiers: Urinary tract infection type: acute cystitis Hematuria presence: without hematuria Qualified Code(s): N30.00 - Acute cystitis without hematuria (7) Heart failure with reduced ejection fraction Qualifiers: Heart failure chronicity: chronic Qualified Code(s): I50.22 - Chronic systolic (congestive) heart failure
[2018-05-01] MEDS: cefTRIAXone 1,000 MG in Water for inj. (sterile) 20 ML 10 ML IVP SCH (20:48)
[2018-05-01] MEDS: Melatonin 3 MG TABLET PO SCH (20:49)
[2018-05-02] MEDS: *HR* Heparin 5,000 UNIT/ML VIAL SQ SCH ×2 (05:31→17:08)
[2018-05-02 05:44] LABS: Basophils % 0.2 %; Eosinophils # 0.1 K/mcL (0.0-0.6); Eosinophils % 2.8 %; Hemoglobin 10.4 g/dL (11.5-15.4); Immature Granulocytes % 0.2 % (0-4); Lymphocytes % 23.1 %; Mean Corpuscular HGB Conc 32.5 g/dL (31.6-35.5); Mean Corpuscular Hemoglobin 31.3 pg (28.0-33.3); Mean Corpuscular Volume 96.4 fL (83.0-100.0); Mean Platelet Volume 9.8 fL (9.4-12.4); Monocytes # 0.4 K/mcL (0.0-1.3); Monocytes % 8.8 %; Neutrophils # 2.8 K/mcL (1.6-8.9); Platelet Count 143 K/mcL (140-400); Red Blood Count 3.32 M/mcL (3.82-4.97); Red Cell Distribution Width 11.9 % (11.5-14.5); Segmented Neutrophils % 64.9 %
[2018-05-02 06:03] LABS: Calcium 9.7 mg/dL (8.6-10.3); Potassium 4.5 mEq/L (3.5-5.1)
[2018-05-02] MEDS: Insulin LISPRO 300 UNITS/3 ML VIAL SQ SCH ×4 (07:47→20:05)
[2018-05-02] MEDS: Cyanocobalamin (B-12) 1,000 MCG TABLET PO SCH (08:50)
[2018-05-02] MEDS: BuPROPion SR (12 HR) 150 MG TABLET PO SCH ×2 (08:50→20:04)
[2018-05-02] MEDS: Aspirin Enteric Coated 81 MG Tablet PO SCH (08:51)
[2018-05-02] MEDS: Cholecalciferol (D-3) 1,000 UNIT TABLET PO SCH (08:51)
[2018-05-02] MEDS: Gabapentin 100 MG CAPSULE PO SCH ×2 (08:51→20:04)
[2018-05-02] MEDS: Furosemide 20 MG TABLET PO SCH (08:51)
[2018-05-02] MEDS: risperiDONE 0.25 MG TABLET PO SCH ×2 (08:51→20:04)
--- NOTE | 2018-05-02 10:15 | Internal Med Progress Note ---
<Jose Pollard - Last Filed: 05/02/18 12:45> Hospitalist Progress Note - Encounter Date of Encounter: 05/02/18 Time of Encounter: 10:15 - Subjective Interval History: Patient was seen and examined at bedside this morning. She states that overall she is feeling well however is quite tired today. Takes that she has been sl eeping well and is getting a little bit better each day. She continues to deny any symptoms of fevers, chills, nausea, vomiting, pain. - Exam Vitals: Temp Pulse Resp BP Pulse Ox 97.9 F 68 16 146/76 96 05/02/18 07:51 05/02/18 07:51 05/02/18 07:51 05/02/18 07:51 05/02/18 07:51 Exam: Gen.: Vitals noted. No acute distress. AAOx2, resting comfortably in bed. HEENT: PERRL/EOMI, oropharynx clear, Normocephalic, atraumatic, MMM Cardiac: RRR, no murmur, +S1/S2, No BLE edema Pulmonary: CTA bilaterally, no wheezes, rales or rhonchi, equal chest expansion, unlabored breathing Abdomen: soft, nontender, BS noted, no guarding, no palpable HSM Skin: warm and dry, no visible lesions. MSK: ROM not assessed, no joint swelling noted, gait no assessed while in bed. Neuro: A&Ox2, moves all extremities, no focal deficits Psych: Appropriate mood and behavior, AOx2 - Assessment and Plan (1) Acute metabolic encephalopathy Current Visit: Yes Status: Acute Assessment and Plan: Appears to be resolving suspect secondary to underlying UTI vs. polypharmacy versus dehydration patient is on anticholinergic medications such as oxybutinin and also on gabapentin which can lead to AMS Patient also was found to have evidence for a UTI, culture growing pansensitive pseudomonas prior urine culture showed multidrug resistant bacteria, previously treated with cefepime and ertapenem will continue 5-7 days of abx as this is a complicated UTI AMS appears to be resolving, patient does not remember her hospitalization but is more awake and alert today Patient will require outpatient management of her home medications that may be contributing to her AMS PT recommending alf facility at this time. Daughter brought her in from [facility], pt had poor feeding and fluid intake appeared dry. Pt alert and oriented x 2 today, easier to understand volume increased in tone Plan Continue antibiotics, day #3 for suspected UTI as above-- Will change to cefepime for pseudomonal coverage day #1 Continue to monitor culture results Social work consult for potential placement Continue to encourage diet (2) Diabetes Current Visit: Yes Status: Chronic Assessment and Plan: We will place patient on sliding scale insulin coverage. Closely monitor glucose level Well-controlled this morning with blood sugar of 137 ADA diet (3) Hypertension Current Visit: Yes Status: Chronic Assessment and Plan: Currently well-controlled at 127/71 We will continue current medications (4) CAD (coronary artery disease) Current Visit: Yes Status: Chronic Assessment and Plan: Continue home medications. Patient denies chest pain (5) Chronic kidney disease, stage IV (severe) Current Visit: Yes Status: Acute Assessment and Plan: - Kidney function appears to be at Baseline - BUNs/creatinine of 40/2.25 with GFR of 21 - Baseline appears to be around 1.6-2.3 - We will continue to monitor fluid status and kidney function - Renally dose medications, avoid nephrotoxins (6) Urinary tract infection Current Visit: Yes Status: Acute Assessment and Plan: As above for metabolic encephalopathy (7) Heart failure with reduced ejection fraction Current Visit: Yes Status: Chronic Assessment and Plan: Previous echo shows LVEF 15-20%. Patient appears euvolemic at this point. Patient has a mild dehydration in the emergency room and has received IV fluid. - We will hold further IV fluid at this point. Continue cardiac diet. - Closely monitor fluid status. Does not appear to be in acute exacerbation Continue home medications (8) DVT prophylaxis Current Visit: Yes Status: Acute Assessment and Plan: Heparin subcutaneously (9) Anemia Current Visit: Yes Status: Chronic Assessment and Plan: - H/H is 10.4/32.0 - This appears to be near baseline of 8-9 - Hemoglobin was 11.3 on admission however patient was noted to be hypovolemic at that time - She is asymptomatic and suspect that weakness is more related to UTI as above - We will continue monitor - Time Spent with Patient Total time spent is greater than 50% in coordination of care (as documented) at patient's floor/unit and/or counseling patient: Internal Medicine: Result - Labs CBC & Chem 7: 05/02/18 05:27 05/02/18 05:27 Labs: Short CBC 05/02/18 Range/Units 05:27 WBC 4.3 (4.3-11.1) K/mcL Hgb 10.4 L (11.5-15.4) g/dL Hct 32.0 L (35.3-44.9) % Plt Count 143 (140-400) K/mcL Neutrophils # 2.8 (1.6-8.9) K/mcL BMP 05/02/18 05:27 Sodium 140 Potassium 4.5 Chloride 106 Carbon Dioxide 27 BUN 40 H Creatinine 2.25 H Glucose 137 H Calcium 9.7 Consult Discharge Plan - Plan Referrals: Griffin Ochoa MD [Primary Care Provider] - <Fred Willett - Last Filed: 05/02/18 18:18> Hospitalist Progress Note - Encounter Date of Encounter: 05/02/18 - Exam Vitals: Temp Pulse Resp BP Pulse Ox 97.5 F L 58 15 123/70 98 05/02/18 15:17 05/02/18 15:17 05/02/18 15:17 05/02/18 15:17 05/02/18 15:17 - Assessment and Plan (1) Diabetes Current Visit: Yes Status: Chronic (2) Hypertension Current Visit: Yes Status: Chronic (3) CAD (coronary artery disease) Current Visit: Yes Status: Chronic (4) DVT prophylaxis Current Visit: Yes Status: Acute (5) Chronic kidney disease, stage IV (severe) Current Visit: Yes Status: Acute (6) Urinary tract infection Current Visit: Yes Status: Acute (7) Heart failure with reduced ejection fraction Current Visit: Yes Status: Chronic (8) Acute metabolic encephalopathy Current Visit: Yes Status: Acute (9) Anemia Current Visit: Yes Status: Chronic - Time Spent with Patient Total time spent is greater than 50% in coordination of care (as documented) at patient's floor/unit and/or counseling patient: Internal Medicine: Result - Labs CBC & Chem 7: 05/02/18 05:27 05/02/18 05:27 Labs: Short CBC 05/02/18 Range/Units 05:27 WBC 4.3 (4.3-11.1) K/mcL Hgb 10.4 L (11.5-15.4) g/dL Hct 32.0 L (35.3-44.9) % Plt Count 143 (140-400) K/mcL Neutrophils # 2.8 (1.6-8.9) K/mcL BMP 05/02/18 05:27 Sodium 140 Potassium 4.5 Chloride 106 Carbon Dioxide 27 BUN 40 H Creatinine 2.25 H Glucose 137 H Calcium 9.7 - Attending Attestation I examined this patient and my medical decision-making was reviewed with the Resident Physician on 05/02/18. I agree with the documented findings, disposition and treatment plan as described except to the extent set forth below. Ms Daugherty is currently admitted for acute encephalopathy and UTI. She remains moderate to high risk due to potential for worsening clinical status. Ms Daugherty is doing OK. No fever or chills. No CP or SOB. No GI issues. Exam alert Comfortable Mucus membranes dry Heart not tachy Lungs clear Abd soft I/P 1. Pseudomonas UTI - on IV abx 2. PVD 3. Encephalopathy D/C planning - ? SNF Further diagnoses and plan as above. <Jose Pollard - Last Filed: 05/02/18 12:45> (2) Diabetes Qualifiers: Diabetes mellitus type: type 2 Diabetes mellitus termite renewal inspector insulin use: with termite renewal inspector use Diabetes mellitus complication status: with kidney complications Diabetes mellitus complication detail: with chronic kidney disease Chronic kidney disease stage: stage 4 (severe) Qualified Code(s): E11.22 - Type 2 diabetes mellitus with diabetic chronic kidney disease; N18.4 - Chronic kidney disease, stage 4 (severe); Z79.4 - [facility] (current) use of insulin (3) Hypertension Qualifiers: Hypertension type: essential hypertension Qualified Code(s): I10 - Essential (primary) hypertension (4) CAD (coronary artery disease) Qualifiers: Coronary Disease-Associated Artery/Lesion type: [place] artery [place] vs. transplanted heart: [place] heart Associated angina: without angina Qualified Code(s): I25.10 - Atherosclerotic heart disease of [place] coronary artery without angina pectoris (6) Urinary tract infection Qualifiers: Urinary tract infection type: acute cystitis Hematuria presence: without hematuria Qualified Code(s): N30.00 - Acute cystitis without hematuria (7) Heart failure with reduced ejection fraction Qualifiers: Heart failure chronicity: chronic Qualified Code(s): I50.22 - Chronic systolic (congestive) heart failure (9) Anemia Qualifiers: Anemia type: due to chronic kidney disease Chronic kidney disease stage: stage 4 (severe) Qualified Code(s): N18.4 - Chronic kidney disease, stage 4 (severe); D63.1 - Anemia in chronic kidney disease <Fred Willett - Last Filed: 05/02/18 18:18> (1) Diabetes Qualifiers: Diabetes mellitus type: type 2 Diabetes mellitus termite renewal inspector insulin use: with termite renewal inspector use Diabetes mellitus complication status: with kidney complications Diabetes mellitus complication detail: with chronic kidney disease Chronic kidney disease stage: stage 4 (severe) Qualified Code(s): E11.22 - Type 2 diabetes mellitus with diabetic chronic kidney disease; N18.4 - Chronic kidney disease, stage 4 (severe); Z79.4 - termite renewal inspector (current) use of insulin (2) Hypertension Qualifiers: Hypertension type: essential hypertension Qualified Code(s): I10 - Essential (primary) hypertension (3) CAD (coronary artery disease) Qualifiers: Coronary Disease-Associated Artery/Lesion type: [place] artery [place] vs. transplanted heart: [place] heart Associated angina: without angina Qualified Code(s): I25.10 - Atherosclerotic heart disease of [place] coronary artery without angina pectoris (6) Urinary tract infection Qualifiers: Urinary tract infection type: acute cystitis Hematuria presence: without hematuria Qualified Code(s): N30.00 - Acute cystitis without hematuria (7) Heart failure with reduced ejection fraction Qualifiers: Heart failure chronicity: chronic Qualified Code(s): I50.22 - Chronic systolic (congestive) heart failure (9) Anemia Qualifiers: Anemia type: due to chronic kidney disease Chronic kidney disease stage: stage 4 (severe) Qualified Code(s): N18.4 - Chronic kidney disease, stage 4 (severe); D63.1 - Anemia in chronic kidney disease
[2018-05-02] MEDS: Cefepime HCl 1,000 MG in Water for inj. (sterile) 20 ML 10 ML IVP SCH (17:06)
[2018-05-02] MEDS: Melatonin 3 MG TABLET PO SCH (20:04)
[2018-05-03] MEDS: *HR* Heparin 5,000 UNIT/ML VIAL SQ SCH ×3 (06:15→17:59)
[2018-05-03] MEDS: Cefepime HCl 1,000 MG in Water for inj. (sterile) 20 ML 10 ML IVP SCH ×2 (06:15→08:34)
[2018-05-03 06:34] LABS: Hematocrit 35.3 % (35.3-44.9); Hemoglobin 11.5 g/dL (11.5-15.4); Mean Corpuscular HGB Conc 32.6 g/dL (31.6-35.5); Mean Corpuscular Hemoglobin 31.4 pg (28.0-33.3); Mean Corpuscular Volume 96.4 fL (83.0-100.0); Mean Platelet Volume 9.7 fL (9.4-12.4); Platelet Count 171 K/mcL (140-400); Red Blood Count 3.66 M/mcL (3.82-4.97); Red Cell Distribution Width 11.9 % (11.5-14.5)
[2018-05-03 06:54] LABS: Calcium 9.9 mg/dL (8.6-10.3); Potassium 4.3 mEq/L (3.5-5.1)
[2018-05-03] MEDS: Furosemide 20 MG TABLET PO SCH (08:38)
[2018-05-03] MEDS: Aspirin Enteric Coated 81 MG Tablet PO SCH (08:38)
[2018-05-03] MEDS: Insulin LISPRO 300 UNITS/3 ML VIAL SQ SCH ×4 (08:38→21:51)
[2018-05-03] MEDS: BuPROPion SR (12 HR) 150 MG TABLET PO SCH ×2 (08:38→21:44)
[2018-05-03] MEDS: risperiDONE 0.25 MG TABLET PO SCH ×2 (08:38→21:44)
[2018-05-03] MEDS: Cyanocobalamin (B-12) 1,000 MCG TABLET PO SCH (08:39)
[2018-05-03] MEDS: Cholecalciferol (D-3) 1,000 UNIT TABLET PO SCH (08:39)
[2018-05-03] MEDS: Gabapentin 100 MG CAPSULE PO SCH ×2 (08:39→21:44)
--- NOTE | 2018-05-03 15:05 | Internal Med Progress Note ---
<Arley Garcia N - Last Filed: 05/03/18 15:18> Hospitalist Progress Note - Encounter Date of Encounter: 05/03/18 Time of Encounter: 10:00 - Subjective Interval History: Patient seen and examined at bedside this morning, she denies any suprapubic or flank pain. No fevers or chills, hemodynamically stable overnight. Urine cultures grew pseudomonas and VRE. Currently on cefepime. - Exam Vitals: Temp Pulse Resp BP Pulse Ox 98.2 F 80 18 174/104 96 05/03/18 12:09 05/03/18 12:09 05/03/18 12:09 05/03/18 12:09 05/03/18 12:09 Exam: Gen.: Vitals noted. No acute distress. AAOx2, resting comfortably in bed. HEENT: PERRL/EOMI, oropharynx clear, Normocephalic, atraumatic, MMM Cardiac: RRR, no murmur, +S1/S2, No BLE edema Pulmonary: CTA bilaterally, no wheezes, rales or rhonchi, equal chest expansion, unlabored breathing Abdomen: soft, nontender, BS noted, no guarding, no palpable HSM Skin: warm and dry, no visible lesions. MSK: ROM not assessed, no joint swelling noted, gait no assessed while in bed. b/l lower extremity amputations Neuro: A&Ox2, moves all extremities, no focal deficits Psych: Appropriate mood and behavior, AOx2 - Assessment and Plan (1) Altered mental status Current Visit: No Status: Resolved Assessment and Plan: Suspect acute metabolic encephalopathy in the setting of UTI Improved after treatment with ceftriaxone, abx changed to cefepime after culture grew pseudomonas Culture today also growing VRE Patient recommended to DC to nursing home facility Plan adjusted antibiotic coverage to cover for VRE as well as pseudomonas, now starting ciprofloxacin and daptomycin (can not use ampicillin due to penicillin allergy) 6 more days of ciprofloxacin, 7 more days of daptomycin due to creatinine clearance <30 will dose ciprofloxacin 250mg BID and daptomycin 500mg Q48HRs Lab currently running sensitivity of VRE to cefepime Social work consult for potential placement Comments: Secondary to UTI or dehydration Daughter brought her in from [facility], pt had poor feeding and fluid intake appeared dry. Pt alert and oriented x 2 today, easier to understand volume increased in tone Continue to monitor (2) UTI (urinary tract infection) Current Visit: No Status: Acute Assessment and Plan: culture growing robertson sensitive pseudomonas and VRE antibiotics changed to ciprofloxacin and daptomycin 6 more days of ciprofloxacin treatment 7 more days of ampicillin treatment (3) Acute kidney injury superimposed on chronic kidney disease Current Visit: Yes Status: Acute Assessment and Plan: baseline CKD, creatinine near baseline renally dosing antibiotics (4) Heart failure with reduced ejection fraction Current Visit: Yes Status: Chronic Assessment and Plan: Previous echo shows LVEF 15-20%. Patient appears euvolemic at this point. Patient has a mild dehydration in the emergency room and has received IV fluid. - We will hold further IV fluid at this point. Continue cardiac diet. - Closely monitor fluid status. Does not appear to be in acute exacerbation Continue home medications (5) Diabetes Current Visit: Yes Status: Chronic Assessment and Plan: We will place patient on sliding scale insulin coverage. Closely monitor glucose level Well-controlled this morning with blood sugar of 137 ADA diet (6) Hypertension Current Visit: Yes Status: Chronic Assessment and Plan: continue home meds (7) DVT prophylaxis Current Visit: Yes Status: Acute Assessment and Plan: heparin subQ - Time Spent with Patient Total time spent is greater than 50% in coordination of care (as documented) at patient's floor/unit and/or counseling patient: Internal Medicine: Result - Labs CBC & Chem 7: 05/03/18 06:14 05/03/18 06:14 Labs: Short CBC 05/03/18 Range/Units 06:14 WBC 4.3 (4.3-11.1) K/mcL Hgb 11.5 (11.5-15.4) g/dL Hct 35.3 (35.3-44.9) % Plt Count 171 (140-400) K/mcL BMP 05/03/18 06:14 Sodium 140 Potassium 4.3 Chloride 104 Carbon Dioxide 28 BUN 46 H Creatinine 2.23 H Glucose 130 H Calcium 9.9 Consult Discharge Plan - Plan Referrals: Griffin Ochoa MD [Primary Care Provider] - <Fred Willett - Last Filed: 05/03/18 17:56> Hospitalist Progress Note - Encounter Date of Encounter: 05/03/18 - Exam Vitals: Temp Pulse Resp BP Pulse Ox 97.6 F 68 19 167/91 98 05/03/18 16:11 05/03/18 16:11 05/03/18 16:11 05/03/18 16:11 05/03/18 16:11 - Assessment and Plan (1) Diabetes Current Visit: Yes Status: Chronic (2) Hypertension Current Visit: Yes Status: Chronic (3) CAD (coronary artery disease) Current Visit: Yes Status: Chronic (4) DVT prophylaxis Current Visit: Yes Status: Acute (5) Chronic kidney disease, stage IV (severe) Current Visit: Yes Status: Acute (6) Urinary tract infection Current Visit: Yes Status: Acute (7) Heart failure with reduced ejection fraction Current Visit: Yes Status: Chronic (8) Acute metabolic encephalopathy Current Visit: Yes Status: Acute (9) Anemia Current Visit: Yes Status: Chronic - Time Spent with Patient Total time spent is greater than 50% in coordination of care (as documented) at patient's floor/unit and/or counseling patient: Internal Medicine: Result - Labs CBC & Chem 7: 05/03/18 06:14 05/03/18 06:14 Labs: Short CBC 05/03/18 Range/Units 06:14 WBC 4.3 (4.3-11.1) K/mcL Hgb 11.5 (11.5-15.4) g/dL Hct 35.3 (35.3-44.9) % Plt Count 171 (140-400) K/mcL BMP 05/03/18 06:14 Sodium 140 Potassium 4.3 Chloride 104 Carbon Dioxide 28 BUN 46 H Creatinine 2.23 H Glucose 130 H Calcium 9.9 - Attending Attestation I examined this patient and my medical decision-making was reviewed with the Resident Physician on 05/03/18. I agree with the documented findings, disposition and treatment plan as described except to the extent set forth below. Ms Daugherty is currently admitted for acute encephalopathy presumed due to acute UTI. She grew Pseudomonas and VRE. She remains moderate to high risk due to potential for worsening clinical status. Ms Daugherty is doing OK. She has no CP or SOB. No fever or chills. Urine with VRE and Pseudomonas. No GI issues. Exam alert Comfortable Mucus membranes dry Heart not tachy No wheeze abd soft and nontender I/P 1. UTI - Abx adjusted today 2. Acute encephalopathy - appears to be at baseline now 3. PVD Anticipate d/c tomorrow. Further diagnoses and plan as above. <Arley Garcia - Last Filed: 05/03/18 15:18> (1) Altered mental status Qualifiers: Altered mental status type: disorientation Qualified Code(s): R41.0 - Disorientation, unspecified (2) UTI (urinary tract infection) Qualifiers: Urinary tract infection type: acute cystitis Hematuria presence: without hematuria Qualified Code(s): N30.00 - Acute cystitis without hematuria (4) Heart failure with reduced ejection fraction Qualifiers: Heart failure chronicity: chronic Qualified Code(s): I50.22 - Chronic systolic (congestive) heart failure (5) Diabetes Qualifiers: Diabetes mellitus type: type 2 Diabetes mellitus 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 insulin use: with 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 use Diabetes mellitus complication status: with kidney complications Diabetes mellitus complication detail: with chronic kidney disease Chronic kidney disease stage: stage 4 (severe) Qualified Code(s): E11.22 - Type 2 diabetes mellitus with diabetic chronic kidney disease; N18.4 - Chronic kidney disease, stage 4 (severe); Z79.4 - [place] (current) use of insulin (6) Hypertension Qualifiers: Hypertension type: essential hypertension Qualified Code(s): I10 - Essential (primary) hypertension <Fred Willett A - Last Filed: 05/03/18 17:56> (1) Diabetes Qualifiers: Diabetes mellitus type: type 2 Diabetes mellitus 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 insulin use: with 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 use Diabetes mellitus complication status: with kidney complications Diabetes mellitus complication detail: with chronic kidney disease Chronic kidney disease stage: stage 4 (severe) Qualified Code(s): E11.22 - Type 2 diabetes mellitus with diabetic chronic kidney disease; N18.4 - Chronic kidney disease, stage 4 (severe); Z79.4 - meterman (current) use of insulin (2) Hypertension Qualifiers: Hypertension type: essential hypertension Qualified Code(s): I10 - Essential (primary) hypertension (3) CAD (coronary artery disease) Qualifiers: Coronary Disease-Associated Artery/Lesion type: [place] artery [place] vs. transplanted heart: [place] heart Associated angina: without angina Qualified Code(s): I25.10 - Atherosclerotic heart disease of [place] coronary artery without angina pectoris (6) Urinary tract infection Qualifiers: Urinary tract infection type: acute cystitis Hematuria presence: without hematuria Qualified Code(s): N30.00 - Acute cystitis without hematuria (7) Heart failure with reduced ejection fraction Qualifiers: Heart failure chronicity: chronic Qualified Code(s): I50.22 - Chronic systolic (congestive) heart failure (9) Anemia Qualifiers: Anemia type: due to chronic kidney disease Chronic kidney disease stage: stage 4 (severe) Qualified Code(s): N18.4 - Chronic kidney disease, stage 4 (severe); D63.1 - Anemia in chronic kidney disease
[2018-05-03] MEDS ORDERED: DAPTOmycin 500 MG in 0.9 % Sodium Chloride 100 ML IVPB SCH (16:00)
[2018-05-03] MEDS: Melatonin 3 MG TABLET PO SCH (21:44)
[2018-05-04 04:55] LABS: Basophils % 0.4 %; Eosinophils # 0.2 K/mcL (0.0-0.6); Eosinophils % 3.5 %; Hematocrit 33.5 % (35.3-44.9); Hemoglobin 11.2 g/dL (11.5-15.4); Immature Granulocytes % 0.2 % (0-4); Lymphocytes # 1.1 K/mcL (0.6-4.6); Lymphocytes % 22.2 %; Mean Corpuscular HGB Conc 33.4 g/dL (31.6-35.5); Mean Corpuscular Hemoglobin 31.5 pg (28.0-33.3); Mean Corpuscular Volume 94.4 fL (83.0-100.0); Mean Platelet Volume 9.8 fL (9.4-12.4); Monocytes # 0.5 K/mcL (0.0-1.3); Monocytes % 9.2 %; Neutrophils # 3.2 K/mcL (1.6-8.9); Platelet Count 158 K/mcL (140-400); Red Blood Count 3.55 M/mcL (3.82-4.97); Red Cell Distribution Width 11.9 % (11.5-14.5); Segmented Neutrophils % 64.5 %
[2018-05-04] MEDS: *HR* Heparin 5,000 UNIT/ML VIAL SQ SCH ×2 (05:07→16:41)
[2018-05-04 05:15] LABS: Potassium 4.4 mEq/L (3.5-5.1)
[2018-05-04] MEDS: Insulin LISPRO 300 UNITS/3 ML VIAL SQ SCH ×4 (08:00→20:22)
--- NOTE | 2018-05-04 09:08 | Internal Med Progress Note ---
<Arley Garcia N - Last Filed: 05/04/18 09:49> Hospitalist Progress Note - Encounter Date of Encounter: 05/04/18 Time of Encounter: 08:15 - Subjective Interval History: Patient seen and examined at bedside this morning, she is upset regarding her room change and having to continue to stay in the hospital. Her antibiotic regimen was changed to ciprofloxacin and daptomycin yesterday. Afebrile overnight. Denies any suprapubic or flank pain. - Exam Vitals: Temp Pulse Resp BP Pulse Ox 98.2 F 77 18 149/82 97 05/04/18 07:31 05/04/18 07:31 05/04/18 07:31 05/04/18 07:31 05/04/18 07:31 Exam: Gen.: Vitals noted. No acute distress. AAOx2, resting comfortably in bed. HEENT: PERRL/EOMI, oropharynx clear, Normocephalic, atraumatic, MMM Cardiac: RRR, no murmur, +S1/S2, No BLE edema Pulmonary: CTA bilaterally, no wheezes, rales or rhonchi, equal chest expansion, unlabored breathing Abdomen: soft, nontender, BS noted, no guarding, no palpable HSM Skin: warm and dry, no visible lesions. MSK: ROM not assessed, no joint swelling noted, gait no assessed while in bed. b/l lower extremity amputations Neuro: A&Ox2, moves all extremities, no focal deficits Psych: Appropriate mood and behavior, AOx2 - Assessment and Plan (1) Altered mental status Current Visit: No Status: Resolved Assessment and Plan: -Altered mental status is greatly improved, patient makes appropriate conversation and is alert and oriented to herself and location -Suspect patient's AMS secondary to metabolic encephalopathy from underlying UTI -Patient's urine culture grew pansensitive Pseudomonas and VRE -Currently on ciprofloxacin daptomycin -Patient has an allergy to penicillins and has poor renal function, therefore cannot use ampicillin or nitrofurantoin for VRE -Due to poor creatinine clearance dose adjustments were made for the ciprofloxacin and daptomycin -Ciprofloxacin 250 mg twice a day, daptomycin 500 mg every 48 hours Plan: -Due to patient's multidrug-resistant history of UTIs and current Pseudomonas and VRE infection will consult infectious disease for further recommendations -We will continue ciprofloxacin and daptomycin for now (2) UTI (urinary tract infection) Current Visit: No Status: Acute Assessment and Plan: -culture growing robertson sensitive pseudomonas and VRE -antibiotics changed to ciprofloxacin and daptomycin -Patient has a penicillin allergy and poor renal function, therefore cannot use ampicillin or nitrofurantoin for VRE. Thus, patient is on daptomycin Plan: -Consultated infectious disease for further recommendations regarding antibiotic options for patients pseudomonas and VRE (3) Acute kidney injury superimposed on chronic kidney disease Current Visit: Yes Status: Acute Assessment and Plan: -Creatinine slightly improved from admission, but near patient's baseline Plan: -We will continue to monitor and avoid nephrotoxic medications (4) Heart failure with reduced ejection fraction Current Visit: Yes Status: Chronic Assessment and Plan: -Previous echo shows LVEF 15-20%. Patient appears euvolemic at this point. Plan: - Closely monitor fluid status. (5) Diabetes Current Visit: Yes Status: Chronic Assessment and Plan: Sliding-scale insulin (6) Hypertension Current Visit: Yes Status: Chronic Assessment and Plan: Continue home medications (7) DVT prophylaxis Current Visit: Yes Status: Acute Assessment and Plan: Heparin subcutaneous - Time Spent with Patient Total time spent is greater than 50% in coordination of care (as documented) at patient's floor/unit and/or counseling patient: Internal Medicine: Result - Labs CBC & Chem 7: 05/04/18 03:54 05/04/18 03:54 Labs: Short CBC 05/04/18 Range/Units 03:54 WBC 4.9 (4.3-11.1) K/mcL Hgb 11.2 L (11.5-15.4) g/dL Hct 33.5 L (35.3-44.9) % Plt Count 158 (140-400) K/mcL Neutrophils # 3.2 (1.6-8.9) K/mcL BMP 05/04/18 03:54 Sodium 141 Potassium 4.4 Chloride 105 Carbon Dioxide 25 BUN 45 H Creatinine 1.86 H Glucose 116 H Calcium 10.0 Consult Discharge Plan - Plan Referrals: Griffin Ochoa MD [Primary Care Provider] - <Fred Willett - Last Filed: 05/04/18 12:48> Hospitalist Progress Note - Encounter Date of Encounter: 05/04/18 - Exam Vitals: Temp Pulse Resp BP Pulse Ox 97.8 F 82 17 147/82 97 05/04/18 11:42 05/04/18 11:42 05/04/18 11:42 05/04/18 11:42 05/04/18 11:42 - Assessment and Plan (1) Diabetes Current Visit: Yes Status: Chronic (2) Hypertension Current Visit: Yes Status: Chronic (3) CAD (coronary artery disease) Current Visit: Yes Status: Chronic (4) DVT prophylaxis Current Visit: Yes Status: Acute (5) Chronic kidney disease, stage IV (severe) Current Visit: Yes Status: Chronic (6) Urinary tract infection Current Visit: Yes Status: Acute (7) Heart failure with reduced ejection fraction Current Visit: Yes Status: Chronic (8) Acute metabolic encephalopathy Current Visit: Yes Status: Resolved (9) Anemia Current Visit: Yes Status: Chronic - Time Spent with Patient Total time spent is greater than 50% in coordination of care (as documented) at patient's floor/unit and/or counseling patient: Internal Medicine: Result - Labs CBC & Chem 7: 05/04/18 03:54 05/04/18 03:54 Labs: Short CBC 05/04/18 Range/Units 03:54 WBC 4.9 (4.3-11.1) K/mcL Hgb 11.2 L (11.5-15.4) g/dL Hct 33.5 L (35.3-44.9) % Plt Count 158 (140-400) K/mcL Neutrophils # 3.2 (1.6-8.9) K/mcL BMP 05/04/18 03:54 Sodium 141 Potassium 4.4 Chloride 105 Carbon Dioxide 25 BUN 45 H Creatinine 1.86 H Glucose 116 H Calcium 10.0 - Attending Attestation I examined this patient and my medical decision-making was reviewed with the Resident Physician on 05/04/18. I agree with the documented findings, disposition and treatment plan as described except to the extent set forth below. Ms Daugherty is currently admitted for acute encephalopathy and UTI with Pseudomonas and VRE. She remains moderate to high risk due to potential for worsening clinical status. Ms Daugherty is resting in bed. She is eating breakfast. No fever or chills. Tolerating current IV abx. No GI issues. Exam alert Comfortable Mucus membranes dry Heart not tachy. Regular No wheeze. No rales Abd soft and nontender Normocephalic I/P 1. Acute encephalopathy most likely related to UTI - improving 2. UTI - abx ordered yesterday - Cipro and Dapto. Pt to go home - ? if another regimen could work. ID consulted 3. PVD Further diagnoses and plan as above. Discharge plan pending abx choice. <Arley Garcia - Last Filed: 05/04/18 09:49> (1) Altered mental status Qualifiers: Altered mental status type: disorientation Qualified Code(s): R41.0 - Disorientation, unspecified (2) UTI (urinary tract infection) Qualifiers: Urinary tract infection type: acute cystitis Hematuria presence: without hematuria Qualified Code(s): N30.00 - Acute cystitis without hematuria (4) Heart failure with reduced ejection fraction Qualifiers: Heart failure chronicity: chronic Qualified Code(s): I50.22 - Chronic systolic (congestive) heart failure (5) Diabetes Qualifiers: Diabetes mellitus type: type 2 Diabetes mellitus terminal supervisor insulin use: with usp use Diabetes mellitus complication status: with kidney complications Diabetes mellitus complication detail: with chronic kidney disease Chronic kidney disease stage: stage 4 (severe) Qualified Code(s): E11.22 - Type 2 di abetes mellitus with diabetic chronic kidney disease; N18.4 - Chronic kidney disease, stage 4 (severe); Z79.4 - watermaster (current) use of insulin (6) Hypertension Qualifiers: Hypertension type: essential hypertension Qualified Code(s): I10 - Essential (primary) hypertension <Fred iWllett - Last Filed: 05/04/18 12:48> (1) Diabetes Qualifiers: Diabetes mellitus type: type 2 Diabetes mellitus terminal supervisor insulin use: with terminal supervisor use Diabetes mellitus complication status: with kidney complications Diabetes mellitus complication detail: with chronic kidney disease Chronic kidney disease stage: stage 4 (severe) Qualified Code(s): E11.22 - Type 2 diabetes mellitus with diabetic chronic kidney disease; N18.4 - Chronic kidney disease, stage 4 (severe); Z79.4 - watermaster (current) use of insulin (2) Hypertension Qualifiers: Hypertension type: essential hypertension Qualified Code(s): I10 - Essential (primary) hypertension (3) CAD (coronary artery disease) Qualifiers: Coronary Disease-Associated Artery/Lesion type: [place] artery [place] vs. transplanted heart: [place] heart Associated angina: without angina Qualified Code(s): I25.10 - Atherosclerotic heart disease of [place] coronary artery wi thout angina pectoris (6) Urinary tract infection Qualifiers: Urinary tract infection type: acute cystitis Hematuria presence: without hematuria Qualified Code(s): N30.00 - Acute cystitis without hematuria (7) Heart failure with reduced ejection fraction Qualifiers: Heart failure chronicity: chronic Qualified Code(s): I50.22 - Chronic systolic (congestive) heart failure (9) Anemia Qualifiers: Anemia type: due to chronic kidney disease Chronic kidney disease stage: stage 4 (severe) Qualified Code(s): N18.4 - Chronic kidney disease, stage 4 (severe); D63.1 - Anemia in chronic kidney disease
[2018-05-04] MEDS: Cyanocobalamin (B-12) 1,000 MCG TABLET PO SCH (10:14)
[2018-05-04] MEDS: risperiDONE 0.25 MG TABLET PO SCH ×2 (10:14→20:21)
[2018-05-04] MEDS: Cholecalciferol (D-3) 1,000 UNIT TABLET PO SCH (10:14)
[2018-05-04] MEDS: BuPROPion SR (12 HR) 150 MG TABLET PO SCH ×2 (10:14→20:21)
[2018-05-04] MEDS: Aspirin Enteric Coated 81 MG Tablet PO SCH (10:14)
[2018-05-04] MEDS: Gabapentin 100 MG CAPSULE PO SCH ×2 (10:14→20:21)
[2018-05-04] MEDS: Furosemide 20 MG TABLET PO SCH (10:14)
--- NOTE | 2018-05-04 12:06 | Infectious Disease Consult ---
Date of Encounter: 05/04/18 Time of Encounter: 12:00 Assessment and Plan (1) Urinary tract infection Status: Acute Assessment and plan: Causative organism: VRE (S: ampicillin, linezolid, daptomycin, nitrofurantoin) and PSEA ([place]-sensitive). Likely the source of the patient's encephalopathy. Currently on Daptomycin and Cipro. Recommendations: Bowel regimen per the primary team. Discontinue Cipro and Daptomycin. Give fosfomycin 3 grams PO x 1 dose now. No additional antibiotics required. No further recommendations from the ID team. We will sign off. Please re-consult if needed. Qualifiers: Urinary tract infection type: acute cystitis Hematuria presence: without hematuria Qualified Code(s): N30.00 - Acute cystitis without hematuria (2) Acute metabolic encephalopathy Status: Resolved Assessment and plan: Likely secondary to UTI. CT of the head was negative. Appears resolved. Continue to monitor closely. (3) Constipation Status: Acute Assessment and plan: The patient states she has not had a bowel movement since last . Bowel regimen per the primary team. Qualifiers: Constipation type: other constipation type Qualified Code(s): K59.09 - Other constipation (4) Acute kidney injury superimposed on chronic kidney disease Status: Acute Assessment and plan: Likely secondary to poor by mouth intake prior to admission. Improved. Continue to trend. Dose adjust medications and avoid nephrotoxins as able. (5) Dementia Status: Acute Qualifiers: Dementia type: unspecified type Dementia behavioral disturbance: without behavioral disturbance Qualified Code(s): F03.90 - Unspecified dementia without behavioral disturbance (6) Drug allergy, antibiotic Status: Acute Assessment and plan: Reports penicillin allergy. States she took it when she was a child and had hives. Infectious Disease HPI - Data of Consult Patient: new to practice Consult date: 05/04/18 Requesting Physician: Fred Willett DO Primary Care Provider: Griffin Ochoa MD - Consult Narrative Reason for consult: UTI History of present illness: Ms. Daugherty is a 77 year old female with a past medical history of CHF, dementia, diabetes, GERD, hyperlipidemia, hypertension, and chronic kidney disease. The patient was admitted to the hospital 04/28/18 for altered mental status. We are consulted 05/04/18 for antibiotic recommendations for UTI. Briefly, the patient is a 77-year-old female with past medical history as stated above. The patient is unable to recall the events leading up to her hospitalization, therefore, most of the information is obtained from the medical record. Apparently, the patient presented to the ER the day before admission with complaints of generalized weakness. She had a workup including a CT of the head and chest x-ray that were essentially normal. She did have acute kidney injury with hyperkalemia. She was discharged home with plans to follow-up with her PCP later in the week. She had acutely worsening mental status overnight so she came back to the ER for evaluation. Upon arrival, the patient was afebrile and hemodynamically stable. Laboratory studies revealed a normal white blood cell count. Hyperkalemia had resolved and her acute kidney injury had improved. Urinalysis was collected but appeared contaminated. She was started on IV Rocephin and admitted to the hospital for further evaluation. Since admission, the patient has remained afebrile hemodynamically stable. She had a respiratory infectious panel that was negative. Her acute kidney injury has improved. A repeat urine culture collected 04/30/18 came back positive for Pseudomonas and VRE. Currently, the patient is on oral ciprofloxacin and IV daptomycin. We have been asked to evaluate and make further recommendations. During my exam today, the patient states that overall she feels well and wants to go home. She denies any fevers or chills or rigors. She denies any headache or neck pain. Reports some intermittent shortness of breath with exertion. Denies cough or congestion, earache, or sore throat. She denies any nausea, vomiting, or diarrhea. She does state she has had a bowel movement since last . She reports some abdominal discomfort that she relates to not having a bowel movement recently. She denies any urinary complaints. She states her appetite has been okay. She denies any oral thrush or any skin lesions. The patient tells me she was at home with her family. She denies any tobacco, alcohol, or illicit drug use. She denies any chronic infectious diseases. She denies any pet or animal exposures. CC: Fred Willett, DO Past Med Surg Social Fam HX - Past Medical History Attestation: Yes The following information was validated with the patient. Source: patient, old records reviewed, nursing notes reviewed Medical history: CHF, dementia, diabetes, GERD, hyperlipidemia, hypertension, myocardial infarction, renal disease Additional medical history: atherosclerotic heart disease, anemia, heart failure, urine retention, osteoarthritis, Psychiatric history: anxiety - Past Surgical History Surgical History: cholecystectomy Additional surgical history: Right AKA, Left BKA. - Social History Smoking Status: Former smoker Smokeless Tobacco Status: No Alcohol use: none Drug use: none Current living situation: Home, With Family Activity Level: Wheelchair bound Recent Out of Country Travel Within the Last 8 Weeks: No Exposure or Possible Exposure to Illness During Travel: No - Family History Father Adopted: No Living Status: Hx Family Cardiac Disorders: Yes Hx Family Respiratory Disorders: No Hx Family Cancer: Yes Hx Family GI Disorders: No Hx Family Endocrine Disorder: Yes Hx Family Neuromuscular Disorders: No Hx Family Neurologic Disorders: No Hx Family HEENT Disorders: No Hx Family Autoimmune Disorders: No Mother Hx Family Cardiac Disorders: Yes Hx Family Respiratory Disorders: No Hx Family Cancer: No Hx Family GI Disorders: No Hx Family Endocrine Disorder: Yes Hx Family Neuromuscular Disorders: No Hx Family Neurologic Disorders: No Hx Family HEENT Disorders: No Hx Family Autoimmune Disorders: No Infectious Disease-CN:Meds RX: BuPROPion SR (12 HR) [Wellbutrin SR] 150 mg PO BID 06/12/16 [History] RX: Cholecalciferol (D-3) [Vitamin D] 5,000 unit PO DAILY 06/12/16 [History] RX: Clopidogrel [Plavix] 75 mg PO DAILY 06/12/16 [History] RX: Cyanocobalamin (Vitamin B-12) [Vitamin B-12] 1,000 mcg SL DAILY 06/12/16 [History] RX: Isosorbide DInitrate [Isosorbide Dinitrate] 10 mg PO BID 10/14/16 [History] RX: Atorvastatin Calcium [Lipitor] 20 mg PO DAILY 09/24/17 [History] RX: Carvedilol [Coreg] 6.25 mg PO BID 09/24/17 [History] RX: Gabapentin [Neurontin] 200 mg PO BID 09/24/17 [History] RX: Insulin Glargine,Hum.rec.anlog [Lantus Solostar] 5 unit SQ HS 11/09/17 [History] RX: Melatonin [Melatin] 3 mg PO HS 11/09/17 [History] RX: RisperiDONE [Risperdal] 0.5 mg PO HS 11/09/17 [History] RX: risperiDONE [Risperdal] 0.25 mg PO QAM 11/09/17 [History] RX: Furosemide [Lasix] 20 mg PO DAILY 04/29/18 [History] RX: Oxybutynin [Ditropan] 5 mg PO DAILY 04/29/18 [History] RX: Aspirin [Lo-Dose Aspirin EC] 81 mg PO DAILY 04/30/18 [History] Allergy/AdvReac Type Severity Reaction Status Date / Time Penicillins Allergy Hives Verified 04/28/18 19:15 All systems: reviewed and no additional remarkable complaints except as stated Exam - Constitutional Vitals: Temp Pulse Resp BP Pulse Ox 97.8 F 82 17 147/82 97 05/04/18 11:42 05/04/18 11:42 05/04/18 11:42 05/04/18 11:42 05/04/18 11:42 General appearance: average body habitus, cooperative, no acute distress - Head Head exam: Present: atraumatic, normal inspection, normocephalic - Eye Eye exam: Present: EOMI, normal appearance, PERRL Pupils: Present: normal accommodation - ENT ENT exam: Present: mucous membranes moist - Neck Neck exam: Present: normal inspection - Respiratory Respiratory exam: Present: CTAB. Absent: rales, respiratory distress, rhonchi, wheezes - Cardiovascular Cardiovascular exam: Present: RRR, +S1, +S2 - GI/Abdominal GI/Abdominal exam: Present: normal bowel sounds, soft. Absent: distended, tenderness - Extremities Exam Extremities exam: Absent: joint swelling, normal inspection (Left BKA stump with Allevyn dressing clean, dry, and intact. Right AKA stump without abnormality.), pedal edema, tenderness - Neurological Exam Neurological exam: Present: alert, oriented X3, no focal deficits - Psychiatric Psychiatric exam: Present: normal affect, normal mood - Skin Skin exam: Present: dry, intact, normal color, warm Infectious Disease CN: Results - Labs CBC & Chem 7: 05/05/18 05:52 05/05/18 05:52 Cultures: Cultures 04/30/18 12:35 Urine Culture - Final Urine,Catheterized (Straight) Pseudomonas aeruginosa Vancomycin Resistant Enterococcus faecalis 04/28/18 20:03 Urine Culture - Final Urine,Catheterized (Straight) 04/29/18 08:45 Group A Streptococcus Rapid Screen - Final Throat Serology: Serology 04/29/18 04/28/18 Range/Units 09:08 20:03 Urine Color Yellow (Yellow) Urine Clarity Clear (Clear) Urine pH 7.0 (5.0-8.0) pH Units Ur Specific Gibson 1.006 L (1.010-1.025) Urine Protein Negative (Neg-Trace) mg/dL Urine Glucose (UA) Normal (Normal) mg/dL Urine Ketones Negative (Negative) mg/dL Urine Blood Negative (Negative) Urine Nitrite Negative (Negative) Urine Bilirubin Negative (Negative) Urine Urobilinogen Normal (Normal) mg/dL Ur Leukocyte Esterase Large H (Negative) Urine Microscopic RBC 0-3 (0-3) per hpf Urine Microscopic WBC 15-30 H (0-3) per hpf Ur Squamous Epith Cells Many H (None-Few) per lpf Urine Bacteria Moderate H (None-Few) per hpf Hyaline Casts None Seen (None-Few) per lpf Chlamy pneumoniae PCR Not Detected (Not Detect) Adenovirus (PCR) Not Detected (Not Detect) B. pertussis DNA (PCR) Not Detected (Not Detect) B.parapertussis DNA PCR Not Detected (Not Detect) Coronavirus OC43 (PCR) Not Detected (Not Detect) Coronavirus HKU1 (PCR) Not Detected (Not Detect) Coronavirus 229E (PCR) Not Detected (Not Detect) Coronavirus NL63 (PCR) Not Detected (Not Detect) Human Metapneumovir PCR Not Detected (Not Detect) Influenza A (H1) PCR Not Detected (Not Detect) Influ A (H1N1/09) PCR Not Detected (Not Detect) Influenza A (H3) PCR Not Detected (Not Detect) Influenza A Untype (PCR) Not Detected (Not Detect) Influenza Type B (PCR) Not Detected (Not Detect) M.pneumoniae DNA (PCR) Not Detected (Not Detect) Parainfluenza 1 (PCR) Not Detected (Not Detect) Parainfluenza 2 (PCR) Not Detected (Not Detect) Parainfluenza 3 (PCR) Not Detected (Not Detect) Parainfluenza 4 (PCR) Not Detected (Not Detect) RSV (PCR) Not Detected (Not Detect) Entero/Rhino (PCR) Not Detected (Not Detect) Consult Discharge Plan - Plan Instructions: Acute Kidney Injury (DC), Urinary Tract Infection in Women (DC) Referrals: Griffin Ochoa MD [Primary Care Provider] - 05/12/18 2:45 pm (Please follow up as schedule...) - Attending Attestation I have personally performed a face to face evaluation on this patient. I have reviewed and agree with the care plan. History and Exam by me shows: Assessment and plan: Urinary tract infection Causative organism: VRE (S: ampicillin, linezolid, daptomycin, nitrofurantoin) and PSEA ([place]-sensitive). Likely the source of the patient's encephalopathy. Currently on Daptomycin and Cipro. Metabolic encephalopathy back at baseline Penicillin allergy Recommendations: Bowel regimen per the primary team. Discontinue Cipro and Daptomycin. Give fosfomycin 3 grams PO x 1 dose now. No additional antibiotics required. No further recommendations from the ID team. We will sign off. Please re-consult if needed.
[2018-05-04] MEDS ORDERED: Fosfomycin Tromethamine 3 GM Packet PO ONE (14:30)
[2018-05-04] MEDS: Melatonin 3 MG TABLET PO SCH (20:21)
[2018-05-05] MEDS: *HR* Heparin 5,000 UNIT/ML VIAL SQ SCH (05:21)
[2018-05-05 06:29] LABS: Basophils % 0.4 %; Eosinophils # 0.1 K/mcL (0.0-0.6); Eosinophils % 2.9 %; Hematocrit 31.5 % (35.3-44.9); Hemoglobin 10.2 g/dL (11.5-15.4); Immature Granulocytes % 0.2 % (0-4); Lymphocytes % 21.1 %; Mean Corpuscular HGB Conc 32.4 g/dL (31.6-35.5); Mean Corpuscular Hemoglobin 31.3 pg (28.0-33.3); Mean Corpuscular Volume 96.6 fL (83.0-100.0); Mean Platelet Volume 9.7 fL (9.4-12.4); Monocytes # 0.4 K/mcL (0.0-1.3); Neutrophils # 3.2 K/mcL (1.6-8.9); Platelet Count 141 K/mcL (140-400); Red Blood Count 3.26 M/mcL (3.82-4.97); Red Cell Distribution Width 12.1 % (11.5-14.5); Segmented Neutrophils % 66.4 %
[2018-05-05 06:47] LABS: Calcium 9.7 mg/dL (8.6-10.3); Potassium 4.6 mEq/L (3.5-5.1)
[2018-05-05] MEDS: Cholecalciferol (D-3) 1,000 UNIT TABLET PO SCH (07:57)
[2018-05-05] MEDS: risperiDONE 0.25 MG TABLET PO SCH (07:57)
[2018-05-05] MEDS: BuPROPion SR (12 HR) 150 MG TABLET PO SCH (07:58)
[2018-05-05] MEDS: Cyanocobalamin (B-12) 1,000 MCG TABLET PO SCH (07:58)
[2018-05-05] MEDS: Aspirin Enteric Coated 81 MG Tablet PO SCH (07:58)
[2018-05-05] MEDS: Furosemide 20 MG TABLET PO SCH (07:58)
[2018-05-05] MEDS: Gabapentin 100 MG CAPSULE PO SCH (07:58)
[2018-05-05] MEDS: Insulin LISPRO 300 UNITS/3 ML VIAL SQ SCH ×2 (07:58→11:52)
--- NOTE | 2018-05-05 08:05 | Discharge Summary ---
<Arley Garcia N - Last Filed: 05/05/18 11:03> - NOTES TO OUTPATIENT PROVIDER Notes to Outpatient Provider: Patient admitted for UTI, has history of multiple UTI's. This admission culture grew pseudomonas and VRE. Treated with ceftriaxone, then fosfomycin after sensitivities resulted. Patient also has elevated creatinine, suspect secondary to CKD with slight worsening from antibiotics. Recommend follow up on UTI and creatinine. Patient also was recommended to DC to SNF/ECF, patient and family refused. Thus, DC'd home with home health. Patient was noted to have a sacral ulcer and soiled the bed with urine. Required kern catheter while in hospital. Recommend outpatient monitoring of sacral ulcer and incontinence. Orders not resulted at time of discharge: Pending orders 05/06/18 04:00 BMP [Basic Metabolic Panel] AM 0400 CBC [Complete Blood Count] [HEME] AM 0400 Date of Encounter: 05/05/18 Time of Encounter: 08:00 - Discharge Diagnosis (1) Altered mental status Priority: Primary Status: Resolved Qualifiers: Altered mental status type: disorientation Qualified Code(s): R41.0 - Dis orientation, unspecified (2) UTI (urinary tract infection) Priority: Primary Status: Acute Qualifiers: Urinary tract infection type: acute cystitis Hematuria presence: without hematuria Qualified Code(s): N30.00 - Acute cystitis without hematuria (3) Acute kidney injury superimposed on chronic kidney disease Priority: Secondary Status: Acute (4) Heart failure with reduced ejection fraction Priority: Secondary Status: Chronic Qualifiers: Heart failure chronicity: chronic Qualified Code(s): I50.22 - Chronic systolic (congestive) heart failure (5) Diabetes Priority: Secondary Status: Chronic Qualifiers: Diabetes mellitus type: type 2 Diabetes mellitus manager of enterprise insulin use: with manager of enterprise use Diabetes mellitus complication status: with kidney complications Diabetes mellitus complication detail: with chronic kidney disease Chronic kidney disease stage: stage 4 (severe) Qualified Code(s): E11.22 - Type 2 diabetes mellitus with diabetic chronic kidney disease; N18.4 - Chronic kidney disease, stage 4 (severe); Z79.4 - half-way (current) use of insulin (6) Hypertension Priority: Secondary Status: Chronic Qualifiers: Hypertension type: essential hypertension Qualified Code(s): I10 - Essential (primary) hypertension Hospital course: Ms. Daugherty is a 77 year old female with a history of b/l lower extremity amputations and CKD who was admitted with altered mental status. Patient was found to have evidence for a urinary tract infection, initially treated with ceftriaxone. Urine culture grew pansensitive pseudomonas and her antibiotics were changed to cefepime. The following day patient's culture also grew VRE and her antibiotic regimen was adjusted to ciprofloxacin and daptomycin, which she received for one day. Infectious disease was consulted and they treated the patient the following day with one day of fosfomcyin; ID did not require any further antibiotic therapy. Patient's altered mental status improved and she was alert and oriented during her hospital stay on discharge. She did complain of constipation for over one week and received an enema prior to discharge. Recommend outpatient follow up for constipation as it can lead to urinary retention and increase risk for UTIs. Also follow up on UTI and creatinine. Patient was recommended to discharge to SNF/ECF, however she refused and wished to be discharged to home. Patient discharged to home with home health and close follow up with primary care provider. - Time Spent with Patient Total time spent providing and/or coordinating discharge services: - Discharge Medications Prescriptions: Continue BuPROPion SR (12 HR) [Wellbutrin SR] 150 mg PO BID Cholecalciferol (D-3) [Vitamin D] 5,000 unit PO DAILY Clopidogrel [Plavix] 75 mg PO DAILY Cyanocobalamin (Vitamin B-12) [Vitamin B-12] 1,000 mcg SL DAILY Isosorbide DInitrate [Isosorbide Dinitrate] 10 mg PO BID Gabapentin [Neurontin] 200 mg PO BID Carvedilol [Coreg] 6.25 mg PO BID Atorvastatin Calcium [Lipitor] 20 mg PO DAILY Insulin Glargine,Hum.rec.anlog [Lantus Solostar] 5 unit SQ HS Melatonin [Melatin] 3 mg PO HS RisperiDONE [Risperdal] 0.5 mg PO HS risperiDONE [Risperdal] 0.25 mg PO QAM Oxybutynin [Ditropan] 5 mg PO DAILY Furosemide [Lasix] 20 mg PO DAILY Aspirin [Lo-Dose Aspirin EC] 81 mg PO DAILY Home Medications: BuPROPion SR (12 HR) [Wellbutrin SR] 150 mg PO BID 06/12/16 [History] Cholecalciferol (D-3) [Vitamin D] 5,000 unit PO DAILY 06/12/16 [History] Clopidogrel [Plavix] 75 mg PO DAILY 06/12/16 [History] Cyanocobalamin (Vitamin B-12) [Vitamin B-12] 1,000 mcg SL DAILY 06/12/16 [History] Isosorbide DInitrate [Isosorbide Dinitrate] 10 mg PO BID 10/14/16 [History] Atorvastatin Calcium [Lipitor] 20 mg PO DAILY 09/24/17 [History] Carvedilol [Coreg] 6.25 mg PO BID 09/24/17 [History] Gabapentin [Neurontin] 200 mg PO BID 09/24/17 [History] Insulin Glargine,Hum.rec.anlog [Lantus Solostar] 5 unit SQ HS 11/09/17 [History] Melatonin [Melatin] 3 mg PO HS 11/09/17 [History] RisperiDONE [Risperdal] 0.5 mg PO HS 11/09/17 [History] risperiDONE [Risperdal] 0.25 mg PO QA 11/09/17 [History] Furosemide [Lasix] 20 mg PO DAILY 04/29/18 [History] Oxybutynin [Ditropan] 5 mg PO DAILY 04/29/18 [History] Aspirin [Lo-Dose Aspirin EC] 81 mg PO DAILY 04/30/18 [History] Allergies/Adverse Reactions: Allergy/AdvReac Type Severity Reaction Status Date / Time Penicillins Allergy Hives Verified 04/28/18 19:15 Date of admission: 05/03/18 18:18 Primary care physician: Griffin Ochoa MD Consults: 04/30/18 11:15 Consult to Occupational Therapy [CONS] Routine Comment: Evaluate, develop and implement POC Reason for Consult: b/l lower extremity amputations Does patient have active BEDREST order?: No Is patient medically & hemodynamically stable?: Yes Consult to Physical Therapy [CONS] Routine Comment: Evaluate, develop and implement POC Reason for Consult: b/l lower extremity amputations Does patient have active BEDREST order?: No Is patient medically & hemodynamically stable?: Yes Consult to Childcare Worker [CONS] Routine Reason for SW Consult: patient may require home health vs. placement 05/04/18 09:16 Consult to Infectious Diseases [CONS] Routine Consulting Provider: Infectious Disease Na Reason for Consult: UTI pseudomonas and VRE. on ciprofloxacin 250mg BID and Daptomycin Q48H Call Completed: Yes Discharging clinician: Arley Garcia Anticipated date of discharge: 05/05/18 - Constitutional Vitals: Temp Pulse Resp BP Pulse Ox 97.9 F 61 18 117/69 98 05/05/18 07:35 05/05/18 07:35 05/05/18 07:35 05/05/18 07:35 05/05/18 07:35 Exam: Gen.: Vitals noted. No acute distress. A&O x 3, resting comfortably in bed. HEENT: PERRL/EOMI, oropharynx clear, Normocephalic, atraumatic, MMM Cardiac: RRR, no murmur, +S1/S2, No BLE edema Pulmonary: CTA bilaterally, no wheezes, rales or rhonchi, equal chest expansion, unlabored breathing Abdomen: soft, nontender, BS noted, no guarding, no palpable HSM Skin: warm and dry, no visible lesions. MSK: ROM not assessed, no joint swelling noted, gait not assessed du to b/l lower extremity amputations Neuro: A&Ox3, moves all extremities, no focal deficits Psych: Appropriate mood and behavior - Patient Status Disposition: Home Health Service Condition: Good Functional capacity at discharge: bed bound Overall status at discharge: patient is progressing back to baseline - Discharge Instructions Instructions: Acute Kidney Injury (DC), Urinary Tract Infection in Women (DC) Follow Up With: Griffin Ochoa MD [Primary Care Provider] - 05/12/18 2:45 pm (Please follow up as schedule...) - Diet and Activity Activity: resume usual activities as tolerated Diet: advance to your usual diet <Kelsey Thompson - Last Filed: 05/05/18 12:47> Orders not resulted at time of discharge: Pending orders 05/06/18 04:00 BMP [Basic Metabolic Panel] AM 0400 CBC [Complete Blood Count] [HEME] AM 0400 Date of Encounter: 05/05/18 - Discharge Diagnosis (1) Diabetes Status: Chronic Qualifiers: Diabetes mellitus type: type 2 Diabetes mellitus manager of enterprise insulin use: with senior care use Diabetes mellitus complication status: with kidney complications Diabetes mellitus complication detail: with chronic kidney disease Chronic kidney disease stage: stage 4 (severe) Qualified Code(s): E11.22 - Type 2 diabetes mellitus with diabetic chronic kidney disease; N18.4 - Chronic kidney disease, stage 4 (severe); Z79.4 - half-way (current) use of insulin (2) Hypertension Status: Chronic Qualifiers: Hypertension type: essential hypertension Qualified Code(s): I10 - Essential (primary) hypertension (3) CAD (coronary artery disease) Status: Chronic Qualifiers: Coronary Disease-Associated Artery/Lesion type: [place] artery [place] vs. transplanted heart: [place] heart Associated angina: without angina Qualified Code(s): I25.10 - Atherosclerotic heart disease of [place] coronary artery without angina pectoris (4) DVT prophylaxis Status: Acute (5) Chronic kidney disease, stage IV (severe) Status: Chronic (6) Urinary tract infection Status: Acute Qualifiers: Urinary tract infection type: acute cystitis Hematuria presence: without hematuria Qualified Code(s): N30.00 - Acute cystitis without hematuria (7) Heart failure with reduced ejection fraction Status: Chronic Qualifiers: Heart failure chronicity: chronic Qualified Code(s): I50.22 - Chronic systolic (congestive) heart failure (8) Acute metabolic encephalopathy Status: Resolved (9) Anemia Status: Chronic Qualifiers: Anemia type: due to chronic kidney disease Chronic kidney disease stage: stage 4 (severe) Qualified Code(s): N18.4 - Chronic kidney disease, stage 4 (severe); D63.1 - Anemia in chronic kidney disease Hospital course: Ms. Daugherty is a 77 year old female - Time Spent with Patient Total time spent providing and/or coordinating discharge services: Time spent: Greater than 30 minutes (35 min) Date of admission: 05/03/18 18:18 Primary care physician: Griffin Ochoa MD Consults: 04/30/18 11:15 Consult to Occupational Therapy [CONS] Routine Comment: Evaluate, develop and implement POC Reason for Consult: b/l lower extremity amputations Does patient have active BEDREST order?: No Is patient medically & hemodynamically stable?: Yes Consult to Physical Therapy [CONS] Routine Comment: Evaluate, develop and implement POC Reason for Consult: b/l lower extremity amputations Does patient have active BEDREST order?: No Is patient medically & hemodynamically stable?: Yes Consult to Childcare Worker [CONS] Routine Reason for SW Consult: patient may require home health vs. placement 05/04/18 09:16 Consult to Infectious Diseases [CONS] Routine Consulting Provider: Infectious Disease Na Reason for Consult: UTI pseudomonas and VRE. on ciprofloxacin 250mg BID and Daptomycin Q48H Call Completed: Yes - Constitutional Vitals: Temp Pulse Resp BP Pulse Ox 97.9 F 68 19 144/72 96 05/05/18 11:18 05/05/18 11:18 05/05/18 11:18 05/05/18 11:18 05/05/18 11:18 - Attending Attestation I examined this patient and my medical decision-making was reviewed with the Resident Physician Dr Garcia. I agree with the documented findings, disposition and treatment plan as described except to the extent set forth below. Ms Daugherty is currently admitted for acute encephalopathy, since resolved, and UTI with Pseudomonas and VRE. She has completed antibiotic treatment and will dc to home with [facility] in stble condition. She refused ecf/snf placement. Ms Daugherty is resting in bed. no fevers, chills, n/v. she has no complaints. Still no bm, no abd pain. Agreeable to enema today. gen- alert, awake,appears stated age cv- reg rate and rhythm, normal s1,s2, no murmurs appreciated lungs- ctabl, no wheezing, rhonchi or crackles abd- soft, non tender, non distended, + bs neuro- AAOx3 1. Acute encephalopathy most likely related to UTI -resolved 2. UTI - s/p Cipro and Dapto. Then fosfomycin by ID. Abx course now complete. outpt monitoring of constipation which can lead to retention/infection 3. Constipation- dulcolx suppository and enema today 4. CKD- slight increase in creat with abx, outpt PCP check of creat this week, no further abx required on dc of note I have personally reviewed admission ekg which is unchanged from 09/2017 ekg and is without acute ischemic changes (TWI III and non specific lateral v lead changes are old) Further diagnoses and plan as above. Time spent on dc 35 min
--- NOTE | 2018-05-05 08:05 | Physician Discharge Referral ---
<Arley Garcia - Last Filed: 05/05/18 10:59> Home Health/Hosp Referral Info Transfer to: Home Health Provider in Charge Post Discharge: PCP - Diagnosis (1) Altered mental status Priority: Primary Status: Resolved (2) UTI (urinary tract infection) Priority: Primary Status: Acute (3) Acute kidney injury superimposed on chronic kidney disease Priority: Secondary Status: Acute (4) Heart failure with reduced ejection fraction Priority: Secondary Status: Chronic (5) Diabetes Priority: Secondary Status: Chronic (6) Hypertension Priority: Secondary Status: Chronic - Respiratory Orders Smoking Cessation: Smoking cessation has been advised. For more information, call the [place] Tobacco Quit Line at 5-417-KYAC-NOW. - Diet/Nutrition Diet/Nutrition Orders: Regular - Activity Activity Orders: Chair - Services Needed Following services are medically necessary services: Home Health Aide - Transfer Medications Home Medications: BuPROPion SR (12 HR) [Wellbutrin SR] 150 mg PO BID 06/12/16 [History] Cholecalciferol (D-3) [Vitamin D] 5,000 unit PO DAILY 06/12/16 [History] Clopidogrel [Plavix] 75 mg PO DAILY 06/12/16 [History] Cyanocobalamin (Vitamin B-12) [Vitamin B-12] 1,000 mcg SL DAILY 06/12/16 [History] Isosorbide DInitrate [Isosorbide Dinitrate] 10 mg PO BID 10/14/16 [History] Atorvastatin Calcium [Lipitor] 20 mg PO DAILY 09/24/17 [History] Carvedilol [Coreg] 6.25 mg PO BID 09/24/17 [History] Gabapentin [Neurontin] 200 mg PO BID 09/24/17 [History] Insulin Glargine,Hum.rec.anlog [Lantus Solostar] 5 unit SQ HS 11/09/17 [History] Melatonin [Melatin] 3 mg PO HS 11/09/17 [History] RisperiDONE [Risperdal] 0.5 mg PO HS 11/09/17 [History] risperiDONE [Risperdal] 0.25 mg PO QAM 11/09/17 [History] Furosemide [Lasix] 20 mg PO DAILY 04/29/18 [History] Oxybutynin [Ditropan] 5 mg PO DAILY 04/29/18 [History] Aspirin [Lo-Dose Aspirin EC] 81 mg PO DAILY 04/30/18 [History] Allergies/Adverse Reactions: Allergy/AdvReac Type Severity Reaction Status Date / Time Penicillins Allergy Hives Verified 04/28/18 19:15 Certification: Further, I certify that my clinical findings support that this patient is homebound (i.e. absences from home require considerable and taxing effort and are for medical reasons or anabaptism services or infrequently or short duration when for other reasons) because: Homebound Reason: Leaving home requires considerable and taxing effort due to condition Attestation: My signature below is to certify that this patient is under my care and that I, or nurse practitioner, or a physician's web marketing assistant working with me, has a face- to-face encounter with this patient. <Kelsey Thompson - Last Filed: 05/05/18 12:49> - Diagnosis (1) Diabetes Status: Chronic (2) Hypertension Status: Chronic (3) CAD (coronary artery disease) Status: Chronic (4) DVT prophylaxis Status: Acute (5) Chronic kidney disease, stage IV (severe) Status: Chronic (6) Urinary tract infection Status: Acute (7) Heart failure with reduced ejection fraction Status: Chronic (8) Acute metabolic encephalopathy Status: Resolved (9) Anemia Status: Chronic - Respiratory Orders Smoking Cessation: Smoking cessation has been advised. For more information, call the [place] Tobacco Quit Line at 2-211-TCUO-NOW. Other Treatments: creatinine check outpt with PCP in 5 days Certification: Further, I certify that my clinical findings support that this patient is homebound (i.e. absences from home require considerable and taxing effort and are for medical reasons or anabaptism services or infrequently or short duration when for other reasons) because: Attestation: My signature below is to certify that this patient is under my care and that I, or nurse practitioner, or a physician's web marketing assistant working with me, has a [id number] encounter with this patient.
[2018-05-05] MEDS ORDERED: Bisacodyl 10 MG RECTAL SUPPOSITORY RC ONE (10:39)
[2018-05-05 11:20] VITALS: BP 144/72
[2018-05-05] MEDS ORDERED: Milk and Molasses Enema 200 ML RC ONE (13:00)
== END 2018-05-05 16:49 | disposition home health service (06) | DRG 689 ==
LOC: EMEROOARM 18:59 → 3NENU 18:59 → SUATTDRO 04-29 01:14 → 3NENU 04-29 01:40 → 2ANU 05-03 11:43 → SUATTDRO 05-03 18:18
PROVIDERS: ADMIT Pediatrics; ATTEND Internal Medicine

== ENCOUNTER 2018-10-22 15:54 | Inpatient (IN) ==
[2018-10-22] MEDS ORDERED: Ertapenem 1,000 MG in 0.9 % Sodium Chloride Mini Bag 100 ML IVPB SCH (17:00)
[2018-10-22 17:28] LABS: Basophils % 0.3 %; Eosinophils # 0.1 K/mcL (0.0-0.6); Eosinophils % 1.6 %; Hematocrit 35.2 % (35.3-44.9); Hemoglobin 11.4 g/dL (11.5-15.4); Immature Granulocytes % 0.2 % (0-4); Lymphocytes # 1.1 K/mcL (0.6-4.6); Lymphocytes % 12.6 %; Mean Corpuscular HGB Conc 32.4 g/dL (31.6-35.5); Mean Corpuscular Hemoglobin 31.8 pg (28.0-33.3); Mean Corpuscular Volume 98.1 fL (83.0-100.0); Mean Platelet Volume 10.2 fL (9.4-12.4); Monocytes # 0.5 K/mcL (0.0-1.3); Monocytes % 5.6 %; Neutrophils # 6.9 K/mcL (1.6-8.9); Platelet Count 149 K/mcL (140-400); Red Blood Count 3.59 M/mcL (3.82-4.97); Red Cell Distribution Width 12.6 % (11.5-14.5); Segmented Neutrophils % 79.7 %; White Blood Count 8.7 K/mcL (4.3-11.1)
[2018-10-22 17:45] LABS: Albumin 3.4 g/dL (3.5-5.7); Albumin/Globulin Ratio 1.3 (1.1-2.2); Bilirubin,Direct 0.1 mg/dL (0.0-0.2); Bilirubin,Indirect 0.4 mg/dL (0.0-1.2); Bilirubin,Total 0.5 mg/dL (0.3-1.0); Globulin 2.6 g/dL (2.4-3.5); Potassium 4.1 mEq/L (3.5-5.1)
--- NOTE | 2018-10-22 18:47 | Emergency Department Note ---
Disposition Clinical Impression: UTI (urinary tract infection) Qualifiers: Urinary tract infection type: site unspecified Hematuria presence: without hematuria Qualified Code(s): N39.0 - Urinary tract infection, site not specified Disposition: Admitted As Inpatient Condition: Good Referrals: Griffin Ochoa MD [Primary Care Provider] - Time of Disposition: 18:48 General Adult HPI - General Chief complaint: ED Recheck/Abnormal Lab/Rx Stated complaint: UTI Time Seen by Provider: 10/22/18 16:10 Source: EMS Limitations: no limitations - History of Present Illness HPI Narrative: HPI Chief Complaint drug resistant UTI Patient Stated Complaint Patient is an 8-year-old white female is brought in by family and sent in by PCP for urinalysis with culture that shows drug resistant. Patient states currently asymptomatic brought in here for admit PCP findings patient is a known diabetic bilateral lower extremities indications CHF patient denies any chest pain shortness of breath or abdominal pain or any symptoms at this time other systems reviewed are negative Allergy List : Reviewed-and agree with nurses notes Home Medication List : Reviewed-and agree with nurses notes Medical and Surgical History Active Problem List: Reviewed-and agree with nurses notes Family History Reviewed- see -nurses notes Vital Signs and Body Measurements Reviewed- see -nurses notes ROS At Least 10 Organ Systems Reviewed and Negative Except as Indicated in HPI Physical Examination: All findings normal unless otherwise noted Constitutional Alert & orientated x 3, No Acute Distress Well Nourished Head and Face :Normocephalic and Atraumatic Eye Extraocular Movement Intact Pupils Equally Round Reactive to light Ear Nose Throat Mucous Membranes Moist No Injury or Deformity Oropharynx Clear Cardiovascular Capillary Refill Less than 2 Seconds No Peripheral Edema Normal S1, S2 Pulses Normal Regular Rate and Rhythm Respiratory Clear to Auscultation Bilaterally Normal Rate and Effort no Respiratory Distress or Stridor Gastrointestinal Abdomen Soft Bowel Sounds Present Not Tender Distended Generalized Tenderness. No Guarding Rebound Rigid Genitourinary No Lesion Normal External Genitalia Musculoskeletal Distal Pulses Normal No Injury or Deformity No Calf Tendernes, no Paraspinous Tenderness or spinal ttp Cervical Lumbar Thoracic Neurologic 5/5 Strength throughout No Focal Deficits Sensation Intact or Slurred Speech Skin Dry No Lesion No Rash Normal Color Warm no Cyanosis Diaphoretic Lymph No Lymphadenopathy or Lymphadenopathy Lymphedema Psychiatric Appropriate Affect Cooperative not Depressed Manic or having Suicidal Thoughts Laboratory Results-reviewed see results Data Reviewed Medical Decision Making and Diagnosis Medical Decision Making Patient seen and evaluated AND dressed answered patient culture reviewed sensitive to ertapenem was given a dose here IV patient discussed with hospitalist who then requested an IV phone call and discussed with Dr. Potts who said continue to ertapenem with the medicine for further evaluation and management Differential Diagnosis Considered Final Diagnostic Impression 1. Resistant UTI Disposition Admit Observation Billing Evaluation and Management Total Critical Care Time minutes Pain Scale: 8 - Related Data Home Medications Medication Instructions Recorded Confirmed BuPROPion SR (12 HR) [Wellbutrin 150 mg PO BID 06/12/16 07/27/18 SR] Cholecalciferol (D-3) [Vitamin D] 5,000 unit PO DAILY 06/12/16 07/27/18 Clopidogrel [Plavix] 75 mg PO DAILY 06/12/16 07/27/18 Atorvastatin Calcium [Lipitor] 20 mg PO HS 09/24/17 07/27/18 Carvedilol [Coreg] 6.25 mg PO BID 09/24/17 07/27/18 Gabapentin [Neurontin] 200 mg PO BID 09/24/17 07/27/18 Insulin Glargine,Hum.rec.anlog 12 unit SQ HS 11/09/17 07/27/18 [Lantus Solostar] Melatonin [Melatin] 3 mg PO HS 11/09/17 07/27/18 RisperiDONE [Risperdal] 0.5 mg PO HS 11/09/17 07/27/18 risperiDONE [Risperdal] 0.25 mg PO [facility] 11/09/17 07/27/18 Furosemide [Lasix] 20 mg PO DAILY 04/29/18 07/27/18 Oxybutynin [Ditropan] 5 mg PO HS 04/29/18 07/27/18 Aspirin [Lo-Dose Aspirin EC] 81 mg PO DAILY 04/30/18 07/27/18 Insulin ASPART [NovoLOG] 0 units SQ ACHS 07/26/18 07/27/18 Allergies Allergy/AdvReac Type Severity Reaction Status Date / Time Penicillins Allergy Hives Verified 04/28/18 19:15 Past Medical History - Past Medical History Medical history: Reports: CHF, diabetes, GERD, hyperlipidemia, hypertension, myocardial infarction, renal disease Surgical history: Reports: cholecystectomy Psychiatric history: Reports: anxiety - Social History Smoking Status: Former smoker Smokeless Tobacco Status: No Alcohol use: Reports: none Drug use: Reports: none Physical Exam - General Limitations: no limitations General appearance: alert, in no apparent distress Course Vital Signs Temperature 98.7 F 10/22/18 16:00 Pulse Rate 57 10/22/18 16:00 Respiratory Rate 16 10/22/18 16:00 Blood Pressure 128/65 10/22/18 16:00 O2 Sat by Pulse Oximetry 96 10/22/18 16:00 Temperature 98.7 F 10/22/18 16:00 Pulse Rate 64 10/22/18 18:07 Respiratory Rate 16 10/22/18 18:07 Blood Pressure 132/69 10/22/18 18:07 O2 Sat by Pulse Oximetry 98 10/22/18 18:07 Oxygen Delivery Oxygen Delivery Room Air Medical Decision Making - Lab Data Result diagrams: 10/22/18 17:05 10/22/18 17:05 Lab Results 10/22/18 10/22/18 Range/Units 17:05 17:05 WBC 8.7 (4.3-11.1) K/mcL RBC 3.59 L (3.82-4.97) M/mcL Hgb 11.4 L (11.5-15.4) g/dL Hct 35.2 L (35.3-44.9) % MCV 98.1 (83.0-100.0) fL MCH 31.8 (28.0-33.3) pg MCHC 32.4 (31.6-35.5) g/dL RDW 12.6 (11.5-14.5) % Plt Count 149 (140-400) K/mcL MPV 10.2 (9.4-12.4) fL Immature Gran % 0.2 (0-4) % Seg Neutrophils % 79.7 % Lymphocytes % 12.6 % Monocytes % 5.6 % Eosinophils % 1.6 % Basophils % 0.3 % Neutrophils # 6.9 (1.6-8.9) K/mcL Lymphocytes # 1.1 (0.6-4.6) K/mcL Monocytes # 0.5 (0.0-1.3) K/mcL Eosinophils # 0.1 (0.0-0.6) K/mcL Basophils # 0.0 (0.0-0.2) K/mcL Sodium 144 (136-145) mEq/L Potassium 4.1 (3.5-5.1) mEq/L Chloride 107 (98-107) mEq/L Carbon Dioxide 30 H (23-29) mEq/L BUN 48 H (8-23) mg/dL Creatinine 1.78 H (0.60-1.20) mg/dL Est GFR ( Amer) 33 L (> 60) Est GFR (Non-Af Amer) 28 L (> 60) BUN/Creatinine Ratio 27 H (6-26) Glucose 84 (70-105) mg/dL Calculated Osmolality 310 H (280-300) Calcium 10.0 (8.6-10.3) mg/dL Total Bilirubin 0.5 (0.3-1.0) mg/dL Direct Bilirubin 0.1 (0.0-0.2) mg/dL Indirect Bilirubin 0.4 (0.0-1.2) mg/dL AST 14 (13-39) Units/L ALT 10 (7-52) Units/L Alkaline Phosphatase 103 (34-104) Units/L Serum Total Protein 6.0 L (6.4-8.9) g/dL Albumin 3.4 L (3.5-5.7) g/dL Globulin 2.6 (2.4-3.5) g/dL Albumin/Globulin Ratio 1.3 (1.1-2.2) Amylase 49 (29-103) Units/L Lipase 11 (11-82) Units/L
[2018-10-22 19:28] LABS: Bilirubin,Urine Negative (Negative); Blood,Urine Large (Negative); Clarity,Urine Turbid (Clear); Color,Urine Yellow (Yellow); Glucose,Urine (UA) Normal (Normal); Ketones,Urine Negative (Negative); Leukocyte Esterase,Urine Large (Negative); Nitrite,Urine Negative (Negative); Protein,Urine Negative (Neg-Trace); Specific Gravity,Urine 1.011 (1.010-1.025); Urobilinogen,Urine Normal (Normal)
[2018-10-22 19:30] LABS: Bacteria,Urine Many per hpf (None-Few); Hyaline Casts,Urine Moderate per lpf (None-Few); RBC,Urine 50-100 per hpf (0-3); Squamous Epithelial Cell,Urine Many per lpf (None-Few); WBC,Urine TNTC per hpf (0-3)
[2018-10-22] MEDS ORDERED: D5% in Water 1,000 ML IVC PRN (21:25)
[2018-10-22] MEDS ORDERED: Dextrose Gel 15 GM/37.5 ML TUBE PO PRN ×2 (21:25)
[2018-10-22] MEDS ORDERED: *HR* Dextrose 50 % in Water (Syg) 50 ML SYRINGE IVP PRN (21:25)
[2018-10-22] MEDS ORDERED: Naloxone 0.4 MG/ML INJ IVP PRN (23:12)
--- NOTE | 2018-10-22 23:23 | Internal Med History&Physical ---
Date of Encounter: 10/22/18 Time of Encounter: 22:10 Internal Medicine - H&P: HPI Chief complaint: Urinary tract infection Admitted From: Emergency Dept Plans for Post Hospital Care: Home History of present illness: Ms. Daugherty is a 78 year old female Patient presented to the emergency department after her PCP discovered that she had a drug-resistant urinary tract infection. She denies symptoms however. She does state that her daughters told her that she has been hallucinating which is something that happens when she has had urinary tract infections in the past. She denies chest pain, abdominal pain, nausea, vomiting, diarrhea and constipation. She also denies dysuria and shortness of breath. Emergency department patient's vital signs were within normal limits CBC: White count 8.7, hemoglobin 11.7, platelet count 149. BMP shows elevated creatinine of 1.78, improved from previous. Glucose 84. Electrolytes within normal limits Liver function tests within normal limits Lipase 11 Urinalysis showed large blood, negative nitrite, large leukocyte esterase, too numerous to count white blood cells, many bacteria and many squamous epithelial cells. Urine culture obtained on October 14 grew out Proteus mirabilis, which is multidrug resistant but is sensitive to ertapenem, imipenem, tobramycin and Zosyn. Urine culture from September 03 grew out Escherichia coli which was pansensitive with only resistances to Bactrim, levofloxacin, ciprofloxacin Emergency department obtained urine culture and started patient on ertapenem. She was admitted to the hospital for continued antibiotics. Upon my evaluation, patient is resting comfortably in the hospital bed in no acute distress. She has no complaints, she denies hallucinations. Discussed with the patient CODE STATUS, and she stated she would not want resuscitation or intubation if required. Past Med Surg Social Fam HX - Past Medical History Medical history: CHF, diabetes, GERD, hyperlipidemia, hypertension, myocardial infarction, renal disease Additional medical history: atherosclerotic heart disease, anemia, heart failure, urine retention, osteoarthritis, Psychiatric history: anxiety - Past Surgical History Surgical History: cholecystectomy Additional surgical history: Right AKA, Left BKA. - Social History Smoking Status: Former smoker Smokeless Tobacco Status: No Alcohol use: none Drug use: none - Family History Mother Hx Family Cardiac Disorders: Yes Hx Family Respiratory Disorders: No Hx Family Cancer: No Hx Family GI Disorders: No Hx Family Endocrine Disorder: Yes Hx Family Neuromuscular Disorders: No Hx Family Neurologic Disorders: No Hx Family HEENT Disorders: No Hx Family Autoimmune Disorders: No Father Adopted: No Living Status: Hx Family Cardiac Disorders: Yes Hx Family Respiratory Disorders: No Hx Family Cancer: Yes Hx Family GI Disorders: No Hx Family Endocrine Disorder: Yes Hx Family Neuromuscular Disorders: No Hx Family Neurologic Disorders: No Hx Family HEENT Disorders: No Hx Family Autoimmune Disorders: No Internal Medicine - H&P: Meds BuPROPion SR (12 HR) [Wellbutrin SR] 150 mg PO BID 06/12/16 [History] Cholecalciferol (D-3) [Vitamin D] 5,000 unit PO DAILY 06/12/16 [History] Clopidogrel [Plavix] 75 mg PO DAILY 06/12/16 [History] Atorvastatin Calcium [Lipitor] 20 mg PO HS 09/24/17 [History] Carvedilol [Coreg] 6.25 mg PO BID 09/24/17 [History] Gabapentin [Neurontin] 200 mg PO BID 09/24/17 [History] Insulin Glargine,Hum.rec.anlog [Lantus Solostar] 15 unit SQ HS 11/09/17 [History] Melatonin [Melatin] 3 mg PO HS 11/09/17 [History] RisperiDONE [Risperdal] 0.5 mg PO HS 11/09/17 [History] risperiDONE [Risperdal] 0.25 mg PO QAM 11/09/17 [History] Furosemide [Lasix] 20 mg PO DAILY 04/29/18 [History] Oxybutynin [Ditropan] 5 mg PO HS 04/29/18 [History] Aspirin [Lo-Dose Aspirin EC] 81 mg PO DAILY 04/30/18 [History] Insulin ASPART [NovoLOG] 0 units SQ [facility] 07/26/18 [History] Allergy/AdvReac Type Severity Reaction Status Date / Time Penicillins Allergy Hives Verified 04/28/18 19:15 All Systems PM: A 10-system review of systems was performed and is negative for pertinent findings except as documented above in the HPI. - Constitutional Vitals: Temp Pulse Resp BP Pulse Ox 97.8 F 69 18 165/83 96 10/22/18 20:46 10/22/18 20:46 10/22/18 20:46 10/22/18 20:46 10/22/18 20:46 General appearance: Present: cooperative, A&O X 3, pleasant, no acute distress, answers questions appropriately Exam: - - Head Head exam: Present: normal inspection - Eye Eye exam: Present: EOMI, normal appearance - Respiratory Respiratory exam: Present: CTAB. Absent: rales, respiratory distress, rhonchi, wheezes - Cardiovascular Cardiovascular exam: Present: RRR. Absent: diastolic murmur, systolic murmur - GI/Abdominal GI/Abdominal exam: Present: normal bowel sounds, soft. Absent: tenderness - Extremities Exam Extremities exam: Present: warm, radial pulses palpable and symmetrical. Absent: tenderness Additional comments: Patient has bilateral lower extremity amputations. Left below the knee, right above the knee. - Neurological Exam Neurological exam: Present: no focal deficits, strengths equal and symetr throughout. Absent: motor sensory deficit, facial droop, speech deficit - Skin Skin exam: Present: dry, normal color, warm Internal Med - H&P Results - Labs CBC & Chem 7: 10/22/18 17:05 10/22/18 17:05 Labs: Short CBC 10/22/18 Range/Units 17:05 WBC 8.7 (4.3-11.1) K/mcL Hgb 11.4 L (11.5-15.4) g/dL Hct 35.2 L (35.3-44.9) % Plt Count 149 (140-400) K/mcL Neutrophils # 6.9 (1.6-8.9) K/mcL BMP 10/22/18 17:05 Sodium 144 Potassium 4.1 Chloride 107 Carbon Dioxide 30 H BUN 48 H Creatinine 1.78 H Glucose 84 Calcium 10.0 Liver Function 10/22/18 Range/Units 17:05 Total Bilirubin 0.5 (0.3-1.0) mg/dL Direct Bilirubin 0.1 (0.0-0.2) mg/dL AST 14 (13-39) Units/L ALT 10 (7-52) Units/L Alkaline Phosphatase 103 (34-104) Units/L Albumin 3.4 L (3.5-5.7) g/dL Urine 10/22/18 Range/Units 19:10 Urine Color Yellow (Yellow) Urine Clarity Turbid A (Clear) Urine pH 7.0 (5.0-8.0) pH Units Ur Specific [place] 1.011 (1.010-1.025) Urine Protein Negative (Neg-Trace) mg/dL Urine Glucose (UA) Normal (Normal) mg/dL - Assessment and Plan (1) Urinary tract infection Current Visit: Yes Status: Acute Assessment and plan: Patient had a urine culture from the end of September grew out resistant bacteria. She was admitted for IV antibiotics and started on Invanz. Follow-up repeat urine culture Continue IV Invanz Monitor for worsening signs of infection Qualifiers: Urinary tract infection type: site unspecified Hematuria presence: without hematuria Qualified Code(s): N39.0 - Urinary tract infection, site not specified (2) Hallucination Current Visit: No Status: Acute Assessment and plan: Now resolved, patient gets hallucinations with her urinary tract infections. Continue to monitor (3) Chronic kidney disease, stage III (moderate) Current Visit: No Status: Chronic Assessment and plan: Stable labs appear improved from previous Continue to monitor Repeat AM labs (4) Diabetes Current Visit: No Status: Chronic Assessment and plan: Patient is an insulin dependent diabetic Monitor sugars ACHS Diabetic diet Low dose insulin sliding scale as needed Hold home meds. Qualifiers: Diabetes mellitus type: type 2 Diabetes mellitus senior care insulin use: with meterman use Diabetes mellitus complication status: with kidney complications Diabetes mellitus complication detail: with chronic kidney disease Chronic kidney disease stage: stage 4 (severe) Qualified Code(s): E11.22 - Type 2 diabetes mellitus with diabetic chronic kidney disease; N18.4 - Chronic kidney disease, stage 4 (severe); Z79.4 - snf (current) use of insulin (5) DVT prophylaxis Current Visit: No Status: Acute Assessment and plan: Subcutaneous heparin - Time Spent With Patient Total time spent is greater than 50% in coordination of care (as documented) at patient's floor/unit and/or counseling patient: Greater than 35 minutes
[2018-10-23] MEDS: *HR* Heparin 5,000 UNIT/ML VIAL SQ SCH ×2 (05:10→16:43)
[2018-10-23 07:26] LABS: Hematocrit 32.1 % (35.3-44.9); Hemoglobin 10.5 g/dL (11.5-15.4); Mean Corpuscular HGB Conc 32.7 g/dL (31.6-35.5); Mean Corpuscular Hemoglobin 31.8 pg (28.0-33.3); Mean Corpuscular Volume 97.3 fL (83.0-100.0); Mean Platelet Volume 10.4 fL (9.4-12.4); Platelet Count 133 K/mcL (140-400); Red Cell Distribution Width 12.5 % (11.5-14.5); White Blood Count 4.7 K/mcL (4.3-11.1)
[2018-10-23 07:39] LABS: Calcium 9.5 mg/dL (8.6-10.3); Potassium 3.9 mEq/L (3.5-5.1)
[2018-10-23] MEDS: Insulin LISPRO 300 UNITS/3 ML VIAL SQ SCH ×3 (07:58→16:38)
[2018-10-23] MEDS: Gabapentin 100 MG CAPSULE PO SCH ×2 (07:58→20:47)
[2018-10-23] MEDS: risperiDONE 0.25 MG TABLET PO SCH (07:59)
[2018-10-23] MEDS: BuPROPion SR (12 HR) 150 MG TABLET PO SCH ×2 (07:59→20:48)
[2018-10-23] MEDS: Aspirin Enteric Coated 81 MG Tablet PO SCH (07:59)
--- NOTE | 2018-10-23 12:17 | Internal Med Progress Note ---
Hospitalist Progress Note - Encounter Date of Encounter: 10/23/18 Time of Encounter: 09:15 - Subjective Interval History: Patient lying down in bed. Comfortable. She denies any dysuria or hematuria. No fever or chills reported overnight. Tolerating diet well. - Exam Vitals: Temp Pulse Resp BP Pulse Ox 98.1 F 52 14 137/73 98 10/23/18 11:32 10/23/18 11:32 10/23/18 11:32 10/23/18 11:32 10/23/18 11:32 Exam: General: Patient is alert, no acute distress, oriented x 3 Respiratory: Good respiratory effort. Normal breath sounds. No wheezing or crackles. Cardiovascular: Regular rate and rhythm. s1 and s2 normal No clicks, rubs, gallops, or murmurs. No pedal edema Abdomen: Abdomen is soft, nontender. Bowel sounds are present Musculoskeletal: Spontaneously moving all extremities Neuro: Alert oriented x 3 normal cranial nerves, no focal deficits - Assessment and Plan (1) Urinary tract infection Current Visit: Yes Status: Acute (2) Diabetes Current Visit: Yes Status: Chronic (3) DVT prophylaxis Current Visit: No Status: Acute (4) Chronic kidney disease, stage III (moderate) Current Visit: No Status: Chronic (5) Hallucination Current Visit: Yes Status: Resolved DVT Prophylaxis: ON SQ heparin - Summary of Assessment and Plan Summary of Assessment and Plan: Complicated Acute cystitis with multidrug resistant Proteus: Continue IV ertapenem. Would recommend and 10 day treatment course with this medication to complete treatment. Chronic kidney disease stage III: Creatinine is stable. We will monitor the area Anemia due to chronic kidney disease: Hemoglobin 10.5. We will monitor for now. Diabetes mellitus type 2: Blood sugars are elevated today. We will increase insulin regimen. Add long-acting insulin. Delirium: Now resolved. Most likely due to acute UTI. Patient does take risperidone which has been continued. Moderate risk for complications - Time Spent with Patient Total time spent is greater than 50% in coordination of care (as documented) at patient's floor/unit and/or counseling patient: Internal Medicine: Result - Labs CBC & Chem 7: 10/23/18 06:42 10/23/18 06:42 Labs: Short CBC 10/22/18 10/23/18 Range/Units 17:05 06:42 WBC 8.7 4.7 (4.3-11.1) K/mcL Hgb 11.4 L 10.5 L (11.5-15.4) g/dL Hct 35.2 L 32.1 L (35.3-44.9) % Plt Count 149 133 L (140-400) K/mcL Neutrophils # 6.9 (1.6-8.9) K/mcL BMP 10/22/18 10/23/18 17:05 06:42 Sodium 144 142 Potassium 4.1 3.9 Chloride 107 109 H Carbon Dioxide 30 H 29 BUN 48 H 48 H Creatinine 1.78 H 1.79 H Glucose 84 193 H Calcium 10.0 9.5 Liver Function 10/22/18 Range/Units 17:05 Total Bilirubin 0.5 (0.3-1.0) mg/dL Direct Bilirubin 0.1 (0.0-0.2) mg/dL AST 14 (13-39) Units/L ALT 10 (7-52) Units/L Alkaline Phosphatase 103 (34-104) Units/L Albumin 3.4 L (3.5-5.7) g/dL Urine 10/22/18 Range/Units 19:10 Urine Color Yellow (Yellow) Urine Clarity Turbid A (Clear) Urine pH 7.0 (5.0-8.0) pH Units Ur Specific [place] 1.011 (1.010-1.025) Urine Protein Negative (Neg-Trace) mg/dL Urine Glucose (UA) Normal (Normal) mg/dL Consult Discharge Plan - Plan Referrals: Griffin Ochoa MD [Primary Care Provider] - (1) Urinary tract infection Qualifiers: Urinary tract infection type: acute cystitis Hematuria presence: without hematuria Qualified Code(s): N30.00 - Acute cystitis without hematuria (2) Diabetes Qualifiers: Diabetes mellitus type: type 2 Diabetes mellitus terminal makeup operator insulin use: with long-term use Diabetes mellitus complication status: with kidney complications Diabetes mellitus complication detail: with chronic kidney disease Chronic kidney disease stage: stage 4 (severe) Qualified Code(s): E11.22 - Type 2 diabetes mellitus with diabetic chronic kidney disease; N18.4 - Chronic kidney disease, stage 4 (severe); Z79.4 - ad terminal makeup operator (current) use of insulin
[2018-10-23] MEDS: Insulin DETEMIR 100 UNIT/ML X5UNITS SQ SCH (13:57)
[2018-10-23] MEDS ORDERED: 0.9 % Sodium Chloride Mini Bag 100 ML ONE (16:34)
[2018-10-23] MEDS ORDERED: Insulin LISPRO 300 UNITS/3 ML VIAL SQ SCH (21:00)
[2018-10-23] MEDS ORDERED: risperiDONE 0.25 MG TABLET PO SCH (21:00)
[2018-10-23] MEDS ORDERED: Melatonin 3 MG TABLET PO SCH (21:00)
[2018-10-24] MEDS: *HR* Heparin 5,000 UNIT/ML VIAL SQ SCH (05:23)
[2018-10-24] MEDS: BuPROPion SR (12 HR) 150 MG TABLET PO SCH (08:53)
[2018-10-24] MEDS: risperiDONE 0.25 MG TABLET PO SCH (08:54)
[2018-10-24] MEDS: Gabapentin 100 MG CAPSULE PO SCH (08:54)
[2018-10-24] MEDS: Aspirin Enteric Coated 81 MG Tablet PO SCH (08:54)
[2018-10-24] MEDS: Insulin DETEMIR 100 UNIT/ML X5UNITS SQ SCH (09:02)
[2018-10-24] MEDS: Insulin LISPRO 300 UNITS/3 ML VIAL SQ SCH ×3 (09:07→17:37)
[2018-10-24 10:44] VITALS: BP 138/81
--- NOTE | 2018-10-24 11:16 | Internal Med Progress Note ---
Hospitalist Progress Note - Encounter Date of Encounter: 10/24/18 Time of Encounter: 09:10 - Subjective Interval History: Patient lying down in bed. Comfortable. Denies any new complaints at this time. No fever or chills reported overnight. No dysuria or hematuria. No diarrhea reported. - Exam Vitals: Temp Pulse Resp BP Pulse Ox 98.0 F 55 16 138/81 98 10/24/18 10:39 10/24/18 10:39 10/24/18 10:39 10/24/18 10:39 10/24/18 10:39 - Assessment and Plan (1) Urinary tract infection Current Visit: Yes Status: Acute (2) Diabetes Current Visit: Yes Status: Chronic (3) DVT prophylaxis Current Visit: No Status: Acute (4) Chronic kidney disease, stage III (moderate) Current Visit: No Status: Chronic (5) Hallucination Current Visit: Yes Status: Resolved - Time Spent with Patient Total time spent is greater than 50% in coordination of care (as documented) at patient's floor/unit and/or counseling patient: Internal Medicine: Result - Labs CBC & Chem 7: 10/23/18 06:42 10/23/18 06:42 Consult Discharge Plan - Plan Referrals: Griffin Ochoa MD [Primary Care Provider] - (1) Urinary tract infection Qualifiers: Urinary tract infection type: acute cystitis Hematuria presence: without hematuria Qualified Code(s): N30.00 - Acute cystitis without hematuria (2) Diabetes Qualifiers: Diabetes mellitus type: type 2 Diabetes mellitus outpatient surgery rn insulin use: with outpatient surgery rn use Diabetes mellitus complication status: with kidney complications Diabetes mellitus complication detail: with chronic kidney disease Chronic kidney disease stage: stage 4 (severe) Qualified Code(s): 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
--- NOTE | 2018-10-24 12:57 | Discharge Summary ---
- NOTES TO OUTPATIENT PROVIDER Notes to Outpatient Provider: Patient hospitalized here after she was found to have urine cultures positive for MDR Proteus mirabilis. Patient was treated with IV ertapenem here. She is now doing better and is clinically stable to be discharged home. She will be discharged on oral fosfomycin. 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 Daugherty is a 78 year old female Patient hospitalized here after she was found to have urine cultures positive for MDR Proteus mirabilis. Patient was treated with IV ertapenem here. She is now doing better and is clinically stable to be discharged home. She will be discharged on oral fosfomycin. Discharge discussed with: patient, nurse - Time Spent with Patient Total time spent providing and/or coordinating discharge services: Time spent: Less than 30 minutes (25min) - Discharge Medications Prescriptions: New Fosfomycin Tromethamine [Monurol] 3 gm PO ONCE #1 packet Continued BuPROPion SR (12 HR) [Wellbutrin SR] 150 mg PO BID Cholecalciferol (D-3) [Vitamin D] 5,000 unit PO DAILY Clopidogrel [Plavix] 75 mg PO DAILY Gabapentin [Neurontin] 200 mg PO BID Carvedilol [Coreg] 6.25 mg PO BID Atorvastatin Calcium [Lipitor] 20 mg PO HS Insulin Glargine,Hum.rec.anlog [Lantus Solostar] 15 unit SQ HS Melatonin [Melatin] 3 mg PO HS risperiDONE [Risperdal] 0.25 mg PO QAM Oxybutynin [Ditropan] 5 mg PO HS Furosemide [Lasix] 20 mg PO DAILY Aspirin [Lo-Dose Aspirin EC] 81 mg PO DAILY Insulin ASPART [NovoLOG] 0 units SQ ACHS Home Medications: BuPROPion SR (12 HR) [Wellbutrin SR] 150 mg PO BID 06/12/16 [History] Cholecalciferol (D-3) [Vitamin D] 5,000 unit PO DAILY 06/12/16 [History] Clopidogrel [Plavix] 75 mg PO DAILY 06/12/16 [History] Atorvastatin Calcium [Lipitor] 20 mg PO HS 09/24/17 [History] Carvedilol [Coreg] 6.25 mg PO BID 09/24/17 [History] Gabapentin [Neurontin] 200 mg PO BID 09/24/17 [History] Insulin Glargine,Hum.rec.anlog [Lantus Solostar] 15 unit SQ HS 11/09/17 [History] Melatonin [Melatin] 3 mg PO HS 11/09/17 [History] risperiDONE [Risperdal] 0.25 mg PO QAM 11/09/17 [History] Furosemide [Lasix] 20 mg PO DAILY 04/29/18 [History] Oxybutynin [Ditropan] 5 mg PO HS 04/29/18 [History] Aspirin [Lo-Dose Aspirin EC] 81 mg PO DAILY 04/30/18 [History] Insulin ASPART [NovoLOG] 0 units SQ ACHS 07/26/18 [History] Fosfomycin Tromethamine [Monurol] 3 gm PO ONCE #1 packet 10/24/18 [Rx] Allergies/Adverse Reactions: Allergy/AdvReac Type Severity Reaction Status Date / Time Penicillins Allergy Hives Verified 10/23/18 11:11 Date of admission: 10/22/18 23:38 Primary care physician: Griffin Ochoa MD Consults: 10/22/18 20:51 Consult to Commercial Illustrator [CONS] Routine Reason for SW Consult: potential need for home health 09/06/19 23:32 Consult to Wound Care [CONS] Routine Reason for Consult: Pt has had a pressure ulcer for at least 1 year. Call Completed: No Discharging clinician: Ty Moya Anticipated date of discharge: 10/24/18 - Constitutional Vitals: Temp Pulse Resp BP Pulse Ox 98.0 F 55 16 138/81 98 10/24/18 10:39 10/24/18 10:39 10/24/18 10:39 10/24/18 10:39 10/24/18 10:39 General appearance: Present: cooperative, A&O X 3, pleasant, no acute distress, answers questions appropriately Exam: General: Patient is alert, no acute distress, oriented x 3 Respiratory: Good respiratory effort. Normal breath sounds. No wheezing or crackles. Cardiovascular: Regular rate and rhythm. s1 and s2 normal No clicks, rubs, gallops, or murmurs. No pedal edema Abdomen: Abdomen is soft, nontender. Bowel sounds are present Musculoskeletal: Spontaneously moving all extremities Skin: warm, dry, intact. Neuro: Alert oriented x 3 normal cranial nerves, no focal deficits - Patient Status Disposition: Home, Self-Care Condition: Good Functional capacity at discharge: independent ambulation Overall status at discharge: patient is progressing back to baseline - Discharge Instructions Instructions: Urinary Tract Infection in Women (DC), Diabetes Mellitus Type 2 in Adults (DC) Follow Up With: Griffin Ochoa MD [Primary Care Provider] - (in 1 week) - Diet and Activity Activity: increase activity as tolerated Diet: advance to your usual diet, diabetic diet, low fat, low cholesterol, low salt diet
--- NOTE | 2018-10-24 13:08 | Physician Discharge Referral ---
Home Health/Hosp Referral Info Transfer to: Home Health Provider in Charge Post Discharge: PCP - Diagnosis (1) Urinary tract infection Priority: Primary Status: Acute (2) Diabetes Priority: Secondary Status: Chronic (3) DVT prophylaxis Priority: Secondary Status: Acute (4) Chronic kidney disease, stage III (moderate) Priority: Secondary Status: Chronic (5) Hallucination Priority: Secondary Status: Resolved - Respiratory Orders Smoking Cessation: Smoking cessation has been advised. For more information, call the [place] Tobacco Quit Line at 1-815-ZWOK-NOW. - Diet/Nutrition Diet/Nutrition Orders: No Added Salt (ESSENCE), Cardiac, No Concentrated Sweets - Activity Activity Orders: Walker (with assist) - Services Needed Following services are medically necessary services: Nursing, Home Health Aide - Transfer Medications Prescriptions: Fosfomycin Tromethamine [Monurol] 3 gm PO ONCE #1 packet Home Medications: BuPROPion SR (12 HR) [Wellbutrin SR] 150 mg PO BID 06/12/16 [History] Cholecalciferol (D-3) [Vitamin D] 5,000 unit PO DAILY 06/12/16 [History] Clopidogrel [Plavix] 75 mg PO DAILY 06/12/16 [History] Atorvastatin Calcium [Lipitor] 20 mg PO HS 09/24/17 [History] Carvedilol [Coreg] 6.25 mg PO BID 09/24/17 [History] Gabapentin [Neurontin] 200 mg PO BID 09/24/17 [History] Insulin Glargine,Hum.rec.anlog [Lantus Solostar] 15 unit SQ HS 11/09/17 [History] Melatonin [Melatin] 3 mg PO HS 11/09/17 [History] risperiDONE [Risperdal] 0.25 mg PO QAM 11/09/17 [History] Furosemide [Lasix] 20 mg PO DAILY 04/29/18 [History] Oxybutynin [Ditropan] 5 mg PO HS 04/29/18 [History] Aspirin [Lo-Dose Aspirin EC] 81 mg PO DAILY 04/30/18 [History] Insulin ASPART [NovoLOG] 0 units SQ ACHS 07/26/18 [History] Fosfomycin Tromethamine [Monurol] 3 gm PO ONCE #1 packet 10/24/18 [Rx] Allergies/Adverse Reactions: Allergy/AdvReac Type Severity Reaction Status Date / Time Penicillins Allergy Hives Verified 10/23/18 11:11 Certification: Further, I certify that my clinical findings support that this patient is homebound (i.e. absences from home require considerable and taxing effort and are for medical reasons or [facility] or infrequently or short duration when for other reasons) because: Homebound Reason: Patient requires assistance of a person or device to safely leave home Attestation: My signature below is to certify that this patient is under my care and that I, or nurse practitioner, or a physician's recruiting assistant working with me, has a [id number] encounter with this patient.
[2018-10-24] MEDS ORDERED: 0.9 % Sodium Chloride Mini Bag 100 ML ONE (16:40)
== END 2018-10-24 18:45 | disposition home or self-care (01) ==
LOC: EMEROOARM 15:54 → 3ANU 15:54 → SUATTDRO 23:38
PROVIDERS: ADMIT Internal Medicine; ATTEND Internal Medicine